=== PATIENT | male | born 1975 | race Caucasian/White ===

== ENCOUNTER 2020-08-09 00:02 | Inpatient (IN) | payer MEDICAID, SELFPAY ==
[2020-08-09] VITALS (14 sets, daily range): BP systolic 130–183; BP diastolic 72–97; PULSE 65–90; RESP 16–20; TEMP 36.3–37.3; O2SAT 94–100; BMI 29.0
--- NOTE | 2020-08-09 | MR_ITS ---
EXAMINATION: MR CHOLANGIOPANCREATOGRAPHY CLINICAL INFORMATION: Reason for Exam acute pancreatitis ? retained stone COMPARISON: None. TECHNIQUE: Multiple routine MRI sequences through the abdomen were obtained. Heavily T2-weighted images were performed utilizing a dedicated MRCP technique. Contrast was not utilized for the study. FINDINGS: Biliary system: The common bile duct is normal in course measuring up to 0.4 cm with no evidence for intra-or extrahepatic biliary ductal dilatation. No intraluminal filling defects are appreciated. There is a focal tapered narrowing of the common bile duct in the region of the pancreatic head/neck possibly reflecting sequela of underlying pancreatitis in this region Gallbladder: Surgically absent. Liver parenchyma is homogeneous in signal with no focal hepatic lesion appreciated. Pancreas: There is loss of normal pancreatic T1 bright signal within the pancreatic head and mid body more likely reflecting sequela of pancreatitis. There is peripancreatic fluid and edema again more so in the region of the pancreatic head. The peripancreatic fluid tracks along the anterior pararenal space on the right. I do not appreciate any obstructive changes to the normal caliber pancreatic duct. No visualized abnormalities are seen in the kidneys, adrenals, or spleen. MR/MR MRCP IMPRESSION: Loss of normal pancreatic signal in the pancreatic head with surrounding peripancreatic inflammatory changes and fluid suggesting sequela of pancreatitis. There is tapered narrowing of the common bile duct in the region the pancreatic head/neck also likely reflecting underlying pancreatitis. I do not appreciate any intraluminal filling defects within the common bile duct itself to suggest retained stone.
--- NOTE | 2020-08-09 00:35 | XR_ITS ---
EXAMINATION: XR CHEST CLINICAL INFORMATION: Cough and fever. Right upper quadrant pain. COMPARISON: 09/12/2015 TECHNIQUE: Frontal view of the chest was obtained. FINDINGS: Cardiac leads overlie the chest. The lungs are well expanded. There is no focal consolidation, edema, or effusion. No pneumothorax. The cardiomediastinal silhouette is within normal limits. No acute osseous abnormality. XR/XR chest 1V IMPRESSION: Clear lungs.
--- NOTE | 2020-08-09 00:35 | CT_ITS ---
EXAMINATION: CT ABDOMEN AND PELVIS WITH CONTRAST CLINICAL INFORMATION: Right upper quadrant/right flank pain. COMPARISON: 03/07/2014 TECHNIQUE: Multidetector volumetric images were obtained from the superior aspect of the liver through the pubic symphysis following administration 85 mL of Omnipaque 350 intravenous contrast. Sagittal and coronal reformatted images were obtained on the technologist's workstation. Oral contrast: No This CT examination was performed using dose optimization techniques as appropriate, variously including the following: *Automated exposure control *Adjustment of mA and/or kV according to patient size (this includes techniques or standardized protocols for targeted exams where dose is matched to indication/reason for exam; i.e. extremities or head) *Use of iterative reconstruction technique DLP: 491 mGy-cm FINDINGS: LUNG BASES: The visualized lung bases are unremarkable. LIVER, GALLBLADDER, AND BILIARY TREE: The liver is normal in size, shape, and attenuation. No focal hepatic lesion or biliary ductal dilatation is present. Cholecystectomy. PANCREAS: The pancreatic parenchyma is homogenous. There is inflammatory stranding in the fat surrounding the pancreatic head. No fluid collection. No pancreatic ductal dilatation. SPLEEN: Unremarkable. ADRENAL GLANDS: Unremarkable. KIDNEYS AND URETERS: The kidneys are normal in size, shape, and attenuation. No hydronephrosis, hydroureter, or calculi seen. No perinephric stranding. BLADDER: Unremarkable. GASTROINTESTINAL TRACT: The stomach is unremarkable. Normal caliber small bowel. There is no obstruction. Normal appendix. No colonic wall thickening or acute inflammatory change. No free air. No free fluid. Minimal colonic diverticulosis at the sigmoid colon noted. ABDOMINAL WALL: No significant hernia is appreciated. LYMPH NODES: Normal. VASCULAR: Unremarkable. PELVIC VISCERA: The prostate and seminal vesicles are unremarkable. OSSEOUS STRUCTURES: No acute or suspicious osseous abnormality. Mild degenerative changes noted in the spine. CT/CT abdomen pelvis w con IMPRESSION: Inflammatory changes are seen in the fat surrounding the pancreatic head. Correlate for acute pancreatitis. No fluid collection.
--- NOTE | 2020-08-09 00:36 | ECG_ITS ---
Test Reason : ABD PAINN Blood Pressure : / mmHG Vent. Rate : 064 BPM Atrial Rate : 064 BPM P-R Int : 154 ms QRS Dur : 094 ms QT Int : 422 ms P-R-T Axes : 068 -05 023 degrees QTc Int : 435 ms Normal sinus rhythm Normal ECG When compared with ECG of 01-OCT-2015 23:31, T wave inversion now evident in Inferior leads Referred By: Jozef Ybarra Electronically Signed By:TIMOTEO JOHN MD
--- NOTE | 2020-08-09 00:38 | ED.GENADULT ---
HPI - General Adult General Chief complaint: General Medical Stated complaint: Cough Time Seen by Provider: 08/09/20 00:17 Source: patient Mode of arrival: ambulatory Limitations: language barrier (relationship executive used to obtain information) History of Present Illness HPI narrative: 45-year-old male who presents the emergency department for evaluation of abdominal pain, back pain, chills, cough. Patient states that this morning at 10:00 a.m. he developed right upper quadrant pain he states that the pain is a constant, stabbing pain which is 10/10. The pain does radiate to his right flank. He states the had chills and subjective fever associated with his pain. The patient had a cholecystectomy 7 months prior done at [facility] and he states the pain feels similar to his gallbladder pain. The patient states that he has had a decreased appetite but has been able to drink fluids and eat soup throughout the day. Patient had nausea but this is now resolved. He denied vomiting. He denied diarrhea. He states he has had a cough since this morning which is nonproductive. He denied shortness of breath or dyspnea on exertion. He denied frequency, urgency or dysuria. The patient was tested for COVID-19 1 week prior and was negative. He states that he had a history of drinking alcohol but stopped after his cholecystectomy. He states that he was told that alcohol was affecting his liver and his pancreas. Related Data Allergies Allergy/AdvReac Type Severity Reaction Status Date / Time No Known Allergies Allergy Unverified 04/15/20 17:38 Review of Systems Review of Systems: Yes all other systems are reviewed and are negative Neurologic: Reports Abnormal speech present [facility] Past Medical History [facility] Narrative: The patient has a history of diabetes mellitus, hypertension, pancreatitis, cholecystectomy. He is . He is a former drinker but states he has not had any alcohol to drink in 7 months. He denies tobacco and drug use. Medical History (Updated 08/09/20 @ 05:17 by Jozef Ybarra MD) Diabetes HTN (hypertension) Social History Social History Smoking Status: Current every day smoker Advance Directives: No Physical Exam Vital Signs: Vital Signs: Last Vital Signs Temp 99.1 F 08/09/20 00:17 Pulse 65 08/09/20 02:00 Resp 18 08/09/20 03:34 BP 160/96 H 08/09/20 02:00 Pulse Ox 100 08/09/20 02:00 Body Mass Index 29.0 Const: General: cooperative and healthy appearing Orientation/consciousness: oriented to person and oriented to place Limitations: no limitations HENMT: Head: Yes normal to inspection, Yes normocephalic and Yes atraumatic Ears: external ears normal General nose exam: Normal external nose present Face and sinus: Yes normal facial exam Mouth: Normal oral and palatal mucosa present Throat: Yes posterior oropharynx normal Eyes: Periorbital: periorbital findings normal Eyelids: Yes eyelids normal Conjunctivae: conjunctivae normal Sclerae: sclerae normal Corneas: corneas normal Pupils: Equal, round and reactive pupils present Direct Ophthalmoscopy: normal light reflex Neck: Neck: Yes full ROM, Yes no lymphadenopathy, Yes no meningeal signs, Yes trachea midline and Yes supple Chest: Chest palpation & inspection: normal inspection of the chest and normal palpation of entire chest wall Resp: Effort & Inspection: normal respiratory effort and able to speak in complete sentences Auscultation: clear to auscultation bilaterally Cardio: Rate: regular rate Rhythm: regular rhythm Heart sounds: S1 normal heart sound present, S2 normal heart sound present and no murmurs GI: Inspection: Yes normal to inspection Palpation (GI): Soft to palpation, Tenderness to palpation present (GI) (Moderate) in the RUQ, no guarding, not rigid and No hepatosplenomegaly present : General: Yes CVA tenderness on the right (Moderate) Back/Spine/Pelvis: Cervical Spine: normal cervical lordosis Thoracic/Lumbar Spine: thoracic and lumbar spine normal to inspection Skin: Lesions: no lesions Rashes: no rashes Wounds: no wounds Neuro: General: oriented to person, oriented to place and no meningeal signs Cranial nerves: Yes Equal, round and reactive pupils present Cognition (Neuro): normal cognition Speech: Abnormal speech present Motor exam (neuro): 5/5 motor strength present throughout Extrem: General: Yes normal to inspection and Yes full ROM Psych: Appearance: well kempt Mental Status: mental status grossly normal Speech and movement: Normal speech and movement present Affect: normal affect Attitude: cooperative Thought process: Normal thought process present Thought content: Normal thought content present Course Course Course Narrative: 45-year-old male who presents emergency department for evaluation right upper quadrant abdominal pain, fever, chills and cough. Physical examination did reveal right upper quadrant tenderness as well as right flank tenderness. I did order an abdominal workup to include CT of the abdomen pelvis with IV contrast, chest x-ray, EKG, and laboratory evaluation. The patient was treated with Toradol 30 mg IV, Zofran 4 mg IV and normal saline x1 L. 0510: Patient's laboratory evaluation revealed an elevated glucose of 300, elevated AST of 65, elevated alk-phos of 152, elevated bilirubin of 1.2. Lipase was elevated as well at 106. CT scan did reveal inflammation around the patient's pancreas suggested as acute appendicitis as the causes pain. The patient got no relief of his pain with Toradol or morphine IV. He was ordered to get Dilaudid 1 mg IV. I will discuss the patient's presentation with the covering hospitalist the patient will need to be admitted for IV fluid and pain management. 0515: I did discuss the patient's presentation with the covering hospitalist, and the patient will be admitted for further treatment. Medical Decision Making Lab Data Result diagrams: 08/09/20 00:52 08/09/20 00:52 Labs: Lab Results 08/09/20 08/09/20 08/09/20 Range/Units 00:48 00:52 00:52 WBC 10.9 H (4.8-10.8) X10*3/uL RBC 4.58 L (4.60-5.80) X10*6/uL Hgb 14.2 (14.0-18.0) g/dl Hct 40.4 L (42-52) % MCV 88.2 (80-98) fL MCH 31.0 (27.0-33.0) pg MCHC 35.1 (31.0-36.0) g/dl RDW 12.3 (11.0-16.0) % Plt Count 230 (160-400) X10*3/uL MPV 10.5 (9.4-12.4) fL Immature Gran % (Auto) 0.3 (0.0-0.4) % Neut % (Auto) 75.5 H (45-73) % Lymph % (Auto) 17.0 L (20-40) % Finney % (Auto) 6.7 (2-11) % Eos % (Auto) 0.2 (0-4) % Baso % (Auto) 0.3 (0-2) % Lymph # (Auto) 1.8 (1.2-4.9) X10*3/uL Finney # (Auto) 0.7 (0.1-1.2) X10*3/uL Eos # (Auto) 0.0 (0.0-0.4) X10*3/uL Baso # (Auto) 0.0 (0.0-0.2) X10*3/uL Abs Immat Gran (auto) 0.03 (0.00-0.03) X10*3/uL Absolute Neuts (auto) 8.2 (2.0-8.3) X10*3/uL Absolute Nucleated RBC 0.000 (0.0-0.012) X10*3/uL Nucleated RBC % (auto) 0.0 (0.0-0.2) /100WBC PT 11.1 (10.8-13.0) SEC INR 0.9 (0.9-1.1) APTT 31.3 (24.1-38.0) SEC Sodium (135-145) mmol/L Potassium (3.3-5.1) mmol/l Chloride (96-108) mmol/L Carbon Dioxide (22-29) mmol/L Anion Gap (12-20) BUN (9-16) mg/dL Creatinine (0.5-1.4) mg/dL Estim Creat Clear Calc Estimated GFR Random Glucose (60-115) mg/dL Calcium (8.4-10.2) mg/dL Total Bilirubin (0.0-1.0) mg/dL AST (5-37) U/L ALT (0-40) U/L Alkaline Phosphatase (39-117) U/L Total Protein (6.5-8.0) g/dL Albumin (3.5-5.0) g/dL Lipase (8-78) U/L Coronavirus (PCR) NEGATIVE (Negative) Influenza Type A (PCR) NEGATIVE (Negative) Influenza Type B (PCR) NEGATIVE (Negative) RSV RNA Qual (PCR) NEGATIVE (Negative) 08/09/20 Range/Units 00:52 WBC (4.8-10.8) X10*3/uL RBC (4.60-5.80) X10*6/uL Hgb (14.0-18.0) g/dl Hct (42-52) % MCV (80-98) fL MCH (27.0-33.0) pg MCHC (31.0-36.0) g/dl RDW (11.0-16.0) % Plt Count (160-400) X10*3/uL MPV (9.4-12.4) fL Immature Gran % (Auto) (0.0-0.4) % Neut % (Auto) (45-73) % Lymph % (Auto) (20-40) % Finney % (Auto) (2-11) % Eos % (Auto) (0-4) % Baso % (Auto) (0-2) % Lymph # (Auto) (1.2-4.9) X10*3/uL Finney # (Auto) (0.1-1.2) X10*3/uL Eos # (Auto) (0.0-0.4) X10*3/uL Baso # (Auto) (0.0-0.2) X10*3/uL Abs Immat Gran (auto) (0.00-0.03) X10*3/uL Absolute Neuts (auto) (2.0-8.3) X10*3/uL Absolute Nucleated RBC (0.0-0.012) X10*3/uL Nucleated RBC % (auto) (0.0-0.2) /100WBC PT (10.8-13.0) SEC INR (0.9-1.1) APTT (24.1-38.0) SEC Sodium 134 L (135-145) mmol/L Potassium 4.0 (3.3-5.1) mmol/l Chloride 98 (96-108) mmol/L Carbon Dioxide 24 (22-29) mmol/L Anion Gap 16 (12-20) BUN 21 H (9-16) mg/dL Creatinine 0.87 (0.5-1.4) mg/dL Estim Creat Clear Calc 107.5 Estimated GFR > 60 Random Glucose 300 H (60-115) mg/dL Calcium 8.9 (8.4-10.2) mg/dL Total Bilirubin 1.2 H (0.0-1.0) mg/dL AST 32 (5-37) U/L ALT 65 H (0-40) U/L Alkaline Phosphatase 154 H (39-117) U/L Total Protein 7.5 (6.5-8.0) g/dL Albumin 4.0 (3.5-5.0) g/dL Lipase 186 H (8-78) U/L Coronavirus (PCR) (Negative) Influenza Type A (PCR) (Negative) Influenza Type B (PCR) (Negative) RSV RNA Qual (PCR) (Negative) Discharge Plan Discharge Clinical Impression: Acute pancreatitis Patient Disposition: Admitted As Inpatient
[2020-08-09] MEDS: Ketorolac Tromethamine 30 MG/ML VIAL IVPUSH (00:54)
[2020-08-09] MEDS: 0.9 % Sodium Chloride 1,000 ML 999 ML IV ×2 (00:55→05:25)
[2020-08-09 00:56] LABS: Basophils Percent Auto 0.3 % (0-2); Eosinophils Percent Auto 0.2 % (0-4); Hematocrit 40.4 % (42-52); Hemoglobin 14.2 g/dl (14.0-18.0); Imm Gran Abs Auto 0.03 X10*3/uL (0.00-0.03); Imm Gran Pct Auto 0.3 % (0.0-0.4); Lymphocytes Absolute Auto 1.8 X10*3/uL (1.2-4.9); MANUAL DIFF FLAG NO; Mean Corpuscular HGB Conc 35.1 g/dl (31.0-36.0); Mean Corpuscular Volume 88.2 fL (80-98); Mean Platelet Volume 10.5 fL (9.4-12.4); Monocytes Absolute Auto 0.7 X10*3/uL (0.1-1.2); Monocytes Percent Auto 6.7 % (2-11); Neutrophils Absolute Auto 8.2 X10*3/uL (2.0-8.3); Neutrophils Percent Auto 75.5 % (45-73); Platelet Count 230 X10*3/uL (160-400); Red Blood Count 4.58 X10*6/uL (4.60-5.80); Red Cell Distribution Width 12.3 % (11.0-16.0); White Blood Count 10.9 X10*3/uL (4.8-10.8)
[2020-08-09 01:02] LABS: INTERNATIONAL NORM RATIO 0.9 (0.9-1.1); Prothrombin Time 11.1 SEC (10.8-13.0)
[2020-08-09 01:04] LABS: Partial Thromboplastin Time 31.3 SEC (24.1-38.0)
[2020-08-09 01:29] LABS: Alanine Aminotransferase 65 U/L (0-40); Alkaline Phosphatase 154 U/L (39-117); Anion Gap 16 (12-20); Aspartate Amino Transferase 32 U/L (5-37); Bilirubin Total 1.2 mg/dL (0.0-1.0); Blood Urea Nitrogen 21 mg/dL (9-16); Calcium 8.9 mg/dL (8.4-10.2); Carbon Dioxide 24 mmol/L (22-29); Chloride 98 mmol/L (96-108); Creatinine Clr Calc Pharmacy 107.5; Estimated Glomerular Filt Rate > 60; Glucose Random 300 mg/dL (60-115); Sodium 134 mmol/L (135-145); Total Protein 7.5 g/dL (6.5-8.0)
[2020-08-09 01:42] LABS: Influenza A PCR NEGATIVE (Negative); Influenza B PCR NEGATIVE (Negative); Resp Syncy Virus RNA Qual PCR NEGATIVE (Negative); SARS COV2 PCR INHOUSE NEGATIVE (Negative)
[2020-08-09 01:42] LABS: Lipase 186 U/L (8-78)
[2020-08-09] MEDS: iohexoL 350 MG/ML 100 ML INFUS..BTL 85 ML IV (02:57)
[2020-08-09] MEDS: Morphine Sulfate 4 MG/ML CARTRIDGE IVPUSH ×3 (03:05→15:18)
[2020-08-09] MEDS: HYDROmorphone HCl 1 MG/ML SYRINGE IVPUSH (05:24)
--- NOTE | 2020-08-09 06:06 | PM.IMHP ---
History of Present Illness Date of Service: 08/09/20 Chief Complaint: abdominal pain This is a 45-year-old male with past medical history of pancreatitis 7 months ago, status post cholecystectomy who presents to the hospital with right upper quadrant pain radiating to the back, the pain started yesterday morning, 10, sharp stabbing, associated with nausea and no vomiting, no worsening or alleviating factors. He denies drinking alcohol for the past 7 months and reports had a cholecystectomy about 7 months ago after developing acute pancreatitis at [facility]. He denies any headache, change in vision, no chest pain, no cough, no shortness of breath, no urinary symptoms and no lower extremity edema. On arrival to the ED hemodynamically stable with no significant abnormal vitals, Labs are significant for WBC count of 10.9, hemoglobin of 14.2, hematocrit 40.4, sodium of 134, potassium 4.0, BUN of 21, creatinine of 0.87, total bili of 1.2, ALT of 65, AST of 32, alk-phos of 154, lipase of 186. Abdomen CT shows inflammatory changes are seen in the fat surrounding the pancreatic head correlate for acute pancreatitis. Past medical history: Diabetes, hypertension, pancreatitis Surgical history: Status post cholecystectomy Family history: Diabetes hypertension Social history: Comes from home, denies any tobacco alcohol or illicit drugs at this time. Last alcoholic drink was 7 months ago. Review of Systems Review of Systems: Yes all other systems are reviewed and are negative Neurologic: Reports Abnormal speech present [facility] Medical History Diabetes HTN (hypertension) Social History Smoking Status: Current every day smoker Advance Directives: No Meds Allergies Allergy/AdvReac Type Severity Reaction Status Date / Time No Known Allergies Allergy Unverified 04/15/20 17:38 Physical Exam Vital Signs and Narrative: Vital Signs: Last Vital Signs Temp 99.1 F 08/09/20 00:17 Pulse 68 08/09/20 05:26 Resp 18 08/09/20 05:26 BP 156/80 H 08/09/20 05:26 Pulse Ox 100 08/09/20 02:00 Body Mass Index 29.0 Const: General: cooperative and no acute distress Orientation/consciousness: patient oriented x3 Eyes: General: appearance normal, both eyes and all related structures Resp: Effort & Inspection: normal respiratory effort and able to speak in complete sentences Cardio: Rate: regular rate Rhythm: regular rhythm GI: Other: Abdominal tenderness, epigastric, right upper quadrant tenderness, no rebound, no guarding Palpation (GI): Soft to palpation Auscultation: normal bowel sounds Skin: General skin exam: no rashes or lesions noted Neuro: General: patient oriented x3 Cognition (Neuro): normal cognition Speech: Abnormal speech present Extrem: General: Yes normal to inspection and Yes no pedal edema Results Labs CBC and Chem 7: 08/09/20 00:52 08/09/20 00:52 Labs: Laboratory Results - last 24 hr 08/09/20 08/09/20 08/09/20 00:48 00:52 00:52 MCV 88.2 MCH 31.0 MCHC 35.1 RDW 12.3 Plt Count 230 MPV 10.5 Immature Gran % (Auto) 0.3 Neut % (Auto) 75.5 H Lymph % (Auto) 17.0 L Ector % (Auto) 6.7 Eos % (Auto) 0.2 Baso % (Auto) 0.3 Lymph # (Auto) 1.8 Ector # (Auto) 0.7 Eos # (Auto) 0.0 Baso # (Auto) 0.0 Abs Immat Gran (auto) 0.03 Absolute Neuts (auto) 8.2 Absolute Nucleated RBC 0.000 Nucleated RBC % (auto) 0.0 PT 11.1 INR 0.9 APTT 31.3 Anion Gap Estim Creat Clear Calc Estimated GFR Random Glucose Calcium Total Bilirubin AST ALT Alkaline Phosphatase Total Protein Albumin Lipase Coronavirus (PCR) NEGATIVE Influenza Type A (PCR) NEGATIVE Influenza Type B (PCR) NEGATIVE RSV RNA Qual (PCR) NEGATIVE 08/09/20 00:52 MCV MCH MCHC RDW Plt Count MPV Immature Gran % (Auto) Neut % (Auto) Lymph % (Auto) Ector % (Auto) Eos % (Auto) Baso % (Auto) Lymph # (Auto) Ector # (Auto) Eos # (Auto) Baso # (Auto) Abs Immat Gran (auto) Absolute Neuts (auto) Absolute Nucleated RBC Nucleated RBC % (auto) PT INR APTT Anion Gap 16 Estim Creat Clear Calc 107.5 Estimated GFR > 60 Random Glucose 300 H Calcium 8.9 Total Bilirubin 1.2 H AST 32 ALT 65 H Alkaline Phosphatase 154 H Total Protein 7.5 Albumin 4.0 Lipase 186 H Coronavirus (PCR) Influenza Type A (PCR) Influenza Type B (PCR) RSV RNA Qual (PCR) Imaging Radiologist's Impressions: Impressions Abdomen/Pelvis CT 08/09/20 00:35 IMPRESSION: Inflammatory changes are seen in the fat surrounding the pancreatic head. Correlate for acute pancreatitis. No fluid collection. Chest X-Ray 08/09/20 00:35 IMPRESSION: Clear lungs. Assessment and Plan (1) Acute pancreatitis: Qualifiers: Pancreatitis type: idiopathic Acute pancreatitis complication: no infection or necrosis Qualified Code(s): K85.00 - Idiopathic acute pancreatitis without necrosis or infection Status: Acute 45-year-old male with past medical history of pancreatitis, diabetes and hypertension who presents to the hospital with abdominal pain found to have pancreatitis # acute pancreatitis - had history of cholecystitis with status post cholecystectomy 7 months ago - denies alcohol use, - has elevated lipase, CT abdomen suggestive of acute pancreatitis and typical abdominal pain Plan: - will obtain triglyceride levels - IV fluids - NPO - pain management # diabetes - MED review pending - will start on low-dose sliding scale insulin - diabetic diet # hypertension - stable DVT prophylaxis: Lovenox
[2020-08-09 06:44] LABS: Glucose Urine UA 500 MG/DL (NEG); Leukocyte Esterase Urine NEG (NEG); Nitrite Urine NEG (NEG); Urine Blood NEG (NEG); Urine Ketones NEG (NEG); Urine Protein NEG (NEG-TRACE)
[2020-08-09 06:59] LABS: Appearance Urine CLEAR; Color Urine YELLOW
[2020-08-09 07:04] LABS: Triglycerides 354 mg/dL
[2020-08-09] MEDS: Enoxaparin Sodium 40 MG/0.4 ML SYRINGE SUBCUT (09:52)
[2020-08-09] MEDS: 0.9 % Sodium Chloride 1,000 ML 200 ML IVCONT ×2 (09:56→15:13)
[2020-08-09] MEDS: 0.9 % Sodium Chloride Flush 3 ML SYRINGE IVFLUSH ×2 (09:56→17:33)
--- NOTE | 2020-08-09 11:01 | P.CNGI_ITS ---
History of Present Illness Data of Consult Service Date: 08/09/20 Requesting physician: Hitesh Lozoya Primary Care Provider: DO DAMIAN Atwood Reason for consult: acute pancreatitis 45 YM with hypertension, diabetes presented to [facility] [place] [place] ED last night with abdominal pain: 45-year-old male who presents the emergency department for evaluation of abdominal pain, back pain, chills, cough. Patient states that this morning at 10:00 a.m. he developed right upper quadrant pain he states that the pain is a constant, stabbing pain which is 10/10. The pain does radiate to his right flank. He states the had chills and subjective fever associated with his pain. The patient had a cholecystectomy 7 months prior done at [facility] and he states the pain feels similar to his gallbladder pain. The patient states that he has had a decreased appetite but has been able to drink fluids and eat soup throughout the day. Patient had nausea but this is now resolved. He denied vomiting. He denied diarrhea. He states he has had a cough since this morning which is nonproductive. He denied shortness of breath or dyspnea on exertion. He denied frequency, urgency or dysuria. The patient was tested for COVID-19 1 week prior and was negative. He states that he had a history of drinking alcohol but stopped after his cholecystectomy. He states that he was told that alcohol was affecting his liver and his pancreas . Labs showed leukocytosis with left shift, lipase of 186 with elevated LFTs. Pt was admitted for further management. Pt gives hx of sudden onset of epigastric/RUQ pain 2-3 hrs after eating pork with rice and beans yesterday morning. Pain was stabbing and 10/10 in intensity. Pain was accompanied by nausea and chills, patient denies vomiting, heartburn, dysphagia, fever, change in bowel movement, hematochezia or melena. Patient admits to unintentional weight loss of 7 lb over the past 2-3 months. Abdominal pain has improved to 8/10 today. Of note patient had a lap radha 7 months ago at [facility] for gallstones. Abdominal pain is similar to pain he experienced prior to having the lap radha. Patient admits to heavy alcohol abuse in the past and quitted drinking 3 months ago. Patient denies known family history of pancreatic disease, colon polyps, colon cancer or GI malignancy. Family history is positive for diabetes in his mom, sister and brother. ABD CT scan showed: LIVER, GALLBLADDER, AND BILIARY TREE: The liver is normal in size, shape, and attenuation. No focal hepatic lesion or biliary ductal dilatation is present. Cholecystectomy. PANCREAS: The pancreatic parenchyma is homogenous. There is inflammatory stranding in the fat surrounding the pancreatic head. No fluid collection. No pancreatic ductal dilatation. Review of Systems Constitutional: Constitutional: Reports chills, Denies fever(s), Denies headache(s) and Reports weight loss Eyes: Eyes: Denies eye discharge and Denies irritation ENT: Reports Normal hearing present, Denies dysphagia, Denies dizziness and Denies headache(s) Cardiovascular: Cardiovascular: Denies chest pain, Denies leg edema and Denies dyspnea on exertion Respiratory: Respiratory: Denies cough and Denies dyspnea on exertion Gastrointestinal: Gastrointestinal: Reports abdominal pain, Denies change in bowel habits, Denies dysphagia, Denies heartburn and Reports nausea Genitourinary: Genitourinary: Denies dysuria Musculoskeletal: Musculoskeletal: Denies back pain and Denies arthralgias Integumentary/Breasts: Skin/Breast: Denies pruritus, Denies rash and Denies jaundice Neurologic: Reports Normal hearing present, Reports Abnormal speech present, Denies dizziness and Denies headache(s) Psychiatric: Psychiatric: Denies anxiety, Denies depression and Denies panic attacks Endocrine: Endocrine: Denies cold intolerance, Denies flushing and Denies heat intolerance PMFSH Past Medical History Medical History (Updated 09/30/20 @ 07:56 by Lulu Amos MD) Diabetes HTN (hypertension) Surgical History Surgical History (Updated 08/09/20 @ 18:05 by Lulu Amos MD) History of laparoscopic cholecystectomy Social History Social History (Updated 09/30/20 @ 07:50 by Kristin Corral CMA) Household Members: None Housing: Apartment Alcohol intake: never Smoking Status: Former smoker service: No Current occupational status: previously employed 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 [employer] Allergies Allergy/AdvReac Type Severity Reaction Status Date / Time No Known Allergies Allergy Verified 09/30/20 07:47 Home Medications Medication Instructions Recorded Confirmed Type Lantus U-100 Insulin 14 unit SUBCUT QAM 08/09/20 09/30/20 History aspirin [Ecotrin Low Strength] 81 mg PO DAILY 08/09/20 09/30/20 History cholecalciferol (vitamin D3) 50 mcg PO DAILY 08/09/20 09/30/20 History [Vitamin D3] guaifenesin 200 mg PO Q4H PRN 08/09/20 09/30/20 History insulin lispro [Humalog U-100 1 sliding scale dose SUBCUT 08/09/20 09/30/20 History Insulin] USEASDIRECTD lisinopril 5 mg PO DAILY 08/09/20 09/30/20 History multivitamin 1 tab PO DAILY 08/09/20 09/30/20 History Physical Exam Vital Signs: Vital Signs: Last Vital Signs Temp 99.1 F 08/09/20 00:17 Pulse 83 08/09/20 07:28 Resp 17 08/09/20 07:28 BP 130/81 08/09/20 07:28 Pulse Ox 95 08/09/20 07:28 Body Mass Index 29.0 Const: General: healthy appearing and no acute distress Nutritional Appearance: average body habitus Orientation/consciousness: patient oriented x3 Limitations: no limitations HENMT: Head: Yes normal to inspection Ears: hearing grossly normal bilat erally Mouth: Normal oral and palatal mucosa present Eyes: Sclerae: sclerae normal Pupils: Equal, round and reactive pupils present Neck: Neck: Yes normal visual inspection Chest: Chest palpation & inspection: normal inspection of the chest Resp: Effort & Inspection: normal respiratory effort Auscultation: clear to auscultation bilaterally Cardio: Palpation: normal PMI Rate: regular rate Rhythm: regular rhythm Heart sounds: S1 normal heart sound present, S2 normal heart sound present and no murmurs GI: Palpation (GI): Soft to palpation, Tenderness to palpation present (GI) in the epigastrum and in the RUQ and No hepatosplenomegaly present Auscultation: normal bowel sounds Rectal Exam - Male: Yes deferred Skin: General skin exam: no rashes or lesions noted Neuro: General: patient oriented x3, gait normal and moves all extremities Cranial nerves: Yes Equal, round and reactive pupils present and Yes Normal hearing present Speech: Abnormal speech present Psych: Appearance: grossly normal Mental Status: mental status grossly normal Results Labs CBC & Chem 7: 08/11/20 05:53 08/11/20 05:53 Labs: Short CBC 08/09/20 Range/Units 00:52 WBC 10.9 H (4.8-10.8) X10*3/uL Hgb 14.2 (14.0-18.0) g/dl Hct 40.4 L (42-52) % Plt Count 230 (160-400) X10*3/uL BMP 08/09/20 00:52 Sodium 134 L Potassium 4.0 Chloride 98 Carbon Dioxide 24 BUN 21 H Creatinine 0.87 Calcium 8.9 Liver Function 08/09/20 Range/Units 00:52 Total Bilirubin 1.2 H (0.0-1.0) mg/dL AST 32 (5-37) U/L ALT 65 H (0-40) U/L Alkaline Phosphatase 154 H (39-117) U/L Albumin 4.0 (3.5-5.0) g/dL Urine 08/09/20 Range/Units 06:29 Urine Color YELLOW Urine Appearance CLEAR Urine pH 7.0 (5.0-8.0) Ur Specific [place] 1.010 (1.005-1.025) Urine Protein NEG (NEG-TRACE) MG/DL Urine Glucose (UA) 500 H (NEG) MG/DL Assessment and Plan (1) Acute pancreatitis: Qualifiers: Acute pancreatitis complication: no infection or necrosis Pancreatitis type: idiopathic Qualified Code(s): K85.00 - Idiopathic acute pancreatitis without necrosis or infection Status: Resolved (2) Elevated LFTs: Status: Acute (3) Diabetes: Status: Acute 45 YM with DM x 14 yrs, admitted with abdominal pain and elevated LFTs and lipase. Normal triglycerides. CT scan showed inflammatory stranding in the fat surrounding the pancreatic head. Pt is status post Lap Radha 7 months ago for gallstones. Acute pancreatitis is likely due to a retained gallstones or sludge in the CBD. RECOMMENDATIONS: 1. He can be started on a clear liquid diet in the am and diet advanced as tolerated. 2. Schedule for MRCP in the am. IF MRCP shows biliary obstruction, I will schedule him for an ERCP with Dr Morales
[2020-08-09 12:57] LABS: Glucose, Whole Blood 244 mg/dL (60-115)
[2020-08-09 13:39] LABS: Glucose, Whole Blood 221 mg/dL (60-115)
[2020-08-09 15:16] LABS: Glucose, Whole Blood 225 mg/dL (60-115)
[2020-08-09 16:45] LABS: Glucose, Whole Blood 209 mg/dL (60-115)
[2020-08-09] MEDS: Insulin Lispro 100 UNIT/ML 3 ML VIAL SUBCUT ×2 (17:32→20:49)
[2020-08-09] MEDS: amLODIPine Besylate 5 MG TABLET PO (19:17)
[2020-08-09 20:59] LABS: Glucose, Whole Blood 154 mg/dL (60-115)
[2020-08-09] MEDS: 0.9 % Sodium Chloride 1,000 ML 150 ML IVCONT (21:32)
[2020-08-10 03:29] VITALS: BP 150/80; PULSE 96; RESP 19; TEMP 36.8; O2SAT 96
[2020-08-10] MEDS: 0.9 % Sodium Chloride 1,000 ML 150 ML IVCONT ×3 (03:36→16:39)
[2020-08-10 06:38] LABS: MANUAL DIFF FLAG NO
[2020-08-10 06:46] LABS: Basophils Percent Auto 0.2 % (0-2); Eosinophils Percent Auto 0.2 % (0-4); Hematocrit 37.4 % (42-52); Hemoglobin 13.1 g/dl (14.0-18.0); Imm Gran Abs Auto 0.06 X10*3/uL (0.00-0.03); Imm Gran Pct Auto 0.5 % (0.0-0.4); Lymphocytes Absolute Auto 1.4 X10*3/uL (1.2-4.9); Mean Corpuscular Volume 88.4 fL (80-98); Monocytes Absolute Auto 0.7 X10*3/uL (0.1-1.2); Neutrophils Absolute Auto 10.1 X10*3/uL (2.0-8.3); Neutrophils Percent Auto 82.1 % (45-73); Platelet Count 216 X10*3/uL (160-400); Red Blood Count 4.23 X10*6/uL (4.60-5.80); Red Cell Distribution Width 12.1 % (11.0-16.0); White Blood Count 12.3 X10*3/uL (4.8-10.8)
[2020-08-10 07:21] LABS: Anion Gap 15 (12-20); Blood Urea Nitrogen 6 mg/dL (9-16); Calcium 8.2 mg/dL (8.4-10.2); Carbon Dioxide 24 mmol/L (22-29); Chloride 99 mmol/L (96-108); Creatinine Clr Calc Pharmacy 148.5; Estimated Glomerular Filt Rate > 60; Glucose Random 144 mg/dL (60-115); Lipase 51 U/L (8-78); Potassium 3.5 mmol/l (3.3-5.1); Sodium 134 mmol/L (135-145)
[2020-08-10 07:29] LABS: Alanine Aminotransferase 125 U/L (0-40); Albumin Level 3.4 g/dL (3.5-5.0); Alkaline Phosphatase 192 U/L (39-117); Anion Gap 16 (12-20); Aspartate Amino Transferase 76 U/L (5-37); Bilirubin Direct 0.5 mg/dL (0.0-0.5); Bilirubin Total 1.2 mg/dL (0.0-1.0); Blood Urea Nitrogen 5 mg/dL (9-16); Calcium 8.1 mg/dL (8.4-10.2); Carbon Dioxide 24 mmol/L (22-29); Chloride 100 mmol/L (96-108); Creatinine Clr Calc Pharmacy 143.9; Estimated Glomerular Filt Rate > 60; Glucose Random 145 mg/dL (60-115); Potassium 3.5 mmol/l (3.3-5.1); Sodium 136 mmol/L (135-145); Total Protein 6.4 g/dL (6.5-8.0)
[2020-08-10 08:04] LABS: Glucose, Whole Blood 169 mg/dL (60-115)
[2020-08-10] MEDS: Insulin Lispro 100 UNIT/ML 3 ML VIAL SUBCUT ×3 (08:13→20:54)
[2020-08-10] MEDS: Enoxaparin Sodium 40 MG/0.4 ML SYRINGE SUBCUT (08:14)
[2020-08-10] MEDS: amLODIPine Besylate 5 MG TABLET PO (08:14)
--- NOTE | 2020-08-10 10:44 | MHC.CM.PN ---
CM MET WITH PATIENT WITH CAN CUTTER, PT PLAN TO DISCHARGE HOME SELF-CARE, FAMILY/FRIEND TO TRANSPORT. PT REPORTS HE IS INDEPENDENT WITH ALL CARE PRIOR TO HOSPITAL STAY, PT DENIES USE OF DME AT HOME, PT DOES RECEIVE INSULIN SUPPLIES FROM [facility], PT DENIES HOME SERVICES, PT DOES REPORT HE HAS BEEN SOBER FOR 7MOS WHEN HE HAD HIS GALLBLADDER REMOVED, PT DENIES PARTICIPATING IN AA OR ANY OTHER SUBSTANCE ABUSE DETOX/TREATMENT, PT REPORTS SOBRIETY IS GOING WELL AND DECLINE CARE TEAM AT THIS TIME. PT HAS NO HEALTH CARE PROXY AND WHEN OFFERED ASSISTANCE BY CM PT DECLINED. PT TO HAVE MRCP AND DEPENDING ON RESULTS MAY NEED ERCP.
[2020-08-10 11:46] VITALS: BP 137/77; PULSE 92; RESP 18; TEMP 36.9; O2SAT 98
[2020-08-10 12:08] LABS: Glucose, Whole Blood 126 mg/dL (60-115)
[2020-08-10 15:02] VITALS: BP 138/79; PULSE 91; RESP 16; TEMP 36.9; O2SAT 97
--- NOTE | 2020-08-10 15:43 | HO.PM.IMPN ---
Subjective Subjective Date of Service: 08/10/20 Interval History: Patient admitted for pancreatitis feeling better this a.m. asking to eat and MRI of CP of abdomen showed narrowing of common bile duct, no stones noted LFTs mildly elevated, no nausea vomiting, no other acute issues overnight. Review of Systems General no headache, no dizziness, no fever chills. CVS no chest pain, no palpitation. Respiratory no cough, no sputum production no respiratory distress. Gastrointestinal no nausea, no vomiting, no abdominal pain Physical Exam Vital Signs: Vital Signs: Last Vital Signs Temp 98.4 F 08/10/20 15:02 Pulse 91 08/10/20 15:02 Resp 16 08/10/20 15:02 BP 138/79 08/10/20 15:02 Pulse Ox 97 08/10/20 15:02 Body Mass Index 29.0 General patient resting comfortably in no acute distress. Neck is supple no JVD. CVS regular rate rhythm, Respiratory lungs clear to auscultation, no respiratory distress, no wheeze, no rhonchi. Gastrointestinal abdomen soft, nontender, bowel sounds audible, no guarding , no rigidity. Extremities no clubbing cyanosis or edema. Neuro nonfocal Skin no rash Objective Data Current Medications Generic Name Dose Route Start Last Admin Trade Name Freq PRN Reason Stop Dose Admin Acetaminophen 650 mg 08/09/20 09:27 Acetaminophen 325 Mg Tablet PO Q6H PRN Pain, Mild (Pain Scale 1-3) Amlodipine Besylate 5 mg 08/09/20 17:20 08/10/20 08:14 Amlodipine Besylate 5 Mg Tablet PO 5 mg DAILY LUIS Administration Protocol Docusate Sodium 100 mg 08/09/20 09:27 Docusate Sodium 100 Mg Capsule PO DAILY PRN Constipation Enoxaparin Sodium 40 mg 08/09/20 09:27 08/10/20 08:14 Enoxaparin Sodium 40 Mg/0.4 Ml Syringe SUBCUT 40 mg Q24H LUIS Administration Sodium Chloride 1,000 mls @ 100 mls/hr 08/09/20 09:27 08/10/20 10:05 Ns IVCONT 150 mls/hr .Q10H LUIS Administration Insulin Human Lispro 0 unit 08/09/20 07:30 08/10/20 12:56 Insulin Lispro 100 Unit/Ml 3 Ml Vial SUBCUT Not Given QIDACHS LUIS Protocol Morphine Sulfate 4 mg 08/09/20 09:27 08/09/20 15:18 Morphine Sulfate 4 Mg/Ml Cartridge IVPUSH 4 mg Q4H PRN Administration Pain, Severe (Pain Scale 7-10) Ondansetron HCl 4 mg 08/09/20 09:27 Ondansetron Hcl 4 Mg/2 Ml Vial IVPUSH Q8H PRN Nausea and Vomiting Pharmacy Consult 1 each 08/09/20 06:15 Consult Rx Perform Med Rec MISCELLANE ONCE PRN Consult order Sodium Chloride 3 ml 08/09/20 09:27 08/10/20 14:42 0.9 % Sodium Chloride Flush 3 Ml Syringe IVFLUSH Not Given QSHIFT LUIS Labs CBC & Chem 7: 08/10/20 05:55 08/10/20 05:55 Assessment and Plan (1) Acute pancreatitis: Status: Acute (2) Diabetes: Status: Acute (3) HTN (hypertension): Status: Acute (4) Elevated LFTs: Status: Acute Assessment and Plan: 45-year-old male with past medical history of pancreatitis, diabetes and hypertension who presents to the hospital with abdominal pain found to have pancreatitis # acute pancreatitis history of cholelithiasis status post cholecystectomy 7 months ago, no alcohol use, triglyceride less than 400 CT abdomen suggestive of acute pancreatitis , MRCP showed narrowing of distal common bile duct in the region of pancreatic head, with no stone or obstruction lipase normalized, LFTs slightly worse than admission case discussed with Dr. Amos she recommend to start diet since patient abdominal pain has resolved will follow LFTs at a.m. if they continue to trend up then patient will undergo ERCP Will place patient on regular low-fat diet, wean IV fluids follow LFTs at a.m. # diabetes Blood sugar 126 this morning since patient npo, just place patient on diet, will place on low-dose Lantus and continue insulin sliding scale # hypertension - BP stable today is on lisinopril at home will resume medication if BP trends up DVT prophylaxis: Lovenox
[2020-08-10 16:25] LABS: Glucose, Whole Blood 326 mg/dL (60-115)
[2020-08-10 19:00] VITALS: BP 120/77; PULSE 83; RESP 17; TEMP 36.2; O2SAT 97
[2020-08-10 20:44] LABS: Glucose, Whole Blood 223 mg/dL (60-115)
[2020-08-10] MEDS: Insulin Glargine,Hum.rec.anlog 100 UNIT/ML 10 ML VIAL 6 UNIT SUBCUT (20:54)
[2020-08-10] MEDS: 0.9 % Sodium Chloride 1,000 ML 100 ML IVCONT (22:41)
[2020-08-10 23:57] VITALS: BP 132/79; PULSE 75; RESP 18; TEMP 36.8; O2SAT 97
[2020-08-11 03:42] VITALS: BP 123/70; PULSE 73; RESP 18; TEMP 36.7; O2SAT 97
[2020-08-11 06:23] LABS: MANUAL DIFF FLAG NO
[2020-08-11 06:37] LABS: Basophils Percent Auto 0.3 % (0-2); Eosinophils Absolute Auto 0.1 X10*3/uL (0.0-0.4); Eosinophils Percent Auto 1.1 % (0-4); Hemoglobin 12.3 g/dl (14.0-18.0); Imm Gran Abs Auto 0.02 X10*3/uL (0.00-0.03); Imm Gran Pct Auto 0.3 % (0.0-0.4); Lymphocytes Absolute Auto 1.7 X10*3/uL (1.2-4.9); Lymphocytes Percent Auto 25.3 % (20-40); Mean Corpuscular HGB Conc 35.1 g/dl (31.0-36.0); Mean Corpuscular Hemoglobin 31.1 pg (27.0-33.0); Mean Corpuscular Volume 88.4 fL (80-98); Mean Platelet Volume 11.1 fL (9.4-12.4); Monocytes Absolute Auto 0.7 X10*3/uL (0.1-1.2); Monocytes Percent Auto 10.1 % (2-11); Neutrophils Absolute Auto 4.1 X10*3/uL (2.0-8.3); Neutrophils Percent Auto 62.9 % (45-73); Platelet Count 220 X10*3/uL (160-400); Red Blood Count 3.96 X10*6/uL (4.60-5.80); Red Cell Distribution Width 12.2 % (11.0-16.0); White Blood Count 6.6 X10*3/uL (4.8-10.8)
[2020-08-11 07:07] VITALS: BP 141/75; PULSE 78; RESP 18; TEMP 36.8; O2SAT 97
[2020-08-11 07:14] LABS: Glucose, Whole Blood 169 mg/dL (60-115)
[2020-08-11 07:19] LABS: Alanine Aminotransferase 99 U/L (0-40); Albumin Level 3.3 g/dL (3.5-5.0); Alkaline Phosphatase 179 U/L (39-117); Anion Gap 13 (12-20); Aspartate Amino Transferase 38 U/L (5-37); Bilirubin Direct 0.3 mg/dL (0.0-0.5); Bilirubin Total 0.7 mg/dL (0.0-1.0); Blood Urea Nitrogen 8 mg/dL (9-16); Calcium 8.1 mg/dL (8.4-10.2); Carbon Dioxide 24 mmol/L (22-29); Chloride 105 mmol/L (96-108); Creatinine Clr Calc Pharmacy 137.6; Estimated Glomerular Filt Rate > 60; Glucose Random 170 mg/dL (60-115); Potassium 3.4 mmol/l (3.3-5.1); Sodium 139 mmol/L (135-145); Total Protein 6.3 g/dL (6.5-8.0)
[2020-08-11] MEDS: Insulin Lispro 100 UNIT/ML 3 ML VIAL SUBCUT (07:46)
[2020-08-11] MEDS: amLODIPine Besylate 5 MG TABLET PO (07:48)
[2020-08-11] MEDS: Enoxaparin Sodium 40 MG/0.4 ML SYRINGE SUBCUT (07:49)
--- NOTE | 2020-08-11 10:46 | MHC.CM.PN ---
Pt discharging home self-care, family to transport.
--- NOTE | 2020-08-11 10:47 | P.DS_ITS ---
DS: Providers Provider Date of Service: 08/11/20 Date of admission: 08/09/20 05:54 Primary care physician: Kristin León DO Consults: 08/09/20 09:15 Consult to Gastroenterology Routine Consulting Provider: Lulu Amos Reason for consultation: recurrent pancreatitis Has provider been notified: No DS: Diagnosis Discharge Diagnosis (1) Acute pancreatitis: Status: Acute (2) Diabetes: Status: Acute (3) HTN (hypertension): Status: Acute (4) Elevated LFTs: Status: Acute DS: Medications Discharge Medications Home Medications: Home Medications Medication Instructions Recorded Confirmed Lantus U-100 Insulin 14 unit SUBCUT QAM 08/09/20 08/09/20 aspirin [Ecotrin Low Strength] 81 mg PO DAILY 08/09/20 08/09/20 cholecalciferol (vitamin D3) 50 mcg PO DAILY 08/09/20 08/09/20 [Vitamin D3] guaifenesin 200 mg PO Q4H PRN 08/09/20 08/09/20 insulin lispro [Humalog U-100 1 sliding scale dose SUBCUT 08/09/20 08/09/20 Insulin] USEASDIRECTD lisinopril 5 mg PO DAILY 08/09/20 08/09/20 multivitamin 1 tab PO DAILY 08/09/20 08/09/20 DS: Summary Hospital Course Hospital Course: History of presenting illness 45-year-old male with past medical history of pancreatitis 7 months ago, status post cholecystectomy who presents to the hospital with right upper quadrant pain radiating to the back, the pain started yesterday morning, 10/10, sharp stabbing, associated with nausea and no vomiting, no worsening or alleviating factors. He denies drinking alcohol for the past 7 months and reports had a cholecystectomy about 7 months ago after developing acute pancreatitis at [facility]. He denies any headache, change in vision, no chest pain, no cough, no shortness of breath, no urinary symptoms and no lower extremity edema. On arrival to the ED hemodynamically stable with no significant abnormal vitals, Labs are significant for WBC count of 10.9, hemoglobin of 14.2, hematocrit 40.4, sodium of 134, potassium 4.0, BUN of 21, creatinine of 0.87, total bili of 1.2, ALT of 65, AST of 32, alk-phos of 154, lipase of 186. Abdomen CT shows inflammatory changes are seen in the fat surrounding the pancreatic head correlate for acute pancreatitis. Past medical history: Diabetes, hypertension, pancreatitis Surgical history: Status post cholecystectomy Family history: Diabetes hypertension Social history: Comes from home, denies any tobacco alcohol or illicit drugs at this time. Last alcoholic drink was 7 months ago. Hospital course 45-year-old male with past medical history of pancreatitis, diabetes and hypertension who presents to the hospital with abdominal pain found to have pancreatitis # Acute pancreatitis history of cholelithiasis status post cholecystectomy 7 months ago, no alcohol use, triglyceride less than 400 CT abdomen suggestive of acute pancreatitis , MRCP showed narrowing of distal common bile duct in the region of pancreatic head, with no stone or obstruction, likely patient passed a stone Since LFTs trending down, lipase normalized, abdominal pain resolved, patient tolerating low-fat diet abdominal pain resolved, case discussed with Dr. Amos she recommend to discharge patient home and to have outpatient follow-up with Gastroenterology if patient has recurrent symptoms will need ERCP that will be arranged by Gastroenterology. # diabetes Blood sugar trending up since patient started on diet therefore recommended to resume home medication. # hypertension - BP stable continue lisinopril Time Spent with Patient Time attestation: Total time spent providing and/or coordinating discharge services: Discharge coordination time: Greater than 30 minutes Physical Exam Vital Signs: Vital Signs: Last Vital Signs Temp 98.3 F 08/11/20 07:07 Pulse 78 08/11/20 07:07 Resp 18 08/11/20 07:07 BP 141/75 H 08/11/20 07:07 Pulse Ox 97 08/11/20 07:07 Body Mass Index 29.0 General patient resting comfortably in no acute distress. Neck is supple no JVD. CVS regular rate rhythm, Respiratory lungs clear to auscultation, no respiratory distress, no wheeze, no rhonchi. Gastrointestinal abdomen soft, nontender, bowel sounds audible, no guarding , no rigidity. Extremities no clubbing cyanosis or edema. Neuro nonfocal Skin no rash DS: Data Data Completed and Pending Labs on day of discharge: Laboratory Tests 08/09/20 08/09/20 08/09/20 00:48 00:52 00:52 WBC 10.9 H RBC 4.58 L Hgb 14.2 Hct 40.4 L MCV 88.2 MCH 31.0 MCHC 35.1 RDW 12.3 Plt Count 230 MPV 10.5 Immature Gran % (Auto) 0.3 Neut % (Auto) 75.5 H Lymph % (Auto) 17.0 L [place] % (Auto) 6.7 Eos % (Auto) 0.2 Baso % (Auto) 0.3 Lymph # (Auto) 1.8 [place] # (Auto) 0.7 Eos # (Auto) 0.0 Baso # (Auto) 0.0 Abs Immat Gran (auto) 0.03 Absolute Neuts (auto) 8.2 Absolute Nucleated RBC 0.000 Nucleated RBC % (auto) 0.0 PT 11.1 INR 0.9 APTT 31.3 Sodium Potassium Chloride Carbon Dioxide Anion Gap BUN Creatinine Estim Creat Clear Calc Estimated GFR POC Glucose Random Glucose Calcium Total Bilirubin Direct Bilirubin AST ALT Alkaline Phosphatase Total Protein Albumin Triglycerides Lipase Urine Color Urine Appearance Urine pH Ur Specific [place] Urine Protein Urine Glucose (UA) Urine Ketones Urine Blood Urine Nitrite Ur Leukocyte Esterase Coronavirus (PCR) NEGATIVE Influenza Type A (PCR) NEGATIVE Influenza Type B (PCR) NEGATIVE RSV RNA Qual (PCR) NEGATIVE 08/09/20 08/09/20 08/09/20 00:52 06:29 06:29 WBC RBC Hgb Hct MCV MCH MCHC RDW Plt Count MPV Immature Gran % (Auto) Neut % (Auto) Lymph % (Auto) [place] % (Auto) Eos % (Auto) Baso % (Auto) Lymph # (Auto) [place] # (Auto) Eos # (Auto) Baso # (Auto) Abs Immat Gran (auto) Absolute Neuts (auto) Absolute Nucleated RBC Nucleated RBC % (auto) PT INR APTT Sodium 134 L Potassium 4.0 Chloride 98 Carbon Dioxide 24 Anion Gap 16 BUN 21 H Creatinine 0.87 Estim Creat Clear Calc 107.5 Estimated GFR > 60 POC Glucose Random Glucose 300 H Calcium 8.9 Total Bilirubin 1.2 H Direct Bilirubin AST 32 ALT 65 H Alkaline Phosphatase 154 H Total Protein 7.5 Albumin 4.0 Triglycerides 354 Lipase 186 H Urine Color YELLOW Urine Appearance CLEAR Urine pH 7.0 Ur Specific [place] 1.010 Urine Protein NEG Urine Glucose (UA) 500 H Urine Ketones NEG Urine Blood NEG Urine Nitrite NEG Ur Leukocyte Esterase NEG Coronavirus (PCR) Influenza Type A (PCR) Influenza Type B (PCR) RSV RNA Qual (PCR) 08/09/20 08/09/20 08/09/20 09:05 13:26 13:55 WBC RBC Hgb Hct MCV MCH MCHC RDW Plt Count MPV Immature Gran % (Auto) Neut % (Auto) Lymph % (Auto) [place] % (Auto) Eos % (Auto) Baso % (Auto) Lymph # (Auto) [place] # (Auto) Eos # (Auto) Baso # (Auto) Abs Immat Gran (auto) Absolute Neuts (auto) Absolute Nucleated RBC Nucleated RBC % (auto) PT INR APTT Sodium Potassium Chloride Carbon Dioxide Anion Gap BUN Creatinine Estim Creat Clear Calc Estimated GFR POC Glucose 244 H 221 H 225 H Random Glucose Calcium Total Bilirubin Direct Bilirubin AST ALT Alkaline Phosphatase Total Protein Albumin Triglycerides Lipase Urine Color Urine Appearance Urine pH Ur Specific [place] Urine Protein Urine Glucose (UA) Urine Ketones Urine Blood Urine Nitrite Ur Leukocyte Esterase Coronavirus (PCR) Influenza Type A (PCR) Influenza Type B (PCR) RSV RNA Qual (PCR) 08/09/20 08/09/20 08/10/20 16:41 20:33 05:55 WBC 12.3 H RBC 4.23 L Hgb 13.1 L Hct 37.4 L MCV 88.4 MCH 31.0 MCHC 35.0 RDW 12.1 Plt Count 216 MPV 11.0 Immature Gran % (Auto) 0.5 H Neut % (Auto) 82.1 H Lymph % (Auto) 11.0 L [place] % (Auto) 6.0 Eos % (Auto) 0.2 Baso % (Auto) 0.2 Lymph # (Auto) 1.4 [place] # (Auto) 0.7 Eos # (Auto) 0.0 Baso # (Auto) 0.0 Abs Immat Gran (auto) 0.06 H Absolute Neuts (auto) 10.1 H Absolute Nucleated RBC 0.000 Nucleated RBC % (auto) 0.0 PT INR APTT Sodium Potassium Chloride Carbon Dioxide Anion Gap BUN Creatinine Estim Creat Clear Calc Estimated GFR POC Glucose 209 H 154 H Random Glucose Calcium Total Bilirubin Direct Bilirubin AST ALT Alkaline Phosphatase Total Protein Albumin Triglycerides Lipase Urine Color Urine Appearance Urine pH Ur Specific [place] Urine Protein Urine Glucose (UA) Urine Ketones Urine Blood Urine Nitrite Ur Leukocyte Esterase Coronavirus (PCR) Influenza Type A (PCR) Influenza Type B (PCR) RSV RNA Qual (PCR) 08/10/20 08/10/20 08/10/20 05:55 05:55 06:47 WBC RBC Hgb Hct MCV MCH MCHC RDW Plt Count MPV Immature Gran % (Auto) Neut % (Auto) Lymph % (Auto) [place] % (Auto) Eos % (Auto) Baso % (Auto) Lymph # (Auto) [place] # (Auto) Eos # (Auto) Baso # (Auto) Abs Immat Gran (auto) Absolute Neuts (auto) Absolute Nucleated RBC Nucleated RBC % (auto) PT INR APTT Sodium 136 134 L Potassium 3.5 3.5 Chloride 100 99 Carbon Dioxide 24 24 Anion Gap 16 15 BUN 5 L D 6 L Creatinine 0.65 0.63 Estim Creat Clear Calc 143.9 148.5 Estimated GFR > 60 > 60 POC Glucose 169 H Random Glucose 145 H D 144 H Calcium 8.1 L D 8.2 L Total Bilirubin 1.2 H Direct Bilirubin 0.5 AST 76 H ALT 125 H Alkaline Phosphatase 192 H D Total Protein 6.4 L Albumin 3.4 L Triglycerides Lipase 51 Urine Color Urine Appearance Urine pH Ur Specific [place] Urine Protein Urine Glucose (UA) Urine Ketones Urine Blood Urine Nitrite Ur Leukocyte Esterase Coronavirus (PCR) Influenza Type A (PCR) Influenza Type B (PCR) RSV RNA Qual (PCR) 08/10/20 08/10/20 08/10/20 11:51 16:00 20:21 WBC RBC Hgb Hct MCV MCH MCHC RDW Plt Count MPV Immature Gran % (Auto) Neut % (Auto) Lymph % (Auto) [place] % (Auto) Eos % (Auto) Baso % (Auto) Lymph # (Auto) [place] # (Auto) Eos # (Auto) Baso # (Auto) Abs Immat Gran (auto) Absolute Neuts (auto) Absolute Nucleated RBC Nucleated RBC % (auto) PT INR APTT Sodium Potassium Chloride Carbon Dioxide Anion Gap BUN Creatinine Estim Creat Clear Calc Estimated GFR POC Glucose 126 H 326 H 223 H Random Glucose Calcium Total Bilirubin Direct Bilirubin AST ALT Alkaline Phosphatase Total Protein Albumin Triglycerides Lipase Urine Color Urine Appearance Urine pH Ur Specific [place] Urine Protein Urine Glucose (UA) Urine Ketones Urine Blood Urine Nitrite Ur Leukocyte Esterase Coronavirus (PCR) Influenza Type A (PCR) Influenza Type B (PCR) RSV RNA Qual (PCR) 08/11/20 08/11/20 08/11/20 05:53 05:53 07:11 WBC 6.6 RBC 3.96 L Hgb 12.3 L Hct 35.0 L MCV 88.4 MCH 31.1 MCHC 35.1 RDW 12.2 Plt Count 220 MPV 11.1 Immature Gran % (Auto) 0.3 Neut % (Auto) 62.9 Lymph % (Auto) 25.3 [place] % (Auto) 10.1 Eos % (Auto) 1.1 Baso % (Auto) 0.3 Lymph # (Auto) 1.7 [place] # (Auto) 0.7 Eos # (Auto) 0.1 Baso # (Auto) 0.0 Abs Immat Gran (auto) 0.02 Absolute Neuts (auto) 4.1 Absolute Nucleated RBC 0.000 Nucleated RBC % (auto) 0.0 PT INR APTT Sodium 139 Potassium 3.4 Chloride 105 Carbon Dioxide 24 Anion Gap 13 BUN 8 L Creatinine 0.68 Estim Creat Clear Calc 137.6 Estimated GFR > 60 POC Glucose 169 H Random Glucose 170 H Calcium 8.1 L Total Bilirubin 0.7 Direct Bilirubin 0.3 AST 38 H D ALT 99 H Alkaline Phosphatase 179 H Total Protein 6.3 L Albumin 3.3 L Triglycerides Lipase Urine Color Urine Appearance Urine pH Ur Specific [place] Urine Protein Urine Glucose (UA) Urine Ketones Urine Blood Urine Nitrite Ur Leukocyte Esterase Coronavirus (PCR) Influenza Type A (PCR) Influenza Type B (PCR) RSV RNA Qual (PCR) Discharge Plan Discharge Patient Disposition: Home, Self-Care Referrals: Kristin León DO [Primary Care Provider] - Discharge Medications: Continued guaifenesin 100 mg/5 mL Liquid 200 mg PO Q4H PRN (Reason: Cough) RF: 0 multivitamin Tablet 1 tab PO DAILY RF: 0 Lantus U-100 Insulin 100 unit/mL Solution 14 unit SUBCUT QAM RF: 0 lisinopril 5 mg Tablet 5 mg PO DAILY RF: 0 insulin lispro [Humalog U-100 Insulin] 100 unit/mL Solution 1 sliding scale dose SUBCUT USEASDIRECTD RF: 0 cholecalciferol (vitamin D3) [Vitamin D3] 50 mcg (2,000 unit) Capsule 50 mcg PO DAILY RF: 0 aspirin [Ecotrin Low Strength] 81 mg Tablet,Delayed Release (Dr/Ec) 81 mg PO DAILY RF: 0 Discharge Orders: Discharge Order (Routine); Ordered 08/11/20 Ordered By: Hitesh Lozoya Diet: diabetic diet and low fat, low cholesterol Activity on Discharge: As tolerated Visit Report Forms: Patient Portal Discharge page Care Plan Goals: Outpatient follow-up with Dr. Janes Amos/Dr Morales from Gastroenterology Health Concerns: Return to check with any worsening abdominal pain, nausea and vomiting Plan of Treatment: Outpatient follow-up with primary care physician and Gastroenterology
== END 2020-08-11 12:06 | disposition home or self-care (01) | DRG 282 ==
LOC: HO.ED 05:17 → HO.S3 10:31
PROVIDERS: Admitting Provider Internal Medicine; Emergency Provider Emergency Medicine Emergency Medical Services; PCP Family Medicine; Visit Provider Hospitalist
DX: K85.00 Idiopathic acute pancreatitis without necrosis or infection (principal); E11.9 Type 2 diabetes mellitus without complications; I10 Essential (primary) hypertension; Z20.828 Contact with and (suspected) exposure to other viral communicable diseases; Z79.4 Long term (current) use of insulin; Z79.82 Long term (current) use of aspirin; Z87.891 Personal history of nicotine dependence; Z79.899 Other long term (current) drug therapy
CPT/HCPCS: 0241U; 36415; 71045; 74177; 74181; 80048; 80053; 80076; 81003; 82947; 83690; 84478; 85025; 85610; 85730; 93005; 96361; 96374; 96375; 99285; J1170; J1650; J1885; J2270; Q9967

== ENCOUNTER → 2020-09-30 07:47 | Outpatient (BNVA) | payer MEDICAID, SELFPAY | PROVIDERS: PCP Family Medicine; Visit Provider Internal Medicine Gastroenterology ==

== ENCOUNTER 2020-10-27 19:27 | Inpatient (IN) | payer MEDICAID, SELFPAY ==
--- NOTE | ~2020-10-27 | CT_ITS ---
EXAMINATION: CT ABDOMEN AND PELVIS WITHOUT CONTRAST CLINICAL INFORMATION: Diffuse abdominal pain. COMPARISON: None TECHNIQUE: Multidetector volumetric imaging was performed from the superior aspect of the liver through the pubic symphysis. Sagittal and coronal reformatted images were obtained on the technologist's workstation. This CT examination was performed using dose optimization techniques as appropriate, variously including the following: *Automated exposure control *Adjustment of mA and/or kV according to patient size (this includes techniques or standardized protocols for targeted exams where dose is matched to indication/reason for exam; i.e. extremities or head) *Use of iterative reconstruction technique DLP: 422 mGy-cm FINDINGS: LUNG BASES: The visualized lung bases are unremarkable. LIVER, GALLBLADDER, AND BILIARY TREE: The liver is normal in size, shape, and attenuation. No focal hepatic lesion or biliary ductal dilatation is present. The gallbladder has been surgically removed.. PANCREAS: Mild haziness surrounding the pancreas especially the tail with peripancreatic fat stranding suggestive of acute pancreatitis. SPLEEN: Unremarkable. ADRENAL GLANDS: Unremarkable. KIDNEYS AND URETERS: The kidneys are normal in size, shape, and attenuation. No hydronephrosis, hydroureter, or calculi seen. No perinephric stranding. BLADDER: Unremarkable. GASTROINTESTINAL TRACT: The small and large bowel are unremarkable. The appendix is unremarkable. ABDOMINAL WALL: No significant hernia is appreciated. LYMPH NODES: Normal. VASCULAR: Unremarkable. PELVIC VISCERA: Unremarkable. OSSEOUS STRUCTURES: Unremarkable. CT/CT abdomen pelvis wo con IMPRESSION: Mild peripancreatic haziness especially along the tail of pancreas suspicious for acute pancreatitis. Correlate with serum amylase and lipase levels.
--- NOTE | ~2020-10-27 | MR_ITS ---
EXAMINATION: MR ABDOMEN WITHOUT CONTRAST CLINICAL INFORMATION: Pancreatitis COMPARISON: Previous CT of the abdomen and pelvis most recent 10/27/2020 and MRCP July 2020 and ultrasound January 2020 TECHNIQUE: MR abdomen is performed without gadolinium contrast. MRCP sequences were also performed. FINDINGS: LUNG BASES: The visualized lung bases are unremarkable. LIVER, GALLBLADDER, AND BILIARY TREE: The liver is normal in size, smooth in contour, and normal in signal. No focal hepatic lesion or biliary ductal dilatation is present. The common bile duct measures 4 mm. No common bile duct stone is seen. The gallbladder has been removed. PANCREAS: There is enlargement of the body and tail of the pancreas. This is slightly low signal on T1-weighted sequence cyst and high signal on T2-weighted sequences. There is similar abnormal signal, slightly low signal on T1 and high signal on T2-weighted sequences, in the adjacent fat. Findings are suggestive of mild pancreatitis. The main pancreatic duct is normal. SPLEEN: Unremarkable. ADRENAL GLANDS: Unremarkable. KIDNEYS AND URETERS: The kidneys are normal in size and shape. No hydronephrosis. No perinephric stranding. GASTROINTESTINAL TRACT: No bowel obstruction. No ascites or fluid collection. ABDOMINAL WALL: No significant hernia is appreciated. LYMPH NODES: No lymphadenopathy. VASCULAR: Unremarkable. OSSEOUS STRUCTURES: Marrow signal normal. MR/MR abdomen wo con IMPRESSION: Mild pancreatitis of the body and tail of the pancreas. Normal caliber intrahepatic and extrahepatic bile ducts. No common bile duct stone seen.
--- NOTE | ~2020-10-27 | XR_ITS ---
EXAMINATION: CHEST 1 VIEW CLINICAL INFORMATION: Pain. COMPARISON: None. TECHNIQUE: An AP view of the chest is provided. FINDINGS: The cardiac silhouette is not enlarged. The mediastinal and hilar contours are unremarkable. There are neither pleural effusions nor pneumothoraces. There are no consolidations. The osseous structures are unremarkable. XR/XR chest 1V IMPRESSION: No evidence for acute disease.
[2020-10-27 20:11] VITALS: BP 173/93; PULSE 98; RESP 18; TEMP 37.1; O2SAT 98; BMI 24.4
[2020-10-27 21:49] LABS: MANUAL DIFF FLAG NO
[2020-10-27 21:50] LABS: Basophils Percent Auto 0.2 % (0-2); Eosinophils Percent Auto 0.1 % (0-4); Hematocrit 45.3 % (42-52); Hemoglobin 15.7 g/dl (14.0-18.0); Imm Gran Abs Auto 0.07 X10*3/uL (0.00-0.03); Imm Gran Pct Auto 0.4 % (0.0-0.4); Lymphocytes Absolute Auto 1.5 X10*3/uL (1.2-4.9); Lymphocytes Percent Auto 8.5 % (20-40); Mean Corpuscular HGB Conc 34.7 g/dl (31.0-36.0); Mean Corpuscular Volume 89.3 fL (80-98); Mean Platelet Volume 10.3 fL (9.4-12.4); Monocytes Absolute Auto 0.7 X10*3/uL (0.1-1.2); Monocytes Percent Auto 4.2 % (2-11); Neutrophils Absolute Auto 15.4 X10*3/uL (2.0-8.3); Neutrophils Percent Auto 86.6 % (45-73); Platelet Count 274 X10*3/uL (160-400); Red Blood Count 5.07 X10*6/uL (4.60-5.80); Red Cell Distribution Width 12.6 % (11.0-16.0); White Blood Count 17.7 X10*3/uL (4.8-10.8)
--- NOTE | 2020-10-27 22:09 | ED_ITS ---
HPI - Abdominal Pain General Chief Complaint: Abdominal Pain Stated Complaint: NAUSEA Source: patient Mode of arrival: ambulatory Limitations: language barrier History of Present Illness HPI narrative: 45-year-old male with past medical history of insulin-dependent diabetes, hypertension, hyperlipidemia, alcoholism, history of recurrent pancreatitis presents with intermittent fevers, chills, and diffuse abdominal pain. He does report drinking excessively over the past week for approximately 5 days in a row. He does state to be depressed, but does not report suicidal ideation, homicidal ideation, does not report any alcohol withdrawal symptoms at this time. He denies chest pain and pressure, palpitations, shortness of breath, dysuria, hematuria, diarrhea, constipation, melena, hematochezia, and edema. Related Data Home Medications Medication Instructions Recorded Confirmed Lantus U-100 Insulin 14 unit SUBCUT QAM 08/09/20 09/30/20 aspirin [Ecotrin Low Strength] 81 mg PO DAILY 08/09/20 09/30/20 cholecalciferol (vitamin D3) 50 mcg PO DAILY 08/09/20 09/30/20 [Vitamin D3] guaifenesin 200 mg PO Q4H PRN 08/09/20 09/30/20 insulin lispro [Humalog U-100 1 sliding scale dose SUBCUT 08/09/20 09/30/20 Insulin] USEASDIRECTD lisinopril 5 mg PO DAILY 08/09/20 09/30/20 multivitamin 1 tab PO DAILY 08/09/20 09/30/20 Allergies Allergy/AdvReac Type Severity Reaction Status Date / Time No Known Allergies Allergy Verified 10/27/20 20:11 Review of Systems Review of Systems Constitutional: Positive subjective fevers and chills, No Weight loss, No Night Sweats, No Fatigue, No Malaise ENT/Mouth: No Hearing loss, No Ear Pain, No Nasal Congestion, No Sinus Pain, No Hoarseness, No sore throat, No Rhinorrhea, No Swallowing Difficulty Eyes: No Eye Pain, No Swelling, No Redness, No Foreign Body, No Discharge, No Vision Changes Cardiovascular: No Chest Pain, No SOB, No Dyspnea on Exertion, No Orthopnea, No Edema, No Palpitations Respiratory: No Cough, No Sputum, No Wheezing, No Smoke Exposure, No Dyspnea Gastrointestinal: Positive Nausea, no Vomiting, no Diarrhea, positive abdominal Pain, No Hematochezia, No Melena Genitourinary: no irregular bleeding, No Dysuria, No Urinary Frequency, No Hematuria, No Urinary Incontinence, No Urgency, No Flank Pain, No Urinary Flow Changes, No Hesitancy Musculoskeletal: No joint pain, No Myalgias, No Joint Swelling Skin: No Skin Lesions, No rash Neuro: No Weakness, No Numbness, No Paresthesias, No Loss of Consciousness, No Dizziness, No Headache Psych: Positive binge drinking, No Anxiety/Panic, No Depression, No SI/HI/AH/VH, No Social Issues Heme/Lymph: No Bruising, No Bleeding,No Lymphadenopathy Endocrine: No Polyuria, No Polydipsia, No Temperature Intolerance Yes all other systems are reviewed and are negative Physical Exam Vital Signs: Vital Signs: Last Vital Signs Temp 98.7 F 10/27/20 23:00 Pulse 69 10/27/20 23:00 Resp 18 10/27/20 23:00 BP 167/89 H 10/27/20 23:00 Pulse Ox 97 10/27/20 23:00 Body Mass Index 24.4 Appearance: Alert. Oriented X3. Moderate distress. Head: Normal external exam. Normocephalic. Atraumatic. No Camara signs noted. No raccoon eyes noted Eyes: PERRLA. EOMI. Conjunctiva and sclera nonicteric. ENT: TM's Normal. Pharynx normal. Uvula midline. Moist mucous membranes. No trismus noted. No drooling noted. Neck: Normal inspection. Neck supple. No adenopathy. No meningeal signs. CVS: Normal heart rate and rhythm. Heart sound normal. No murmurs noted. Pulses equal to all extremities. Respiratory: No respiratory distress. Painless inspiration. Lung sounds clear to auscultation all lobes. Chest nontender. No accessory muscle usage noted or decreased air movement noted. Abdomen: Soft and diffusely tender greater in the right upper epigastric and left upper quadrants. Bowel sounds normal in all 4 quadrants. No distention noted. No organomegaly noted. No visible injury noted. Back: No CVA tenderness. Full range of motion noted. Skin: Skin warm and dry. Normal skin color. Normal skin turgor. No rashes/lesions/lacerations noted. Extremities: No lower extremity edema. Extremities exhibit normal range of motion. Extremities nontender. Neuro: cranial nerves 2-12 intact, no focal neural deficits, strength 5/5 to all extremities, No motor deficit. No sensory deficit. Reflexes normal. Course Course Course Narrative: 45-year-old male with past medical history of insulin- dependent diabetes, hypertension, hyperlipidemia, alcoholism, history of recurrent pancreatitis presents with intermittent fevers, chills, and diffuse abdominal pain. Based on his prior history of recurrent pancreatitis, and his recent binge drinking will order CT scan of the abdomen to rule out pancreatitis. Lipase 1197, significantly higher than his last admission values in July of 2020. 11:00 p.m. COVID test is negative, CT scan shows pancreatitis, will start to resuscitate with fluid and give more morphine. 11:45 p.m. discussion with hospitalist regarding plan to admit for acute pancreatitis. Will order chest x-ray and ethanol level. MDM - Abdominal Pain Differential Diagnosis Differential diagnosis: Likely abdominal pain, acute appendicitis, bowel perforation, calculus of kidney, diverticulitis, pancreatitis and peptic ulcer disease Medical Records Attestation: I reviewed the patient's medical records. Lab Data Attestation: I reviewed the patient's lab results. Result diagrams: 10/27/20 21:23 10/27/20 21:23 Labs: Lab Results 10/27/20 10/27/20 10/27/20 Range/Units 21:23 21:23 22:20 WBC 17.7 H (4.8-10.8) X10*3/uL RBC 5.07 D (4.60-5.80) X10*6/uL Hgb 15.7 D (14.0-18.0) g/dl Hct 45.3 D (42-52) % MCV 89.3 (80-98) fL MCH 31.0 (27.0-33.0) pg MCHC 34.7 (31.0-36.0) g/dl RDW 12.6 (11.0-16.0) % Plt Count 274 (160-400) X10*3/uL MPV 10.3 (9.4-12.4) fL Immature Gran % (Auto) 0.4 (0.0-0.4) % Neut % (Auto) 86.6 H (45-73) % Lymph % (Auto) 8.5 L (20-40) % [place] % (Auto) 4.2 (2-11) % Eos % (Auto) 0.1 (0-4) % Baso % (Auto) 0.2 (0-2) % Lymph # (Auto) 1.5 (1.2-4.9) X10*3/uL [place] # (Auto) 0.7 (0.1-1.2) X10*3/uL Eos # (Auto) 0.0 (0.0-0.4) X10*3/uL Baso # (Auto) 0.0 (0.0-0.2) X10*3/uL Abs Immat Gran (auto) 0.07 H (0.00-0.03) X10*3/uL Absolute Neuts (auto) 15.4 H (2.0-8.3) X10*3/uL Absolute Nucleated RBC 0.000 (0.0-0.012) X10*3/uL Nucleated RBC % (auto) 0.0 (0.0-0.2) /100WBC Sodium 134 L (135-145) mmol/L Potassium 3.9 (3.3-5.1) mmol/L Chloride 99 (96-108) mmol/L Carbon Dioxide 22 (22-29) mmol/L Anion Gap 17 (12-20) BUN 25 H D (9-16) mg/dL Creatinine 0.90 (0.5-1.4) mg/dL Estim Creat Clear Calc 90.1 Estimated GFR > 60 Random Glucose 239 H D (60-115) mg/dL Calcium 9.1 D (8.4-10.2) mg/dL Total Bilirubin 1.1 H (0.0-1.0) mg/dL Direct Bilirubin 0.4 (0.0-0.5) mg/dL AST 30 (5-37) U/L ALT 69 H (0-40) U/L Alkaline Phosphatase 155 H (39-117) U/L Total Protein 7.9 D (6.5-8.0) g/dL Albumin 4.2 D (3.5-5.0) g/dL Lipase 1197 H (8-78) U/L COVID-19 (BRAYAN) Negative (Negative) COVID-19 Clin Com See Note Imaging Data CT scan - abdomen: Attestation: I personally reviewed and interpreted this imaging study as follows: Radiologist's impression: EXAMINATION: CT ABDOMEN AND PELVIS WITHOUT CONTRAST CLINICAL INFORMATION: Diffuse abdominal pain. COMPARISON: None TECHNIQUE: Multidetector volumetric imaging was performed from the superior aspect of the liver through the pubic symphysis. Sagittal and coronal reformatted images were obtained on the technologist's workstation. This CT examination was performed using dose optimization techniques as appropriate, variously including the following: *Automated exposure control *Adjustment of mA and/or kV according to patient size (this includes techniques or standardized protocols for targeted exams where dose is matched to indication/reason for exam; i.e. extremities or head) *Use of iterative reconstruction technique DLP: 422 mGy-cm FINDINGS: LUNG BASES: The visualized lung bases are unremarkable. LIVER, GALLBLADDER, AND BILIARY TREE: The liver is normal in size, shape, and attenuation. No focal hepatic lesion or biliary ductal dilatation is present. The gallbladder has been surgically removed.. PANCREAS: Mild haziness surrounding the pancreas especially the tail with peripancreatic fat stranding suggestive of acute pancreatitis. SPLEEN: Unremarkable. ADRENAL GLANDS: Unremarkable. KIDNEYS AND URETERS: The kidneys are normal in size, shape, and attenuation. No hydronephrosis, hydroureter, or calculi seen. No perinephric stranding. BLADDER: Unremarkable. GASTROINTESTINAL TRACT: The small and large bowel are unremarkable. The appendix is unremarkable. ABDOMINAL WALL: No significant hernia is appreciated. LYMPH NODES: Normal. VASCULAR: Unremarkable. PELVIC VISCERA: Unremarkable. OSSEOUS STRUCTURES: Unremarkable. CT/CT abdomen pelvis wo con IMPRESSION: Mild peripancreatic haziness especially along the tail of pancreas suspicious for acute pancreatitis. Correlate with serum amylase and lipase levels. Critical Care Time Critical Care Time Critical Care Time: Yes Total Critical Care Time: 45 Attestation: I have personally provided critical care time exclusive of time spent on separately billable procedures. Time includes review of laboratory data, radiology results, discussion with consultants, and monitoring for potential decompensation. Interventions were performed as documented. Discharge Plan Discharge Clinical Impression: Acute pancreatitis Qualifiers: Pancreatitis type: alcohol induced Acute pancreatitis complication: unspecified Qualified Code(s): K85.20 - Alcohol induced acute pancreatitis without necrosis or infection Patient Disposition: Admitted As Inpatient [facility] Past Medical History Attestation statement: The following information was validated with the patient. 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
--- NOTE | 2020-10-27 22:10 | PC.NURSE ---
PT C/O ABD PAIN, PA AWARE AND PT MEDICATED PER EMAR FOR PAIN. PT RESTING IN STRETCHER AT THIS TIME. WILL CONTINUE TO MONITOR PT.
[2020-10-27 22:14] LABS: Alanine Aminotransferase 69 U/L (0-40); Albumin Level 4.2 g/dL (3.5-5.0); Alkaline Phosphatase 155 U/L (39-117); Anion Gap 17 (12-20); Aspartate Amino Transferase 30 U/L (5-37); Bilirubin Direct 0.4 mg/dL (0.0-0.5); Bilirubin Total 1.1 mg/dL (0.0-1.0); Blood Urea Nitrogen 25 mg/dL (9-16); Calcium 9.1 mg/dL (8.4-10.2); Carbon Dioxide 22 mmol/L (22-29); Chloride 99 mmol/L (96-108); Creatinine Clr Calc Pharmacy 90.1; Estimated Glomerular Filt Rate > 60; Glucose Random 239 mg/dL (60-115); Potassium 3.9 mmol/L (3.3-5.1); Sodium 134 mmol/L (135-145); Total Protein 7.9 g/dL (6.5-8.0)
[2020-10-27] MEDS: ondansetron HCL 4 MG/2 ML VIAL IVPUSH (22:17)
[2020-10-27] MEDS: Morphine Sulfate 4 MG/ML CARTRIDGE IVPUSH ×2 (22:18→23:52)
[2020-10-27 22:33] LABS: Lipase 1197 U/L (8-78)
[2020-10-27 22:40] LABS: COVID-19 Test Negative (Negative)
[2020-10-27 23:00] VITALS: BP 167/89; PULSE 69; RESP 18; TEMP 37.1; O2SAT 97
--- NOTE | 2020-10-27 23:39 | PC.NURSE ---
PA IN ROOM FOR RE-EVAL ALONG WITH DIRECTOR HEALTH. PT C/O ABD PAIN RATING HYACINTH 03/08. PA AWARE. .
[2020-10-27 23:48] VITALS: BP 154/84; PULSE 81; RESP 16; O2SAT 97
--- NOTE | 2020-10-27 23:52 | P.HPHOSP_ITS ---
History of Present Illness Date of Service: 10/27/20 Chief Complaint: Abdominal pain 45-year-old male with a past medical history of hypertension, insulin-dependent diabetes, alcohol abuse, history of pancreatitis presented to the hospital with a chief complaint of abdominal pain for the past 1 have day. Patient mentioned that he has been drinking alcohol will past few days. Abdominal pain is diffuse in nature no associated nausea vomiting or diarrhea. Patient has decreased oral intake. Denies any fever chills cough. Denies any recent travel or sick contact. Denies any urinary symptoms. Review of all other systems is negative except mentioned above ER course: Per ER team patient noted to have diffuse abdominal tenderness, voluntary guarding, no rigidity. CT abdomen showed acute pancreatitis. Lipase was elevated. Also noted leukocytosis but no active signs of infection. COVID-19 negative. Given gentle IV fluids. Pain control. Admitted to the hospital for further management. 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 [employer]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 [employer] Allergies Allergy/AdvReac Type Severity Reaction Status Date / Time No Known Allergies Allergy Verified 10/27/20 20:11 Active Medications: Current Medications Generic Name Dose Route Start Last Admin Trade Name Freq PRN Reason Stop Dose Admin Famotidine 20 mg 10/28/20 09:00 Famotidine/Pf 20 Mg/2 Ml Vial IVPUSH BID LUIS Folic Acid 1 mg 10/28/20 09:00 Folic Acid 1 Mg Tablet PO 10/31/20 08:59 DAILY LUIS Sodium Chloride 1,000 mls @ 999 mls/hr 10/27/20 23:30 Ns IVCONT 10/28/20 00:30 .Q1H1M LUIS Dextrose/Sodium Chloride 1,000 mls @ 100 mls/hr 10/27/20 23:45 D51/2ns IVCONT .Q10H [facility] Insulin Human Lispro 0 unit 10/28/20 07:30 Insulin Lispro 100 Unit/Ml 3 Ml Vial SUBCUT QIDACHS [facility] Protocol Lorazepam 1 mg 10/27/20 23:47 Lorazepam 1 Mg Tablet PO 10/31/20 23:46 Q4H PRN Breakthrough alcohol withdrawa Morphine Sulfate 1 mg 10/27/20 23:47 Morphine Sulfate 4 Mg/Ml Cartridge IVPUSH Q4H PRN Pain, Severe (Pain Scale 7-10) Multivitamins 1 tab 10/28/20 09:00 B-Complex With Vitamin C Tablet PO DAILY [facility] Sodium Chloride 3 ml 10/28/20 00:00 0.9 % Sodium Chloride Flush 3 Ml Syringe IVFLUSH QSHIFT [facility] Thiamine HCl 100 mg 10/28/20 09:00 Thiamine Hcl 100 Mg Tablet PO 10/31/20 08:59 DAILY [facility] Home Medications Medication Instructions Recorded Confirmed Last Taken Type Lantus U-100 Insulin 14 unit SUBCUT QAM 08/09/20 10/28/20 Unknown History aspirin [Ecotrin Low Strength] 81 mg PO DAILY 08/09/20 10/28/20 Unknown History cholecalciferol (vitamin D3) 50 mcg PO DAILY 08/09/20 10/28/20 Unknown History [Vitamin D3] guaifenesin 200 mg PO Q4H PRN 08/09/20 10/28/20 Unknown History insulin lispro [Humalog U-100 1 sliding scale dose SUBCUT 08/09/20 10/28/20 Unknown History Insulin] USEASDIRECTD lisinopril 5 mg PO DAILY 08/09/20 10/28/20 Unknown History multivitamin 1 tab PO DAILY 08/09/20 10/28/20 Unknown History Physical Exam Vital Signs and Narrative: Vital Signs: Last Vital Signs Temp 98.7 F 10/27/20 23:00 Pulse 69 10/27/20 23:00 Resp 18 10/27/20 23:00 BP 167/89 H 10/27/20 23:00 Pulse Ox 97 10/27/20 23:00 Body Mass Index 24.4 Gen: Appears be in no acute distress HEENT: NCAT, Moist mucosa. Pulmonary: Vesicular breath sounds, fair air entry CVS: Normal S1-S2 Abdomen: BS+, Soft, diffusely tender; no guarding or no rigidity Extremities: Warm well perfused Neuro: Alert and awake. Results Labs CBC and Chem 7: 10/31/20 06:17 10/31/20 06:17 Labs: Laboratory Results - last 24 hr 10/27/20 10/27/20 10/27/20 21:23 21:23 22:20 MCV 89.3 MCH 31.0 MCHC 34.7 RDW 12.6 Plt Count 274 MPV 10.3 Immature Gran % (Auto) 0.4 Neut % (Auto) 86.6 H Lymph % (Auto) 8.5 L Blount % (Auto) 4.2 Eos % (Auto) 0.1 Baso % (Auto) 0.2 Lymph # (Auto) 1.5 Blount # (Auto) 0.7 Eos # (Auto) 0.0 Baso # (Auto) 0.0 Abs Immat Gran (auto) 0.07 H Absolute Neuts (auto) 15.4 H Absolute Nucleated RBC 0.000 Nucleated RBC % (auto) 0.0 Anion Gap 17 Estim Creat Clear Calc 90.1 Estimated GFR > 60 Random Glucose 239 H D Calcium 9.1 D Total Bilirubin 1.1 H Direct Bilirubin 0.4 AST 30 ALT 69 H Alkaline Phosphatase 155 H Total Protein 7.9 D Albumin 4.2 D Lipase 1197 H COVID-19 ([facility]RAYAN) Negative COVID-19 Clin Com See Note Imaging Radiologist's Impressions: Impressions Abdomen/Pelvis CT 10/27/20 22:09 IMPRESSION: Mild peripancreatic haziness especially along the tail of pancreas suspicious for acute pancreatitis. Correlate with serum amylase and lipase levels. Assessment and Plan (1) Acute pancreatitis: Status: Acute 45-year-old male with a past medical history of hypertension, diabetes, alcohol abuse, history of pancreatitis presented to the hospital with a chief complaint of abdominal pain. Noted to have acute pancreatitis. Admitted for further management. Acute pancreatitis: Patient had similar presentation in July of 2020. Supportive care. GI consult. Patient had MRCP in prior admission. Pain control. NPO. IV fluids. Transaminitis: Patient has known transaminitis from last admission. Will continue to monitor liver enzymes. Hypertension: Continue home lisinopril. Patient blood pressure likely elevated also contributed by pain. Diabetes: Hold home insulins. Insulin sliding scale. Alcohol abuse: Will monitor with CIWA protocol. Ativan p.r.n.. Thiamine, folate, multivitamins. DVT prophylaxis: SCD boots Code status: Full code GI prophylaxis: Pepcid
[2020-10-27] MEDS: 0.9 % Sodium Chloride 1,000 ML 999 ML IVCONT (23:53)
[2020-10-28] VITALS (9 sets, daily range): BP systolic 144–153; BP diastolic 78–94; PULSE 79–105; RESP 16–20; TEMP 36.2–37.4; O2SAT 97–98
--- NOTE | 2020-10-28 00:17 | PC.NURSE ---
med rec done
[2020-10-28] MEDS: LORazepam 1 MG TABLET PO (01:23)
[2020-10-28] MEDS: Morphine Sulfate 2 MG/ML CARTRIDGE 1 MG IVPUSH ×2 (01:23→14:48)
[2020-10-28] MEDS: Dextrose 5 % and 0.45 % NaCl 1,000 ML 100 ML IVCONT ×4 (01:24→23:40)
--- NOTE | 2020-10-28 01:30 | PC.NURSE ---
PT C/O ABD PAIN AND ANXIETY. PT MEDICATED PER EMAR FOR PAIN AND ANXIETY PT AWAITING ROOM ASSIGNMENT. D5 1/2NS UP AND RUNNING AT 100ML/HR. PER EMAR. WILL CONTINUE TO MONITOR PT.
[2020-10-28] MEDS: 0.9 % Sodium Chloride Flush 3 ML SYRINGE IVFLUSH ×2 (03:31→09:05)
--- NOTE | 2020-10-28 04:25 | PC.NURSE ---
PT UP TO RESTROOM WITH STEADY EVEN GAIT. D5 1/2 NS UP AND RUNNING ON PUMP PER EMAR. PT STATES MY PAIN IN STARTING TO RETURN. PT AWAITING FOR ROOM ASSIGNMENT. PT RATING MID ABD PAIN 01/06. PT REMAINS ALERT, RESPIRATIONS EASY, N/L. SKIN W/D. WILL CONTINUE TO MONITOR PT.
[2020-10-28 06:55] LABS: MANUAL DIFF FLAG NO
[2020-10-28 07:10] LABS: Basophils Percent Auto 0.2 % (0-2); Eosinophils Percent Auto 0.1 % (0-4); Hematocrit 40.8 % (42-52); Imm Gran Abs Auto 0.09 X10*3/uL (0.00-0.03); Imm Gran Pct Auto 0.6 % (0.0-0.4); Lymphocytes Absolute Auto 1.5 X10*3/uL (1.2-4.9); Lymphocytes Percent Auto 9.6 % (20-40); Mean Corpuscular HGB Conc 34.3 g/dl (31.0-36.0); Mean Corpuscular Volume 90.3 fL (80-98); Mean Platelet Volume 10.9 fL (9.4-12.4); Monocytes Absolute Auto 0.6 X10*3/uL (0.1-1.2); Monocytes Percent Auto 3.8 % (2-11); Neutrophils Absolute Auto 13.2 X10*3/uL (2.0-8.3); Neutrophils Percent Auto 85.7 % (45-73); Platelet Count 230 X10*3/uL (160-400); Red Blood Count 4.52 X10*6/uL (4.60-5.80); Red Cell Distribution Width 12.4 % (11.0-16.0); White Blood Count 15.4 X10*3/uL (4.8-10.8)
[2020-10-28 07:19] LABS: Glucose, Whole Blood 230 mg/dL (60-115)
[2020-10-28 07:22] LABS: Ethanol < 10 mg/dL
[2020-10-28 07:33] LABS: Anion Gap 12 (12-20); Blood Urea Nitrogen 16 mg/dL (9-16); Calcium 8.2 mg/dL (8.4-10.2); Carbon Dioxide 24 mmol/L (22-29); Chloride 103 mmol/L (96-108); Creatinine Clr Calc Pharmacy 112.7; Estimated Glomerular Filt Rate > 60; Glucose Random 228 mg/dL (60-115); Potassium 3.7 mmol/L (3.3-5.1); Sodium 135 mmol/L (135-145)
--- NOTE | 2020-10-28 07:49 | P.CNGI_ITS ---
History of Present Illness Data of Consult Service Date: 10/28/20 Requesting physician: Hitesh Lozoya Primary Care Provider: DO DAMIAN Atwood Reason for consult: Acute pancreatitis 45 YM with hypertension, diabetes presented to [facility] last night with abdominal pain: 45-year-old male with past medical history of insulin-dependent diabetes, hypertension, hyperlipidemia, alcoholism, history of recurrent pancreatitis presents with intermittent fevers, chills, and diffuse abdominal pain. He does report drinking excessively over the past week for approximately 5 days in a row. He does state to be depressed, but does not report suicidal ideation, homicidal ideation, does not report any alcohol withdrawal symptoms at this time. He denies chest pain and pressure, palpitations, shortness of breath, dysuria, hematuria, diarrhea, constipation, melena, hematochezia, and edema . The patient was tested for COVID-19 1 week prior and was negative. He states that he had a history of drinking alcohol but stopped after his cholecystectomy. He states that he was told that alcohol was affecting his liver and his pancreas . Labs showed leukocytosis with a left shift, lipase of 1197 with elevated LFTs. Pt was admitted for further management. Pt returned from [place] on 10/23/20. He has been drinking heavily (mostly beer) for the past 5 days. Pt gives hx of sudden onset of upper abdominal pain last night. Pain was stabbing and 10/10 in intensity. Pain was accompanied by nausea, vomiting and chills. Patient denies heartburn, dysphagia, fever, change in bowel movement, hematoch ezia or melena. Patient admits to unintentional weight loss of 7 lb over the past 2-3 months. Abdominal pain has improved to 5/10 today. Of note patient had a lap radha 10 months ago at [facility] for gallstones. Abdominal pain is similar to pain he experienced prior to having the lap radha. Patient admits to heavy alcohol abuse in the past, and continues with binge drinking. Patient denies known family history of pancreatic disease, colon polyps, colon cancer or GI malignancy. Family history is positive for diabetes in his mom, sister and brother. ABD CT scan showed: LIVER, GALLBLADDER, AND BILIARY TREE: The liver is normal in size, shape, and attenuation. No focal hepatic lesion or biliary ductal dilatation is present. The gallbladder has been surgically removed.. PANCREAS: Mild haziness surrounding the pancreas especially the tail with peripancreatic fat stranding suggestive of acute pancreatitis. Review of Systems Constitutional: Constitutional: Reports difficulty sleeping, Denies fever(s), Reports headache(s) and Denies weight loss Eyes: Eyes: Denies eye discharge, Reports dry eyes and Denies irritation ENT: Reports Normal hearing present, Denies dysphagia, Denies dizziness, Reports dry mouth and Reports headache(s) Cardiovascular: Cardiovascular: Reports chest pain, Denies leg edema, Reports dyspnea ( at rest), Reports dyspnea on exertion and Reports other ( palpitations) Respiratory: Respiratory: Denies cough, Reports dyspnea ( at rest) and Reports dyspnea on exertion Gastrointestinal: Gastrointestinal: Reports abdominal pain, Denies change in b owel habits, Denies dysphagia, Denies heartburn, Reports nausea and Reports vomiting Genitourinary: Genitourinary: Denies dysuria Musculoskeletal: Musculoskeletal: Denies back pain and Reports arthralgias ( arthritis) Integumentary/Breasts: Skin/Breast: Denies pruritus, Reports rash, Denies jaundice and Reports other (Alopecia, photosensitivity) Neurologic: Reports Normal hearing present, Denies Abnormal speech present, Denies dizziness, Reports headache(s) and Denies seizure-like activity Psychiatric: Psychiatric: Reports anxiety, Reports depression and Denies panic attacks Endocrine: Endocrine: Denies cold intolerance, Denies flushing and Denies heat intolerance PMFSH Past Medical History Medical History Alcohol abuse Diabetes HTN (hypertension) Surgical History Surgical History History of laparoscopic cholecystectomy Social History Social History Household Members: Spouse Household Members Other:: one child Housing: Apartment Alcohol intake: current Alcohol intake frequency: 3 or more drinks per day Al cohol type: beer, wine and hard liquor Smoking Status: Never smoker Advance Directives: No Advance Directives Information Provided: No service: No Current occupational status: previously employed 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 [employer] Allergies Allergy/AdvReac Type Severity Reaction Status Date / Time No Known Allergies Allergy Verified 10/27/20 20:11 Active Medications: Current Medications Generic Name Dose Route Start Last Admin Trade Name Jean-Paulq PRN Reason Stop Dose Admin Famotidine 20 mg 10/28/20 09:00 Famotidine/Pf 20 Mg/2 Ml Vial IVPUSH BID [facility] Folic Acid 1 mg 10/28/20 09:00 Folic Acid 1 Mg Tablet PO 10/31/20 08:59 DAILY [facility] Dextrose/Sodium Chloride 1,000 mls @ 100 mls/hr 10/27/20 23:45 10/28/20 01:24 D51/2ns IVCONT 100 mls/hr .Q10H [facility]IS Administration Insulin Human Lispro 0 unit 10/28/20 07:30 Insulin Lispro 100 Unit/Ml 3 Ml Vial SUBCUT QIDACHS [facility] Protocol Lorazepam 1 mg 10/27/20 23:47 10/28/20 01:23 Lorazepam 1 Mg Tablet PO 10/31/20 23:46 1 mg Q4H PRN Administration Breakthrough alcohol withdrawa Morphine Sulfate 1 mg 10/27/20 23:47 10/28/20 01:23 Morphine Sulfate 2 Mg/Ml Cartridge IVPUSH 1 mg Q4H PRN Administration Pain, Severe (Pain Scale 7-10) Multivitamins 1 tab 10/28/20 09:00 B-Complex With Vitamin C Tablet PO DAILY [facility] Sodium Chloride 3 ml 10/28/20 00:00 10/28/20 03:31 0.9 % Sodium Chloride Flush 3 Ml Syringe IVFLUSH 3 ml QSHIFT [facility] Administration Thiamine HCl 100 mg 10/28/20 09:00 Thiamine Hcl 100 Mg Tablet PO 10/31/20 08:59 DAILY [facility] Home Medications Medication Instructions Recorded Confirmed Last Taken Type Lantus U-100 Insulin 14 unit SUBCUT QAM 08/09/20 10/28/20 Unknown History aspirin [Ecotrin Low Strength] 81 mg PO DAILY 08/09/20 10/28/20 Unknown History cholecalciferol (vitamin D3) 50 mcg PO DAILY 08/09/20 10/28/20 Unknown History [Vitamin D3] guaifenesin 200 mg PO Q4H PRN 08/09/20 10/28/20 Unknown History insulin lispro [Humalog U-100 1 sliding scale dose SUBCUT 08/09/20 10/28/20 Unknown History Insulin] USEASDIRECTD lisinopril 5 mg PO DAILY 08/09/20 10/28/20 Unknown History multivitamin 1 tab PO DAILY 08/09/20 10/28/20 Unknown History Physical Exam Vital Signs: Vital Signs: Last Vital Signs Temp 98.3 F 10/28/20 07:06 Pulse 82 10/28/20 07:06 Resp 18 10/28/20 07:06 BP 144/81 H 10/28/20 07:06 Pulse Ox 97 10/28/20 07:06 Body Mass Index 24.4 Const: General: no acute distress and ill appearing Nutritional Appearance: average body habitus Orientation/consciousness: patient oriented x3 Limitations: no limitations HENMT: Head: Yes normal to inspection Ears: hearing grossly normal bilaterally Mouth: Normal oral and palatal mucosa present Eyes: Sclerae: sclerae normal Pupils: Equal, round and reactive pupils p resent Neck: Neck: Yes normal visual inspection Chest: Chest palpation & inspection: normal inspection of the chest Resp: Effort & Inspection: normal respiratory effort Auscultation: clear to auscultation bilaterally Cardio: Palpation: normal PMI Rate: regular rate Rhythm: regular rhythm Heart sounds: S1 normal heart sound present, S2 normal heart sound present and no murmurs GI: Palpation (GI): Soft to palpation, Tenderness to palpation present (GI) (Mild to moderate upper abdominal tenderness) and No hepatosplenomegaly present Auscultation: normal bowel sounds Rectal Exam - Male: Yes deferred Skin: General skin exam: no rashes or lesions noted Neuro: General: patient oriented x3, gait normal and moves all extremities Cranial nerves: Yes Equal, round and reactive pupils present and Yes Normal hearing present Speech: No Abnormal speech present Psych: Appearance: grossly normal Mental Status: mental status grossly normal Results Labs CBC & Chem 7: 10/31/20 06:17 10/31/20 06:17 Labs: Short CBC 10/27/20 10/28/20 Range/Units 21:23 06:37 WBC 17.7 H 15.4 H (4.8-10.8) X10*3/uL Hgb 15.7 D 14.0 (14.0-18.0) g/dl Hct 45.3 D 40.8 L (42-52) % Plt Count 274 230 (160-400) X10*3/uL BMP 10/27/20 10/28/20 21:23 06:37 Sodium 134 L 135 Potassium 3.9 3.7 Chloride 99 103 Carbon Dioxide 22 24 BUN 25 H D 16 Creatinine 0.90 0.72 Calcium 9.1 D 8.2 L D Liver Function 10/27/20 Range/Units 21:23 Total Bilirubin 1.1 H (0.0-1.0) mg/dL Direct Bilirubin 0.4 (0.0-0.5) mg/dL AST 30 (5-37) U/L ALT 69 H (0-40) U/L Alkaline Phosphatase 155 H (39-117) U/L Albumin 4.2 D (3.5-5.0) g/dL Assessment and Plan (1) Elevated LFTs: Status: Acute (2) Acute pancreatitis: Qualifiers: Acute pancreatitis complication: unspecified Pancreatitis type: alcohol induced Qualified Code(s): K85.20 - Alcohol induced acute pancreatitis without necrosis or infection Status: Acute (3) Diabetes: 45 YM with DM x 14 yrs, admitted to [facility] in Jul, 2020 with acute pancreatitis. Normal triglycerides. CT scan showed inflammatory stranding in the fat surrounding the pancreatic head. Pt is status post Lap Radha 9 months ago for gallstones. 07/2020 MRCP showed tapered narrowing of the common bile duct in the region the pancreatic head/neck also likely reflecting underlying pancreatitis. No intraluminal filling defects within the common bile duct itself to suggest retained stone. Pt admitted last night with recurrent abdominal pain and elevated lipase and LFTs after binge drinking for 5 days. Pancreatitis is likely related to ETOH abuse RECOMMENDATIONS: 1. Continue bowel rest, IV fluids and IV pain medications. 2. Start on a clear liquid diet once lipase is near normal. 3. Additional labs for evaluation of abnormal LFTS Vitamin B12 and Folate Ferritin, IRON PROFILE Hepatitis B Surface Antibody Hepatitis B Core Antibody Hepatitis B Surface Antigen Hepatitis C Antibody
[2020-10-28] MEDS: Thiamine HCL 100 MG TABLET PO (09:04)
[2020-10-28] MEDS: Folic Acid 1 MG TABLET PO (09:04)
[2020-10-28] MEDS: Famotidine/PF 20 MG/2 ML VIAL IVPUSH ×2 (09:05→20:59)
[2020-10-28 12:01] LABS: Glucose, Whole Blood 234 mg/dL (60-115)
--- NOTE | 2020-10-28 16:20 | P.PNIM_ITS ---
Subjective Subjective Date of Service: 10/28/20 Interval History: Patient admits that abdominal pain is better denies nausea vomiting no fever chills as per patient was drinking heavily in last 3 days no history of alcohol withdrawal in the past, patient denies any tremors, no shakiness. ROS General no headache, no dizziness, no fever chills. CVS no chest pain, no palpitation. Respiratory no cough, no sob Gastrointestinal no nausea ,no vomiting, mid abdominal pain Physical Exam Vital Signs: Vital Signs: Last Vital Signs Temp 97.6 F 10/28/20 15:32 Pulse 79 10/28/20 15:32 Resp 16 10/28/20 15:32 BP 152/87 H 10/28/20 15:32 Pulse Ox 97 10/28/20 15:32 Body Mass Index 24.4 General resting comfortably in no acute distress. Neck is supple no JVD. CVS regular rate rhythm Respiratory lungs clear to auscultation, no respiratory distress, no wheeze, no rhonchi. Gastrointestinal abdomen soft, nontender, bowel sounds audible, no guarding , no rigidity. Extremities no clubbing cyanosis or edema. Neuro nonfocal ,no tremors Objective Data Current Medications Generic Name Dose Route Start Last Admin Trade Name Freq PRN Reason Stop Dose Admin Famotidine 20 mg 10/28/20 09:00 10/28/20 09:05 Famotidine/Pf 20 Mg/2 Ml Vial IVPUSH 20 mg BID LUIS Administration Folic Acid 1 mg 10/28/20 09:00 10/28/20 09:04 Folic Acid 1 Mg Tablet PO 10/31/20 08:59 1 mg DAILY LUIS Administration Dextrose/Sodium Chloride 1,000 mls @ 100 mls/hr 10/27/20 23:45 10/28/20 14:46 D51/2ns IVCONT 100 mls/hr .Q10H LUIS Administration Insulin Human Lispro 0 unit 10/28/20 07:30 10/28/20 14:52 Insulin Lispro 100 Unit/Ml 3 Ml Vial SUBCUT Not Given QIDACHS [facility] Protocol Lorazepam 1 mg 10/27/20 23:47 10/28/20 01:23 Lorazepam 1 Mg Tablet PO 10/31/20 23:46 1 mg Q4H PRN Administration Breakthrough alcohol withdrawa Morphine Sulfate 1 mg 10/27/20 23:47 10/28/20 14:48 Morphine Sulfate 2 Mg/Ml Cartridge IVPUSH 1 mg Q4H PRN Administration Pain, Severe (Pain Scale 7-10) Multivitamins 1 tab 10/28/20 09:00 10/28/20 09:04 B-Complex With Vitamin C Tablet PO 1 tab DAILY LUIS Administration Sodium Chloride 3 ml 10/28/20 00:00 10/28/20 15:08 0.9 % Sodium Chloride Flush 3 Ml Syringe IVFLUSH Not Given QSHIFT LUIS Thiamine HCl 100 mg 10/28/20 09:00 10/28/20 09:04 Thiamine Hcl 100 Mg Tablet PO 10/31/20 08:59 100 mg DAILY LUIS Administration Labs CBC & Chem 7: 10/28/20 06:37 10/28/20 06:37 Assessment and Plan (1) Acute pancreatitis: Status: Acute (2) Elevated LFTs: Status: Acute (3) HTN (hypertension): Status: Acute (4) Diabetes: Status: Acute Assessment and Plan: 45-year-old male with a past medical history of hypertension, diabetes, alcohol abuse, history of pancreatitis presented to the hospital with a chief complaint of abdominal pain. Noted to have acute pancreatitis. Admitted for further management. Acute recurrent pancreatitis: Due to alcohol use, abdominal pain has improved, will place patient on clear liquid, continue IV fluid, continue pain medication, follow BMP, calcium ,bicarb Continue IV fluid Patient had similar presentation in July of 2020. Continue Supportive care. Follow GI consult. Transaminitis: LFTs are trending down likely due to alcohol use Hypertension: Elevated blood pressure likely due to pain will resume lisinopril 5mg daily. Diabetes: Hold home insulins. Insulin sliding scale. Patient take Lantus at home. Alcohol abuse: no withdrawal sxs, continue as needed Ativan, CIWA protocol. Continue Thiamine, folate, multivitamins. DVT prophylaxis: SCD boots Code status: Full code
[2020-10-28 16:25] LABS: Glucose, Whole Blood 204 mg/dL (60-115)
[2020-10-28] MEDS: lisinopriL 5 MG TABLET PO (17:12)
[2020-10-28] MEDS: Insulin Lispro 100 UNIT/ML 3 ML VIAL SUBCUT ×2 (17:12→20:59)
[2020-10-28 20:19] LABS: Glucose, Whole Blood 199 mg/dL (60-115)
[2020-10-28] MEDS: Morphine Sulfate 2 MG/ML CARTRIDGE 3 MG IVPUSH (21:00)
[2020-10-29 03:22] VITALS: BP 142/71; PULSE 93; RESP 16; TEMP 36.8; O2SAT 96
[2020-10-29] MEDS: Morphine Sulfate 2 MG/ML CARTRIDGE 3 MG IVPUSH ×3 (06:49→19:03)
[2020-10-29 07:20] LABS: Anion Gap 13 (12-20); Blood Urea Nitrogen 6 mg/dL (9-16); Calcium 8.5 mg/dL (8.4-10.2); Carbon Dioxide 27 mmol/L (22-29); Chloride 94 mmol/L (96-108); Creatinine Clr Calc Pharmacy 115.9; Estimated Glomerular Filt Rate > 60; Glucose Random 210 mg/dL (60-115); Potassium 3.3 mmol/L (3.3-5.1); Sodium 131 mmol/L (135-145)
[2020-10-29 07:41] VITALS: BP 132/76; PULSE 94; RESP 16; TEMP 36.2; O2SAT 96
[2020-10-29 07:46] LABS: Glucose, Whole Blood 245 mg/dL (60-115)
[2020-10-29 08:00] LABS: Alanine Aminotransferase 229 U/L (0-40); Albumin Level 3.7 g/dL (3.5-5.0); Alkaline Phosphatase 273 U/L (39-117); Aspartate Amino Transferase 218 U/L (5-37); Bilirubin Total 1.9 mg/dL (0.0-1.0); Lipase 170 U/L (8-78); Total Protein 6.8 g/dL (6.5-8.0)
[2020-10-29 08:15] LABS: HBS Num1 1.21 mIU/mL (0-7.99); HBc Num1 0.19 S/CO (0.00-0.79); Hepatitis B Core Antibody Nonreactive (Nonreactive); ~HepC Num1 0.23 S/CO (0.00-0.79); ~Hepatitis B Surface Antibody NONREACTIVE (Nonreactive); ~Hepatitis C Antibody Nonreactive (Nonreactive)
[2020-10-29 08:18] LABS: HBsAGNum1 0.18 S/CO (0.00-0.99); Hepatitis B Surface Antigen Negative (Negative)
[2020-10-29] MEDS: Famotidine/PF 20 MG/2 ML VIAL IVPUSH ×2 (08:22→21:41)
[2020-10-29] MEDS: Dextrose 5 % and 0.9 % NaCl 1,000 ML 125 ML IVCONT ×2 (08:23→21:43)
[2020-10-29] MEDS: Insulin Lispro 100 UNIT/ML 3 ML VIAL SUBCUT ×4 (08:23→21:42)
[2020-10-29] MEDS: Folic Acid 1 MG TABLET PO (08:23)
[2020-10-29] MEDS: lisinopriL 5 MG TABLET PO (08:23)
[2020-10-29] MEDS: Thiamine HCL 100 MG TABLET PO (08:23)
--- NOTE | 2020-10-29 09:05 | MHC.CM.PN ---
EMR REVIEWED, PT ADMITTED W/ACUTE PANCREATITIS AND ETOH WITHDRAWAL, PT CURRENTLY ON ATIVAN CIWA, PT IS INDEPENDENT W/ALL CARE, USES DIABETIC SUPPLIES, PT REPORTS HE CHECKS HIS BS 3 TIMES DAILY AND GIVES HIMSELF INSULIN, PT DENIES ANY OTHER DME AND HAS NO HOME SERVICES, CM DISCUSSED SA TX W/PT AND PT REPORTS HE IS MOTIVATED TO STOP DRINKING AND REPORTS HE HAS THERAPY AND IS RECEIVING TX AT [facility], PT CURRENTLY DECLINES DETOX OR TO SPEAK WITH CARE TEAM OR RECOVERY NURSE, PT REPORTS THE HELP HE IS GETTING FROM [facility] IS SUFFICIENT AT THIS TIME. PCP: IRAIDA WINTERS HCP: ALECIA NGUYEN () [phone]
[2020-10-29 11:28] VITALS: BP 132/83; PULSE 109; RESP 18; TEMP 36.5; O2SAT 97
--- NOTE | 2020-10-29 11:36 | MHC.RECOVRN ---
Consult was placed to CARE Team, however, pt declines to speak with CARE Team or Recovery Support. If patient changes his mind, CARE Team/Recovery Support would be glad to speak with him and offer any support.
[2020-10-29 11:56] LABS: Glucose, Whole Blood 265 mg/dL (60-115)
--- NOTE | 2020-10-29 12:54 | HO.PM.IMPN ---
Subjective Subjective Date of Service: 10/30/20 Interval History: Patient complaining of abdominal pain, get worse with sips of liquid, no nausea, no vomiting, no diarrhea, no fevers, no chills, patient denies withdrawal symptoms, no tremors, no other acute issues overnight. ROS General no headache, no dizziness, no fever chills. CVS no chest pain, no palpitation. Respiratory no cough, no sob Gastrointestinal no nausea ,no vomiting, persistent abdominal pain in epigastric area Physical Exam Vital Signs: Vital Signs: Last Vital Signs Temp 97.7 F 10/29/20 11:28 Pulse 109 H 10/29/20 11:28 Resp 18 10/29/20 11:28 BP 132/83 10/29/20 11:28 Pulse Ox 97 10/29/20 11:28 Body Mass Index 24.4 General resting comfortably in no acute distress. Neck is supple no JVD. CVS regular rate rhythm Respiratory lungs clear to auscultation, no respiratory distress, no wheeze, no rhonchi. Gastrointestinal abdomen soft, epigastric tenderness with palpation, bowel sounds audible, no guarding , no rigidity. Extremities no clubbing cyanosis or edema. Neuro nonfocal ,no tremors Objective Data Current Medications Generic Name Dose Route Start Last Admin Trade Name Freq PRN Reason Stop Dose Admin Famotidine 20 mg 10/28/20 09:00 10/29/20 08:22 Famotidine/Pf 20 Mg/2 Ml Vial IVPUSH 20 mg BID LUIS Administration Folic Acid 1 mg 10/28/20 09:00 10/29/20 08:23 Folic Acid 1 Mg Tablet PO 10/31/20 08:59 1 mg DAILY LUIS Administration Dextrose/Sodium Chloride 1,000 mls @ 125 mls/hr 10/29/20 07:30 10/29/20 08:23 D5ns IVCONT 125 mls/hr .Q8H LUIS Administration Insulin Human Lispro 0 unit 10/28/20 07:30 10/29/20 12:38 Insulin Lispro 100 Unit/Ml 3 Ml Vial SUBCUT 4 unit QIDACHS LUIS Administration Protocol Lisinopril 5 mg 10/28/20 17:00 10/29/20 08:23 Lisinopril 5 Mg Tablet PO 5 mg DAILY LUIS Administration Protocol Lorazepam 1 mg 10/27/20 23:47 10/28/20 01:23 Lorazepam 1 Mg Tablet PO 10/31/20 23:46 1 mg Q4H PRN Administration Breakthrough alcohol withdrawa Morphine Sulfate 3 mg 10/28/20 16:37 10/29/20 12:42 Morphine Sulfate 2 Mg/Ml Cartridge IVPUSH 3 mg Q4H PRN Administration Pain, Severe (Pain Scale 7-10) Multivitamins 1 tab 10/28/20 09:00 10/29/20 08:23 B-Complex With Vitamin C Tablet PO 1 tab DAILY LUIS Administration Sodium Chloride 3 ml 10/28/20 00:00 10/29/20 08:24 0.9 % Sodium Chloride Flush 3 Ml Syringe IVFLUSH Not Given QSHIFT LUIS Thiamine HCl 100 mg 10/28/20 09:00 10/29/20 08:23 Thiamine Hcl 100 Mg Tablet PO 10/31/20 08:59 100 mg DAILY LUIS Administration Labs CBC & Chem 7: 10/30/20 06:52 10/30/20 06:52 Assessment and Plan (1) Acute pancreatitis: Status: Acute (2) Elevated LFTs: Status: Acute (3) HTN (hypertension): Status: Acute (4) Diabetes: Status: Acute (5) Alcohol use disorder: Status: Acute Assessment and Plan: 45-year-old male with a past medical history of hypertension, diabetes, alcohol abuse, history of pancreatitis presented to the hospital with a chief complaint of abdominal pain. Noted to have acute pancreatitis. Admitted for further management. Acute recurrent pancreatitis: Due to alcohol use, persistent abdominal pain , on clear liquid, continue IV fluid changed to D5 normal saline, continue pain medication, WBC trending down hematocrit stable, low sodium and chloride therefore change fluids to normal saline stable renal function, lipase improved to 170, mild hypokalemia will replace and follow. follow BMP, calcium ,bicarb and CBCs Continue IV fluid, Patient had similar presentation in July of 2020. Continue Supportive care, case discussed with GI will repeat abdominal MRI to rule out common bile duct stone. Transaminitis: LFTs trending up, CT abdomen and pelvis showed mild peripancreatic haziness liver is normal in size no focal hepatic lesions or biliary ductal dilatation noted patient is status post cholecystectomy, question related to alcohol use, MRCP in July showed narrowing of the common bile duct in the region of the pancreatic head likely related to underlying pancreatitis, Case discussed with GI they recommend to obtain MRCP since elevated LFTs less likely related to alcohol hepatitis B and C serology negative follow liver enzymes and clinical course. Hypertension: BP Stable this a.m. continue lisinopril 5mg daily, mild tachycardia likely related to alcohol withdrawal. Diabetes: Hold home insulins. Insulin sliding scale. Patient take Lantus at home. Alcohol abuse: Mild tachycardia and hypertension, no tremors, no shakes, continue as needed Ativan, CIWA protocol. Continue Thiamine, folate, multivitamins. DVT prophylaxis: SCD boots Code status: Full code
[2020-10-29 15:38] VITALS: BP 148/76; PULSE 94; RESP 15; TEMP 36.9; O2SAT 97
[2020-10-29 16:33] LABS: Glucose, Whole Blood 202 mg/dL (60-115)
[2020-10-29] MEDS: Potassium Chloride/H20 10 MEQ/100 ML PIGGYBACK 100 MEQ IV ×2 (16:52→17:47)
[2020-10-29 18:50] VITALS: BP 128/67; PULSE 94; RESP 14; TEMP 36.6; O2SAT 96
[2020-10-29 20:48] LABS: Glucose, Whole Blood 194 mg/dL (60-115)
[2020-10-30] VITALS (7 sets, daily range): BP systolic 130–143; BP diastolic 76–93; PULSE 84–99; RESP 16–20; TEMP 36.3–37.2; O2SAT 97–99
[2020-10-30] MEDS: Morphine Sulfate 2 MG/ML CARTRIDGE 3 MG IVPUSH (06:21)
[2020-10-30 07:05] LABS: MANUAL DIFF FLAG NO
[2020-10-30 07:22] LABS: Basophils Percent Auto 0.2 % (0-2); Eosinophils Absolute Auto 0.1 X10*3/uL (0.0-0.4); Eosinophils Percent Auto 0.4 % (0-4); Hemoglobin 12.6 g/dl (14.0-18.0); Imm Gran Abs Auto 0.15 X10*3/uL (0.00-0.03); Imm Gran Pct Auto 0.9 % (0.0-0.4); Lymphocytes Absolute Auto 1.1 X10*3/uL (1.2-4.9); Lymphocytes Percent Auto 6.4 % (20-40); Mean Corpuscular Volume 88.7 fL (80-98); Monocytes Absolute Auto 1.1 X10*3/uL (0.1-1.2); Monocytes Percent Auto 6.7 % (2-11); Neutrophils Absolute Auto 14.1 X10*3/uL (2.0-8.3); Neutrophils Percent Auto 85.4 % (45-73); Platelet Count 181 X10*3/uL (160-400); Red Blood Count 4.06 X10*6/uL (4.60-5.80); Red Cell Distribution Width 12.2 % (11.0-16.0); White Blood Count 16.5 X10*3/uL (4.8-10.8)
[2020-10-30 07:59] LABS: Alanine Aminotransferase 181 U/L (0-40); Albumin Level 3.2 g/dL (3.5-5.0); Alkaline Phosphatase 252 U/L (39-117); Anion Gap 8 (12-20); Aspartate Amino Transferase 79 U/L (5-37); Bilirubin Direct 0.9 mg/dL (0.0-0.5); Bilirubin Total 1.8 mg/dL (0.0-1.0); Blood Urea Nitrogen 6 mg/dL (9-16); Calcium 7.9 mg/dL (8.4-10.2); Carbon Dioxide 27 mmol/L (22-29); Chloride 100 mmol/L (96-108); Creatinine Clr Calc Pharmacy 119.3; Estimated Glomerular Filt Rate > 60; Glucose Random 251 mg/dL (60-115); Potassium 3.3 mmol/L (3.3-5.1); Sodium 132 mmol/L (135-145); Total Protein 6.1 g/dL (6.5-8.0); Triglycerides 127 mg/dL
[2020-10-30 08:18] LABS: Glucose, Whole Blood 166 mg/dL (60-115)
[2020-10-30] MEDS: Insulin Lispro 100 UNIT/ML 3 ML VIAL SUBCUT ×4 (08:44→21:03)
[2020-10-30] MEDS: Famotidine/PF 20 MG/2 ML VIAL IVPUSH ×2 (08:46→21:03)
[2020-10-30] MEDS: Thiamine HCL 100 MG TABLET PO (08:46)
[2020-10-30] MEDS: Folic Acid 1 MG TABLET PO (08:46)
[2020-10-30] MEDS: lisinopriL 5 MG TABLET PO (08:46)
--- NOTE | 2020-10-30 10:18 | HO.PM.IMPN ---
Subjective Subjective Date of Service: 10/30/20 Interval History: Patient feeling better this morning denies abdominal pain, no nausea, no vomiting, no headache, no other acute issues overnight. ROS General no headache, no dizziness, no fever chills. CVS no chest pain, no palpitation. Respiratory no cough, no sob Gastrointestinal no nausea ,no vomiting, no abdominal pain Physical Exam Vital Signs: Vital Signs: Last Vital Signs Temp 97.3 F 10/30/20 07:44 Pulse 99 10/30/20 07:44 Resp 18 10/30/20 07:44 BP 133/76 10/30/20 07:44 Pulse Ox 97 10/30/20 07:44 Body Mass Index 24.4 General resting comfortably in no acute distress. Neck is supple no JVD. CVS regular rate rhythm Respiratory lungs clear to auscultation, no respiratory distress, no wheeze, no rhonchi. Gastrointestinal abdomen soft, nontender, bowel sounds audible, no guarding , no rigidity. Extremities no clubbing cyanosis or edema. Neuro nonfocal ,no tremors Objective Data Current Medications Generic Name Dose Route Start Last Admin Trade Name Freq PRN Reason Stop Dose Admin Famotidine 20 mg 10/28/20 09:00 10/30/20 08:46 Famotidine/Pf 20 Mg/2 Ml Vial IVPUSH 20 mg BID LUIS Administration Folic Acid 1 mg 10/28/20 09:00 10/30/20 08:46 Folic Acid 1 Mg Tablet PO 10/31/20 08:59 1 mg DAILY LUIS Administration Dextrose/Sodium Chloride 1,000 mls @ 125 mls/hr 10/29/20 07:30 10/30/20 08:45 D5ns IVCONT Not Given .Q8H [facility] Insulin Human Lispro 0 unit 10/28/20 07:30 10/30/20 08:44 Insulin Lispro 100 Unit/Ml 3 Ml Vial SUBCUT 2 unit QIDACHS [facility] Administration Protocol Lisinopril 5 mg 10/28/20 17:00 10/30/20 08:46 Lisinopril 5 Mg Tablet PO 5 mg DAILY [facility] Administration Protocol Lorazepam 1 mg 10/27/20 23:47 10/28/20 01:23 Lorazepam 1 Mg Tablet PO 10/31/20 23:46 1 mg Q4H PRN Administration Breakthrough alcohol withdrawa Morphine Sulfate 3 mg 10/28/20 16:37 10/30/20 06:21 Morphine Sulfate 2 Mg/Ml Cartridge IVPUSH 3 mg Q4H PRN Administration Pain, Severe (Pain Scale 7-10) Multivitamins 1 tab 10/28/20 09:00 10/30/20 08:46 B-Complex With Vitamin C Tablet PO 1 tab DAILY LUIS Administration Sodium Chloride 3 ml 10/28/20 00:00 10/30/20 08:46 0.9 % Sodium Chloride Flush 3 Ml Syringe IVFLUSH Not Given QSHIFT LUIS Thiamine HCl 100 mg 10/28/20 09:00 10/30/20 08:46 Thiamine Hcl 100 Mg Tablet PO 10/31/20 08:59 100 mg DAILY LUIS Administration Labs CBC & Chem 7: 10/30/20 06:52 10/30/20 06:52 Assessment and Plan (1) Acute pancreatitis: Status: Acute (2) Elevated LFTs: Status: Acute (3) Alcohol use disorder: Status: Acute (4) HTN (hypertension): Status: Acute (5) Diabetes: Status: Acute (6) Leukocytosis: Status: Acute Assessment and Plan: 45-year-old male with a past medical history of hypertension, diabetes, alcohol abuse, history of pancreatitis presented to the hospital with a chief complaint of abdominal pain. Noted to have acute pancreatitis. Admitted for further management. Acute recurrent pancreatitis: ? Due to alcohol use, abdominal pain resolved, no fever chills will start patient on low-fat diet and add protein shakes due to low alb , noted to have elevated white cell count question reactive, no evidence of infection,no phlegmon ,no necrosis of pancreas since MRCP showed mild pancreatitis of the body and tail of the pancreas otherwise no other abnormality, stable renal function, lipase improved to 170, low normal potassium, otherwise stable labs Continue IV fluid, Supportive care strongly advised to abstain from alcohol Transaminitis: LFTs trending down, CT abdomen and pelvis showed mild peripancreatic haziness liver is normal in size no focal hepatic lesions or biliary ductal dilatation noted patient is status post cholecystectomy, question related to alcohol use, MRCP showed normal caliber intrahepatic and extrahepatic bile ducts no common bile ducts stone ,hepatitis B and C serology negative follow liver enzymes and clinical course. Hypertension: BP Stable continue lisinopril 5mg daily Diabetes: Hold home insulins. Insulin sliding scale. Patient take Lantus at home will resume once by mouth intake is stable. Alcohol abuse: no tremors, no shakes, continue as needed Ativan, CIWA protocol. Continue Thiamine, folate, multivitamins,care team eval. DVT prophylaxis: SCD boots Code status: Full code
[2020-10-30 12:03] LABS: Glucose, Whole Blood 287 mg/dL (60-115)
[2020-10-30 16:51] LABS: Glucose, Whole Blood 284 mg/dL (60-115)
[2020-10-30 20:45] LABS: Glucose, Whole Blood 235 mg/dL (60-115)
[2020-10-31] MEDS: Morphine Sulfate 2 MG/ML CARTRIDGE 3 MG IVPUSH (00:06)
[2020-10-31 03:24] VITALS: BP 132/76; PULSE 74; RESP 16; TEMP 36.4; O2SAT 98
[2020-10-31 06:24] LABS: MANUAL DIFF FLAG NO
[2020-10-31 06:47] LABS: Basophils Percent Auto 0.4 % (0-2); Eosinophils Absolute Auto 0.1 X10*3/uL (0.0-0.4); Hematocrit 35.8 % (42-52); Hemoglobin 12.6 g/dl (14.0-18.0); Imm Gran Abs Auto 0.05 X10*3/uL (0.00-0.03); Imm Gran Pct Auto 0.5 % (0.0-0.4); Lymphocytes Absolute Auto 1.7 X10*3/uL (1.2-4.9); Lymphocytes Percent Auto 15.9 % (20-40); Mean Corpuscular HGB Conc 35.2 g/dl (31.0-36.0); Mean Corpuscular Hemoglobin 31.4 pg (27.0-33.0); Mean Corpuscular Volume 89.3 fL (80-98); Mean Platelet Volume 11.1 fL (9.4-12.4); Monocytes Absolute Auto 1.1 X10*3/uL (0.1-1.2); Monocytes Percent Auto 10.3 % (2-11); Neutrophils Absolute Auto 7.6 X10*3/uL (2.0-8.3); Neutrophils Percent Auto 71.9 % (45-73); Platelet Count 210 X10*3/uL (160-400); Red Blood Count 4.01 X10*6/uL (4.60-5.80); Red Cell Distribution Width 12.2 % (11.0-16.0); White Blood Count 10.6 X10*3/uL (4.8-10.8)
[2020-10-31 07:20] LABS: Alanine Aminotransferase 144 U/L (0-40); Albumin Level 3.3 g/dL (3.5-5.0); Alkaline Phosphatase 278 U/L (39-117); Anion Gap 12 (12-20); Aspartate Amino Transferase 36 U/L (5-37); Bilirubin Direct 0.4 mg/dL (0.0-0.5); Bilirubin Total 0.8 mg/dL (0.0-1.0); Blood Urea Nitrogen 11 mg/dL (9-16); Calcium 8.3 mg/dL (8.4-10.2); Carbon Dioxide 26 mmol/L (22-29); Chloride 102 mmol/L (96-108); Creatinine Clr Calc Pharmacy 114.2; Estimated Glomerular Filt Rate > 60; Glucose Random 211 mg/dL (60-115); Potassium 3.9 mmol/L (3.3-5.1); Sodium 136 mmol/L (135-145); Total Protein 6.3 g/dL (6.5-8.0)
[2020-10-31 07:42] VITALS: BP 133/73; PULSE 77; RESP 18; TEMP 36.9; O2SAT 97
[2020-10-31 07:47] LABS: Glucose, Whole Blood 201 mg/dL (60-115)
[2020-10-31 08:06] VITALS: BP 133/73; PULSE 77
[2020-10-31] MEDS: Insulin Lispro 100 UNIT/ML 3 ML VIAL SUBCUT (08:06)
[2020-10-31] MEDS: lisinopriL 5 MG TABLET PO (08:06)
[2020-10-31] MEDS: Famotidine/PF 20 MG/2 ML VIAL IVPUSH (08:06)
[2020-10-31] MEDS: 0.9 % Sodium Chloride Flush 3 ML SYRINGE IVFLUSH (08:06)
--- NOTE | 2020-10-31 10:07 | MHC.CM.PN ---
PATIENT IS DISCHARGED HOME WITH NO SERVICES. RN AWARE OF PLAN
[2020-10-31 11:22] VITALS: BP 126/77; PULSE 88; RESP 18; TEMP 36.3; O2SAT 97
--- NOTE | 2020-10-31 11:52 | PM.DS ---
DS: Providers Provider Date of Service: 10/31/20 Date of admission: 10/27/20 23:48 Primary care physician: Kristin León DO Consults: 10/27/20 23:47 Consult to Gastroenterology Routine Consulting Provider: Lulu Amos Reason for consultation: Pancreatitis 10/28/20 16:37 Consult to Care Team Routine Comment: Reason for consultation: alcohol DS: Diagnosis Discharge Diagnosis (1) Acute pancreatitis: Status: Acute (2) Elevated LFTs: Status: Acute (3) Alcohol use disorder: Status: Acute (4) HTN (hypertension): Status: Acute (5) Diabetes: Status: Acute (6) Leukocytosis: Status: Acute DS: Medications Discharge Medications Home Medications: Home Medications Medication Instructions Recorded Confirmed Lantus U-100 Insulin 14 unit SUBCUT QAM 08/09/20 10/28/20 aspirin [Ecotrin Low Strength] 81 mg PO DAILY 08/09/20 10/28/20 cholecalciferol (vitamin D3) 50 mcg PO DAILY 08/09/20 10/28/20 [Vitamin D3] guaifenesin 200 mg PO Q4H PRN 08/09/20 10/28/20 insulin lispro [Humalog U-100 1 sliding scale dose SUBCUT 08/09/20 10/28/20 Insulin] USEASDIRECTD lisinopril 5 mg PO DAILY 08/09/20 10/28/20 multivitamin 1 tab PO DAILY 08/09/20 10/28/20 DS: Summary Hospital Course Hospital Course: Chief Complaint: Abdominal pain 45-year-old male with a past medical history of hypertension, insulin-dependent diabetes, alcohol abuse, history of pancreatitis presented to the hospital with a chief complaint of abdominal pain for the past 1 have day. Patient mentioned that he has been drinking alcohol will past few days. Abdominal pain is diffuse in nature no associated nausea vomiting or diarrhea. Patient has decreased oral intake. Denies any fever chills cough. Denies any recent travel or sick contact. Denies any urinary symptoms. Review of all other systems is negative except mentioned above ER course: Per ER team patient noted to have diffuse abdominal tenderness, voluntary guarding, no rigidity. CT abdomen showed acute pancreatitis. Lipase was elevated. Also noted leukocytosis but no active signs of infection. COVID-19 negative. Given gentle IV fluids. Pain control. Admitted to the hospital for further management. Hospital course 45-year-old male with a past medical history of hypertension, diabetes, alcohol abuse, history of pancreatitis presented to the hospital with a chief complaint of abdominal pain. Noted to have acute pancreatitis. Admitted for further management. Acute recurrent pancreatitis likely due to alcohol use, abdominal pain resolved, no fever chills LFTs trending down, WBC normalized, lipase improved to 170, patient is tolerating low-fat diet, ct abd showed no evidence of infection,no phlegmon ,no necrosis of pancreas, MRCP showed mild pancreatitis of the body and tail of the pancreas otherwise no other abnormality, patient is being discharged home with strong recommendation to abstain from alcohol. Transaminitis: LFTs trending down, CT abdomen and pelvis showed mild peripancreatic haziness liver is normal in size no focal hepatic lesions or biliary ductal dilatation noted patient is status post cholecystectomy, MRCP showed normal caliber intrahepatic and extrahepatic bile ducts, no common bile ducts stone ,hepatitis B and C serology negative since patient has no abdominal pain and LFTs have improved patient is being discharged home and recommended to abstain from alcohol Hypertension: BP Stable continue lisinopril 5mg daily Diabetes: Recommended diabetic diet and insulin Alcohol abuse: Patient had no withdrawal symptoms he refuse care team consult Time Spent with Patient Time attestation: Total time spent providing and/or coordinating discharge services: Discharge coordination time: Greater than 30 minutes Physical Exam Vital Signs: Vital Signs: Last Vital Signs Temp 97.4 F 10/31/20 11:22 Pulse 88 10/31/20 11:22 Resp 18 10/31/20 11:22 BP 126/77 10/31/20 11:22 Pulse Ox 97 10/31/20 11:22 Body Mass Index 24.4 General resting comfortably in no acute distress. Neck is supple no JVD. CVS regular rate rhythm Respiratory lungs clear to auscultation, no respiratory distress, no wheeze, no rhonchi. Gastrointestinal abdomen soft, nontender, bowel sounds audible, no guarding , no rigidity. Extremities no clubbing cyanosis or edema. Neuro nonfocal ,no tremors DS: Data Data Completed and Pending Labs on day of discharge: Laboratory Results - last 24 hr 10/30/20 10/30/20 10/30/20 11:53 16:46 20:38 WBC RBC Hgb Hct MCV MCH MCHC RDW Plt Count MPV Immature Gran % (Auto) Neut % (Auto) Lymph % (Auto) [place] % (Auto) Eos % (Auto) Baso % (Auto) Lymph # (Auto) [place] # (Auto) Eos # (Auto) Baso # (Auto) Abs Immat Gran (auto) Absolute Neuts (auto) Absolute Nucleated RBC Nucleated RBC % (auto) Sodium Potassium Chloride Carbon Dioxide Anion Gap BUN Creatinine Estim Creat Clear Calc Estimated GFR POC Glucose 287 H 284 H 235 H Random Glucose Calcium Total Bilirubin Direct Bilirubin AST ALT Alkaline Phosphatase Total Protein Albumin 10/31/20 10/31/20 10/31/20 06:17 06:17 07:41 WBC 10.6 RBC 4.01 L Hgb 12.6 L Hct 35.8 L MCV 89.3 MCH 31.4 MCHC 35.2 RDW 12.2 Plt Count 210 MPV 11.1 Immature Gran % (Auto) 0.5 H Neut % (Auto) 71.9 Lymph % (Auto) 15.9 L [place] % (Auto) 10.3 Eos % (Auto) 1.0 Baso % (Auto) 0.4 Lymph # (Auto) 1.7 [place] # (Auto) 1.1 Eos # (Auto) 0.1 Baso # (Auto) 0.0 Abs Immat Gran (auto) 0.05 H Absolute Neuts (auto) 7.6 Absolute Nucleated RBC 0.000 Nucleated RBC % (auto) 0.0 Sodium 136 Potassium 3.9 Chloride 102 Carbon Dioxide 26 Anion Gap 12 BUN 11 D Creatinine 0.71 Estim Creat Clear Calc 114.2 Estimated GFR > 60 POC Glucose 201 H Random Glucose 211 H Calcium 8.3 L Total Bilirubin 0.8 Direct Bilirubin 0.4 AST 36 D ALT 144 H Alkaline Phosphatase 278 H Total Protein 6.3 L Albumin 3.3 L Discharge Plan Discharge Patient Disposition: Home, Self-Care Referrals: Kristin León DO [Primary Care Provider] - Discharge Medications: Continued guaifenesin 100 mg/5 mL Liquid 200 mg PO Q4H PRN (Reason: Cough) RF: 0 multivitamin Tablet 1 tab PO DAILY RF: 0 Lantus U-100 Insulin 100 unit/mL Solution 14 unit SUBCUT QAM RF: 0 lisinopril 5 mg Tablet 5 mg PO DAILY RF: 0 insulin lispro [Humalog U-100 Insulin] 100 unit/mL Solution 1 sliding scale dose SUBCUT USEASDIRECTD RF: 0 cholecalciferol (vitamin D3) [Vitamin D3] 50 mcg (2,000 unit) Capsule 50 mcg PO DAILY RF: 0 aspirin [Ecotrin Low Strength] 81 mg Tablet,Delayed Release (Dr/Ec) 81 mg PO DAILY RF: 0 Discharge Orders: Discharge Order (Routine); Ordered 10/31/20 Ordered By: Hitesh Lozoya Diet: diabetic diet and low fat, low cholesterol Activity on Discharge: As tolerated Stand Alone Forms: Patient Portal Discharge page Care Plan Goals: As above Health Concerns: Acute pancreatitis/elevated LFTs alcohol use disorder strongly recommend to abstain from alcohol and outpatient follow-up with Gastroenterology, take low-fat diet Plan of Treatment: Follow-up with primary care physician, and Gastroenterology. Discharge Date/Time: 10/31/20 12:00
== END 2020-10-31 12:00 | disposition home or self-care (01) | DRG 282 ==
LOC: HO.ED 10-28 00:05 → HO.EDOVER 10-28 00:22 → HO.S3 10-28 12:02
PROVIDERS: Nurse Practitioner Family; Admitting Provider Hospitalist; Emergency Provider Emergency Medicine Emergency Medical Services; PCP Family Medicine; Visit Provider Hospitalist
DX: K85.20 Alcohol induced acute pancreatitis without necrosis or infection (principal); D72.829 Elevated white blood cell count, unspecified; E11.9 Type 2 diabetes mellitus without complications; I10 Essential (primary) hypertension; F10.10 Alcohol abuse, uncomplicated; R74.01 Elevation of levels of liver transaminase levels; Z20.822 Contact with and (suspected) exposure to COVID-19; Z87.891 Personal history of nicotine dependence; Z79.4 Long term (current) use of insulin; Z79.82 Long term (current) use of aspirin; Z79.899 Other long term (current) drug therapy
CPT/HCPCS: 36415; 71045; 74176; 74181; 80048; 80076; 80320; 82947; 83690; 84478; 85025; 86704; 86706; 86803; 87340; 87635; 96374; 96375; 99285; 99291; J2270; J2405

== ENCOUNTER 2020-11-08 10:19 | Emergency (ER) | payer MEDICAID, SELFPAY ==
--- NOTE | ~2020-11-08 | XR_ITS ---
EXAMINATION: LEFT FOOT AND LEFT ANKLE CLINICAL INFORMATION: Injury COMPARISON: None TECHNIQUE: Three-view left foot and two-view left ankle FINDINGS: There is no evidence of acute fracture or dislocation of the left ankle. Left ankle mortise appears unremarkable. No widening of the medial joint space. There is soft tissue swelling seen overlying the lateral malleolus. Views of the left foot demonstrate an avulsion injury about the dorsum of the distal talus which may be acute or chronic in nature. There is soft tissue swelling seen in this location. No intra-articular fracture is identified. XR/XR ankle LT min 3V IMPRESSION: Soft tissue swelling overlying the lateral malleolus without left ankle fracture appreciated. Avulsion fracture which may be acute or chronic about the dorsum of the distal talus but which is in region of soft tissue swelling.
--- NOTE | ~2020-11-08 | XR_ITS ---
EXAMINATION: LEFT FOOT AND LEFT ANKLE CLINICAL INFORMATION: Injury COMPARISON: None TECHNIQUE: Three-view left foot and two-view left ankle FINDINGS: There is no evidence of acute fracture or dislocation of the left ankle. Left ankle mortise appears unremarkable. No widening of the medial joint space. There is soft tissue swelling seen overlying the lateral malleolus. Views of the left foot demonstrate an avulsion injury about the dorsum of the distal talus which may be acute or chronic in nature. There is soft tissue swelling seen in this location. No intra-articular fracture is identified. XR/XR foot LT min 3V IMPRESSION: Soft tissue swelling overlying the lateral malleolus without left ankle fracture appreciated. Avulsion fracture which may be acute or chronic about the dorsum of the distal talus but which is in region of soft tissue swelling.
[2020-11-08 10:36] VITALS: BP 123/69; PULSE 80; RESP 18; TEMP 36.5; O2SAT 97; BMI 23.3
--- NOTE | 2020-11-08 11:55 | ED_ITS ---
HPI - Extremity Injury (Lower) General Chief Complaint: Extremity Injury, Lower Stated Complaint: foot injury Time Seen by Provider: 11/08/20 10:46 History of Present Illness HPI Narrative: Patient twisted left ankle yesterday and complains of left ankle and left foot pain Related Data Home Medications Medication Instructions Recorded Confirmed Lantus U-100 Insulin 14 unit SUBCUT QAM 08/09/20 10/28/20 aspirin [Ecotrin Low Strength] 81 mg PO DAILY 08/09/20 10/28/20 cholecalciferol (vitamin D3) 50 mcg PO DAILY 08/09/20 10/28/20 [Vitamin D3] guaifenesin 200 mg PO Q4H PRN 08/09/20 10/28/20 insulin lispro [Humalog U-100 1 sliding scale dose SUBCUT 08/09/20 10/28/20 Insulin] USEASDIRECTD lisinopril 5 mg PO DAILY 08/09/20 10/28/20 multivitamin 1 tab PO DAILY 08/09/20 10/28/20 Allergies Allergy/AdvReac Type Severity Reaction Status Date / Time No Known Allergies Allergy Verified 10/27/20 20:11 Review of Systems Review of Systems: Positive for left ankle pain and swelling Negatives are no dizziness no weakness no headache no neck or back pain no numbness weakness or tingling PMFSH Past Medical History Source: nursing notes reviewed Medical History Alcohol abuse Diabetes HTN (hypertension) Surgical History History of laparoscopic cholecystectomy Social History Social History Household Members: Spouse Housing: Apartment Alcohol intake: current Alcohol intake frequency: 3 or more drinks per day Alcohol type: beer, wine and hard liquor Smoking Status: Never smoker Advance Directives: No Advance Directives Information Provided: No service: No Current occupational status: previously employed 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 [employer] [facility] [place] Physical Exam Vital Signs: Vital Signs: Last Vital Signs Temp 97.7 F 11/08/20 10:36 Pulse 80 11/08/20 10:36 Resp 18 11/08/20 10:36 BP 123/69 11/08/20 10:36 Pulse Ox 97 11/08/20 10:36 Body Mass Index 23.3 General appearance no acute distress, common cooperative The head is normocephalic atraumatic Neck is supple and nontender Respiratory no distress Back full range of motion Extremities the left ankle had tenderness and swelling around lateral malleolus as well as some swelling over the lateral aspect of the foot, otherwise neurovascular intact and skin is normal Course Course Course Narrative: X-ray was negative and patient is treated for left ankle sprain and given and referral to Orthopedics as needed Discharge Plan Discharge Clinical Impression: Left ankle sprain Patient Disposition: Home, Self-Care Additional Instructions: Follow with orthopedist if needed for physical therapy and further evaluation Return any time any worse condition or concerns Prescriptions: No Action guaifenesin 100 mg/5 mL Liquid 200 mg PO Q4H PRN (Reason: Cough) RF: 0 multivitamin Tablet 1 tab PO DAILY RF: 0 Lantus U-100 Insulin 100 unit/mL Solution 14 unit SUBCUT QAM RF: 0 lisinopril 5 mg Tablet 5 mg PO DAILY RF: 0 insulin lispro [Humalog U-100 Insulin] 100 unit/mL Solution 1 sliding scale dose SUBCUT USEASDIRECTD RF: 0 cholecalciferol (vitamin D3) [Vitamin D3] 50 mcg (2,000 unit) Capsule 50 mcg PO DAILY RF: 0 aspirin [Ecotrin Low Strength] 81 mg Tablet,Delayed Release (Dr/Ec) 81 mg PO DAILY RF: 0 Referrals: Lilia Murphy MD [Physician] - 2 days (Left ankle sprain with bone chip) Stand Alone Forms: Work/School Release Interventions: ED Discharge Assessment Last Done: 11/08/20 12:14 Discharge Date/Time: 11/08/20 12:14
== END 2020-11-08 12:14 | disposition home or self-care (01) ==
PROVIDERS: Emergency Provider Emergency Medicine; PCP Family Medicine
DX: S93.402A Sprain of unspecified ligament of left ankle, initial encounter (principal); W10.8XXA Fall (on) (from) other stairs and steps, initial encounter; Y93.89 Activity, other specified; Y92.019 Unspecified place in single-family (private) house as the place of occurrence of the external cause; Y99.9 Unspecified external cause status
CPT/HCPCS: 73610; 73630; 99283

== ENCOUNTER 2021-10-10 11:34 | Emergency (ER) | payer MEDICAID, SELFPAY ==
[2021-10-10 12:33] VITALS: BP 131/84; PULSE 68; RESP 17; TEMP 37; O2SAT 98; BMI 23.7
[2021-10-10 13:57] LABS: Appearance Urine CLEAR; Color Urine YELLOW; Glucose Urine UA >=1000 MG/DL (NEG); Leukocyte Esterase Urine NEG (NEG); Nitrite Urine NEG (NEG); Specific Gravity - Urine 1.025 (1.005-1.025); Urine Blood NEG (NEG); Urine Ketones NEG (NEG); Urine Protein NEG (NEG-TRACE)
[2021-10-10 14:07] LABS: Mucus Urine 3+ /LPF; RBC Urine 0 /HPF (0); Squamous Epithelial Cell Urine TRACE /LPF; WBC Urine 0 /HPF (0-4)
--- NOTE | 2021-10-10 17:24 | ED.ABDPAIN ---
HPI - Abdominal Pain General Chief Complaint: Abdominal Pain Stated Complaint: burning sensation abd Time Seen by Provider: 10/10/21 17:09 Source: patient Mode of arrival: ambulatory Limitations: language barrier History of Present Illness HPI narrative: Girlfriend was translating. Starting 4 days ago he had burning in his abdomen. Epigastric, no nausea or vomiting. No diarrhea. Patient has had a problem with his liver and his pancrease. Patient has inflammation due to his alcohol use. Patient has been drinking recently. Last year he had an attack that he needed to be admitted. MD elicited complaint: abdominal pain Pertinent past history: gastritis and other (hepatitis and pancreatitis) Onset (ago): day(s) Pain Consistency: constant Location: epigastric Severity: moderate Quality: burning Associated symptoms: denies other symptoms Related Data Home Medications Medication Instructions Recorded Confirmed aspirin 81 mg tablet,delayed 81 mg PO DAILY 08/09/20 10/28/20 release (Ecotrin Low Strength) cholecalciferol (vitamin D3) 50 50 mcg PO DAILY 08/09/20 10/28/20 mcg (2,000 unit) capsule (Vitamin D3) guaifenesin 100 mg/5 mL oral liquid 200 mg PO Q4H PRN 08/09/20 10/28/20 insulin glargine 100 unit/mL 14 unit SUBCUT QAM 08/09/20 10/28/20 subcutaneous solution (Lantus U-100 Insulin) insulin lispro 100 unit/mL 1 sliding scale dose SUBCUT 08/09/20 10/28/20 subcutaneous solution (Humalog USEASDIRECTD U-100 Insulin) lisinopril 5 mg tablet 5 mg PO DAILY 08/09/20 10/28/20 multivitamin 1 tab PO DAILY 08/09/20 10/28/20 Previous Rx's Medication Instructions Recorded pantoprazole 40 mg tablet,delayed 40 mg PO DAILY #20 tab 10/10/21 release (Protonix) Allergies Allergy/AdvReac Type Severity Reaction Status Date / Time No Known Allergies Allergy Verified 10/27/20 20:11 Review of Systems Constitutional: Reports no additional constitutional complaints Eyes: Reports no additional eye complaints Denies dizziness Cardiovascular: Reports no additional cardiovascular complaints Respiratory: Reports as per HPI Gastrointestinal: Reports no additional gastrointestinal complaints Musculoskeletal: Reports no additional musculoskeletal complaints Skin/Breast: Denies rash Reports system reviewed and no additional complaints, except as documented, Denies dizziness and Denies Sensory deficit (Neuro) Psychiatric: Denies anxiety [facility] Past Medical History Medical History Alcohol abuse Diabetes HTN (hypertension) Surgical History History of laparoscopic cholecystectomy Social History Social History Household Members: Spouse Household Members Other:: one child Housing: Apartment Do you presently have visiting nurse or other home services: No Alcohol intake: current Alcohol intake frequency: 3 or more drinks per day Alcohol type: beer, wine and hard liquor Advance Directives: No Advance Directives Information Provided: No service: No Current occupational status: previously employed 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 [employer] in [facility] [employer] in [place] Physical Exam ED Vital Signs: Vital Signs - 24 hr 10/10/21 12:33 10/10/21 17:34 Temperature 98.6 F 98.1 F Pulse Rate 68 66 Respiratory Rate 17 16 Blood Pressure 131/84 132/85 Pulse Oximetry 98 98 BMI result Body Mass Index 23.7 Const General: healthy appearing Nutritional Appearance: average body habitus Orientation/consciousness: oriented to person and patient oriented x3 Limitations: no limitations HENMT Head: Yes normal to inspection Ears: external ears normal General nose exam: Normal external nose present Mouth: Normal oral and palatal mucosa present and oropharynx normal Throat: Yes posterior oropharynx normal Eyes General: appearance normal, both eyes and all related structures Neck Neck: Yes normal visual inspection Chest Chest palpation & inspection: normal inspection of the chest Resp Auscultation: clear to auscultation bilaterally Cardio Jugular venous distension: no JVD Rate: regular rate Rhythm: regular rhythm Heart sounds: S1 normal heart sound present and S2 normal heart sound present GI Other: right upper quadrant tenderness with mild guarding Inspection: Yes normal to inspection Auscultation: normal bowel sounds General: Yes no CVA tenderness Back/Spine/Pelvis Back: no CVA tenderness Skin General skin exam: no rashes or lesions noted Neuro General: oriented to person and patient oriented x3 Cranial nerves: Yes CN's II-XII intact bilaterally Motor exam (neuro): 5/5 motor strength present throughout Sensory Exam: No Sensory deficit (Neuro) Extrem General: Yes normal to inspection Psych Appearance: grossly normal Course Reevaluation(s) Reevaluation #1: Patient with continued elevation of his LFTs, his pancrease enzymes are normal. Patient with hepatitis secondary to alcohol. will continue his protonix, He does not want detox at this time. Time: 18:36 MDM - Abdominal Pain Lab Data Result diagrams: 10/10/21 17:49 10/10/21 17:49 Labs: Lab Results 10/10/21 10/10/21 10/10/21 Range/Units 13:37 17:49 17:49 WBC 6.4 (4.8-10.8) X10*3/uL RBC 4.38 L (4.60-5.80) X10*6/uL Hgb 13.6 L (14.0-18.0) g/dl Hct 40.3 L (42.0-52.0) % MCV 92.0 (80.0-98.0) fL MCH 31.1 (27.0-33.0) pg MCHC 33.7 (31.0-36.0) g/dl RDW 13.3 (11.0-16.0) % Plt Count 259 (160-400) X10*3/uL MPV 10.3 (9.4-12.4) fL Immature Gran % (Auto) 0.3 (0.0-0.4) % Neut % (Auto) 56.6 (45-73) % Lymph % (Auto) 28.6 (20-40) % [place] % (Auto) 13.1 H (2-11) % Eos % (Auto) 0.9 (0-4) % Baso % (Auto) 0.5 (0-2) % Lymph # (Auto) 1.8 (1.2-4.9) X10*3/uL [place] # (Auto) 0.8 (0.1-1.2) X10*3/uL Eos # (Auto) 0.1 (0.0-0.4) X10*3/uL Baso # (Auto) 0.0 (0.0-0.2) X10*3/uL Abs Immat Gran (auto) 0.02 (0.00-0.03) X10*3/uL Absolute Neuts (auto) 3.6 (2.0-8.3) x10*3/uL Absolute Nucleated RBC 0.000 (0.0-0.012) X10*3/uL Nucleated RBC % (auto) 0.0 (0.0-0.2) /100WBC Sodium 137 (135-145) mmol/L Potassium 3.7 (3.3-5.1) mmol/L Chloride 102 (96-108) mmol/L Carbon Dioxide 28 (22-29) mmol/L Anion Gap 11 L (12-20) BUN 13 (9-16) mg/dL Creatinine 0.80 (0.5-1.4) mg/dL Estim Creat Clear Calc 104.1 Estimated GFR > 60 Random Glucose 249 H (60-115) mg/dL Calcium 9.2 D (8.4-10.2) mg/dL Total Bilirubin 0.6 (0.0-1.0) mg/dL Direct Bilirubin 0.3 (0.0-0.5) mg/dL AST 71 H (5-37) U/L ALT 145 H (0-40) U/L Alkaline Phosphatase 129 H D (39-117) U/L Total Protein 7.4 (6.5-8.0) g/dL Albumin 3.9 (3.5-5.0) g/dL Lipase 42 (8-78) U/L Urine Color YELLOW Urine Appearance CLEAR Urine pH 6.0 (5.0-8.0) Ur Specific [place] 1.025 (1.005-1.025) Urine Protein NEG (NEG-TRACE) MG/DL Urine Glucose (UA) >=1000 H (NEG) MG/DL Urine Ketones NEG (NEG) MG/DL Urine Blood NEG (NEG) Urine Nitrite NEG (NEG) Ur Leukocyte Esterase NEG (NEG) Urine RBC 0 (0) /HPF Urine WBC 0 (0-4) /HPF Ur Squamous Epith Cells TRACE /LPF Urine Bacteria NONE /LPF Urine Mucus 3+ /LPF Discharge Plan Discharge Clinical Impression: Alcohol use disorder, Alcoholic hepatitis Patient Disposition: Home, Self-Care Instructions: Alcoholic Hepatitis (ED) Prescriptions: New pantoprazole [Protonix] 40 mg tablet,delayed release (DR/EC) 40 mg PO DAILY Qty: 20 0RF No Action guaifenesin 100 mg/5 mL Liquid 200 mg PO Q4H PRN (Reason: Cough) 0RF multivitamin Tablet 1 tab PO DAILY 0RF Lantus U-100 Insulin 100 unit/mL Solution 14 unit SUBCUT QAM 0RF lisinopril 5 mg Tablet 5 mg PO DAILY 0RF insulin lispro [Humalog U-100 Insulin] 100 unit/mL Solution 1 sliding scale dose SUBCUT USEASDIRECTD 0RF Rx Instructions: CORRECTION SCALE cholecalciferol (vitamin D3) [Vitamin D3] 50 mcg (2,000 unit) Capsule 50 mcg PO DAILY 0RF aspirin [Ecotrin Low Strength] 81 mg Tablet,Delayed Release (Dr/Ec) 81 mg PO DAILY 0RF Referrals: Kristin León DO [Primary Care Provider] - 1 week
[2021-10-10 17:34] VITALS: BP 132/85; PULSE 66; RESP 16; TEMP 36.7; O2SAT 98
[2021-10-10] MEDS: Pantoprazole Sodium 40 MG/10 ML VIAL IVPUSH (17:48)
[2021-10-10] MEDS: 0.9 % Sodium Chloride 1,000 ML 125 ML IVCONT (17:48)
[2021-10-10 17:54] LABS: MANUAL DIFF FLAG NO
[2021-10-10 17:56] LABS: Basophils Percent Auto 0.5 % (0-2); Eosinophils Absolute Auto 0.1 X10*3/uL (0.0-0.4); Eosinophils Percent Auto 0.9 % (0-4); Hematocrit 40.3 % (42.0-52.0); Hemoglobin 13.6 g/dl (14.0-18.0); Imm Gran Abs Auto 0.02 X10*3/uL (0.00-0.03); Imm Gran Pct Auto 0.3 % (0.0-0.4); Lymphocytes Absolute Auto 1.8 X10*3/uL (1.2-4.9); Lymphocytes Percent Auto 28.6 % (20-40); Mean Corpuscular HGB Conc 33.7 g/dl (31.0-36.0); Mean Corpuscular Hemoglobin 31.1 pg (27.0-33.0); Mean Platelet Volume 10.3 fL (9.4-12.4); Monocytes Absolute Auto 0.8 X10*3/uL (0.1-1.2); Monocytes Percent Auto 13.1 % (2-11); Neutrophils Absolute Auto 3.6 x10*3/uL (2.0-8.3); Neutrophils Percent Auto 56.6 % (45-73); Platelet Count 259 X10*3/uL (160-400); Red Blood Count 4.38 X10*6/uL (4.60-5.80); Red Cell Distribution Width 13.3 % (11.0-16.0); White Blood Count 6.4 X10*3/uL (4.8-10.8)
[2021-10-10 18:19] LABS: Alanine Aminotransferase 145 U/L (0-40); Albumin Level 3.9 g/dL (3.5-5.0); Alkaline Phosphatase 129 U/L (39-117); Anion Gap 11 (12-20); Aspartate Amino Transferase 71 U/L (5-37); Bilirubin Direct 0.3 mg/dL (0.0-0.5); Bilirubin Total 0.6 mg/dL (0.0-1.0); Blood Urea Nitrogen 13 mg/dL (9-16); Calcium 9.2 mg/dL (8.4-10.2); Carbon Dioxide 28 mmol/L (22-29); Chloride 102 mmol/L (96-108); Creatinine Clr Calc Pharmacy 104.1; Estimated Glomerular Filt Rate > 60; Glucose Random 249 mg/dL (60-115); Lipase 42 U/L (8-78); Potassium 3.7 mmol/L (3.3-5.1); Sodium 137 mmol/L (135-145); Total Protein 7.4 g/dL (6.5-8.0)
[2021-10-10 18:36] VITALS: BP 110/62; PULSE 66; RESP 16; TEMP 36.7; O2SAT 99
== END 2021-10-10 19:03 | disposition home or self-care (01) ==
PROVIDERS: Emergency Provider Emergency Medicine; PCP Family Medicine
DX: K70.10 Alcoholic hepatitis without ascites (principal); F10.10 Alcohol abuse, uncomplicated; E11.9 Type 2 diabetes mellitus without complications; I10 Essential (primary) hypertension; Z79.4 Long term (current) use of insulin; Z79.82 Long term (current) use of aspirin; Y90.9 Presence of alcohol in blood, level not specified
CPT/HCPCS: 36415; 80048; 80076; 81001; 83690; 85025; 96361; 96374; 99284

== ENCOUNTER 2021-12-27 11:35 | Inpatient (IN) | payer MEDICAID, SELFPAY ==
--- NOTE | ~2021-12-27 | US_ITS ---
EXAMINATION: US RETROPERITONEAL LIMITED (RENAL ONLY) CLINICAL INFORMATION: Question renal artifact right or infract. COMPARISON: CT abdomen and pelvis 12/27/2021. MR abdomen without contrast 10/29/2020. Ultrasound abdomen complete 02/04/2020. TECHNIQUE: Real-time imaging of the kidneys is performed using grayscale imaging along with color Doppler. FINDINGS: RIGHT KIDNEY: 12.1 x 4.6 x 5.3 cm (SAG x AP x TRV). The kidney is normal in size, contour, and echogenicity. Renal cortical thickness is normal. No calculi or focal parenchymal lesions. No hydronephrosis. There is no parenchymal thinning or cortical infarct. There is normal color flow pattern. There is no ultrasound correlate for artifact noted on recent CT. LEFT KIDNEY: 12.0 x 4.9 x 4.7 cm (SAG x AP x TRV). The kidney is normal in size, contour, and echogenicity. Renal cortical thickness is normal. No calculi or focal parenchymal lesions. No hydronephrosis. US/US renal BI IMPRESSION: -Normal study. -No hydronephrosis or renal parenchymal lesion.
--- NOTE | ~2021-12-27 | CT_ITS ---
EXAMINATION: CT ABDOMEN AND PELVIS WITHOUT CONTRAST CLINICAL INFORMATION: Abdominal pain. History pancreatitis. COMPARISON: MR abdomen noncontrast 10/29/2020, CT abdomen and pelvis noncontrast 10/27/2020. TECHNIQUE: Multidetector volumetric imaging was performed from the superior aspect of the liver through the pubic symphysis. No oral or intravenous contrast. Sagittal and coronal reformatted images were obtained on the technologist's workstation. This CT examination was performed using dose optimization techniques as appropriate, variously including the following: *Automated exposure control *Adjustment of mA and/or kV according to patient size (this includes techniques or standardized protocols for targeted exams where dose is matched to indication/reason for exam; i.e. extremities or head) *Use of iterative reconstruction technique DLP: 582 mGy-cm FINDINGS: LUNG BASES: Lung bases are unremarkable. There is small fat-containing Bochdalek hernia left posterior base similar to prior exams. LIVER, GALLBLADDER, AND BILIARY TREE: Prior cholecystectomy. No intrahepatic or extrahepatic biliary ductal dilatation. No ductal calculus. Liver normal in size and smooth in contour and uniform in parenchymal attenuation. No focal hepatic parenchymal lesion. PANCREAS: There are inflammatory changes in the retroperitoneum around the pancreas in the anterior pararenal space. The pancreas is normal in size and uniform in attenuation. There is no pancreatic ductal distention or pseudocyst or retroperitoneal fluid collection. Again, there is a splenule between the pancreatic tail and spleen approximately 0.9 cm. SPLEEN: Normal in size and homogeneous. Splenule anterior to the spleen left upper quadrant, stable, approximately 1.0 cm. ADRENAL GLANDS: Unremarkable. KIDNEYS AND URETERS: The kidneys are normal in size and show no hydronephrosis, hydroureter, or perinephric stranding. No visible calculi. There is some nonspecific linear increased attenuation medial aspect right kidney upper pole, possibly artifact. There is some motion artifact just below this level. Focal parenchymal hemorrhage may have similar appearance, although there is no stranding in the perinephric space. BLADDER: Unremarkable. GASTROINTESTINAL TRACT: No bowel obstruction or focal inflammatory changes. There is some mild distention descending duodenum just proximal to the area of pancreatitis. The appendix is normal. There is no ascites or fluid collection. No pneumatosis or free air. ABDOMINAL WALL: Small fat-containing umbilical hernia, stable LYMPH NODES: There are some small peripancreatic nodes between the pancreatic head and vena cava no retroperitoneal or pelvic adenopathy. VASCULAR: Unremarkable on noncontrast exam. PELVIC VISCERA: Unremarkable. OSSEOUS STRUCTURES: Unremarkable. CT/CT abdomen pelvis wo con IMPRESSION: -Peripancreatic inflammatory changes suggesting pancreatitis. -Pancreas normal in size and uniform in attenuation. No ductal distention. -No retroperitoneal fluid collection or pseudocyst. -Prior cholecystectomy. No biliary ductal dilatation. -Nonspecific focal horizontal linear high attenuation medial upper pole right kidney, possibly artifact, parenchymal hemorrhage less likely. Otherwise unremarkable. No persistent nephric stranding.
--- NOTE | ~2021-12-27 | XR_ITS ---
EXAMINATION: XR CHEST CLINICAL INFORMATION: Chest pain COMPARISON: Chest radiographs 10/28/2020, 08/09/2020, CT abdomen 12/27/2021. TECHNIQUE: Portable upright AP view of the chest was obtained. FINDINGS: The lungs are clear. There is no pneumothorax, pleural reaction, infiltrate, or effusion. The costophrenic sulci are clear. There is a mild smooth convexity along the left diaphragmatic border similar to prior studies consistent with a small fat-containing Bochdalek hernia on CT. The heart is normal in size. The hilar and mediastinal contours are normal. No acute bony abnormality. XR/XR chest 1V IMPRESSION: No acute intrathoracic disease. Lungs clear.
--- NOTE | 2021-12-27 11:53 | ECG_ITS ---
Test Reason : cp Blood Pressure : / mmHG Vent. Rate : 070 BPM Atrial Rate : 070 BPM P-R Int : 162 ms QRS Dur : 100 ms QT Int : 400 ms P-R-T Axes : 067 005 049 degrees QTc Int : 432 ms Sinus rhythm with Premature atrial complexes Otherwise normal ECG When compared to the previous EKG of Premature atrial complexes are now Present Referred By: Generic ED Physician Electronically Signed By:TIMOTEO JOHN MD
[2021-12-27 12:05] VITALS: BP 185/95; PULSE 78; RESP 18; TEMP 36.9; O2SAT 98; BMI 23.3
--- NOTE | 2021-12-27 14:12 | ED_ITS ---
HPI - General Adult General Chief complaint: General Medical Stated complaint: abd pain, chest and kidney pain Time Seen by Provider: 12/27/21 14:10 Source: patient and family (Spouse) Mode of arrival: ambulatory Limitations: no limitations History of Present Illness HPI narrative: 46 years old male with past medical history of hypertension, insulin-dependent diabetes, alcohol abuse, history of recurrent alcoholic pancreatitis that required hospitalization in the past. Patient admitted to drinking alcohol for the last few days, last drink was 2 days ago and now is complaining of upper abdominal pain that is radiating to the mid chest, with nausea and vomiting, patient stated it is similar to his pancreatitis boats. Patient otherwise declined fever, no chills. Related Data Home Medications Medication Instructions Recorded Confirmed cholecalciferol (vitamin D3) 50 50 mcg PO DAILY 08/09/20 12/27/21 mcg (2,000 unit) capsule (Vitamin D3) insulin glargine 100 unit/mL 18 unit SUBCUT DAILY 08/09/20 12/27/21 subcutaneous solution (Lantus U-100 Insulin) lisinopril 5 mg tablet 5 mg PO DAILY 08/09/20 12/27/21 multivitamin 1 tab PO DAILY 08/09/20 12/27/21 acetaminophen 500 mg tablet 2 tab PO Q8H PRN 12/27/21 12/27/21 aripiprazole 5 mg tablet 1 tab PO DAILY 12/27/21 12/27/21 empagliflozin 10 mg tablet 1 tab PO DAILY 12/27/21 12/27/21 (Jardiance) folic acid 1 mg tablet 1 tab PO DAILY 12/27/21 12/27/21 loratadine 10 mg tablet 1 tab PO DAILY PRN 12/27/21 12/27/21 metformin 500 mg tablet,extended 500 mg PO BID 12/27/21 12/27/21 release 24 hr rosuvastatin 40 mg tablet 1 tab PO BEDTIME 12/27/21 12/27/21 thiamine HCl (vitamin B1) 100 mg 1 tab PO DAILY 12/27/21 12/27/21 tablet Allergies Allergy/AdvReac Type Severity Reaction Status Date / Time No Known Allergies Allergy Verified 12/27/21 12:05 Review of Systems Review of Systems: All other systems are reviewed and are negative Constitutional: Reports as per HPI and Reports no additional constitutional complaints Eyes: Reports as per HPI and Reports no additional eye complaints Reports system reviewed and no additional complaints, except as documented Cardiovascular: Reports as per HPI and Reports no additional cardiovascular complaints Respiratory: Reports as per HPI and Reports no additional respiratory complaints Gastrointestinal: Reports as per HPI and Reports no additional gastrointestinal complaints Genitourinary: Reports no additional female genitourinary complaints Musculoskeletal: Reports no additional musculoskeletal complaints Skin/Breast: Reports system reviewed and no additional complaints, except as docu Psychiatric: Reports no additional psychiatric complaints Endocrine: Reports no additional endocrine complaints Hematologic/Lymphatic: Reports no additional hematologic/lymphatic complaints Allergic/Immunologic: Reports no additional allergic/immunologic complaints Reports system reviewed and no additional complaints, except as documented and Reports Abnormal speech present [facility] Past Medical History Medical History Alcohol abuse Diabetes HTN (hypertension) Surgical History History of laparoscopic cholecystectomy Social History Social History Household Members: Spouse Household Members Other:: one child Housing: Apartment Do you presently have visiting nurse or other home services: No Alcohol intake: current Alcohol intake frequency: 3 or more drinks per day Alcohol type: beer, wine and hard liquor Advance Directives: Yes Advance Directives on File: Yes Advance Directives Date on File: 11/01/20 service: No Current occupational status: previously employed 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 [employer] [facility] [place] Physical Exam ED Vital Signs: Vital Signs - 24 hr 12/27/21 12:05 12/27/21 14:56 Temperature 98.4 F Pulse Rate 78 77 Respiratory Rate 18 18 Blood Pressure 185/95 H 164/94 H Pulse Oximetry 98 99 BMI result Body Mass Index 23.3 Vital signs have been reviewed as appeared to be correct. Blood pressure normal. Heart rate normal. Respiration rate normal. Temperature normal. Oxygen saturation normal. Appearance: Alert. Oriented X3. No acute distress. Head: Normal external exam. Normocephalic. Atraumatic. No [place] signs noted. No raccoon eyes noted Eyes: PERRLA. EOMI. Conjunctiva and sclera normal. Eyelids normal. ENT: TM's Normal. Pharynx normal. Uvula midline. Moist mucous membranes. No trismus noted. No drooling noted. No muffled voice noted. Neck: Normal inspection. Neck supple. FROM. No adenopathy. Thyroid Normal. No meningeal signs. No neck mass noted. CVS: Normal heart rate and rhythm. Heart sound normal. No murmurs noted. Pulses normal throughout. Respiratory: No respiratory distress. Painless inspiration. Breath sounds normal. No wheezes/rales/rhonchi noted. Chest nontender. No accessory muscle usage noted or decreased air movement noted. Abdomen: Soft and nontender. Bowel sounds normal in all 4 quadrants. No distention noted. No organomegaly noted. No visible injury noted. Back: No CVA tenderness. Full range of motion noted. Skin: Skin warm and dry. Normal skin color. Normal skin turgor. No rashes/lesions/lacerations noted. Extremities: No lower extremity edema. Extremities exhibit normal range of motion. Extremities nontender. Neuro: Oriented X 3. Cranial nerve exam: II-XII are grossly intact No motor deficit. No sensory deficit. Reflexes normal. Course Course Course Narrative: Assessment and plan. 46-year-old male history of alcohol abuse and alcoholic pancreatitis, patient had a previous hospitalization for similar presentation, today confirmed noncomplicated pancreatitis on CT and a serum lipase level, will admit for IV hydration and analgesia. Medical Decision Making Lab Data Lab results reviewed: Yes I reviewed the patient's lab results. Result diagrams: 12/27/21 14:46 12/27/21 14:46 Labs: Lab Results 12/27/21 12/27/21 12/27/21 Range/Units 14:46 14:46 14:46 WBC 15.0 H (4.8-10.8) X10*3/uL RBC 4.67 (4.60-5.80) X10*6/uL Hgb 14.5 (14.0-18.0) g/dl Hct 41.5 L (42.0-52.0) % MCV 88.9 (80.0-98.0) fL MCH 31.0 (27.0-33.0) pg MCHC 34.9 (31.0-36.0) g/dl RDW 12.2 (11.0-16.0) % Plt Count 234 (160-400) X10*3/uL MPV 10.5 (9.4-12.4) fL Immature Gran % (Auto) 0.6 H (0.0-0.4) % Neut % (Auto) 92.7 H (45-73) % Lymph % (Auto) 4.1 L (20-40) % [place] % (Auto) 2.5 (2-11) % Eos % (Auto) 0.0 (0-4) % Baso % (Auto) 0.1 (0-2) % Lymph # (Auto) 0.6 L (1.2-4.9) X10*3/uL [place] # (Auto) 0.4 (0.1-1.2) X10*3/uL Eos # (Auto) 0.0 (0.0-0.4) X10*3/uL Baso # (Auto) 0.0 (0.0-0.2) X10*3/uL Abs Immat Gran (auto) 0.09 H (0.00-0.03) X10*3/uL Absolute Neuts (auto) 13.9 H (2.0-8.3) x10*3/uL Absolute Nucleated RBC 0.000 (0.0-0.012) X10*3/uL Nucleated RBC % (auto) 0.0 (0.0-0.2) /100WBC Smear Tech's Comments VERIFIED Sodium 130 L (135-145) mmol/L Potassium 3.7 (3.3-5.1) mmol/L Chloride 94 L (96-108) mmol/L Carbon Dioxide 21 L (22-29) mmol/L Anion Gap 19 (12-20) BUN 17 H (9-16) mg/dL Creatinine 0.84 (0.5-1.4) mg/dL Estim Creat Clear Calc 95.5 Estimated GFR > 60 Random Glucose 291 H (60-115) mg/dL Lactic Acid (0.5-2.0) mmol/L Calcium 9.1 (8.4-10.2) mg/dL Total Bilirubin 1.7 H (0.0-1.0) mg/dL Direct Bilirubin 0.6 H (0.0-0.5) mg/dL AST 72 H (5-37) U/L ALT 148 H (0-40) U/L Alkaline Phosphatase 282 H D (39-117) U/L Troponin I High Sens < 3.5 (<3.5-35.0) ng/L B-Natriuretic Peptide (<100) pg/mL Total Protein 7.8 (6.5-8.0) g/dL Albumin 4.0 (3.5-5.0) g/dL Lipase 515 H (8-78) U/L Urine Color Urine Appearance Urine pH (5.0-8.0) Ur Specific [place] (1.005-1.025) Urine Protein (NEG-TRACE) MG/DL Urine Glucose (UA) (NEG) MG/DL Urine Ketones (NEG) MG/DL Urine Blood (NEG) Urine Nitrite (NEG) Ur Leukocyte Esterase (NEG) Urine RBC (0) /HPF Urine WBC (0-4) /HPF Ur Squamous Epith Cells /LPF Urine Bacteria /LPF Ethyl Alcohol mg/dL 12/27/21 12/27/21 12/27/21 Range/Units 14:46 14:46 14:46 WBC (4.8-10.8) X10*3/uL RBC (4.60-5.80) X10*6/uL Hgb (14.0-18.0) g/dl Hct (42.0-52.0) % MCV (80.0-98.0) fL MCH (27.0-33.0) pg MCHC (31.0-36.0) g/dl RDW (11.0-16.0) % Plt Count (160-400) X10*3/uL MPV (9.4-12.4) fL Immature Gran % (Auto) (0.0-0.4) % Neut % (Auto) (45-73) % Lymph % (Auto) (20-40) % [place] % (Auto) (2-11) % Eos % (Auto) (0-4) % Baso % (Auto) (0-2) % Lymph # (Auto) (1.2-4.9) X10*3/uL [place] # (Auto) (0.1-1.2) X10*3/uL Eos # (Auto) (0.0-0.4) X10*3/uL Baso # (Auto) (0.0-0.2) X10*3/uL Abs Immat Gran (auto) (0.00-0.03) X10*3/uL Absolute Neuts (auto) (2.0-8.3) x10*3/uL Absolute Nucleated RBC (0.0-0.012) X10*3/uL Nucleated RBC % (auto) (0.0-0.2) /100WBC Smear Tech's Comments Sodium (135-145) mmol/L Potassium (3.3-5.1) mmol/L Chloride (96-108) mmol/L Carbon Dioxide (22-29) mmol/L Anion Gap (12-20) BUN (9-16) mg/dL Creatinine (0.5-1.4) mg/dL Estim Creat Clear Calc Estimated GFR Random Glucose (60-115) mg/dL Lactic Acid 1.3 (0.5-2.0) mmol/L Calcium (8.4-10.2) mg/dL Total Bilirubin (0.0-1.0) mg/dL Direct Bilirubin (0.0-0.5) mg/dL AST (5-37) U/L ALT (0-40) U/L Alkaline Phosphatase (39-117) U/L Troponin I High Sens (<3.5-35.0) ng/L B-Natriuretic Peptide 75 (<100) pg/mL Total Protein (6.5-8.0) g/dL Albumin (3.5-5.0) g/dL Lipase (8-78) U/L Urine Color Urine Appearance Urine pH (5.0-8.0) Ur Specific [place] (1.005-1.025) Urine Protein (NEG-TRACE) MG/DL Urine Glucose (UA) (NEG) MG/DL Urine Ketones (NEG) MG/DL Urine Blood (NEG) Urine Nitrite (NEG) Ur Leukocyte Esterase (NEG) Urine RBC (0) /HPF Urine WBC (0-4) /HPF Ur Squamous Epith Cells /LPF Urine Bacteria /LPF Ethyl Alcohol < 10 mg/dL 12/27/21 Range/Units 14:46 WBC (4.8-10.8) X10*3/uL RBC (4.60-5.80) X10*6/uL Hgb (14.0-18.0) g/dl Hct (42.0-52.0) % MCV (80.0-98.0) fL MCH (27.0-33.0) pg MCHC (31.0-36.0) g/dl RDW (11.0-16.0) % Plt Count (160-400) X10*3/uL MPV (9.4-12.4) fL Immature Gran % (Auto) (0.0-0.4) % Neut % (Auto) (45-73) % Lymph % (Auto) (20-40) % [place] % (Auto) (2-11) % Eos % (Auto) (0-4) % Baso % (Auto) (0-2) % Lymph # (Auto) (1.2-4.9) X10*3/uL [place] # (Auto) (0.1-1.2) X10*3/uL Eos # (Auto) (0.0-0.4) X10*3/uL Baso # (Auto) (0.0-0.2) X10*3/uL Abs Immat Gran (auto) (0.00-0.03) X10*3/uL Absolute Neuts (auto) (2.0-8.3) x10*3/uL Absolute Nucleated RBC (0.0-0.012) X10*3/uL Nucleated RBC % (auto) (0.0-0.2) /100WBC Smear Tech's Comments Sodium (135-145) mmol/L Potassium (3.3-5.1) mmol/L Chloride (96-108) mmol/L Carbon Dioxide (22-29) mmol/L Anion Gap (12-20) BUN (9-16) mg/dL Creatinine (0.5-1.4) mg/dL Estim Creat Clear Calc Estimated GFR Random Glucose (60-115) mg/dL Lactic Acid (0.5-2.0) mmol/L Calcium (8.4-10.2) mg/dL Total Bilirubin (0.0-1.0) mg/dL Direct Bilirubin (0.0-0.5) mg/dL AST (5-37) U/L ALT (0-40) U/L Alkaline Phosphatase (39-117) U/L Troponin I High Sens (<3.5-35.0) ng/L B-Natriuretic Peptide (<100) pg/mL Total Protein (6.5-8.0) g/dL Albumin (3.5-5.0) g/dL Lipase (8-78) U/L Urine Color YELLOW Urine Appearance HAZY Urine pH 6.0 (5.0-8.0) Ur Specific [place] 1.025 (1.005-1.025) Urine Protein 1+ H (NEG-TRACE) MG/DL Urine Glucose (UA) 500 H (NEG) MG/DL Urine Ketones >=80 (NEG) MG/DL Urine Blood TRACE (NEG) Urine Nitrite NEG (NEG) Ur Leukocyte Esterase NEG (NEG) Urine RBC 1-4 (0) /HPF Urine WBC 0-2 (0-4) /HPF Ur Squamous Epith Cells TRACE /LPF Urine Bacteria NONE /LPF Ethyl Alcohol mg/dL Imaging Data Chest x-ray: Attestation: I personally reviewed and interpreted this imaging study as follows: Radiologist's impression: No acute intrathoracic disease. Lung is clear. CT abdomen pelvis: Attestation: I personally reviewed and interpreted this imaging study as follows: Radiologist's impression: Noncomplicated pancreatitis. Discharge Plan Discharge Clinical Impression: Acute pancreatitis, Alcohol use disorder Patient Disposition: Admitted As Inpatient Prescriptions: No Action multivitamin Tablet 1 tab PO DAILY 0RF Lantus U-100 Insulin 100 unit/mL Solution 18 unit SUBCUT DAILY 0RF lisinopril 5 mg Tablet 5 mg PO DAILY 0RF cholecalciferol (vitamin D3) [Vitamin D3] 50 mcg (2,000 unit) Capsule 50 mcg PO DAILY 0RF thiamine HCl (vitamin B1) 100 mg tablet 1 tab PO DAILY 0RF acetaminophen 500 mg tablet 2 tab PO Q8H PRN (Reason: Pain) 0RF folic acid 1 mg tablet 1 tab PO DAILY 0RF metformin 500 mg tablet extended release 24 hr 500 mg PO BID 0RF loratadine 10 mg tablet 1 tab PO DAILY PRN (Reason: allergies) 0RF aripiprazole 5 mg tablet 1 tab PO DAILY 0RF rosuvastatin 40 mg tablet 1 tab PO BEDTIME 0RF Jardiance 10 mg tablet 1 tab PO DAILY 0RF
[2021-12-27] MEDS: 0.9 % Sodium Chloride 1,000 ML 999 ML IV (14:53)
[2021-12-27 14:56] VITALS: BP 164/94; PULSE 77; RESP 18; O2SAT 99
[2021-12-27 14:56] LABS: Appearance Urine HAZY; Color Urine YELLOW; Glucose Urine UA 500 MG/DL (NEG); Leukocyte Esterase Urine NEG (NEG); Nitrite Urine NEG (NEG); Specific Gravity - Urine 1.025 (1.005-1.025); UACC Culture Trigger NO; Urine Blood TRACE (NEG); Urine Ketones >=80 MG/DL (NEG); Urine Protein 1+ MG/DL (NEG-TRACE)
[2021-12-27 15:02] LABS: Basophils Percent Auto 0.1 % (0-2); Hematocrit 41.5 % (42.0-52.0); Hemoglobin 14.5 g/dl (14.0-18.0); Imm Gran Abs Auto 0.09 X10*3/uL (0.00-0.03); Imm Gran Pct Auto 0.6 % (0.0-0.4); Lymphocytes Absolute Auto 0.6 X10*3/uL (1.2-4.9); Lymphocytes Percent Auto 4.1 % (20-40); MANUAL DIFF FLAG SCAN; Mean Corpuscular HGB Conc 34.9 g/dl (31.0-36.0); Mean Corpuscular Volume 88.9 fL (80.0-98.0); Mean Platelet Volume 10.5 fL (9.4-12.4); Monocytes Absolute Auto 0.4 X10*3/uL (0.1-1.2); Monocytes Percent Auto 2.5 % (2-11); Neutrophils Absolute Auto 13.9 x10*3/uL (2.0-8.3); Neutrophils Percent Auto 92.7 % (45-73); Platelet Count 234 X10*3/uL (160-400); Red Blood Count 4.67 X10*6/uL (4.60-5.80); Red Cell Distribution Width 12.2 % (11.0-16.0); SCAN SMEAR FLAG 1
[2021-12-27 15:11] LABS: Lactic Acid 1.3 mmol/L (0.5-2.0)
[2021-12-27 15:12] LABS: Squamous Epithelial Cell Urine TRACE /LPF; WBC Urine 0-2 /HPF (0-4)
[2021-12-27 15:13] LABS: Ethanol < 10 mg/dL
[2021-12-27] MEDS: HYDROmorphone HCl 1 MG/ML SYRINGE IVPUSH (15:14)
[2021-12-27] MEDS: LORazepam 2 MG/ML VIAL 1 MG IVPUSH (15:15)
--- NOTE | 2021-12-27 15:16 | PHA.MEDREC ---
Pharmacy Consult ? Medication Reconciliation Pharmacy has completed the medication reconciliation. Pt no longer takes humalog, aspirin
[2021-12-27 15:17] LABS: Alanine Aminotransferase 148 U/L (0-40); Alkaline Phosphatase 282 U/L (39-117); Anion Gap 19 (12-20); Aspartate Amino Transferase 72 U/L (5-37); Bilirubin Direct 0.6 mg/dL (0.0-0.5); Bilirubin Total 1.7 mg/dL (0.0-1.0); Blood Urea Nitrogen 17 mg/dL (9-16); Calcium 9.1 mg/dL (8.4-10.2); Carbon Dioxide 21 mmol/L (22-29); Chloride 94 mmol/L (96-108); Creatinine Clr Calc Pharmacy 95.5; Estimated Glomerular Filt Rate > 60; Glucose Random 291 mg/dL (60-115); Lipase 515 U/L (8-78); Potassium 3.7 mmol/L (3.3-5.1); Sodium 130 mmol/L (135-145); Total Protein 7.8 g/dL (6.5-8.0)
[2021-12-27 15:23] LABS: B Type Natriuretic Peptide 75 pg/mL (<100); Troponin-I High Sensitivity < 3.5 ng/L (<3.5-35.0)
[2021-12-27 15:35] LABS: SLIDE REVIEW VERIFIED
[2021-12-27 15:35] LABS: Influenza A PCR NEGATIVE (Negative); Influenza B PCR NEGATIVE (Negative); Resp Syncy Virus RNA Qual PCR NEGATIVE (Negative); SARS COV2 PCR INHOUSE NEGATIVE (Negative)
--- NOTE | 2021-12-27 16:24 | P.HPHOSP_ITS ---
History of Present Illness Date of Service: 12/27/21 Attending physician on admission: Jose M Martinez Chief Complaint: alcohol withdrawal, acute pancreatitis 46-year-old male with a past medical history of hypertension, insulin-dependent diabetes, alcohol abuse, history of pancreatitis presented to the hospital with a chief complaint of abdominal pain for the past 2-3 days.? Patient mentioned that he has been drinking alcohol will past few days.? Abdominal pain is epigastric in nature no associated nausea vomiting or diarrhea.? Patient has decreased oral intake.? Denies any fever chills cough.? Denies any recent travel or sick contact.? Denies any urinary symptoms. Denies any weakness or numbness or cough or phlegm social history: Lives with his , drink 12 pack beer a day, denies any recreation drug use or smoking. Review of Systems Review of Systems: as above. Yes all other systems are reviewed and are negative [facility] Medical History Alcohol abuse Diabetes HTN (hypertension) Pertinent family history: mother and sister both as diabetes Surgical History History of laparoscopic cholecystectomy Social History Household Members: Spouse Household Members Other:: one child Housing: Apartment Do you presently have visiting nurse or other home services: No Alcohol intake: current Alcohol intake frequency: 3 or more drinks per day Alcohol type: beer, wine and hard liquor Advance Directives: Yes Advance Directives on File: Yes Advance Directives Date on File: 11/01/20 service: No Current occupational status: previously employed 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 Folic Acid (Folic Acid 1 Mg Tablet) 1 mg PO DAILY [facility] Glucose (Glucose Gel 15 Gm Gel..Gram.) 15 gm PO Q15M PRN; Protocol PRN Reason: per Hypoglycemia Standing Ord. Insulin Glargine (Insulin Glargine,Hum.Rec.Anlog 100 Unit/Ml 10 Ml Vial) 18 unit SUBCUT DAILY [facility] Insulin Human Lispro (Insulin Lispro 100 Unit/Ml 3 Ml Vial) 0 unit SUBCUT QIDACHS [facility]; Protocol Lisinopril (Lisinopril 5 Mg Tablet) 5 mg PO DAILY [facility]; Protocol Loratadine (Loratadine 10 Mg Tablet) 10 mg PO DAILY PRN PRN Reason: allergies Morphine Sulfate (Morphine Sulfate 2 Mg/Ml Cartridge) 2 mg IVPUSH Q4H PRN; Protocol PRN Reason: Pain, Mild (Pain Scale 1-3) Multivitamins/Vitamin C (Multivitamin Tablet) 1 tab PO DAILY [facility] Non-Formulary Medication (Acetaminophen) 2 tab PO Q8H PRN PRN Reason: Pain Ondansetron HCl (Ondansetron Hcl 4 Mg/2 Ml Vial) 4 mg IVPUSH Q4H [facility] Pantoprazole Sodium (Pantoprazole Sodium 40 Mg/10 Ml Vial) 40 mg IVPUSH BID [facility] Pharmacy Consult (Consult Rx Perform Med Rec) 1 each MISCELLANE ONCE PRN PRN Reason: Consult order Sodium Chloride (0.9 % Sodium Chloride Flush 3 Ml Syringe) 3 ml IVFLUSH QSHIFT [facility] Thiamine HCl (Thiamine Hcl 100 Mg Tablet) 100 mg PO DAILY [facility] Vitamin D (Cholecalciferol (Vitamin D3) 25 Mcg Tablet) 50 mcg PO DAILY [facility] Home Medications Medication Instructions Recorded Confirmed Last Taken Type cholecalciferol (vitamin D3) 50 50 mcg PO DAILY 08/09/20 12/27/21 12/20/21 History mcg (2,000 unit) capsule (Vitamin D3) insulin glargine 100 unit/mL 18 unit SUBCUT DAILY 08/09/20 12/27/21 12/20/21 History subcutaneous solution (Lantus U-100 Insulin) lisinopril 5 mg tablet 5 mg PO DAILY 08/09/20 12/27/21 12/20/21 History multivitamin 1 tab PO DAILY 08/09/20 12/27/21 12/20/21 History acetaminophen 500 mg tablet 2 tab PO Q8H PRN 12/27/21 12/27/21 12/26/21 History aripiprazole 5 mg tablet 1 tab PO DAILY 12/27/21 12/27/2112/20/22 History empagliflozin 10 mg tablet 1 tab PO DAILY 12/27/21 12/27/21 12/20/21 History (Jardiance) folic acid 1 mg tablet 1 tab PO DAILY 12/27/21 12/27/21 12/20/21 History loratadine 10 mg tablet 1 tab PO DAILY PRN 12/27/21 12/27/21 12/20/21 History metformin 500 mg tablet,extended 500 mg PO BID 12/27/21 12/27/21 Unknown History release 24 hr rosuvastatin 40 mg tablet 1 tab PO BEDTIME 12/27/21 12/27/21 12/20/21 History thiamine HCl (vitamin B1) 100 mg 1 tab PO DAILY 12/27/21 12/27/21 12/20/21 History tablet Physical Exam Vital Signs and Narrative: Vital Signs: Last Vital Signs Temp 98.4 F 12/27/21 12:05 Pulse 77 12/27/21 14:56 Resp 18 12/27/21 14:56 BP 164/94 H 12/27/21 14:56 Pulse Ox 99 12/27/21 14:56 BMI result Body Mass Index 23.3 Appearance: Alert.? Oriented X3.? Eyes: Pupils equal, round and reactive to light.? Sclera nonicteric.? ENT: Pharynx normal.? Moist mucous membranes. cvs: rrr, [id number] . res: clear to auscultation ,no rhonchii or wheezing abd: no rebound or guarding ,nt, bs present. ext pulses present , no cyanosis , mild tremers. neuro: axo3 , nonfocal. Results Labs CBC and Chem 7: 12/27/21 14:46 12/27/21 14:46 Labs: Laboratory Results - last 24 hr 12/27/21 12/27/21 12/27/21 14:46 14:46 14:46 MCV 88.9 MCH 31.0 MCHC 34.9 RDW 12.2 Plt Count 234 MPV 10.5 Immature Gran % (Auto) 0.6 H Neut % (Auto) 92.7 H Lymph % (Auto) 4.1 L [place] % (Auto) 2.5 Eos % (Auto) 0.0 Baso % (Auto) 0.1 Lymph # (Auto) 0.6 L [place] # (Auto) 0.4 Eos # (Auto) 0.0 Baso # (Auto) 0.0 Abs Immat Gran (auto) 0.09 H Absolute Neuts (auto) 13.9 H Absolute Nucleated RBC 0.000 Nucleated RBC % (auto) 0.0 Smear Tech's Comments VERIFIED Anion Gap 19 Estim Creat Clear Calc 95.5 Estimated GFR > 60 Random Glucose 291 H Lactic Acid Calcium 9.1 Total Bilirubin 1.7 H Direct Bilirubin 0.6 H AST 72 H ALT 148 H Alkaline Phosphatase 282 H D Troponin I High Sens < 3.5 B-Natriuretic Peptide Total Protein 7.8 Albumin 4.0 Lipase 515 H Urine Color Urine Appearance Urine pH Ur Specific [place] Urine Protein Urine Glucose (UA) Urine Ketones Urine Blood Urine Nitrite Ur Leukocyte Esterase Urine RBC Urine WBC Ur Squamous Epith Cells Urine Bacteria Ethyl Alcohol Influenza Type A (PCR) Influenza Type B (PCR) RSV RNA Qual (PCR) SARS-CoV-2 RNA (RT-PCR) 12/27/21 12/27/21 12/27/21 14:46 14:46 14:46 MCV MCH MCHC RDW Plt Count MPV Immature Gran % (Auto) Neut % (Auto) Lymph % (Auto) [place] % (Auto) Eos % (Auto) Baso % (Auto) Lymph # (Auto) [place] # (Auto) Eos # (Auto) Baso # (Auto) Abs Immat Gran (auto) Absolute Neuts (auto) Absolute Nucleated RBC Nucleated RBC % (auto) Smear Tech's Comments Anion Gap Estim Creat Clear Calc Estimated GFR Random Glucose Lactic Acid 1.3 Calcium Total Bilirubin Direct Bilirubin AST ALT Alkaline Phosphatase Troponin I High Sens B-Natriuretic Peptide 75 Total Protein Albumin Lipase Urine Color Urine Appearance Urine pH Ur Specific [place] Urine Protein Urine Glucose (UA) Urine Ketones Urine Blood Urine Nitrite Ur Leukocyte Esterase Urine RBC Urine WBC Ur Squamous Epith Cells Urine Bacteria Ethyl Alcohol < 10 Influenza Type A (PCR) Influenza Type B (PCR) RSV RNA Qual (PCR) SARS-CoV-2 RNA (RT-PCR) 12/27/21 12/27/21 14:46 14:48 MCV MCH MCHC RDW Plt Count MPV Immature Gran % (Auto) Neut % (Auto) Lymph % (Auto) [place] % (Auto) Eos % (Auto) Baso % (Auto) Lymph # (Auto) [place] # (Auto) Eos # (Auto) Baso # (Auto) Abs Immat Gran (auto) Absolute Neuts (auto) Absolute Nucleated RBC Nucleated RBC % (auto) Smear Tech's Comments Anion Gap Estim Creat Clear Calc Estimated GFR Random Glucose Lactic Acid Calcium Total Bilirubin Direct Bilirubin AST ALT Alkaline Phosphatase Troponin I High Sens B-Natriuretic Peptide Total Protein Albumin Lipase Urine Color YELLOW Urine Appearance HAZY Urine pH 6.0 Ur Specific [place] 1.025 Urine Protein 1+ H Urine Glucose (UA) 500 H Urine Ketones >=80 Urine Blood TRACE Urine Nitrite NEG Ur Leukocyte Esterase NEG Urine RBC 1-4 Urine WBC 0-2 Ur Squamous Epith Cells TRACE Urine Bacteria NONE Ethyl Alcohol Influenza Type A (PCR) NEGATIVE Influenza Type B (PCR) NEGATIVE RSV RNA Qual (PCR) NEGATIVE SARS-CoV-2 RNA (RT-PCR) NEGATIVE Imaging Radiologist's Impressions: Impressions Chest X-Ray 12/27/21 14:36 IMPRESSION: No acute intrathoracic disease. Lungs clear. Abdomen/Pelvis CT 12/27/21 14:39 IMPRESSION: -Peripancreatic inflammatory changes suggesting pancreatitis. -Pancreas normal in size and uniform in attenuation. No ductal distention. -No retroperitoneal fluid collection or pseudocyst. -Prior cholecystectomy. No biliary ductal dilatation. -Nonspecific focal horizontal linear high attenuation medial upper pole right kidney, possibly artifact, parenchymal hemorrhage less likely. Otherwise unremarkable. No persistent nephric stranding. Assessment and Plan (1) Alcohol use disorder: Status: Acute (2) Elevated LFTs: Status: Acute (3) Acute pancreatitis: Status: Acute Plan 45-year-old male with a past medical history of hypertension, diabetes, alcohol abuse, history of pancreatitis presented to the hospital with a chief complaint of abdominal pain.? Noted to have acute pancreatitis.? Admitted for further management. Acute recurrent pancreatitis:? Due to alcohol use, persistent abdominal pain , leukocytosis secondary to pancreatitis hematocrit stable Continue IV fluid, on clear liquid, pain medication, Transaminitis:? LFTs similar to before , trend if still elevated may need Gi eval. Hypertension:? BP Stable this a.m. continue lisinopril 5mg daily, mild tachycardia likely related to alcohol withdrawal. Diabetes:? Hold home insulins.? Insulin sliding scale, avoid coverage below 200 mg/dL..? Alcohol abuse:? continue as needed Ativan, CIWA protocol.? Continue Thiamine, folate, multivitamins. DVT prophylaxis:? s/clovenox Code status:? Full code Quality Stroke Does the patient have a stroke diagnosis?: No VTE Prior VTE?: No VTE Risk Level:: Medical - moderate - high VTE Device Contraindication: N/A - Device Ordered VTE Drug Contraindication: N/A - Med Ordered
[2021-12-27 17:54] VITALS: BP 161/96; PULSE 70; RESP 16; O2SAT 98
[2021-12-27] MEDS: Insulin Lispro 100 UNIT/ML 3 ML VIAL SUBCUT (18:03)
[2021-12-27 18:14] LABS: Glucose, Whole Blood 247 mg/dL (60-115)
[2021-12-27 19:26] VITALS: BP 155/85; PULSE 70; RESP 20; TEMP 36.9; O2SAT 98
[2021-12-27] MEDS: Lactated Ringers 1,000 ML 125 ML IVCONT (19:47)
[2021-12-27 20:37] VITALS: RESP 18
[2021-12-27] MEDS: ondansetron HCL 4 MG/2 ML VIAL IVPUSH (20:37)
[2021-12-27] MEDS: Morphine Sulfate 2 MG/ML CARTRIDGE IVPUSH (20:37)
[2021-12-27] MEDS: Pantoprazole Sodium 40 MG/10 ML VIAL IVPUSH (20:37)
[2021-12-27 20:39] VITALS: PULSE 66; RESP 19; O2SAT 97
[2021-12-27 20:58] LABS: Glucose, Whole Blood 199 mg/dL (60-115)
--- NOTE | 2021-12-27 22:41 | MHC.CM.PN ---
CM met with admitted patient with bed assignment pending. HCP on file. HCP/friend Ana Carnes ([phone]). Vax/boosted [employer]. 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 Lives with Ana. No service. DM testing supplies. D/C plan is home without services. Will arrange transportation. CM to follow for d/c needs.
--- NOTE | 2021-12-27 23:10 | PC.NURSE ---
pt ambulated to BR with steady gait to void. in no distress
[2021-12-28] MEDS: 0.9 % Sodium Chloride Flush 3 ML SYRINGE IVFLUSH (00:26)
[2021-12-28] MEDS: ondansetron HCL 4 MG/2 ML VIAL IVPUSH ×3 (00:26→11:02)
[2021-12-28 02:41] VITALS: BP 142/78; PULSE 63; RESP 18; TEMP 5443.8; TEMP 9831; O2SAT 97
[2021-12-28] MEDS: Lactated Ringers 1,000 ML 125 ML IVCONT ×2 (03:50→10:51)
[2021-12-28 04:58] VITALS: BP 141/77; PULSE 69; RESP 19; TEMP 36.6; O2SAT 95
[2021-12-28 04:58] LABS: Hematocrit 36.6 % (42.0-52.0); Mean Corpuscular HGB Conc 35.5 g/dl (31.0-36.0); Mean Corpuscular Hemoglobin 30.8 pg (27.0-33.0); Mean Corpuscular Volume 86.7 fL (80.0-98.0); Mean Platelet Volume 10.2 fL (9.4-12.4); Platelet Count 198 X10*3/uL (160-400); Red Blood Count 4.22 X10*6/uL (4.60-5.80); White Blood Count 13.6 X10*3/uL (4.8-10.8)
[2021-12-28 05:24] LABS: Alanine Aminotransferase 95 U/L (0-40); Albumin Level 3.3 g/dL (3.5-5.0); Alkaline Phosphatase 206 U/L (39-117); Anion Gap 13 (12-20); Aspartate Amino Transferase 35 U/L (5-37); Bilirubin Direct 0.4 mg/dL (0.0-0.5); Bilirubin Total 0.9 mg/dL (0.0-1.0); Blood Urea Nitrogen 12 mg/dL (9-16); Calcium 8.4 mg/dL (8.4-10.2); Carbon Dioxide 25 mmol/L (22-29); Chloride 95 mmol/L (96-108); Creatinine Clr Calc Pharmacy 125.4; Estimated Glomerular Filt Rate > 60; Glucose Random 191 mg/dL (60-115); Potassium 3.1 mmol/L (3.3-5.1); Sodium 130 mmol/L (135-145); Total Protein 6.4 g/dL (6.5-8.0)
[2021-12-28 07:09] LABS: Glucose, Whole Blood 154 mg/dL (60-115)
[2021-12-28 08:47] VITALS: BP 138/83; PULSE 74; RESP 20; TEMP 36.9; O2SAT 96
--- NOTE | 2021-12-28 08:55 | P.PNIM_ITS ---
Subjective Subjective Date of Service: 12/28/21 Interval History: alcohol withdrawal, acute pancreatitis Physical Exam Vital Signs: Vital Signs: Last Vital Signs Temp 98.5 F 12/28/21 08:47 Pulse 74 12/28/21 08:47 Resp 20 12/28/21 08:47 BP 138/83 12/28/21 08:47 Pulse Ox 96 12/28/21 08:47 BMI result Body Mass Index 23.3 Appearance: Alert.? Oriented X3.? Eyes: Pupils equal, round and reactive to light.? Sclera nonicteric.? ENT: Pharynx normal.? Moist mucous membranes. cvs: [id number], [id number] . res: clear to auscultation ,no rhonchii or wheezing abd: no rebound or guarding ,nt, bs present. ext pulses present , no cyanosis ,? mild tremers. neuro: axo3 , nonfocal. Objective Data Active Medications Acetaminophen (Acetaminophen Supp 325 Mg Supp.Rect) 975 mg IA Q8H PRN PRN Reason: Pain, Severe (Pain Scale 7-10) Aripiprazole (Aripiprazole 5 Mg Tablet) 5 mg PO DAILY [facility] Dextrose (Dextrose 50 % 25 Gm/50 Ml Syringe) 25 gm IVPUSH Q15M PRN; Protocol PRN Reason: per Hypoglycemia Standing Ord. Folic Acid (Folic Acid 1 Mg Tablet) 1 mg PO DAILY [facility] Glucose (Glucose Gel 15 Gm Gel..Gram.) 15 gm PO Q15M PRN; Protocol PRN Reason: per Hypoglycemia Standing Ord. Lactated Ringer's (Lr) 1,000 mls @ 125 mls/hr IVCONT .Q8H [facility] Last Admin: 12/28/21 03:50 Dose: 125 mls/hr Documented by: JERI Insulin Glargine (Insulin Glargine,Hum.Rec.Anlog 100 Unit/Ml 10 Ml Vial) 18 unit SUBCUT DAILY [facility] Insulin Human Lispro (Insulin Lispro 100 Unit/Ml 3 Ml Vial) 0 unit SUBCUT QIDACHS [facility]; Protocol Last Admin: 12/28/21 08:01 Dose: Not Given Documented by: ENEDINA Non-Admin Reason: No Insulin Coverage Lisinopril (Lisinopril 5 Mg Tablet) 5 mg PO DAILY [facility]; Protocol Loratadine (Loratadine 10 Mg Tablet) 10 mg PO DAILY PRN PRN Reason: allergies Lorazepam (Lorazepam 1 Mg Tablet) 1 mg PO Q4H PRN PRN Reason: ANX Morphine Sulfate (Morphine Sulfate 2 Mg/Ml Cartridge) 2 mg IVPUSH Q4H PRN; Protocol PRN Reason: Pain, Mild (Pain Scale 1-3) Last Admin: 12/27/21 20:37 Dose: 2 mg Documented by: JERI Multivitamins/Vitamin C (Multivitamin Tablet) 1 tab PO DAILY [facility] Ondansetron HCl (Ondansetron Hcl 4 Mg/2 Ml Vial) 4 mg IVPUSH Q4H [facility] Last Admin: 12/28/21 04:48 Dose: 4 mg Documented by: JERI Pantoprazole Sodium (Pantoprazole Sodium 40 Mg/10 Ml Vial) 40 mg IVPUSH BID [facility] Last Admin: 12/27/21 20:37 Dose: 40 mg Documented by: JERI Pharmacy Consult (Consult Rx Perform Med Rec) 1 each MISCELLANE ONCE PRN PRN Reason: Consult order Sodium Chloride (0.9 % Sodium Chloride Flush 3 Ml Syringe) 3 ml IVFLUSH QSHIFT [facility] Last Admin: 12/28/21 08:02 Dose: Not Given Documented by: ENEDINA Non-Admin Reason: IV Running Thiamine HCl (Thiamine Hcl 100 Mg Tablet) 100 mg PO DAILY [facility] Vitamin D (Cholecalciferol (Vitamin D3) 25 Mcg Tablet) 50 mcg PO DAILY [facility] Labs CBC & Chem 7: 12/28/21 04:38 12/28/21 04:38 Labs: Laboratory Results - last 24 hr 12/27/21 12/27/21 12/27/21 14:46 14:46 14:46 MCV 88.9 MCH 31.0 MCHC 34.9 RDW 12.2 Plt Count 234 MPV 10.5 Immature Gran % (Auto) 0.6 H Neut % (Auto) 92.7 H Lymph % (Auto) 4.1 L [place] % (Auto) 2.5 Eos % (Auto) 0.0 Baso % (Auto) 0.1 Lymph # (Auto) 0.6 L [place] # (Auto) 0.4 Eos # (Auto) 0.0 Baso # (Auto) 0.0 Abs Immat Gran (auto) 0.09 H Absolute Neuts (auto) 13.9 H Absolute Nucleated RBC 0.000 Nucleated RBC % (auto) 0.0 Smear Tech's Comments VERIFIED Potassium 3.7 Anion Gap 19 Estim Creat Clear Calc 95.5 Estimated GFR > 60 POC Glucose Random Glucose 291 H Lactic Acid Calcium 9.1 Total Bilirubin 1.7 H Direct Bilirubin 0.6 H AST 72 H ALT 148 H Alkaline Phosphatase 282 H D Troponin I High Sens < 3.5 B-Natriuretic Peptide Total Protein 7.8 Albumin 4.0 Lipase 515 H Urine Color Urine Appearance Urine pH Ur Specific [place] Urine Protein Urine Glucose (UA) Urine Ketones Urine Blood Urine Nitrite Ur Leukocyte Esterase Urine RBC Urine WBC Ur Squamous Epith Cells Urine Bacteria Ethyl Alcohol Influenza Type A (PCR) Influenza Type B (PCR) RSV RNA Qual (PCR) SARS-CoV-2 RNA (RT-PCR) 12/27/21 12/27/21 12/27/21 14:46 14:46 14:46 MCV MCH MCHC RDW Plt Count MPV Immature Gran % (Auto) Neut % (Auto) Lymph % (Auto) [place] % (Auto) Eos % (Auto) Baso % (Auto) Lymph # (Auto) [place] # (Auto) Eos # (Auto) Baso # (Auto) Abs Immat Gran (auto) Absolute Neuts (auto) Absolute Nucleated RBC Nucleated RBC % (auto) Smear Tech's Comments Potassium Anion Gap Estim Creat Clear Calc Estimated GFR POC Glucose Random Glucose Lactic Acid 1.3 Calcium Total Bilirubin Direct Bilirubin AST ALT Alkaline Phosphatase Troponin I High Sens B-Natriuretic Peptide 75 Total Protein Albumin Lipase Urine Color Urine Appearance Urine pH Ur Specific [place] Urine Protein Urine Glucose (UA) Urine Ketones Urine Blood Urine Nitrite Ur Leukocyte Esterase Urine RBC Urine WBC Ur Squamous Epith Cells Urine Bacteria Ethyl Alcohol < 10 Influenza Type A (PCR) Influenza Type B (PCR) RSV RNA Qual (PCR) SARS-CoV-2 RNA (RT-PCR) 12/27/21 12/27/21 12/27/21 14:46 14:48 17:59 MCV MCH MCHC RDW Plt Count MPV Immature Gran % (Auto) Neut % (Auto) Lymph % (Auto) [place] % (Auto) Eos % (Auto) Baso % (Auto) Lymph # (Auto) [place] # (Auto) Eos # (Auto) Baso # (Auto) Abs Immat Gran (auto) Absolute Neuts (auto) Absolute Nucleated RBC Nucleated RBC % (auto) Smear Tech's Comments Potassium Anion Gap Estim Creat Clear Calc Estimated GFR POC Glucose 247 H Random Glucose Lactic Acid Calcium Total Bilirubin Direct Bilirubin AST ALT Alkaline Phosphatase Troponin I High Sens B-Natriuretic Peptide Total Protein Albumin Lipase Urine Color YELLOW Urine Appearance HAZY Urine pH 6.0 Ur Specific [place] 1.025 Urine Protein 1+ H Urine Glucose (UA) 500 H Urine Ketones >=80 Urine Blood TRACE Urine Nitrite NEG Ur Leukocyte Esterase NEG Urine RBC 1-4 Urine WBC 0-2 Ur Squamous Epith Cells TRACE Urine Bacteria NONE Ethyl Alcohol Influenza Type A (PCR) NEGATIVE Influenza Type B (PCR) NEGATIVE RSV RNA Qual (PCR) NEGATIVE SARS-CoV-2 RNA (RT-PCR) NEGATIVE 12/27/21 12/28/21 12/28/21 20:47 04:38 04:38 MCV 86.7 MCH 30.8 MCHC 35.5 RDW 12.0 Plt Count 198 MPV 10.2 Immature Gran % (Auto) Neut % (Auto) Lymph % (Auto) [place] % (Auto) Eos % (Auto) Baso % (Auto) Lymph # (Auto) [place] # (Auto) Eos # (Auto) Baso # (Auto) Abs Immat Gran (auto) Absolute Neuts (auto) Absolute Nucleated RBC 0.000 Nucleated RBC % (auto) 0.0 Smear Tech's Comments Potassium 3.1 L Anion Gap 13 Estim Creat Clear Calc 125.4 Estimated GFR > 60 POC Glucose 199 H Random Glucose 191 H Lactic Acid Calcium 8.4 D Total Bilirubin 0.9 Direct Bilirubin 0.4 AST 35 D ALT 95 H Alkaline Phosphatase 206 H D Troponin I High Sens B-Natriuretic Peptide Total Protein 6.4 L Albumin 3.3 L Lipase Urine Color Urine Appearance Urine pH Ur Specific [place] Urine Protein Urine Glucose (UA) Urine Ketones Urine Blood Urine Nitrite Ur Leukocyte Esterase Urine RBC Urine WBC Ur Squamous Epith Cells Urine Bacteria Ethyl Alcohol Influenza Type A (PCR) Influenza Type B (PCR) RSV RNA Qual (PCR) SARS-CoV-2 RNA (RT-PCR) 12/28/21 06:52 MCV MCH MCHC RDW Plt Count MPV Immature Gran % (Auto) Neut % (Auto) Lymph % (Auto) [place] % (Auto) Eos % (Auto) Baso % (Auto) Lymph # (Auto) [place] # (Auto) Eos # (Auto) Baso # (Auto) Abs Immat Gran (auto) Absolute Neuts (auto) Absolute Nucleated RBC Nucleated RBC % (auto) Smear Tech's Comments Potassium Anion Gap Estim Creat Clear Calc Estimated GFR POC Glucose 154 H Random Glucose Lactic Acid Calcium Total Bilirubin Direct Bilirubin AST ALT Alkaline Phosphatase Troponin I High Sens B-Natriuretic Peptide Total Protein Albumin Lipase Urine Color Urine Appearance Urine pH Ur Specific [place] Urine Protein Urine Glucose (UA) Urine Ketones Urine Blood Urine Nitrite Ur Leukocyte Esterase Urine RBC Urine WBC Ur Squamous Epith Cells Urine Bacteria Ethyl Alcohol Influenza Type A (PCR) Influenza Type B (PCR) RSV RNA Qual (PCR) SARS-CoV-2 RNA (RT-PCR) Assessment and Plan Plan 45-year-old male with a past medical history of hypertension, diabetes, alcohol abuse, history of pancreatitis presented to the hospital with a chief complaint of abdominal pain.? Noted to have acute pancreatitis.? Admitted for further management. Acute recurrent pancreatitis:? Due to alcohol use, persistent abdominal pain , ?leukocytosis? secondary to pancreatitis ?hematocrit stable Continue IV fluid, on clear liquid,? pain medication, Transaminitis:? LFTs similar to before , trend if still elevated may need Gi eval. Hypertension:? BP Stable this a.m. continue lisinopril 5mg daily, mild tachycardia likely related to alcohol withdrawal. Diabetes:? Hold home insulins.? Insulin sliding scale, avoid coverage below 200 mg/dL..? Alcohol abuse:?? continue as needed Ativan, CIWA protocol.? Continue Thiamine, folate, multivitamins. DVT prophylaxis:? s/clovenox Code status:? Full code Quality Stroke Does the patient have a stroke diagnosis?: No VTE Prior VTE?: No VTE Risk Level:: Medical - moderate - high VTE Device Contraindication: N/A - Device Ordered VTE Drug Contraindication: N/A - Med Ordered
[2021-12-28 09:30] LABS: Magnesium 1.8 mg/dL (1.6-2.6)
[2021-12-28] MEDS: Insulin Glargine,Hum.rec.anlog 100 UNIT/ML 10 ML VIAL 18 UNIT SUBCUT (11:01)
[2021-12-28] MEDS: Pantoprazole Sodium 40 MG/10 ML VIAL IVPUSH (11:02)
[2021-12-28] MEDS: Thiamine HCL 100 MG TABLET PO (11:02)
[2021-12-28] MEDS: Cholecalciferol (Vitamin D3) 25 MCG TABLET 50 MCG PO (11:02)
[2021-12-28] MEDS: Potassium Chloride Packet 20 MEQ PACKET 40 MEQ PO (11:02)
[2021-12-28] MEDS: Multivitamin TABLET 1 TAB PO (11:02)
[2021-12-28] MEDS: lisinopriL 5 MG TABLET PO (11:03)
[2021-12-28] MEDS: Folic Acid 1 MG TABLET PO (11:03)
--- NOTE | 2021-12-28 11:42 | P.CDIC_ITS ---
CDI Concurrent Query Documentation Clarification: PHYSICIAN'S DOCUMENTATION REQUEST Date of Query: 12/28/21 1142 Patient Name: Juwan Cooper Admit Date: 12/27/21 Dear Doctor, A review of the medical record indicates additional documentation may be needed. Please review below and update the documentation accordingly. Clinical Indicators: The following diagnoses or signs and symptoms were noted in the patient record: Risk Factors/Clinical Indicators/Treatments LABS: 12/27 - sodium 130 L IV fluids Based on the above, could you clarify in the Progress Notes the appropriate diagnosis, if significant, that supports the above abnormalities and additional evaluation, monitoring, and/or treatment rendered: * Hyponatremia or other etiology * Labs indicate a diagnosis of (please specify) * Other (please specify) * Unable to determine Use of terms such as suspected, likely, concern for, or probable (associated with a specific diagnosis that is being evaluated, monitored, or treated as if it exists) are acceptable and can be coded in the inpatient setting, when documented at the time of discharge. Thank you, Imelda Bridges [facility], CDIS Extension: [phone] Please use your independent medical judgment in providing your response. THIS QUERY IS PART OF THE PERMANENT MEDICAL RECORD Provider Response: Other Other Diagnosis: mild hyponatremia dilutional.
[2021-12-28] MEDS: ARIPiprazole 5 MG TABLET PO (12:02)
[2021-12-28 12:36] VITALS: BP 154/83; PULSE 68; RESP 12; O2SAT 97
--- NOTE | 2021-12-28 12:45 | P.DS_ITS ---
DS: Providers Provider Date of Service: 12/28/21 Date of admission: 12/27/21 16:19 Primary care physician: Kristin León, DS: Diagnosis Discharge Diagnosis (1) Alcohol use disorder: Status: Acute (2) Elevated LFTs: Status: Acute (3) Acute pancreatitis: Status: Acute DS: Summary Hospital Course Hospital Course: 46-year-old male with a past medical history of hypertension, insulin-dependent diabetes, alcohol abuse, history of pancreatitis presented to the hospital with a chief complaint of abdominal pain for the past 2-3? days.? Patient mentioned that he has been drinking alcohol will past few days.? Abdominal pain is epigastric in nature no associated nausea vomiting or diarrhea.? Patient has decreased oral intake.? Denies any fever chills cough.? Denies any recent travel or sick contact.? Denies any urinary symptoms. ? Denies any weakness or numbness or cough or phlegm ?social history: Lives with his ,? drink 12 pack beer a day,? denies any recreation drug use or smoking. hospital course: Patient came to the hospital because of recurrent alcohol-related pancreatitis- started on bowel rest, IV fluid, Zofran, pain medication seems to be improved significantly, tolerating diet. CT scan changes seems similar to before- follow-up PCP with abdominal MRI and consider GI follow-up out patiently . CT finding for right renal area seems artifact since ultrasound is normal and reviewed CT scan with Urology- seems artifact. Patient will be going home with p.o. nausea medication . Above management discussed with the patient in detail length he understand and in agreement with the above plan, time spent 50 minutes and 50% time spent on counseling. Significant findings: As above. Procedures performed: None. Treatment and response: As above. Complications: None. Time Spent with Patient Time attestation: Total time spent providing and/or coordinating discharge services: Discharge coordination time: Greater than 30 minutes Quality: Safe Use of Opioids Does Pt have an Active Cancer Diagnosis on the Problem List?: No Quality: Stroke Does the patient have a stroke diagnosis?: No Physical Exam Vital Signs: Vital Signs: Last Vital Signs Temp 98.5 F 12/28/21 08:47 Pulse 68 12/28/21 12:36 Resp 12 12/28/21 12:36 BP 154/83 H 12/28/21 12:36 Pulse Ox 97 12/28/21 12:36 BMI result Body Mass Index 23.3 Appearance: Alert.? Oriented X3.? Eyes: Pupils equal, round and reactive to light.? Sclera nonicteric.? ENT: Pharynx normal.? Moist mucous membranes. cvs: [id number], [id number] . res: clear to auscultation ,no rhonchii or wheezing abd: no rebound or guarding ,nt, bs present. ext pulses present , no cyanosis ,? mild tremers. neuro: axo3 , nonfocal. DS: Data Data Completed and Pending Labs on day of discharge: Laboratory Results - last 24 hr 12/27/21 12/27/21 12/27/21 14:46 14:46 14:46 WBC 15.0 H RBC 4.67 Hgb 14.5 Hct 41.5 L MCV 88.9 MCH 31.0 MCHC 34.9 RDW 12.2 Plt Count 234 MPV 10.5 Immature Gran % (Auto) 0.6 H Neut % (Auto) 92.7 H Lymph % (Auto) 4.1 L [place] % (Auto) 2.5 Eos % (Auto) 0.0 Baso % (Auto) 0.1 Lymph # (Auto) 0.6 L [place] # (Auto) 0.4 Eos # (Auto) 0.0 Baso # (Auto) 0.0 Abs Immat Gran (auto) 0.09 H Absolute Neuts (auto) 13.9 H Absolute Nucleated RBC 0.000 Nucleated RBC % (auto) 0.0 Smear Tech's Comments VERIFIED Sodium 130 L Potassium 3.7 Chloride 94 L Carbon Dioxide 21 L Anion Gap 19 BUN 17 H Creatinine 0.84 Estim Creat Clear Calc 95.5 Estimated GFR > 60 POC Glucose Random Glucose 291 H Lactic Acid Calcium 9.1 Magnesium Total Bilirubin 1.7 H Direct Bilirubin 0.6 H AST 72 H ALT 148 H Alkaline Phosphatase 282 H D Troponin I High Sens < 3.5 B-Natriuretic Peptide Total Protein 7.8 Albumin 4.0 Lipase 515 H Urine Color Urine Appearance Urine pH Ur Specific [place] Urine Protein Urine Glucose (UA) Urine Ketones Urine Blood Urine Nitrite Ur Leukocyte Esterase Urine RBC Urine WBC Ur Squamous Epith Cells Urine Bacteria Ethyl Alcohol Influenza Type A (PCR) Influenza Type B (PCR) RSV RNA Qual (PCR) SARS-CoV-2 RNA (RT-PCR) 12/27/21 12/27/21 12/27/21 14:46 14:46 14:46 WBC RBC Hgb Hct MCV MCH MCHC RDW Plt Count MPV Immature Gran % (Auto) Neut % (Auto) Lymph % (Auto) [place] % (Auto) Eos % (Auto) Baso % (Auto) Lymph # (Auto) [place] # (Auto) Eos # (Auto) Baso # (Auto) Abs Immat Gran (auto) Absolute Neuts (auto) Absolute Nucleated RBC Nucleated RBC % (auto) Smear Tech's Comments Sodium Potassium Chloride Carbon Dioxide Anion Gap BUN Creatinine Estim Creat Clear Calc Estimated GFR POC Glucose Random Glucose Lactic Acid 1.3 Calcium Magnesium Total Bilirubin Direct Bilirubin AST ALT Alkaline Phosphatase Troponin I High Sens B-Natriuretic Peptide 75 Total Protein Albumin Lipase Urine Color Urine Appearance Urine pH Ur Specific [place] Urine Protein Urine Glucose (UA) Urine Ketones Urine Blood Urine Nitrite Ur Leukocyte Esterase Urine RBC Urine WBC Ur Squamous Epith Cells Urine Bacteria Ethyl Alcohol < 10 Influenza Type A (PCR) Influenza Type B (PCR) RSV RNA Qual (PCR) SARS-CoV-2 RNA (RT-PCR) 12/27/21 12/27/21 12/27/21 14:46 14:48 17:59 WBC RBC Hgb Hct MCV MCH MCHC RDW Plt Count MPV Immature Gran % (Auto) Neut % (Auto) Lymph % (Auto) [place] % (Auto) Eos % (Auto) Baso % (Auto) Lymph # (Auto) [place] # (Auto) Eos # (Auto) Baso # (Auto) Abs Immat Gran (auto) Absolute Neuts (auto) Absolute Nucleated RBC Nucleated RBC % (auto) Smear Tech's Comments Sodium Potassium Chloride Carbon Dioxide Anion Gap BUN Creatinine Estim Creat Clear Calc Estimated GFR POC Glucose 247 H Random Glucose Lactic Acid Calcium Magnesium Total Bilirubin Direct Bilirubin AST ALT Alkaline Phosphatase Troponin I High Sens B-Natriuretic Peptide Total Protein Albumin Lipase Urine Color YELLOW Urine Appearance HAZY Urine pH 6.0 Ur Specific [place] 1.025 Urine Protein 1+ H Urine Glucose (UA) 500 H Urine Ketones >=80 Urine Blood TRACE Urine Nitrite NEG Ur Leukocyte Esterase NEG Urine RBC 1-4 Urine WBC 0-2 Ur Squamous Epith Cells TRACE Urine Bacteria NONE Ethyl Alcohol Influenza Type A (PCR) NEGATIVE Influenza Type B (PCR) NEGATIVE RSV RNA Qual (PCR) NEGATIVE SARS-CoV-2 RNA (RT-PCR) NEGATIVE 12/27/21 12/28/21 12/28/21 20:47 04:38 04:38 WBC 13.6 H RBC 4.22 L Hgb 13.0 L Hct 36.6 L MCV 86.7 MCH 30.8 MCHC 35.5 RDW 12.0 Plt Count 198 MPV 10.2 Immature Gran % (Auto) Neut % (Auto) Lymph % (Auto) [place] % (Auto) Eos % (Auto) Baso % (Auto) Lymph # (Auto) [place] # (Auto) Eos # (Auto) Baso # (Auto) Abs Immat Gran (auto) Absolute Neuts (auto) Absolute Nucleated RBC 0.000 Nucleated RBC % (auto) 0.0 Smear Tech's Comments Sodium 130 L Potassium 3.1 L Chloride 95 L Carbon Dioxide 25 Anion Gap 13 BUN 12 Creatinine 0.64 Estim Creat Clear Calc 125.4 Estimated GFR > 60 POC Glucose 199 H Random Glucose 191 H Lactic Acid Calcium 8.4 D Magnesium 1.8 Total Bilirubin 0.9 Direct Bilirubin 0.4 AST 35 D ALT 95 H Alkaline Phosphatase 206 H D Troponin I High Sens B-Natriuretic Peptide Total Protein 6.4 L Albumin 3.3 L Lipase Urine Color Urine Appearance Urine pH Ur Specific [place] Urine Protein Urine Glucose (UA) Urine Ketones Urine Blood Urine Nitrite Ur Leukocyte Esterase Urine RBC Urine WBC Ur Squamous Epith Cells Urine Bacteria Ethyl Alcohol Influenza Type A (PCR) Influenza Type B (PCR) RSV RNA Qual (PCR) SARS-CoV-2 RNA (RT-PCR) 12/28/21 06:52 WBC RBC Hgb Hct MCV MCH MCHC RDW Plt Count MPV Immature Gran % (Auto) Neut % (Auto) Lymph % (Auto) [place] % (Auto) Eos % (Auto) Baso % (Auto) Lymph # (Auto) [place] # (Auto) Eos # (Auto) Baso # (Auto) Abs Immat Gran (auto) Absolute Neuts (auto) Absolute Nucleated RBC Nucleated RBC % (auto) Smear Tech's Comments Sodium Potassium Chloride Carbon Dioxide Anion Gap BUN Creatinine Estim Creat Clear Calc Estimated GFR POC Glucose 154 H Random Glucose Lactic Acid Calcium Magnesium Total Bilirubin Direct Bilirubin AST ALT Alkaline Phosphatase Troponin I High Sens B-Natriuretic Peptide Total Protein Albumin Lipase Urine Color Urine Appearance Urine pH Ur Specific [place] Urine Protein Urine Glucose (UA) Urine Ketones Urine Blood Urine Nitrite Ur Leukocyte Esterase Urine RBC Urine WBC Ur Squamous Epith Cells Urine Bacteria Ethyl Alcohol Influenza Type A (PCR) Influenza Type B (PCR) RSV RNA Qual (PCR) SARS-CoV-2 RNA (RT-PCR) Additional Comments Additional comments: CT/CT abdomen pelvis wo con IMPRESSION: -Peripancreatic inflammatory changes suggesting pancreatitis. -Pancreas normal in size and uniform in attenuation. No ductal distention. -No retroperitoneal fluid collection or pseudocyst. -Prior cholecystectomy. No biliary ductal dilatation. -Nonspecific focal horizontal linear high attenuation medial upper pole right kidney, possibly artifact, parenchymal hemorrhage less likely. Otherwise unremarkable. No persistent nephric stranding.? US/US renal BI IMPRESSION: -Normal study. -No hydronephrosis or renal parenchymal lesion. Discharge Plan Discharge Patient Disposition: Home, Self-Care Discharge Diagnosis: alcoholic pancreatitis. Referrals: Sally Morales MD [Physician] - 1 Week (follow up outpatiently) Kristin León DO [Primary Care Provider] - 1 Week Discharge Medications: New ondansetron HCl 4 mg tablet 4 mg PO Q12H 1 Days Qty: 4 0RF Continued multivitamin Tablet 1 tab PO DAILY 0RF Lantus U-100 Insulin 100 unit/mL Solution 18 unit SUBCUT DAILY 0RF lisinopril 5 mg Tablet 5 mg PO DAILY 0RF cholecalciferol (vitamin D3) [Vitamin D3] 50 mcg (2,000 unit) Capsule 50 mcg PO DAILY 0RF thiamine HCl (vitamin B1) 100 mg tablet 1 tab PO DAILY 0RF acetaminophen 500 mg tablet 2 tab PO Q8H PRN (Reason: Pain) 0RF folic acid 1 mg tablet 1 tab PO DAILY 0RF metformin 500 mg tablet extended release 24 hr 500 mg PO BID 0RF loratadine 10 mg tablet 1 tab PO DAILY PRN (Reason: allergies) 0RF aripiprazole 5 mg tablet 1 tab PO DAILY 0RF rosuvastatin 40 mg tablet 1 tab PO BEDTIME 0RF Jardiance 10 mg tablet 1 tab PO DAILY 0RF Discharge Orders: Discharge Order (Routine); Ordered 12/28/21 Ordered By: Jose M Martinez Diet: advance to usual diet Activity on Discharge: As tolerated Stand Alone Forms: Patient Portal Discharge page Care Plan Goals: Patient came to the hospital because of recurrent alcohol-related pancreatitis-started on bowel rest, IV fluid, Zofran, pain medication seems to be improved significantly, tolerating diet. CT scan changes seems similar to before- follow-up PCP with abdominal MRI and consider GI follow-up out patiently . Patient will be going home with p.o. nausea medication . Health Concerns: patient was strongly advised to quit alcohol. Plan of Treatment: as above. Assessment: As above.
[2021-12-28 12:51] LABS: Glucose, Whole Blood 201 mg/dL (60-115)
[2021-12-28] MEDS: Insulin Lispro 100 UNIT/ML 3 ML VIAL SUBCUT (13:33)
[2021-12-28] MEDS: Morphine Sulfate 2 MG/ML CARTRIDGE IVPUSH (14:17)
--- NOTE | 2021-12-28 14:48 | MHC.CM.PN ---
Received notification that patient will be discharged. Patient will arrange transport home.
[2021-12-28] MEDS: Acetaminophen 325 MG TABLET 975 MG PO (19:32)
== END 2021-12-28 23:36 | disposition home or self-care (01) | DRG 282 ==
LOC: HO.ED 15:48 → HO.EDOVER 16:43
PROVIDERS: Admitting Provider Internal Medicine; Emergency Provider Emergency Medicine; PCP Family Medicine; Visit Provider Internal Medicine
DX: K85.20 Alcohol induced acute pancreatitis without necrosis or infection (principal); E87.1 Hypo-osmolality and hyponatremia; E11.9 Type 2 diabetes mellitus without complications; F10.10 Alcohol abuse, uncomplicated; I10 Essential (primary) hypertension; Z20.822 Contact with and (suspected) exposure to COVID-19; Z79.4 Long term (current) use of insulin; Z90.49 Acquired absence of other specified parts of digestive tract; Z79.82 Long term (current) use of aspirin; Z79.899 Other long term (current) drug therapy
CPT/HCPCS: 0241U; 36415; 71045; 74176; 76775; 80048; 80076; 81001; 81003; 82077; 82947; 83605; 83690; 83735; 83880; 84484; 85025; 85027; 87040; 93005; 96361; 96374; 96375; 99219; 99285; J1170; J2060; J2270; J2405

== ENCOUNTER 2022-06-30 11:47 | Emergency (ER) | payer MEDICAID, SELFPAY ==
--- NOTE | ~2022-06-30 | CT_ITS ---
EXAMINATION: CT ABDOMEN AND PELVIS WITH CONTRAST CLINICAL INFORMATION: Nausea and vomiting and diarrhea with abdominal pain and fever. COMPARISON: CT scan of the abdomen and pelvis dated 12/27/2021. TECHNIQUE: Multidetector volumetric images were obtained from the superior aspect of the liver through the pubic symphysis following administration 85 mL of Omnipaque 350 intravenous contrast. Sagittal and coronal reformatted images were obtained on the technologist's workstation. Oral contrast: No This CT examination was performed using dose optimization techniques as appropriate, variously including the following: *Automated exposure control *Adjustment of mA and/or kV according to patient size (this includes techniques or standardized protocols for targeted exams where dose is matched to indication/reason for exam; i.e. extremities or head) *Use of iterative reconstruction technique DLP: 384 mGy-cm FINDINGS: LUNG BASES: The visualized lung bases are unremarkable. LIVER, GALLBLADDER, AND BILIARY TREE: Hepatic abnormality. Status post cholecystectomy. PANCREAS: Unremarkable. SPLEEN: Unremarkable. ADRENAL GLANDS: Unremarkable. KIDNEYS AND URETERS: The kidneys are normal in size, shape, and attenuation. No hydronephrosis, hydroureter, or calculi seen. No perinephric stranding. BLADDER: Unremarkable. GASTROINTESTINAL TRACT: The stomach and small bowel and appendix are unremarkable. The colon and rectum are unremarkable. ABDOMINAL WALL: Very small fat-containing umbilical hernia. LYMPH NODES: Normal. VASCULAR: Unremarkable. PELVIC VISCERA: Unremarkable. OSSEOUS STRUCTURES: L4-5 mild degenerative disc disease. No suspicious abnormality. CT/CT abdomen pelvis w IV con IMPRESSION: 1. No acute intra-abdominal/pelvic abnormality to explain the patient's symptoms. 2. Very small fat-containing umbilical hernia without associated abnormality. 3. L4-5 mild degenerative disc disease. Fleischner guidelines were followed.
--- NOTE | ~2022-06-30 | US_ITS ---
EXAMINATION: US ABDOMEN COMPLETE CLINICAL INFORMATION: Nausea and vomiting and diarrhea with upper abdominal pain. COMPARISON: Renal ultrasound and CT scan of the abdomen and pelvis dated 12/27/2021. TECHNIQUE: Real-time imaging of the abdominal viscera. FINDINGS: PANCREAS: Suboptimally visualized secondary to bowel gas shadowing. ABDOMINAL AORTA: Visualized portions unremarkable. INFERIOR VENA CAVA: Visualized portions unremarkable. LIVER: Unremarkable. Status post cholecystectomy. COMMON BILE DUCT: Normal in caliber measuring 0.4 cm in diameter. RIGHT KIDNEY: 11.2 cm. Unremarkable. LEFT KIDNEY: 11.5 cm. Unremarkable. SPLEEN: 9.2 cm. A small hypoechoic focus measures 1.2 x 1.1 x 1.1 cm. Color Doppler showed no abnormal vascular flow. FREE FLUID: None. US/US abdomen complete IMPRESSION: Small hypoechoic focus in the spleen demonstrates benign features possibly representing a cyst. No other significant abnormality.
[2022-06-30 12:03] VITALS: BP 138/85; PULSE 90; RESP 18; TEMP 36.7; O2SAT 99; BMI 23.3
--- NOTE | 2022-06-30 12:04 | ED.GENADULT ---
HPI - General Adult General Chief complaint: General Medical <OLGA Bravo - Last Filed: 06/30/22 12:06> Stated complaint: Vomiting Diarrhea <OLGA Bravo - Last Filed: 06/30/22 12:06> Time Seen by Provider: 06/30/22 14:26 <OLGA Bravo - Last Filed: 06/30/22 12:06> Source: patient <OLGA Bravo Last Filed: 06/30/22 12:06> patient <OLGA Stout Last Filed: 06/30/22 17:30> Mode of arrival: ambulatory <OLGA Bravo Last Filed: 06/30/22 12:06> ambulatory <OLGA Stout Last Filed: 06/30/22 17:30> Limitations: no limitations <OLGA Bravo - Last Filed: 06/30/22 12:06> language barrier (Macedonian-speaking) <OLGA Stout Last Filed: 06/30/22 17:30> History of Present Illness HPI narrative: 47yoM c PMHx of HTN, DM, hx of pancreatitis and alcohol use disorder along with elevated LFTs who is Macedonian-speaking presenting to the ER c c/o sudden onset of nausea/vomiting/diarrhea with upper abdominal pain since 20:00 last night since he was at work. 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 Reports he has been unable to keep anything down including water. Reports that he has had a fever of 100.0 orally along with body aches and chills with generalized fatigue and malaise. He denies any recent alcohol drinking. He denies any dizziness, headaches, neck pain/stiffness, nasal congestion/rhinorrhea, sore throat, cough, chest pain or shortness of breath, black or bloody emesis, flank pain, back pain, dysuria, hematuria, abnormal penile discharge, lower extremity edema or calf tenderness, rashes, possible bad food exposure or any other symptoms complaints or concerns at this time. <OLGA Stout Last Filed: 06/30/22 17:30> MD complaint: N/V/D and abd pain <OLGA Stout Last Filed: 06/30/22 17:30> Onset (ago): day(s) (Since last night) <OLGA Stout - Last Filed: 06/30/22 17:30> Location: abdomen <OLGA Stout - Last Filed: 06/30/22 17:30> Radiation: non-radiation <OLGA Stout - Last Filed: 06/30/22 17:30> Severity: moderate <OLGA Stout - Last Filed: 06/30/22 17:30> Quality: aching <OLGA Stout - Last Filed: 06/30/22 17:30> Pain Consistency: constant <OLGA Stout - Last Filed: 06/30/22 17:30> Relieving factors: none <OLGA Stout - Last Filed: 06/30/22 17:30> Exacerbating factors: none <OLGA Stout - Last Filed: 06/30/22 17:30> Associated symptoms: fever/chills, loss of appetite, nausea/vomiting and other (Diarrhea) <OLGA Stout - Last Filed: 06/30/22 17:30> Treatments prior to arrival: none <OLGA Stout - Last Filed: 06/30/22 17:30> Related Data Home medications: Home Medications Medication Instructions Recorded Confirmed cholecalciferol (vitamin D3) 50 50 mcg PO DAILY 08/09/20 12/27/21 mcg (2,000 unit) capsule (Vitamin D3) insulin glargine 100 unit/mL 18 unit subcut DAILY 08/09/20 12/27/21 subcutaneous solution (Lantus U-100 Insulin) lisinopril 5 mg tablet 5 mg PO DAILY 08/09/20 12/27/21 multivitamin 1 tab PO DAILY 08/09/20 12/27/21 acetaminophen 500 mg tablet 2 tab PO Q8H PRN Pain 12/27/21 12/27/21 aripiprazole 5 mg tablet 1 tab PO DAILY 12/27/21 12/27/21 empagliflozin 10 mg tablet 1 tab PO DAILY 12/27/21 12/27/21 (Jardiance) folic acid 1 mg tablet 1 tab PO DAILY 12/27/21 12/27/21 loratadine 10 mg tablet 1 tab PO DAILY PRN allergies 12/27/21 12/27/21 metformin 500 mg tablet,extended 500 mg PO BID 12/27/21 12/27/21 release 24 hr rosuvastatin 40 mg tablet 1 tab PO BEDTIME 12/27/21 12/27/21 thiamine HCl (vitamin B1) 100 mg 1 tab PO DAILY 12/27/21 12/27/21 tablet Previous Rx's Medication Instructions Recorded ondansetron HCl 4 mg tablet 4 mg PO Q12H 24 hours #4 tabs 12/28/21 oxycodone 5 mg tablet 5 mg PO BID PRN pain #6 tabs 12/28/21 ketorolac 10 mg tablet 10 mg PO Q8H #14 tabs 06/30/22 ondansetron HCl 4 mg tablet 4 mg PO Q8H #14 tabs 06/30/22 <OLGA Bravo - Last Filed: 06/30/22 12:06> Allergies/adverse reactions: Allergies Allergy/AdvReac Type Severity Reaction Status Date / Time No Known Allergies Allergy Verified 12/27/21 12:05 <OLGA Bravo - Last Filed: 06/30/22 12:06> Review of Systems Review of Systems: Constitutional : + Fever, + Chills, No Night Sweats, + Fatigue, + Malaise Cardiovascular : No Chest Pain, No SOB Respiratory : No Cough, No Sputum, No Wheezing, No Dyspnea Gastrointestinal : + Nausea, + Vomiting, + Diarrhea, + abdominal Pain, No Hematochezia, No Melena Genitourinary : No irregular bleeding, No Dysuria, No Urinary Frequency, No Hematuria,No Urinary Incontinence, No Urgency, No Flank Pain Musculoskeletal : No joint pain, + Myalgias, No Joint Swelling Skin : No Skin Lesions, No rash Neuro : No Weakness, No Numbness, No Paresthesias, No Loss of Consciousness, No Dizziness, No Headache Heme/Lymph: No Lymphadenopathy Endocrine : No Temperature Intolerance <OLGA Stout Last Filed: 06/30/22 17:30> Yes all other systems are reviewed and are negative <OLGA Stout Last Filed: 06/30/22 17:30> [facility] Past Medical History Attestation statement: The following information was validated with the patient. <OLGA Stout Last Filed: 06/30/22 17:30> Source: old records reviewed and nursing notes reviewed <OLGA Stout - Last Filed: 06/30/22 17:30> Medical History: Medical History Alcohol abuse Diabetes HTN (hypertension) <OLGA Bravo - Last Filed: 06/30/22 12:06> Surgical History: Surgical History History of laparoscopic cholecystectomy <OLGA Bravo - Last Filed: 06/30/22 12:06> Social History Social History: Social History Household Members: Spouse Household Members Other:: one child Housing: Apartment Do you presently have visiting nurse or other home services: No Alcohol intake: current Alcohol intake frequency: 3 or more drinks per day Alcohol type: beer, wine and hard liquor Patient Tobacco Use Status: Tobacco use Unknown Advance Directives: Yes Advance Directives on File: Yes Advance Directives Date on File: 11/01/20 service: No Current occupational status: employed 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 [employer] in [facility] in [place] <OLGA Bravo - Last Filed: 06/30/22 12:06> Physical Exam ED Vital Signs: Vital Signs - 24 hr 06/30/22 12:03 06/30/22 15:16 Temperature 98.0 F 100.3 F Pulse Rate 90 Respiratory Rate 18 Blood Pressure 138/85 120/79 Pulse Oximetry 99 Oxygen Delivery Method Room Air BMI result Body Mass Index 23.3 <OLGA Bravo - Last Filed: 06/30/22 12:06> Vital Signs - 24 hr 06/30/22 12:03 06/30/22 15:16 Temperature 98.0 F 100.3 F Pulse Rate 90 Respiratory Rate 18 Blood Pressure 138/85 120/79 Pulse Oximetry 99 Oxygen Delivery Method Room Air BMI result Body Mass Index 23.3 vital signs have been reviewed as normal and appeared to be correct. Blood pressure normal. Heart rate normal. Respiration rate normal. Temperature normal. Oxygen saturation normal. <OLGA Stout - Last Filed: 06/30/22 17:30> Appearance: Alert. Oriented X3. No acute distress. Head: Normal external exam. Normocephalic. Atraumatic. Eyes: PERRLA. EOMI. Conjunctiva and sclera normal. Eyelids normal. ENT: Pharynx normal. Uvula midline. Moist mucous membranes. No lesions/ulcerations or masses noted on the tongue. Normal voice. No trismus noted. No drooling noted. No muffled voice noted. Neck: Normal inspection. Neck supple. FROM. No adenopathy. Thyroid Normal. No meningeal signs. CVS: Normal heart rate and rhythm. Heart sound normal. Pulses normal throughout. No murmurs/rales/gallops. Respiratory: No respiratory distress. Painless inspiration. Breath sounds normal. No wheezes/rales/rhonchi noted. Chest nontender. No accessory muscle usage noted or decreased air movement noted. No signs of trauma. Abdomen: Soft and moderate tenderness palpation to upper quadrant with guarding. Bowel sounds normal in all 4 quadrants. No distention noted. No organomegaly noted. No visible injury noted. Negative Adam sign. Negative obturator sign. Negative psoas sign. Negative McBurney sign. Back: No CVA tenderness. Full range of motion noted. Nontender. No signs of trauma. Patient neuro intact bilaterally and distally on all 4 extremities. Patient's reflexes intact bilaterally and distally on all 4 extremities. No rashes/lesion/induration/fluctuance or signs of infection noted. Skin: Skin warm and dry. Normal skin color. Normal skin turgor. No rashes/lesions/lacerations noted. Extremities: No lower extremity edema. No calf tenderness is noted. Extremities exhibit normal range of motion and nontender. Neuro: Oriented X 3. No motor deficit. No sensory deficit. Reflexes normal. Normal steady gait. No focal neuro deficits noted. CN's II-XII intact bilaterally? Vascular: + radial pulses/+ 2 distal pedal pulses/+2 dorsalis pedis b/l. Normal cap refill. No cyanosis noted to upper extremity nails and lower extremity toes nails. <OLGA Stout - Last Filed: 06/30/22 17:30> Course Course Course Narrative: RME performed by Edith Paredes PA-C. Patient is a 47 year old male presenting to the emergency department with nausea, vomiting, and body aches. CBC, CMP, Mag, COVID/RSV/Influenza swab ordered. Patient placed back in waiting room pending results and bed availability. <OLGA Bravo - Last Filed: 06/30/22 12:06> Reevaluation(s) Reevaluation #1: 14:30pm - 47yoM c PMHx of HTN, DM, hx of pancreatitis and alcohol use disorder along with elevated LFTs who is Macedonian-speaking presenting to the ER c c/o sudden onset of nausea/vomiting/diarrhea with upper abdominal pain since 20:00 last night since he was at work. 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 Reports he has been unable to keep anything down including water. Reports that he has had a fever of 100.0 orally along with body aches and chills with generalized fatigue and malaise. He denies any recent alcohol drinking. Labs obtained reviewed while patient was in the waiting room and revealed - leukocytosis of 12,000. - carbon dioxide 21. - BUN 25. - random glucose 213. - total bilirubin 1.8. - alkaline phosphate 127. - total protein 8.1. Otherwise all other labs are within normal limits. - patient negative for COVID/RSV/flu. Plan: Will provide a L of IV fluids, IV Toradol, IV Zofran, 975 mg of p.o. Tylenol for the patient's fever and a CT scan of abdomen pelvis IV contrast along with abdominal ultrasound re-evaluate. <OLGA Stout - Last Filed: 06/30/22 17:30> Reevaluation #2: - CT scan abdomen pelvis with IV contrast revealed umbilical hernia and degenerative changes of lumbar spine otherwise no other acute processes and abdominal ultrasound within normal limits as well. Therefore at this time patient is tolerating p.o. will DC home with symptomatic treatment instructions return if any new or worsening symptoms to follow up with primary care provider. Patient understands agrees with this plan. <OLGA Stout - Last Filed: 06/30/22 17:30> Time: 17:21 <OLGA Stout - Last Filed: 06/30/22 17:30> Medications Administered Discontinued Medications Generic Name Dose Route Start Last Admin Trade Name Freq PRN Reason Stop Dose Admin Acetaminophen 975 mg 06/30/22 15:57 06/30/22 16:02 Acetaminophen 325 Mg Tablet PO 06/30/22 15:58 975 mg ONCE ONE Administration Sodium Chloride 1,000 mls @ 999 mls/hr 06/30/22 15:00 06/30/22 16:17 Ns IVCONT 06/30/22 16:00 Infused .Q1H1M LUIS Infusion Iohexol 100 ml 06/30/22 16:36 06/30/22 16:38 Iohexol 350 Mg/Ml 100 Ml Infus..Btl IV 06/30/22 16:37 85 ml ONCE ONE Administration Ketorolac Tromethamine 30 mg 06/30/22 14:52 06/30/22 15:18 Ketorolac Tromethamine 30 Mg/Ml Vial IVPUSH 06/30/22 14:53 30 mg ONCE ONE Administration Ondansetron HCl 4 mg 06/30/22 14:52 06/30/22 15:23 Ondansetron Hcl 4 Mg/2 Ml Vial IVPUSH 06/30/22 14:53 4 mg ONCE ONE Administration <OLGA Bravo - Last Filed: 06/30/22 12:06> Medications Administered Discontinued Medications Generic Name Dose Route Start Last Admin Trade Name Freq PRN Reason Stop Dose Admin Acetaminophen 975 mg 06/30/22 15:57 06/30/22 16:02 Acetaminophen 325 Mg Tablet PO 06/30/22 15:58 975 mg ONCE ONE Administration Sodium Chloride 1,000 mls @ 999 mls/hr 06/30/22 15:00 06/30/22 16:17 Ns IVCONT 06/30/22 16:00 Infused .Q1H1M LUIS Infusion Iohexol 100 ml 06/30/22 16:36 06/30/22 16:38 Iohexol 350 Mg/Ml 100 Ml Infus..Btl IV 06/30/22 16:37 85 ml ONCE ONE Administration Ketorolac Tromethamine 30 mg 06/30/22 14:52 06/30/22 15:18 Ketorolac Tromethamine 30 Mg/Ml Vial IVPUSH 06/30/22 14:53 30 mg ONCE ONE Administration Ondansetron HCl 4 mg 06/30/22 14:52 06/30/22 15:23 Ondansetron Hcl 4 Mg/2 Ml Vial IVPUSH 06/30/22 14:53 4 mg ONCE ONE Administration <OLGA Stout - Last Filed: 06/30/22 17:30> Medical Decision Making Medical Records Medical records reviewed: Yes I reviewed the patient's medical records. <OLGA Stout - Last Filed: 06/30/22 17:30> Lab Data Lab results reviewed: Yes I reviewed the patient's lab results. <OLGA Stout - Last Filed: 06/30/22 17:30> Result diagrams: : 06/30/22 12:11 06/30/22 12:11 <OLGA Bravo - Last Filed: 06/30/22 12:06> Labs: Lab Results 06/30/22 06/30/22 06/30/22 Range/Units 12:11 12:11 12:11 WBC 12.9 H (4.8-10.8) X10*3/uL RBC 5.14 D (4.60-5.80) X10*6/uL Hgb 16.4 D (14.0-18.0) g/dl Hct 47.0 D (42.0-52.0) % MCV 91.4 (80.0-98.0) fL MCH 31.9 (27.0-33.0) pg MCHC 34.9 (31.0-36.0) g/dl RDW 12.6 (11.0-16.0) % Plt Count 239 (160-400) X10*3/uL MPV 11.0 (9.4-12.4) fL Immature Gran % (Auto) 0.5 H (0.0-0.4) % Neut % (Auto) 91.1 H (45-73) % Lymph % (Auto) 4.1 L (20-40) % [place] % (Auto) 3.9 (2-11) % Eos % (Auto) 0.1 (0-4) % Baso % (Auto) 0.3 (0-2) % Lymph # (Auto) 0.5 L (1.2-4.9) X10*3/uL [place] # (Auto) 0.5 (0.1-1.2) X10*3/uL Eos # (Auto) 0.0 (0.0-0.4) X10*3/uL Baso # (Auto) 0.0 (0.0-0.2) X10*3/uL Abs Immat Gran (auto) 0.06 H (0.00-0.03) X10*3/uL Absolute Neuts (auto) 11.8 H (2.0-8.3) x10*3/uL Absolute Nucleated RBC 0.000 (0.0-0.012) X10*3/uL Nucleated RBC % (auto) 0.0 (0.0-0.2) /100WBC Smear Tech's Comments VERIFIED Sodium 135 (135-145) mmol/L Potassium 4.0 D (3.3-5.1) mmol/L Chloride 99 (96-108) mmol/L Carbon Dioxide 21 L (22-29) mmol/L Anion Gap 19 (12-20) BUN 25 H D (9-16) mg/dL Creatinine 0.82 (0.5-1.4) mg/dL Estim Creat Clear Calc 96.8 Estimated GFR > 60 Random Glucose 213 H (60-115) mg/dL Calcium 9.5 D (8.4-10.2) mg/dL Magnesium 2.1 (1.6-2.6) mg/dL Total Bilirubin 1.8 H (0.0-1.0) mg/dL AST 20 D (5-37) U/L ALT 33 (0-40) U/L Alkaline Phosphatase 127 H D (39-117) U/L Total Protein 8.1 H D (6.5-8.0) g/dL Albumin 4.6 D (3.5-5.0) g/dL Lipase 12 (8-78) U/L Influenza Type A (PCR) NEGATIVE (Negative) Influenza Type B (PCR) NEGATIVE (Negative) RSV RNA Qual (PCR) NEGATIVE (Negative) SARS-CoV-2 RNA (RT-PCR) NEGATIVE (Negative) <OLGA Bravo - Last Filed: 06/30/22 12:06> Lab Results 06/30/22 06/30/22 06/30/22 Range/Units 12:11 12:11 12:11 WBC 12.9 H (4.8-10.8) X10*3/uL RBC 5.14 D (4.60-5.80) X10*6/uL Hgb 16.4 D (14.0-18.0) g/dl Hct 47.0 D (42.0-52.0) % MCV 91.4 (80.0-98.0) fL MCH 31.9 (27.0-33.0) pg MCHC 34.9 (31.0-36.0) g/dl RDW 12.6 (11.0-16.0) % Plt Count 239 (160-400) X10*3/uL MPV 11.0 (9.4-12.4) fL Immature Gran % (Auto) 0.5 H (0.0-0.4) % Neut % (Auto) 91.1 H (45-73) % Lymph % (Auto) 4.1 L (20-40) % [place] % (Auto) 3.9 (2-11) % Eos % (Auto) 0.1 (0-4) % Baso % (Auto) 0.3 (0-2) % Lymph # (Auto) 0.5 L (1.2-4.9) X10*3/uL [place] # (Auto) 0.5 (0.1-1.2) X10*3/uL Eos # (Auto) 0.0 (0.0-0.4) X10*3/uL Baso # (Auto) 0.0 (0.0-0.2) X10*3/uL Abs Immat Gran (auto) 0.06 H (0.00-0.03) X10*3/uL Absolute Neuts (auto) 11.8 H (2.0-8.3) x10*3/uL Absolute Nucleated RBC 0.000 (0.0-0.012) X10*3/uL Nucleated RBC % (auto) 0.0 (0.0-0.2) /100WBC Smear Tech's Comments VERIFIED Sodium 135 (135-145) mmol/L Potassium 4.0 D (3.3-5.1) mmol/L Chloride 99 (96-108) mmol/L Carbon Dioxide 21 L (22-29) mmol/L Anion Gap 19 (12-20) BUN 25 H D (9-16) mg/dL Creatinine 0.82 (0.5-1.4) mg/dL Estim Creat Clear Calc 96.8 Estimated GFR > 60 Random Glucose 213 H (60-115) mg/dL Calcium 9.5 D (8.4-10.2) mg/dL Magnesium 2.1 (1.6-2.6) mg/dL Total Bilirubin 1.8 H (0.0-1.0) mg/dL AST 20 D (5-37) U/L ALT 33 (0-40) U/L Alkaline Phosphatase 127 H D (39-117) U/L Total Protein 8.1 H D (6.5-8.0) g/dL Albumin 4.6 D (3.5-5.0) g/dL Lipase 12 (8-78) U/L Influenza Type A (PCR) NEGATIVE (Negative) Influenza Type B (PCR) NEGATIVE (Negative) RSV RNA Qual (PCR) NEGATIVE (Negative) SARS-CoV-2 RNA (RT-PCR) NEGATIVE (Negative) <OLGA Stout - Last Filed: 06/30/22 17:30> Imaging Data Abdominal ultrasound: Attestation: I personally reviewed and interpreted this imaging study as follows: <OLGA Stout - Last Filed: 06/30/22 17:30> Radiologist's impression: FINDINGS: PANCREAS: Suboptimally visualized secondary to bowel gas shadowing. ABDOMINAL AORTA: Visualized portions unremarkable. INFERIOR VENA CAVA: Visualized portions unremarkable. LIVER: Unremarkable. Status post cholecystectomy. COMMON BILE DUCT: Normal in caliber measuring 0.4 cm in diameter. RIGHT KIDNEY: 11.2 cm. Unremarkable. LEFT KIDNEY: 11.5 cm. Unremarkable. SPLEEN: 9.2 cm. A small hypoechoic focus measures 1.2 x 1.1 x 1.1 cm. Color Doppler showed no abnormal vascular flow. FREE FLUID: None. US/US abdomen complete IMPRESSION: Small hypoechoic focus in the spleen demonstrates benign features possibly representing a cyst. No other significant abnormality. ? <OLGA Stout Last Filed: 06/30/22 17:30> CT scan abdomen pelvis with IV contrast: Attestation: I personally reviewed and interpreted this imaging study as follows: <OLGA Stout Last Filed: 06/30/22 17:30> Radiologist's impression: FINDINGS: LUNG BASES: The visualized lung bases are unremarkable.? LIVER, GALLBLADDER, AND BILIARY TREE: Hepatic abnormality. Status post cholecystectomy. PANCREAS: Unremarkable.? SPLEEN: Unremarkable.? ADRENAL GLANDS: Unremarkable.? KIDNEYS AND URETERS: The kidneys are normal in size, shape, and attenuation. No hydronephrosis, hydroureter, or calculi seen. No perinephric stranding. ? BLADDER: Unremarkable.? GASTROINTESTINAL TRACT: The stomach and small bowel and appendix are unremarkable. The colon and rectum are unremarkable.? ABDOMINAL WALL: Very small fat-containing umbilical hernia.? LYMPH NODES: Normal. VASCULAR: Unremarkable. PELVIC VISCERA: Unremarkable.? OSSEOUS STRUCTURES: L4-5 mild degenerative disc disease. No suspicious abnormality.? CT/CT abdomen pelvis w IV con IMPRESSION: 1.? No acute intra-abdominal/pelvic abnormality to explain the patient's symptoms. 2.? Very small fat-containing umbilical hernia without associated abnormality. 3.? L4-5 mild degenerative disc disease. ? Fleischner guidelines were followed. <OLGA Stout - Last Filed: 06/30/22 17:30> Critical Care Time Critical Care Time Critical Care Time: Yes <OLGA Stout - Last Filed: 06/30/22 17:30> Total Critical Care Time: 60 <OLGA Stout - Last Filed: 06/30/22 17:30> Attestation: I personally attest to this time spent taking care of the patient <OLGA Stout - Last Filed: 06/30/22 17:30> Discharge Plan Discharge Clinical Impression: Gastroenteritis, Hernia, umbilical <OLGA Bravo - Last Filed: 06/30/22 12:06> Patient Disposition: Home, Self-Care <OLGA Bravo - Last Filed: 06/30/22 12:06> Instructions: Gastroenteritis (ED), Umbilical Hernia (ED) <OLGA Bravo - Last Filed: 06/30/22 12:06> Prescriptions: New ondansetron HCl 4 mg tablet 4 mg PO Q8H Qty: 14 0RF ketorolac 10 mg tablet 10 mg PO Q8H Qty: 14 0RF Rx Instructions: first dose given in ED by IV patient tolerated well No Action multivitamin Tablet 1 tab PO DAILY Lantus U-100 Insulin 100 unit/mL Solution 18 unit SUBCUT DAILY lisinopril 5 mg Tablet 5 mg PO DAILY cholecalciferol (vitamin D3) [Vitamin D3] 50 mcg (2,000 unit) Capsule 50 mcg PO DAILY thiamine HCl (vitamin B1) 100 mg tablet 1 tab PO DAILY acetaminophen 500 mg tablet 2 tab PO Q8H PRN (Reason: Pain) folic acid 1 mg tablet 1 tab PO DAILY metformin 500 mg tablet extended release 24 hr 500 mg PO BID loratadine 10 mg tablet 1 tab PO DAILY PRN (Reason: allergies) aripiprazole 5 mg tablet 1 tab PO DAILY rosuvastatin 40 mg tablet 1 tab PO BEDTIME Jardiance 10 mg tablet 1 tab PO DAILY ondansetron HCl 4 mg tablet 4 mg PO Q12H 1 Days Qty: 4 0RF oxycodone 5 mg tablet 5 mg PO BID PRN (Reason: pain) Qty: 6 0RF <OLGA Bravo - Last Filed: 06/30/22 12:06> Referrals: Kristin León DO [Primary Care Provider] - 2 days <OLGA Bravo - Last Filed: 06/30/22 12:06> Stand Alone Forms: Work/School Release <OLGA Bravo - Last Filed: 06/30/22 12:06> Print Language: Macedonian <OLGA Bravo - Last Filed: 06/30/22 12:06>
[2022-06-30 12:42] LABS: Basophils Percent Auto 0.3 % (0-2); Eosinophils Percent Auto 0.1 % (0-4); Hemoglobin 16.4 g/dl (14.0-18.0); Imm Gran Abs Auto 0.06 X10*3/uL (0.00-0.03); Imm Gran Pct Auto 0.5 % (0.0-0.4); Lymphocytes Absolute Auto 0.5 X10*3/uL (1.2-4.9); Lymphocytes Percent Auto 4.1 % (20-40); MANUAL DIFF FLAG SCAN; Mean Corpuscular HGB Conc 34.9 g/dl (31.0-36.0); Mean Corpuscular Hemoglobin 31.9 pg (27.0-33.0); Mean Corpuscular Volume 91.4 fL (80.0-98.0); Monocytes Absolute Auto 0.5 X10*3/uL (0.1-1.2); Monocytes Percent Auto 3.9 % (2-11); Neutrophils Absolute Auto 11.8 x10*3/uL (2.0-8.3); Neutrophils Percent Auto 91.1 % (45-73); Platelet Count 239 X10*3/uL (160-400); Red Blood Count 5.14 X10*6/uL (4.60-5.80); Red Cell Distribution Width 12.6 % (11.0-16.0); SCAN SMEAR FLAG 1; White Blood Count 12.9 X10*3/uL (4.8-10.8)
[2022-06-30 13:10] LABS: SLIDE REVIEW VERIFIED
[2022-06-30 13:26] LABS: Influenza A PCR NEGATIVE (Negative); Influenza B PCR NEGATIVE (Negative); Resp Syncy Virus RNA Qual PCR NEGATIVE (Negative); SARS COV2 PCR INHOUSE NEGATIVE (Negative)
[2022-06-30 13:37] LABS: Alanine Aminotransferase 33 U/L (0-40); Albumin Level 4.6 g/dL (3.5-5.0); Alkaline Phosphatase 127 U/L (39-117); Anion Gap 19 (12-20); Aspartate Amino Transferase 20 U/L (5-37); Blood Urea Nitrogen 25 mg/dL (9-16); Calcium 9.5 mg/dL (8.4-10.2); Carbon Dioxide 21 mmol/L (22-29); Chloride 99 mmol/L (96-108); Creatinine Clr Calc Pharmacy 96.8; Estimated Glomerular Filt Rate > 60; Glucose Random 213 mg/dL (60-115); Magnesium 2.1 mg/dL (1.6-2.6); Sodium 135 mmol/L (135-145); Total Protein 8.1 g/dL (6.5-8.0)
[2022-06-30 14:23] LABS: Bilirubin Total 1.8 mg/dL (0.0-1.0)
[2022-06-30 15:16] VITALS: BP 120/79; TEMP 37.9
[2022-06-30] MEDS: 0.9 % Sodium Chloride 1,000 ML 999 ML IVCONT (15:18)
[2022-06-30] MEDS: Ketorolac Tromethamine 30 MG/ML VIAL IVPUSH (15:18)
[2022-06-30] MEDS: ondansetron HCL 4 MG/2 ML VIAL IVPUSH (15:23)
[2022-06-30 15:45] LABS: Lipase 12 U/L (8-78)
[2022-06-30] MEDS: Acetaminophen 325 MG TABLET 975 MG PO (16:02)
[2022-06-30] MEDS: iohexoL 350 MG/ML 100 ML INFUS..BTL IV (16:38)
== END 2022-06-30 17:49 | disposition home or self-care (01) ==
PROVIDERS: Physician Assistant Medical; Emergency Provider Student in an Organized Health Care Education/Training Program; PCP Family Medicine
DX: K52.9 Noninfective gastroenteritis and colitis, unspecified (principal); K42.9 Umbilical hernia without obstruction or gangrene; R11.2 Nausea with vomiting, unspecified; I10 Essential (primary) hypertension; E11.9 Type 2 diabetes mellitus without complications; Z20.822 Contact with and (suspected) exposure to COVID-19; Z79.01 Long term (current) use of anticoagulants; Z79.899 Other long term (current) drug therapy
CPT/HCPCS: 0241U; 36415; 74177; 76700; 80053; 83690; 83735; 85025; 96361; 96374; 96375; 99284; J1885; J2405; Q9967

== ENCOUNTER 2022-08-04 01:56 | Inpatient (IN) | payer MEDICAID, SELFPAY ==
[2022-08-04] VITALS (7 sets, daily range): BP systolic 141–170; BP diastolic 78–92; PULSE 62–88; RESP 16–20; TEMP 36.1–36.9; O2SAT 96–98; BMI 23.3
--- NOTE | ~2022-08-04 | CT_ITS ---
EXAMINATION: CT ABDOMEN AND PELVIS WITH CONTRAST CLINICAL INFORMATION: Acute pancreatitis COMPARISON: 06/30/2022 TECHNIQUE: Multidetector volumetric images were obtained from the superior aspect of the liver through the pubic symphysis following administration 85 mL of Omnipaque 350 intravenous contrast. Sagittal and coronal reformatted images were obtained on the technologist's workstation. Oral contrast: No This CT examination was performed using dose optimization techniques as appropriate, variously including the following: *Automated exposure control *Adjustment of mA and/or kV according to patient size (this includes techniques or standardized protocols for targeted exams where dose is matched to indication/reason for exam; i.e. extremities or head) *Use of iterative reconstruction technique DLP: 370 mGy-cm FINDINGS: LUNG BASES: The visualized lung bases are unremarkable. LIVER, GALLBLADDER, AND BILIARY TREE: The liver is normal in size, shape, and attenuation. No focal hepatic lesion or biliary ductal dilatation is present. Cholecystectomy. PANCREAS: Peripancreatic fat stranding present. Pancreatic parenchyma is homogeneous. No pancreatic mass. SPLEEN: Unremarkable. ADRENAL GLANDS: Unremarkable. KIDNEYS AND URETERS: The kidneys are normal in size, shape, and attenuation. No hydronephrosis, hydroureter, or calculi seen. No perinephric stranding. BLADDER: Unremarkable. GASTROINTESTINAL TRACT: The small and large bowel are unremarkable. The appendix is unremarkable. ABDOMINAL WALL: Small fat-containing umbilical hernia without inflammation. LYMPH NODES: Normal. VASCULAR: Unremarkable. PELVIC VISCERA: Prostate is enlarged 5.4 cm transversely. OSSEOUS STRUCTURES: No acute or suspicious osseous abnormalities. CT/CT abdomen pelvis w IV con IMPRESSION: * Acute interstitial pancreatitis. * No acute necrotic or peripancreatic fluid collections. * Cholecystectomy.
--- NOTE | ~2022-08-04 | XR_ITS ---
EXAMINATION: XR CHEST CLINICAL INFORMATION: Chest pain COMPARISON: 12/27/2021 TECHNIQUE: Frontal view of the chest was obtained. FINDINGS: Normal symmetric lung volumes. No parenchymal consolidation. No pleural effusion. No pneumothorax. Cardiomediastinal silhouette and pulmonary vascularity are within normal limits. No acute osseous abnormalities. XR/XR chest 1V IMPRESSION: Unremarkable examination.
--- NOTE | 2022-08-04 02:11 | ECG_ITS ---
Test Reason : nd Blood Pressure : / mmHG Vent. Rate : 071 BPM Atrial Rate : 071 BPM P-R Int : 154 ms QRS Dur : 098 ms QT Int : 414 ms P-R-T Axes : 072 024 060 degrees QTc Int : 449 ms Normal sinus rhythm Normal ECG When compared with ECG of 27-DEC-2021 11:50, Premature atrial complexes are no longer Present Referred By: Generic ED Physician Electronically Signed By:ANNABELLE CLARK
[2022-08-04 02:33] LABS: MANUAL DIFF FLAG NO
[2022-08-04 02:36] LABS: Basophils Percent Auto 0.3 % (0-2); Eosinophils Percent Auto 0.1 % (0-4); Hematocrit 39.5 % (42.0-52.0); Imm Gran Abs Auto 0.02 X10*3/uL (0.00-0.03); Imm Gran Pct Auto 0.2 % (0.0-0.4); Lymphocytes Absolute Auto 0.9 X10*3/uL (1.2-4.9); Lymphocytes Percent Auto 9.3 % (20-40); Mean Corpuscular HGB Conc 35.4 g/dl (31.0-36.0); Mean Corpuscular Hemoglobin 31.7 pg (27.0-33.0); Mean Corpuscular Volume 89.4 fL (80.0-98.0); Mean Platelet Volume 10.1 fL (9.4-12.4); Monocytes Absolute Auto 0.9 X10*3/uL (0.1-1.2); Monocytes Percent Auto 9.5 % (2-11); Neutrophils Absolute Auto 7.8 x10*3/uL (2.0-8.3); Neutrophils Percent Auto 80.6 % (45-73); Platelet Count 212 X10*3/uL (160-400); Red Blood Count 4.42 X10*6/uL (4.60-5.80); Red Cell Distribution Width 11.9 % (11.0-16.0); White Blood Count 9.7 X10*3/uL (4.8-10.8)
[2022-08-04 02:52] LABS: Anion Gap 21 (12-20); Blood Urea Nitrogen 25 mg/dL (9-16); Carbon Dioxide 20 mmol/L (22-29); Chloride 93 mmol/L (96-108); Creatinine Clr Calc Pharmacy 89.2; Estimated Glomerular Filt Rate > 60; Glucose Random 371 mg/dL (60-115); Sodium 130 mmol/L (135-145)
[2022-08-04 02:54] LABS: Troponin-I High Sensitivity < 3.5 ng/L (<3.5-35.0)
--- NOTE | 2022-08-04 02:58 | ED.NAVMDI ---
HPI - Nausea/Vomiting/Diarrhea General Chief complaint: Nausea/Vomiting/Diarrhea Stated complaint: sick Time Seen by Provider: 08/04/22 02:58 Source: patient Mode of arrival: ambulatory Limitations: no limitations History of Present Illness HPI Narrative: Patient with History of alcohol-induced pancreatitis comes in with epigastric pain with nausea, vomiting diarrhea for last 2 days pain is localized in his upper abdomen unable to eat or drink much because of the pain and nausea vomiting. No fever no chills patient denies any alcohol use last episode of pancreatitis was last year patient feels bloated Related Data Home Medications Medication Instructions Recorded Confirmed cholecalciferol (vitamin D3) 50 50 mcg PO DAILY 08/09/20 12/27/21 mcg (2,000 unit) capsule (Vitamin D3) insulin glargine 100 unit/mL 18 unit subcut DAILY 08/09/20 12/27/21 subcutaneous solution (Lantus U-100 Insulin) lisinopril 5 mg tablet 5 mg PO DAILY 08/09/20 12/27/21 multivitamin 1 tab PO DAILY 08/09/20 12/27/21 acetaminophen 500 mg tablet 2 tab PO Q8H PRN Pain 12/27/21 12/27/21 aripiprazole 5 mg tablet 1 tab PO DAILY 12/27/21 12/27/21 empagliflozin 10 mg tablet 1 tab PO DAILY 12/27/21 12/27/21 (Jardiance) folic acid 1 mg tablet 1 tab PO DAILY 12/27/21 12/27/21 loratadine 10 mg tablet 1 tab PO DAILY PRN allergies 12/27/21 12/27/21 metformin 500 mg tablet,extended 500 mg PO BID 12/27/21 12/27/21 release 24 hr rosuvastatin 40 mg tablet 1 tab PO BEDTIME 12/27/21 12/27/21 thiamine HCl (vitamin B1) 100 mg 1 tab PO DAILY 12/27/21 12/27/21 tablet Previous Rx's Medication Instructions Recorded ondansetron HCl 4 mg tablet 4 mg PO Q12H 24 hours #4 tabs 12/28/21 oxycodone 5 mg tablet 5 mg PO BID PRN pain #6 tabs 12/28/21 ketorolac 10 mg tablet 10 mg PO Q8H #14 tabs 06/30/22 ondansetron HCl 4 mg tablet 4 mg PO Q8H #14 tabs 06/30/22 Allergies Allergy/AdvReac Type Severity Reaction Status Date / Time No Known Allergies Allergy Verified 12/27/21 12:05 Review of Systems Review of Systems: Yes all other systems are reviewed and are negative [facility] Past Medical History Medical History Alcohol abuse Diabetes HTN (hypertension) Surgical History History of laparoscopic cholecystectomy Social History Social History Household Members: Spouse Household Members Other:: one child Housing: Apartment Do you presently have visiting nurse or other home services: No Alcohol intake: former Patient Tobacco Use Status: Tobacco use Unknown Smoked in Last 30 Days: No Advance Directives: Yes Advance Directives on File: Yes Advance Directives Date on File: 11/01/20 service: No Current occupational status: employed 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 [employer] in [employer] in [place] Physical Exam Vital Signs: Vital Signs: Last Vital Signs Temp 98.4 F 08/04/22 06:28 Pulse 79 08/04/22 06:28 Resp 20 08/04/22 06:28 BP 170/90 H 08/04/22 06:28 Pulse Ox 98 08/04/22 06:28 O2 Del Method 08/04/22 06:28 BMI result Body Mass Index 23.3 Appearance: Alert. Oriented X3. No acute distress. Eyes: PERRLA, No Nystagmus ENT: Pharynx normal. Oral Mucosa moist Neck: Normal inspection. Neck supple. CVS: Normal heart rate and rhythm. Pulses normal. Respiratory: No respiratory distress. Equal air entry bilateral, no wheezing/rales/rhonchi Abdomen: Soft and tenderness in epigastric area with guarding Bowel sounds are present, no mass palpable, no CVA tenderness Skin: Skin warm and dry. Normal skin color. Normal skin turgor. Extremities: No lower extremity edema. No calf tenderness Neuro: Oriented X 3. No motor deficit. No sensory deficit.No cerebellar signs , cranial nerves II-XII intact Medications Administered Generic Name Dose Route Start Last Admin Trade Name Freq PRN Reason Stop Dose Admin Enoxaparin Sodium 40 mg 08/04/22 05:30 08/04/22 05:54 Enoxaparin Sodium 40 Mg/0.4 Ml Syringe SUBCUT 40 mg Q24H LUIS Administration Sodium Chloride 1,000 mls @ 100 mls/hr 08/04/22 05:45 08/04/22 06:28 Ns IVCONT 100 mls/hr .Q10H LUIS Administration Insulin Human Lispro 0.1 - 10 unit 08/04/22 05:45 08/04/22 05:59 Insulin Lispro 100 Unit/Ml 3 Ml Vial SUBCUT 4 unit Q6H LUIS Administration Protocol Discontinued Medications Generic Name Dose Route Start Last Admin Trade Name Freq PRN Reason Stop Dose Admin Al Hydroxide/Mg Hydroxide 30 ml 08/04/22 03:09 08/04/22 03:16 Magnesium Hydrox/Alum Hydrox 30 Ml Oral.Susp PO 08/04/22 03:10 30 ml ONCE ONE Administration Famotidine 20 mg 08/04/22 03:09 08/04/22 03:16 Famotidine/Pf 20 Mg/2 Ml Vial IVPUSH 08/04/22 03:10 20 mg ONCE ONE Administration Sodium Chloride 1,000 mls @ 999 mls/hr 08/04/22 03:09 08/04/22 04:25 Ns IV 08/04/22 04:09 Infused .Q1H1M ONE Infusion Sodium Chloride 1,000 mls @ 999 mls/hr 08/04/22 03:53 08/04/22 05:24 Ns IV 08/04/22 04:53 Infused .Q1H1M ONE Infusion Sodium Chloride 1,000 mls @ 999 mls/hr 08/04/22 03:54 08/04/22 05:24 Ns IV 08/04/22 04:54 999 mls/hr .Q1H1M ONE Administration Iohexol 85 ml 08/04/22 04:14 08/04/22 04:15 Iohexol 350 Mg/Ml 100 Ml Infus..Btl IV 08/04/22 04:15 85 ml ONCE ONE Administration Morphine Sulfate 4 mg 08/04/22 03:53 08/04/22 04:23 Morphine Sulfate 4 Mg/Ml Cartridge IVPUSH 08/04/22 03:54 4 mg ONCE ONE Administration Protocol Ondansetron HCl 4 mg 08/04/22 05:30 08/04/22 05:54 Ondansetron Hcl 4 Mg/2 Ml Vial IVPUSH 08/04/22 05:31 4 mg ONCE ONE Administration Medical Decision Making Medical Decision Making [facility] Narrative: Patient with acute pancreatitis with elevated LFTs and lipase CT scan showed peripancreatic inflammation no stone seen. Will admit patient for IV hydration and pain management Consult Healthcare Provider Management of the patient was discussed with: Hospitalist Lab Data [facility] Lab Attestation statement: I reviewed the patient's lab results. 08/04/22 02:27 08/04/22 02:27 Labs: Lab Results 08/04/22 08/04/22 08/04/22 Range/Units 02:21 02:27 02:27 WBC 9.7 (4.8-10.8) X10*3/uL RBC 4.42 L (4.60-5.80) X10*6/uL Hgb 14.0 (14.0-18.0) g/dl Hct 39.5 L (42.0-52.0) % MCV 89.4 (80.0-98.0) fL MCH 31.7 (27.0-33.0) pg MCHC 35.4 (31.0-36.0) g/dl RDW 11.9 (11.0-16.0) % Plt Count 212 (160-400) X10*3/uL MPV 10.1 (9.4-12.4) fL Immature Gran % (Auto) 0.2 (0.0-0.4) % Neut % (Auto) 80.6 H (45-73) % Lymph % (Auto) 9.3 L (20-40) % [place] % (Auto) 9.5 (2-11) % Eos % (Auto) 0.1 (0-4) % Baso % (Auto) 0.3 (0-2) % Lymph # (Auto) 0.9 L (1.2-4.9) X10*3/uL [place] # (Auto) 0.9 (0.1-1.2) X10*3/uL Eos # (Auto) 0.0 (0.0-0.4) X10*3/uL Baso # (Auto) 0.0 (0.0-0.2) X10*3/uL Abs Immat Gran (auto) 0.02 (0.00-0.03) X10*3/uL Absolute Neuts (auto) 7.8 (2.0-8.3) x10*3/uL Absolute Nucleated RBC 0.000 (0.0-0.012) X10*3/uL Nucleated RBC % (auto) 0.0 (0.0-0.2) /100WBC Sodium 130 L (135-145) mmol/L Potassium 4.0 (3.3-5.1) mmol/L Chloride 93 L (96-108) mmol/L Carbon Dioxide 20 L (22-29) mmol/L Anion Gap 21 H (12-20) BUN 25 H (9-16) mg/dL Creatinine 0.89 (0.5-1.4) mg/dL Estim Creat Clear Calc 89.2 Estimated GFR > 60 Random Glucose 371 H* (60-115) mg/dL Calcium 10.0 (8.4-10.2) mg/dL Total Bilirubin 1.5 H (0.0-1.0) mg/dL Direct Bilirubin 0.5 (0.0-0.5) mg/dL AST 89 H (5-37) U/L ALT 197 H (0-40) U/L Alkaline Phosphatase 205 H (39-117) U/L Troponin I High Sens (<3.5-35.0) ng/L Total Protein 7.7 (6.5-8.0) g/dL Albumin 4.3 (3.5-5.0) g/dL Lipase 326 H (8-78) U/L Influenza Type A (PCR) NEGATIVE (Negative) Influenza Type B (PCR) NEGATIVE (Negative) RSV RNA Qual (PCR) NEGATIVE (Negative) SARS-CoV-2 RNA (RT-PCR) NEGATIVE (Negative) 08/04/22 Range/Units 02:27 WBC (4.8-10.8) X10*3/uL RBC (4.60-5.80) X10*6/uL Hgb (14.0-18.0) g/dl Hct (42.0-52.0) % MCV (80.0-98.0) fL MCH (27.0-33.0) pg MCHC (31.0-36.0) g/dl RDW (11.0-16.0) % Plt Count (160-400) X10*3/uL MPV (9.4-12.4) fL Immature Gran % (Auto) (0.0-0.4) % Neut % (Auto) (45-73) % Lymph % (Auto) (20-40) % [place] % (Auto) (2-11) % Eos % (Auto) (0-4) % Baso % (Auto) (0-2) % Lymph # (Auto) (1.2-4.9) X10*3/uL [place] # (Auto) (0.1-1.2) X10*3/uL Eos # (Auto) (0.0-0.4) X10*3/uL Baso # (Auto) (0.0-0.2) X10*3/uL Abs Immat Gran (auto) (0.00-0.03) X10*3/uL Absolute Neuts (auto) (2.0-8.3) x10*3/uL Absolute Nucleated RBC (0.0-0.012) X10*3/uL Nucleated RBC % (auto) (0.0-0.2) /100WBC Sodium (135-145) mmol/L Potassium (3.3-5.1) mmol/L Chloride (96-108) mmol/L Carbon Dioxide (22-29) mmol/L Anion Gap (12-20) BUN (9-16) mg/dL Creatinine (0.5-1.4) mg/dL Estim Creat Clear Calc Estimated GFR Random Glucose (60-115) mg/dL Calcium (8.4-10.2) mg/dL Total Bilirubin (0.0-1.0) mg/dL Direct Bilirubin (0.0-0.5) mg/dL AST (5-37) U/L ALT (0-40) U/L Alkaline Phosphatase (39-117) U/L Troponin I High Sens < 3.5 (<3.5-35.0) ng/L Total Protein (6.5-8.0) g/dL Albumin (3.5-5.0) g/dL Lipase (8-78) U/L Influenza Type A (PCR) (Negative) Influenza Type B (PCR) (Negative) RSV RNA Qual (PCR) (Negative) SARS-CoV-2 RNA (RT-PCR) (Negative) Discharge Plan Discharge Clinical Impression: Acute pancreatitis Patient Disposition: Admitted As Inpatient
[2022-08-04 03:13] LABS: Influenza A PCR NEGATIVE (Negative); Influenza B PCR NEGATIVE (Negative); Resp Syncy Virus RNA Qual PCR NEGATIVE (Negative); SARS COV2 PCR INHOUSE NEGATIVE (Negative)
[2022-08-04 03:16] LABS: Alanine Aminotransferase 197 U/L (0-40); Albumin Level 4.3 g/dL (3.5-5.0); Alkaline Phosphatase 205 U/L (39-117); Aspartate Amino Transferase 89 U/L (5-37); Bilirubin Direct 0.5 mg/dL (0.0-0.5); Bilirubin Total 1.5 mg/dL (0.0-1.0); Total Protein 7.7 g/dL (6.5-8.0)
[2022-08-04] MEDS: Famotidine/PF 20 MG/2 ML VIAL IVPUSH (03:16)
[2022-08-04] MEDS: 0.9 % Sodium Chloride 1,000 ML 999 ML IV ×3 (03:16→05:24)
[2022-08-04] MEDS: Magnesium Hydrox/Alum Hydrox 30 ML ORAL.SUSP PO (03:16)
[2022-08-04 03:25] LABS: Lipase 326 U/L (8-78)
[2022-08-04] MEDS: iohexoL 350 MG/ML 100 ML INFUS..BTL 85 ML IV (04:15)
[2022-08-04] MEDS: Morphine Sulfate 4 MG/ML CARTRIDGE IVPUSH ×2 (04:23→11:45)
--- NOTE | 2022-08-04 05:40 | P.HPHOSP_ITS ---
History of Present Illness Date of Service: 08/04/22 Chief Complaint: Abdominal Pain This is a 47-year-old male with pertinent history of insulin-dependent diabetes mellitus, essential hypertension, mixed hyperlipidemia, history of alcohol use disorder with alcohol induced pancreatitis who presents to the emergency department with complaints of sudden onset epigastric pain. Patient states it started around evening, constant, radiating to the back and progressive. It was associated with chills. Patient also had nausea and nonbloody emesis. He could not keep anything down. Patient stated that it feels similar to his last episode of pancreatitis although he quit alcohol. States he last consumed alcohol about 3 months ago. Denies chest discomfort, palpitations, shortness of breath, changes in urinary habits. The emergency department, imaging was consistent with acute pancreatitis Review of Systems Constitutional: Constitutional: Reports chills Cardiovascular: Cardiovascular: Reports no additional cardiovascular complaints Respiratory: Respiratory: Reports no additional respiratory complaints Gastrointestinal: Gastrointestinal: Reports abdominal pain and Reports vomiting Genitourinary: Genitourinary: Reports no additional male genitourinary complaints [facility] Medical History Alcohol abuse Diabetes HTN (hypertension) Pertinent family history: Does not know of pertinent family history Surgical History History of laparoscopic cholecystectomy Social History Household Members: Spouse Household Members Other:: one child Housing: Apartment Do you presently have visiting nurse or other home services: No Alcohol intake: current Alcohol intake frequency: 3 or more drinks per day Alcohol type: beer, wine and hard liquor Patient Tobacco Use Status: Tobacco use Unknown Advance Directives: Yes Advance Directives on File: Yes Advance Directives Date on File: 11/01/20 service: No Current occupational status: employed 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 [employer] [facility] [employer] [facility] Allergies Allergy/AdvReac Type Severity Reaction Status Date / Time No Known Allergies Allergy Verified 12/27/21 12:05 Active Medications: Current Medications Acetaminophen (Acetaminophen 325 Mg Tablet) 650 mg PO Q6H PRN PRN Reason: Pain, Mild (Pain Scale 1-3) Dextrose (Dextrose 50 % 25 Gm/50 Ml Syringe) 25 gm IVPUSH Q15M PRN; Protocol PRN Reason: per Hypoglycemia Standing Ord. Enoxaparin Sodium (Enoxaparin Sodium 40 Mg/0.4 Ml Syringe) 40 mg SUBCUT Q24H [facility] Glucose (Glucose Gel 15 Gm Gel..Gram.) 15 gm PO Q15M PRN; Protocol PRN Reason: per Hypoglycemia Standing Ord. Sodium Chloride (Ns) 1,000 mls @ 100 mls/hr IVCONT .Q10H [facility] Insulin Glargine (Insulin Glargine,Hum.Rec.Anlog 100 Unit/Ml 10 Ml Vial) 10 unit SUBCUT DAILY [facility] Insulin Human Lispro (Insulin Lispro 100 Unit/Ml 3 Ml Vial) 0 unit SUBCUT Q6H [facility]; Protocol Insulin Human Regular (Insulin Regular, Human 100 Unit/Ml 3 Ml Vial) 5 unit IVPUSH ONCE ONE Stop: 08/04/22 05:33 Melatonin (Melatonin 3 Mg Tablet) 6 mg PO BEDTIME PRN PRN Reason: Insomnia Morphine Sulfate (Morphine Sulfate 4 Mg/Ml Cartridge) 4 mg IVPUSH Q4H PRN; Protocol PRN Reason: Pain, Severe (Pain Scale 7-10) Ondansetron HCl (Ondansetron Hcl 4 Mg/2 Ml Vial) 4 mg IVPUSH Q8H PRN PRN Reason: Nausea and Vomiting Sodium Chloride (0.9 % Sodium Chloride Flush 3 Ml Syringe) 3 ml IVFLUSH QSHIFT [facility] Home Medications Medication Instructions Recorded Confirmed Last Taken Type cholecalciferol (vitamin D3) 50 50 mcg PO DAILY 08/09/20 12/27/21 12/20/21 History mcg (2,000 unit) capsule (Vitamin D3) insulin glargine 100 unit/mL 18 unit subcut DAILY 08/09/20 12/27/21 12/20/21 History subcutaneous solution (Lantus U-100 Insulin) lisinopril 5 mg tablet 5 mg PO DAILY 08/09/20 12/27/21 12/20/21 History multivitamin 1 tab PO DAILY 08/09/20 12/27/21 12/20/21 History acetaminophen 500 mg tablet 2 tab PO Q8H PRN Pain 12/27/21 12/27/21 12/26/21 History aripiprazole 5 mg tablet 1 tab PO DAILY 12/27/21 12/27/21 12/20/21 History empagliflozin 10 mg tablet 1 tab PO DAILY 12/27/21 12/27/21 12/20/21 History (Jardiance) folic acid 1 mg tablet 1 tab PO DAILY 12/27/21 12/27/21 12/20/21 History loratadine 10 mg tablet 1 tab PO DAILY PRN allergies 12/27/21 12/27/21 12/20/21 History metformin 500 mg tablet,extended 500 mg PO BID 12/27/21 12/27/21 Unknown History release 24 hr rosuvastatin 40 mg tablet 1 tab PO BEDTIME 12/27/21 12/27/21 12/20/21 History thiamine HCl (vitamin B1) 100 mg 1 tab PO DAILY 12/27/21 12/27/21 12/20/21 History tablet Physical Exam Vital Signs and Narrative: Vital Signs: Last Vital Signs Temp 98.1 F 08/04/22 04:58 Pulse 81 08/04/22 04:58 Resp 18 08/04/22 04:58 BP 169/88 H 08/04/22 04:58 Pulse Ox 96 08/04/22 04:58 O2 Del Method 08/04/22 04:58 BMI result Body Mass Index 23.3 Middle-aged male lying in bed in no distress Neck supple, no JVD Regular rate and rhythm, S1-S2 heard Regular breath sounds bilaterally, no wheezing or crackles appreciated Epigastric tenderness with mild palpation, no guarding, no rebound tenderness, no rigidity Patient is awake, alert and oriented to self, place, time and person ; no focal motor deficit Psych: Normal mood No pedal edema Results Labs 08/04/22 02:27 08/04/22 02:27 Labs: Laboratory Results - last 24 hr 08/04/22 08/04/22 08/04/22 02:21 02:27 02:27 MCV 89.4 MCH 31.7 MCHC 35.4 RDW 11.9 Plt Count 212 MPV 10.1 Immature Gran % (Auto) 0.2 Neut % (Auto) 80.6 H Lymph % (Auto) 9.3 L [place] % (Auto) 9.5 Eos % (Auto) 0.1 Baso % (Auto) 0.3 Lymph # (Auto) 0.9 L [place] # (Auto) 0.9 Eos # (Auto) 0.0 Baso # (Auto) 0.0 Abs Immat Gran (auto) 0.02 Absolute Neuts (auto) 7.8 Absolute Nucleated RBC 0.000 Nucleated RBC % (auto) 0.0 Anion Gap 21 H Estim Creat Clear Calc 89.2 Estimated GFR > 60 Random Glucose 371 H* Calcium 10.0 Total Bilirubin 1.5 H Direct Bilirubin 0.5 AST 89 H ALT 197 H Alkaline Phosphatase 205 H Troponin I High Sens Total Protein 7.7 Albumin 4.3 Lipase 326 H Influenza Type A (PCR) NEGATIVE Influenza Type B (PCR) NEGATIVE RSV RNA Qual (PCR) NEGATIVE SARS-CoV-2 RNA (RT-PCR) NEGATIVE 08/04/22 02:27 MCV MCH MCHC RDW Plt Count MPV Immature Gran % (Auto) Neut % (Auto) Lymph % (Auto) [place] % (Auto) Eos % (Auto) Baso % (Auto) Lymph # (Auto) [place] # (Auto) Eos # (Auto) Baso # (Auto) Abs Immat Gran (auto) Absolute Neuts (auto) Absolute Nucleated RBC Nucleated RBC % (auto) Anion Gap Estim Creat Clear Calc Estimated GFR Random Glucose Calcium Total Bilirubin Direct Bilirubin AST ALT Alkaline Phosphatase Troponin I High Sens < 3.5 Total Protein Albumin Lipase Influenza Type A (PCR) Influenza Type B (PCR) RSV RNA Qual (PCR) SARS-CoV-2 RNA (RT-PCR) Imaging Radiologist's Impressions: Impressions Chest X-Ray 08/04/22 02:38 IMPRESSION: Unremarkable examination. Abdomen/Pelvis CT 08/04/22 04:26 IMPRESSION: * Acute interstitial pancreatitis. * No acute necrotic or peripancreatic fluid collections. * Cholecystectomy. Assessment and Plan (1) Acute pancreatitis: Status: Acute (2) Diabetes: Status: Acute (3) HTN (hypertension): Status: Acute Plan This is a 47-year-old male with pertinent history of insulin-dependent diabetes mellitus, essential hypertension, mixed hyperlipidemia, history of alcohol use disorder with alcohol induced pancreatitis who presents to the emergency department with complaints of sudden onset epigastric pain. #. Acute pancreatitis: Unclear etiology. Patient states he last consumed alcohol 3 months ago. Imaging without biliary ductal dilatation and cholecystectomy. Obtaining triglyceride level. Ethanol level and urine drug screen pending. Keep NPO for bowel rest and continue IV fluid resuscitation. Opioid p.r.n. IV for pain control. Advance diet as tolerated #. Insulin-dependent diabetes mellitus with hyperglycemia: Reduce a home basal regimen as patient is NPO. Initiate Accu-Cheks with sliding scale insulin every 6 hours. Hold home metformin #. Essential hypertension: Continue home medications #. Mixed hyperlipidemia: On statin #. Elevated transaminases: Likely alcoholic fatty liver disease Med rec pending DVT prophylaxis: Lovenox 40 mg daily NPO Full code Admit as inpatient and will require two night minimum hospital stay for management of acute pancreatitis. Time Spent With Patient Time: Total time managing care of this patient today ____ minutes. Quality Stroke Does the patient have a stroke diagnosis?: No VTE Prior VTE?: No VTE Risk Level:: Medical - moderate - high VTE Device Contraindication: Treatment Not Indicated VTE Drug Contraindication: N/A - Med Ordered
[2022-08-04 05:51] LABS: Glucose, Whole Blood 228 mg/dL (60-115)
[2022-08-04] MEDS: ondansetron HCL 4 MG/2 ML VIAL IVPUSH (05:54)
[2022-08-04] MEDS: Enoxaparin Sodium 40 MG/0.4 ML SYRINGE SUBCUT (05:54)
[2022-08-04] MEDS: Insulin Lispro 100 UNIT/ML 3 ML VIAL SUBCUT ×2 (05:59→12:53)
[2022-08-04] MEDS: 0.9 % Sodium Chloride 1,000 ML 100 ML IVCONT (06:28)
[2022-08-04 06:29] LABS: MANUAL DIFF FLAG NO
[2022-08-04 06:31] LABS: Basophils Percent Auto 0.5 % (0-2); Eosinophils Percent Auto 0.2 % (0-4); Hematocrit 34.7 % (42.0-52.0); Hemoglobin 12.2 g/dl (14.0-18.0); Imm Gran Abs Auto 0.03 X10*3/uL (0.00-0.03); Imm Gran Pct Auto 0.5 % (0.0-0.4); Lymphocytes Absolute Auto 0.9 X10*3/uL (1.2-4.9); Lymphocytes Percent Auto 13.8 % (20-40); Mean Corpuscular HGB Conc 35.2 g/dl (31.0-36.0); Mean Corpuscular Hemoglobin 32.2 pg (27.0-33.0); Mean Corpuscular Volume 91.6 fL (80.0-98.0); Mean Platelet Volume 10.2 fL (9.4-12.4); Monocytes Absolute Auto 0.7 X10*3/uL (0.1-1.2); Monocytes Percent Auto 10.8 % (2-11); Neutrophils Absolute Auto 4.6 x10*3/uL (2.0-8.3); Neutrophils Percent Auto 74.2 % (45-73); Platelet Count 184 X10*3/uL (160-400); Red Blood Count 3.79 X10*6/uL (4.60-5.80); Red Cell Distribution Width 12.1 % (11.0-16.0); White Blood Count 6.2 X10*3/uL (4.8-10.8)
[2022-08-04 06:44] LABS: Triglycerides 72 mg/dL
[2022-08-04 06:47] LABS: Ethanol < 10 mg/dL
[2022-08-04 06:51] LABS: Anion Gap 14 (12-20); Blood Urea Nitrogen 17 mg/dL (9-16); Carbon Dioxide 24 mmol/L (22-29); Chloride 101 mmol/L (96-108); Creatinine Clr Calc Pharmacy 120.3; Estimated Glomerular Filt Rate > 60; Glucose Random 228 mg/dL (60-115); Potassium 3.8 mmol/L (3.3-5.1); Sodium 135 mmol/L (135-145)
--- NOTE | 2022-08-04 08:15 | PHA.MEDREC ---
Pharmacy Consult ? Medication Reconciliation Pharmacy has completed the medication reconciliation. Utilized cashiers supervisor services.
[2022-08-04 08:35] LABS: Glucose, Whole Blood 152 mg/dL (60-115)
[2022-08-04] MEDS: Insulin Glargine,Hum.rec.anlog 100 UNIT/ML 10 ML VIAL 10 UNIT SUBCUT (09:51)
[2022-08-04] MEDS: 0.9 % Sodium Chloride Flush 3 ML SYRINGE IVFLUSH (09:51)
[2022-08-04 12:45] LABS: Glucose, Whole Blood 186 mg/dL (60-115)
--- NOTE | 2022-08-04 13:59 | MHC.CM.PN ---
pt lives alone has no servceis is independent cm intervention is not mindeicated pt is covid vax and has own ride home
[2022-08-04 14:52] LABS: Glucose, Whole Blood 135 mg/dL (60-115)
--- NOTE | 2022-08-04 15:31 | PM.EVENT ---
Event Note Date of Service: 08/04/22 Event Note: Day Team f/u note S seen and examined still with pain reported last drink months ago to admitting provider however tells me he had a few shots during the holidays; no ne medications O vitals - last documented abd - diffuse mild tenderness without rebound/guarding A/P 47 yo w/ pancreatitis -- initially reported that he had stopped alcohol consumption to the admitting provider, but tells me he did have a small amount of alcohol during the holidays. No new medications recently continue IVF and analgesics remainder per H&P Time Spent With Patient Time: Total time managing care of this patient today ____ minutes.
[2022-08-04] MEDS: Lactated Ringers 1,000 ML 125 ML IVCONT (15:58)
[2022-08-04 16:35] LABS: Amphetamine Screen Urine Not Detected (Not Detect); Barbiturates, Urine Not Detected (Not Detect); Benzodiazepines Screen Urine Not Detected (Not Detect); Cannabinoid Screen Urine Not Detected (Not Detect); Cocaine Screen Urine Not Detected (Not Detect); Fentanyl, urine Not Detected (Not Detect); Opiate Screen Urine POSITIVE (Not Detect); Phencyclidine Screen Urine Not Detected (Not Detect)
[2022-08-04 19:47] LABS: Glucose, Whole Blood 200 mg/dL (60-115)
[2022-08-05] MEDS: Lactated Ringers 1,000 ML 125 ML IVCONT ×2 (00:01→08:03)
[2022-08-05 04:00] VITALS: BP 158/88; PULSE 64; RESP 18; TEMP 36.3; O2SAT 98
[2022-08-05] MEDS: Enoxaparin Sodium 40 MG/0.4 ML SYRINGE SUBCUT (05:46)
[2022-08-05 07:28] LABS: Glucose, Whole Blood 200 mg/dL (60-115)
[2022-08-05 07:49] VITALS: BP 164/86; PULSE 73; RESP 17; TEMP 36.2; O2SAT 98
[2022-08-05] MEDS: 0.9 % Sodium Chloride Flush 3 ML SYRINGE IVFLUSH ×3 (08:03→20:10)
[2022-08-05] MEDS: Insulin Glargine,Hum.rec.anlog 100 UNIT/ML 10 ML VIAL 10 UNIT SUBCUT (08:03)
[2022-08-05] MEDS: Insulin Lispro 100 UNIT/ML 3 ML VIAL SUBCUT ×4 (08:04→20:10)
[2022-08-05 11:52] LABS: Glucose, Whole Blood 239 mg/dL (60-115)
--- NOTE | 2022-08-05 12:18 | HO.PM.IMPN ---
Subjective Subjective Date of Service: 08/05/22 Physical Exam Vital Signs: Vital Signs: Last Vital Signs Temp 97.1 F 08/05/22 07:49 Pulse 73 08/05/22 07:49 Resp 17 08/05/22 07:49 BP 164/86 H 08/05/22 07:49 Pulse Ox 98 08/05/22 07:49 O2 Del Method 08/05/22 07:49 BMI result Body Mass Index 23.3 Objective Data Active Medications Acetaminophen (Acetaminophen 325 Mg Tablet) 650 mg PO Q6H PRN PRN Reason: Pain, Mild (Pain Scale 1-3) Dextrose (Dextrose 50 % 25 Gm/50 Ml Syringe) 25 gm IVPUSH Q15M PRN; Protocol PRN Reason: per Hypoglycemia Standing Ord. Enoxaparin Sodium (Enoxaparin Sodium 40 Mg/0.4 Ml Syringe) 40 mg SUBCUT Q24H [facility] Last Admin: 08/05/22 05:46 Dose: 40 mg Documented By: SHAINA Glucose (Glucose Gel 15 Gm Gel..Gram.) 15 gm PO Q15M PRN; Protocol PRN Reason: per Hypoglycemia Standing Ord. Lactated Ringer's (Lr) 1,000 mls @ 125 mls/hr IVCONT .Q8H [facility] Last Admin: 08/05/22 08:03 Dose: 125 mls/hr Documented By: BLANCHE Insulin Glargine (Insulin Glargine,Hum.Rec.Anlog 100 Unit/Ml 10 Ml Vial) 10 unit SUBCUT DAILY [facility] Last Admin: 08/05/22 08:03 Dose: 1 unit Documented By: BLANCHE Insulin Human Lispro (Insulin Lispro 100 Unit/Ml 3 Ml Vial) 0 unit SUBCUT QIDACHS [facility]; Protocol Last Admin: 08/05/22 08:04 Dose: 2 unit Documented By: BLANCHE Melatonin (Melatonin 3 Mg Tablet) 6 mg PO BEDTIME PRN PRN Reason: Insomnia Morphine Sulfate (Morphine Sulfate 4 Mg/Ml Cartridge) 4 mg IVPUSH Q4H PRN; Protocol PRN Reason: Pain, Severe (Pain Scale 7-10) Last Admin: 08/04/22 11:45 Dose: 4 mg Documented By: MALACHI Ondansetron HCl (Ondansetron Hcl 4 Mg/2 Ml Vial) 4 mg IVPUSH Q8H PRN PRN Reason: Nausea and Vomiting Pharmacy Consult (Consult Rx Perform Med Rec) 1 each MISCELLANE ONCE PRN PRN Reason: Consult order Sodium Chloride (0.9 % Sodium Chloride Flush 3 Ml Syringe) 3 ml IVFLUSH QSHIFT [facility] Last Admin: 08/05/22 08:03 Dose: 3 ml Documented By: BLANCHE Labs 08/04/22 06:03 08/04/22 06:03 Labs: Laboratory Results - last 24 hr 08/04/22 08/04/22 08/04/22 12:41 14:42 16:03 POC Glucose 186 H 135 H Urine Opiates Screen POSITIVE H Urine Fentanyl Screen Not Detected Ur Barbiturates Screen Not Detected Ur Phencyclidine Scrn Not Detected Ur Amphetamines Screen Not Detected U Benzodiazepines Scrn Not Detected Urine Cocaine Screen Not Detected U Marijuana (THC) Screen Not Detected 08/04/22 08/05/22 08/05/22 19:42 07:24 11:49 POC Glucose 200 H 200 H 239 H Urine Opiates Screen Urine Fentanyl Screen Ur Barbiturates Screen Ur Phencyclidine Scrn Ur Amphetamines Screen U Benzodiazepines Scrn Urine Cocaine Screen U Marijuana (THC) Screen Assessment and Plan (1) Acute pancreatitis: Status: Acute Plan This is a 47-year-old male with pertinent history of insulin-dependent diabetes mellitus, essential hypertension, mixed hyperlipidemia, history of alcohol use disorder with alcohol induced pancreatitis who presents to the emergency department with complaints of sudden onset epigastric pain. Acute pancreatitis Unclear etiology.? Patient states he last consumed alcohol 3 months ago.? Imaging without biliary ductal dilatation and cholecystectomy.? triglyceride level 72, negative alcohol level initially NPO, advance to clears Pain control IV pepcid LR Insulin-dependent diabetes mellitus with hyperglycemia ss, clears for now Essential hypertension Continue home medications Mixed hyperlipidemia On statin Elevated transaminases Likely alcoholic fatty liver disease DVT prophylaxis: Lovenox 40 mg daily Full code attending Dr. Lane Admit as inpatient and will require two night minimum hospital stay for management of acute pancreatitis. Time Spent With Patient Time: Total time managing care of this patient today ____ minutes. Quality Stroke Does the patient have a stroke diagnosis?: No VTE Prior VTE?: No VTE Risk Level:: Medical - moderate - high VTE Device Contraindication: Treatment Not Indicated VTE Drug Contraindication: N/A - Med Ordered
[2022-08-05 15:20] VITALS: BP 159/83; PULSE 79; RESP 16; TEMP 36.6; O2SAT 97
[2022-08-05 16:24] LABS: Glucose, Whole Blood 169 mg/dL (60-115)
[2022-08-05 19:27] VITALS: BP 141/86; PULSE 71; RESP 18; TEMP 36.2; O2SAT 97
[2022-08-05 19:52] LABS: Glucose, Whole Blood 175 mg/dL (60-115)
[2022-08-05] MEDS: Atorvastatin Calcium 80 MG TABLET PO (20:10)
[2022-08-05] MEDS: Famotidine/PF 20 MG/2 ML VIAL IVPUSH (20:10)
[2022-08-06 03:56] VITALS: BP 134/78; PULSE 88; RESP 16; TEMP 36.6; O2SAT 98
[2022-08-06] MEDS: Enoxaparin Sodium 40 MG/0.4 ML SYRINGE SUBCUT (05:06)
[2022-08-06 06:09] LABS: Lipase 51 U/L (8-78)
[2022-08-06 06:11] LABS: Anion Gap 14 (12-20); Blood Urea Nitrogen 8 mg/dL (9-16); Calcium 8.7 mg/dL (8.4-10.2); Carbon Dioxide 29 mmol/L (22-29); Chloride 95 mmol/L (96-108); Creatinine Clr Calc Pharmacy 124.1; Estimated Glomerular Filt Rate > 60; Glucose Random 180 mg/dL (60-115); Potassium 2.6 mmol/L (3.3-5.1); Sodium 135 mmol/L (135-145)
[2022-08-06 07:34] LABS: Glucose, Whole Blood 158 mg/dL (60-115)
[2022-08-06] MEDS: Potassium Chloride ER 20 MEQ TAB.ER.PRT 40 MEQ PO ×3 (07:58→23:53)
[2022-08-06 08:00] VITALS: BP 141/89; PULSE 69; RESP 18; TEMP 37.1; O2SAT 97
[2022-08-06] MEDS: Folic Acid 1 MG TABLET PO (08:00)
[2022-08-06] MEDS: lisinopriL 5 MG TABLET PO (08:00)
[2022-08-06] MEDS: Aspirin Enteric Coated 81 MG TABLET.DR PO (08:00)
[2022-08-06 08:23] LABS: Magnesium 1.7 mg/dL (1.6-2.6)
[2022-08-06] MEDS: Famotidine/PF 20 MG/2 ML VIAL IVPUSH ×2 (08:42→20:55)
[2022-08-06] MEDS: Insulin Glargine,Hum.rec.anlog 100 UNIT/ML 10 ML VIAL 10 UNIT SUBCUT (08:43)
[2022-08-06] MEDS: Insulin Lispro 100 UNIT/ML 3 ML VIAL SUBCUT ×3 (08:50→21:00)
[2022-08-06] MEDS: 0.9 % Sodium Chloride Flush 3 ML SYRINGE IVFLUSH ×3 (08:51→20:56)
[2022-08-06 11:56] LABS: Glucose, Whole Blood 315 mg/dL (60-115)
[2022-08-06] MEDS: Morphine Sulfate 4 MG/ML CARTRIDGE IVPUSH ×2 (11:57→17:30)
--- NOTE | 2022-08-06 12:18 | HO.PM.IMPN ---
Subjective Subjective Date of Service: 08/06/22 Review of Systems Follow up pancreatitis still with some mild abd pain on clear liquid diet Physical Exam Vital Signs: Vital Signs: Last Vital Signs Temp 98.7 F 08/06/22 08:00 Pulse 69 08/06/22 08:00 Resp 18 08/06/22 08:00 BP 141/89 H 08/06/22 08:00 Pulse Ox 97 08/06/22 08:00 O2 Del Method 08/06/22 08:00 BMI result Body Mass Index 23.3 Appearing in no acute distress lung sounds are clear to auscultation heart regular rate rhythm, clear S1, S2 positive bowel sounds, abdomen is soft, nontender neuro patient is alert x3, no focal deficits Objective Data Active Medications Acetaminophen (Acetaminophen 325 Mg Tablet) 650 mg PO Q6H PRN PRN Reason: Pain, Mild (Pain Scale 1-3) Aspirin (Aspirin Enteric Coated 81 Mg Tablet.) 81 mg PO DAILY [facility] Last Admin: 08/06/22 08:00 Dose: 81 mg Documented By: BLANCHE Atorvastatin Calcium (Atorvastatin Calcium 80 Mg Tablet) 80 mg PO BEDTIME [facility] Last Admin: 08/05/22 20:10 Dose: 80 mg Documented By: ARON Dextrose (Dextrose 50 % 25 Gm/50 Ml Syringe) 25 gm IVPUSH Q15M PRN; Protocol PRN Reason: per Hypoglycemia Standing Ord. Enoxaparin Sodium (Enoxaparin Sodium 40 Mg/0.4 Ml Syringe) 40 mg SUBCUT Q24H [facility] Last Admin: 08/06/22 05:06 Dose: 40 mg Documented By: ARON Famotidine (Famotidine/Pf 20 Mg/2 Ml Vial) 20 mg IVPUSH BID [facility] Last Admin: 08/06/22 08:42 Dose: 20 mg Documented By: BLANCHE Folic Acid (Folic Acid 1 Mg Tablet) 1 mg PO DAILY [facility] Last Admin: 08/06/22 08:00 Dose: 1 mg Documented By: BLANCHE Glucose (Glucose Gel 15 Gm Gel..Gram.) 15 gm PO Q15M PRN; Protocol PRN Reason: per Hypoglycemia Standing Ord. Insulin Glargine (Insulin Glargine,Hum.Rec.Anlog 100 Unit/Ml 10 Ml Vial) 10 unit SUBCUT DAILY [facility] Last Admin: 08/06/22 08:43 Dose: 10 unit Documented By: BLANCHE Insulin Human Lispro (Insulin Lispro 100 Unit/Ml 3 Ml Vial) 0 unit SUBCUT QIDACHS [facility]; Protocol Last Admin: 08/06/22 08:50 Dose: 2 unit Documented By: BLANCHE Lisinopril (Lisinopril 5 Mg Tablet) 5 mg PO DAILY [facility]; Protocol Last Admin: 08/06/22 08:00 Dose: 5 mg Documented By: BLANCHE Melatonin (Melatonin 3 Mg Tablet) 6 mg PO BEDTIME PRN PRN Reason: Insomnia Morphine Sulfate (Morphine Sulfate 4 Mg/Ml Cartridge) 4 mg IVPUSH Q4H PRN; Protocol PRN Reason: Pain, Severe (Pain Scale 7-10) Last Admin: 08/06/22 11:57 Dose: 4 mg Documented By: BLANCHE Ondansetron HCl (Ondansetron Hcl 4 Mg/2 Ml Vial) 4 mg IVPUSH Q8H PRN PRN Reason: Nausea and Vomiting Pharmacy Consult (Consult Rx Perform Med Rec) 1 each MISCELLANE ONCE PRN PRN Reason: Consult order Potassium Chloride (Potassium Chloride Er 20 Meq Tab.Er.Prt) 40 meq PO Q8H [facility] Stop: 08/07/22 00:01 Last Admin: 08/06/22 07:58 Dose: 40 meq Documented By: BLANCHE Sodium Chloride (0.9 % Sodium Chloride Flush 3 Ml Syringe) 3 ml IVFLUSH QSHIFT [facility] Last Admin: 08/06/22 08:51 Dose: 3 ml Documented By: BLANCHE Labs 08/04/22 06:03 08/06/22 05:46 Labs: Laboratory Results - last 24 hr 08/05/22 08/05/22 08/06/22 16:21 19:48 05:46 Anion Gap 14 Estim Creat Clear Calc 124.1 Estimated GFR > 60 POC Glucose 169 H 175 H Random Glucose 180 H Calcium 8.7 D Magnesium 1.7 Lipase 08/06/22 08/06/22 08/06/22 05:46 07:26 11:51 Anion Gap Estim Creat Clear Calc Estimated GFR POC Glucose 158 H 315 H Random Glucose Calcium Magnesium Lipase 51 Assessment and Plan (1) Acute pancreatitis: Status: Acute Plan This is a 47-year-old male with pertinent history of insulin-dependent diabetes mellitus, essential hypertension, mixed hyperlipidemia, history of alcohol use disorder with alcohol induced pancreatitis who presents to the emergency department with complaints of sudden onset epigastric pain. Acute pancreatitis Unclear etiology.? Patient states he last consumed alcohol 3 months ago.? Imaging without biliary ductal dilatation and cholecystectomy.? triglyceride level 72, negative alcohol level Pain control IV pepcid LR stopped diet advanced to reg hypokalemia repleted Insulin-dependent diabetes mellitus with hyperglycemia ss, clears for now Essential hypertension Continue home medications Mixed hyperlipidemia On statin Elevated transaminases Likely alcoholic fatty liver disease DVT prophylaxis: Lovenox 40 mg daily Full code attending Dr. Lane Admit as inpatient and will require two night minimum hospital stay for management of acute pancreatitis. Time Spent With Patient Time: Total time managing care of this patient today ____ minutes. Quality Stroke Does the patient have a stroke diagnosis?: No VTE Prior VTE?: No VTE Risk Level:: Medical - moderate - high VTE Device Contraindication: Treatment Not Indicated VTE Drug Contraindication: N/A - Med Ordered
[2022-08-06 13:50] LABS: Potassium 2.7 mmol/L (3.3-5.1)
[2022-08-06 16:00] VITALS: BP 147/83; PULSE 76; RESP 16; TEMP 36.3; O2SAT 97
[2022-08-06 16:29] LABS: Glucose, Whole Blood 141 mg/dL (60-115)
[2022-08-06] MEDS: ondansetron HCL 4 MG/2 ML VIAL IVPUSH (17:40)
[2022-08-06 20:00] VITALS: BP 127/77; PULSE 74; RESP 16; TEMP 37.2; O2SAT 98
[2022-08-06] MEDS: Atorvastatin Calcium 80 MG TABLET PO (20:55)
[2022-08-06 21:03] LABS: Glucose, Whole Blood 232 mg/dL (60-115)
[2022-08-07 03:18] VITALS: BP 125/76; PULSE 73; RESP 16; TEMP 37.2; O2SAT 97
[2022-08-07] MEDS: Enoxaparin Sodium 40 MG/0.4 ML SYRINGE SUBCUT (05:25)
[2022-08-07 06:48] LABS: Anion Gap 13 (12-20); Blood Urea Nitrogen 16 mg/dL (9-16); Calcium 9.2 mg/dL (8.4-10.2); Carbon Dioxide 28 mmol/L (22-29); Chloride 100 mmol/L (96-108); Creatinine Clr Calc Pharmacy 110.3; Estimated Glomerular Filt Rate > 60; Glucose Random 190 mg/dL (60-115); Potassium 3.8 mmol/L (3.3-5.1); Sodium 137 mmol/L (135-145)
[2022-08-07 07:25] VITALS: BP 129/77; PULSE 70; RESP 18; TEMP 36.4; O2SAT 98
[2022-08-07 07:39] LABS: Glucose, Whole Blood 211 mg/dL (60-115)
[2022-08-07 08:10] VITALS: RESP 19
[2022-08-07] MEDS: 0.9 % Sodium Chloride Flush 3 ML SYRINGE IVFLUSH ×3 (08:10→19:21)
[2022-08-07] MEDS: Morphine Sulfate 4 MG/ML CARTRIDGE IVPUSH (08:10)
[2022-08-07] MEDS: Insulin Glargine,Hum.rec.anlog 100 UNIT/ML 10 ML VIAL 10 UNIT SUBCUT (08:10)
[2022-08-07] MEDS: Famotidine/PF 20 MG/2 ML VIAL IVPUSH ×2 (08:10→19:21)
[2022-08-07] MEDS: Insulin Lispro 100 UNIT/ML 3 ML VIAL SUBCUT ×4 (08:10→20:52)
[2022-08-07] MEDS: Aspirin Enteric Coated 81 MG TABLET.DR PO (08:11)
[2022-08-07] MEDS: Folic Acid 1 MG TABLET PO (08:11)
[2022-08-07] MEDS: lisinopriL 5 MG TABLET PO (08:11)
--- NOTE | 2022-08-07 09:11 | HO.PM.IMPN ---
Subjective Subjective Date of Service: 08/07/22 Review of Systems Follow up pancreatitis still with some mild abd pain on clear liquid diet Physical Exam Vital Signs: Vital Signs: Last Vital Signs Temp 97.6 F 08/07/22 07:25 Pulse 70 08/07/22 07:25 Resp 19 08/07/22 08:10 BP 129/77 08/07/22 07:25 Pulse Ox 98 08/07/22 07:25 O2 Del Method 08/07/22 07:25 BMI result Body Mass Index 23.3 Appearing in no acute distress lung sounds are clear to auscultation heart regular rate rhythm, clear S1, S2 positive bowel sounds, abdomen is soft, LUQ tenderness neuro patient is alert x3, no focal deficits Objective Data Active Medications Acetaminophen (Acetaminophen 325 Mg Tablet) 650 mg PO Q6H PRN PRN Reason: Pain, Mild (Pain Scale 1-3) Aspirin (Aspirin Enteric Coated 81 Mg Tablet.) 81 mg PO DAILY [facility] Last Admin: 08/07/22 08:11 Dose: 81 mg Documented By: COTEMA Atorvastatin Calcium (Atorvastatin Calcium 80 Mg Tablet) 80 mg PO BEDTIME [facility] Last Admin: 08/06/22 20:55 Dose: 80 mg Documented By: SUMI Dextrose (Dextrose 50 % 25 Gm/50 Ml Syringe) 25 gm IVPUSH Q15M PRN; Protocol PRN Reason: per Hypoglycemia Standing Ord. Enoxaparin Sodium (Enoxaparin Sodium 40 Mg/0.4 Ml Syringe) 40 mg SUBCUT Q24H [facility] Last Admin: 08/07/22 05:25 Dose: 40 mg Documented By: SUMI Famotidine (Famotidine/Pf 20 Mg/2 Ml Vial) 20 mg IVPUSH BID [facility] Last Admin: 08/07/22 08:10 Dose: 20 mg Documented By: COTEMA Folic Acid (Folic Acid 1 Mg Tablet) 1 mg PO DAILY [facility] Last Admin: 08/07/22 08:11 Dose: 1 mg Documented By: RICKYEMA Glucose (Glucose Gel 15 Gm Gel..Gram.) 15 gm PO Q15M PRN; Protocol PRN Reason: per Hypoglycemia Standing Ord. Insulin Glargine (Insulin Glargine,Hum.Rec.Anlog 100 Unit/Ml 10 Ml Vial) 10 unit SUBCUT DAILY [facility] Last Admin: 08/07/22 08:10 Dose: 10 unit Documented By: TIESHA Insulin Human Lispro (Insulin Lispro 100 Unit/Ml 3 Ml Vial) 0 unit SUBCUT QIDACHS [facility]; Protocol Last Admin: 08/07/22 08:10 Dose: 4 unit Documented By: TIESHA Lisinopril (Lisinopril 5 Mg Tablet) 5 mg PO DAILY [facility]; Protocol Last Admin: 08/07/22 08:11 Dose: 5 mg Documented By: TIESHA Melatonin (Melatonin 3 Mg Tablet) 6 mg PO BEDTIME PRN PRN Reason: Insomnia Morphine Sulfate (Morphine Sulfate 4 Mg/Ml Cartridge) 4 mg IVPUSH Q4H PRN; Protocol PRN Reason: Pain, Severe (Pain Scale 7-10) Last Admin: 08/07/22 08:10 Dose: 4 mg Documented By: TIESHA Ondansetron HCl (Ondansetron Hcl 4 Mg/2 Ml Vial) 4 mg IVPUSH Q8H PRN PRN Reason: Nausea and Vomiting Last Admin: 08/06/22 17:40 Dose: 4 mg Documented By: BLANCHE Pharmacy Consult (Consult Rx Perform Med Rec) 1 each MISCELLANE ONCE PRN PRN Reason: Consult order Sodium Chloride (0.9 % Sodium Chloride Flush 3 Ml Syringe) 3 ml IVFLUSH [facility] Last Admin: 08/07/22 08:10 Dose: 3 ml Documented By: TIESHA Labs 08/04/22 06:03 08/07/22 05:38 Labs: Laboratory Results - last 24 hr 08/06/22 08/06/22 08/06/22 11:51 16:16 20:24 Anion Gap Estim Creat Clear Calc Estimated GFR POC Glucose 315 H 141 H 232 H Random Glucose Calcium 08/07/22 08/07/22 05:38 07:29 Anion Gap 13 Estim Creat Clear Calc 110.3 Estimated GFR > 60 POC Glucose 211 H Random Glucose 190 H Calcium 9.2 Assessment and Plan (1) Acute pancreatitis: Status: Acute Plan This is a 47-year-old male with pertinent history of insulin-dependent diabetes mellitus, essential hypertension, mixed hyperlipidemia, history of alcohol use disorder with alcohol induced pancreatitis who presents to the emergency department with complaints of sudden onset epigastric pain. Acute pancreatitis Unclear etiology.? Patient states he last consumed alcohol 3 months ago.? Imaging without biliary ductal dilatation and cholecystectomy.? triglyceride level 72, negative alcohol level Pain control IV pepcid diet advanced to reg but patient with pain and nause overnight, back down to full liquids and will monitor lipase down to 51 hypokalemia. Resolved repleted Insulin-dependent diabetes mellitus with hyperglycemia ss, clears for now Essential hypertension Continue home medications Mixed hyperlipidemia On statin Elevated transaminases Likely alcoholic fatty liver disease DVT prophylaxis: Lovenox 40 mg daily Full code attending Dr. Duran continued hospital stay for management of acute pancreatitis. Time Spent With Patient Time: Total time managing care of this patient today ____ minutes. Quality Stroke Does the patient have a stroke diagnosis?: No VTE Prior VTE?: No VTE Risk Level:: Medical - moderate - high VTE Device Contraindication: Treatment Not Indicated VTE Drug Contraindication: N/A - Med Ordered
[2022-08-07 11:28] LABS: Glucose, Whole Blood 322 mg/dL (60-115)
[2022-08-07 15:01] VITALS: BP 147/85; PULSE 63; RESP 18; TEMP 36.3; O2SAT 98
[2022-08-07 15:49] LABS: Glucose, Whole Blood 195 mg/dL (60-115)
[2022-08-07 18:54] VITALS: BP 123/73; PULSE 71; RESP 18; TEMP 36.6; O2SAT 97
[2022-08-07] MEDS: Atorvastatin Calcium 80 MG TABLET PO (19:21)
[2022-08-07 20:20] LABS: Glucose, Whole Blood 273 mg/dL (60-115)
[2022-08-08 03:28] VITALS: BP 115/63; PULSE 67; RESP 18; TEMP 36.6; O2SAT 97
[2022-08-08] MEDS: Enoxaparin Sodium 40 MG/0.4 ML SYRINGE SUBCUT (05:32)
[2022-08-08 07:18] VITALS: BP 119/69; PULSE 64; RESP 17; TEMP 36.6; O2SAT 97
[2022-08-08 07:26] LABS: Glucose, Whole Blood 207 mg/dL (60-115)
[2022-08-08] MEDS: 0.9 % Sodium Chloride Flush 3 ML SYRINGE IVFLUSH (07:38)
[2022-08-08] MEDS: Insulin Glargine,Hum.rec.anlog 100 UNIT/ML 10 ML VIAL 10 UNIT SUBCUT (07:38)
[2022-08-08] MEDS: Insulin Lispro 100 UNIT/ML 3 ML VIAL SUBCUT (07:38)
[2022-08-08] MEDS: Famotidine/PF 20 MG/2 ML VIAL IVPUSH (07:38)
[2022-08-08] MEDS: Folic Acid 1 MG TABLET PO (07:39)
[2022-08-08] MEDS: Aspirin Enteric Coated 81 MG TABLET.DR PO (07:39)
[2022-08-08] MEDS: lisinopriL 5 MG TABLET PO (07:39)
--- NOTE | 2022-08-08 09:28 | PM.DS ---
DS: Providers Provider Date of Service: 08/08/22 Date of admission: 08/04/22 05:29 Primary care physician: [facility] Attending physician on discharge: Nilton Duran Discharging clinician: Andra Carnes DS: Diagnosis Discharge Diagnosis (1) Acute pancreatitis: Status: Acute DS: Summary Hospital Course Hospital Course: HP as per admitting provider This is a 47-year-old male with pertinent history of insulin-dependent diabetes mellitus, essential hypertension, mixed hyperlipidemia, history of alcohol use disorder with alcohol induced pancreatitis who presents to the emergency department with complaints of sudden onset epigastric pain.? Patient states it started around evening, constant, radiating to the back and progressive.? It was associated with chills.? Patient also had nausea and nonbloody emesis.? He could not keep anything down.? Patient stated that it feels similar to his last episode of pancreatitis although he quit alcohol.? States he last consumed alcohol about 3 months ago.? Denies chest discomfort, palpitations, shortness of breath, changes in urinary habits. The emergency department, imaging was consistent with acute pancreatitis . Acute pancreatitis Unclear etiology.? Patient states he last consumed alcohol 3 months ago.? Imaging without biliary ductal dilatation and cholecystectomy.? triglyceride level 72, negative alcohol level Pain controlled with oxycodone treated with IV pepcid, home with prilosec daily diet advanced to regular lipase trended down hypokalemia. Resolved repleted Insulin-dependent diabetes mellitus with hyperglycemia continue home medications Essential hypertension Continue home medications Mixed hyperlipidemia On statin Elevated transaminases Likely alcoholic fatty liver disease Time Spent with Patient Time attestation: Total time managing care of this patient today ____ minutes. Discharge coordination time: Greater than 30 minutes Quality: Safe Use of Opioids Does Pt have an Active Cancer Diagnosis on the Problem List?: No Quality: Stroke Does the patient have a stroke diagnosis?: No Physical Exam Vital Signs: Vital Signs: Last Vital Signs Temp 98 F 08/08/22 07:18 Pulse 64 08/08/22 07:18 Resp 17 08/08/22 07:18 BP 119/69 08/08/22 07:18 Pulse Ox 97 08/08/22 07:18 O2 Del Method 08/08/22 07:18 BMI result Body Mass Index 23.3 Appearing in no acute distress head is normocephalic atraumatic eyes pupils are PERRLA sclera is anicteric mouth throat mucous membranes are intact and moist neck is supple no lymphadenopathy, no JVD noted lung sounds are clear to auscultation heart regular rate rhythm, clear S1, S2 positive bowel sounds, abdomen is soft, nontender neuro patient is alert x3, no focal deficits DS: Data Data Completed and Pending Labs on day of discharge: Laboratory Results - last 24 hr 08/07/22 08/07/22 08/07/22 11:17 15:45 18:55 POC Glucose 322 H 195 H 273 H 08/08/22 07:22 POC Glucose 207 H Discharge Plan Discharge Anticipated Discharge Date/Time: 08/08/22 09:23 Patient Disposition: Home, Self-Care Discharge Diagnosis: Acute pancreatitis Hypokalemia Referrals: [facility] [place] [Primary Care Provider] - 1 Week Discharge Medications: New omeprazole 20 mg tablet,delayed release (DR/EC) 20 mg PO DAILY Qty: 30 0RF oxycodone 5 mg tablet 5 mg PO Q8H PRN (Reason: pain) Qty: 6 0RF Rx Instructions: Partial Fill upon patient request. Continued insulin glargine [Lantus U-100 Insulin] 100 unit/mL Solution 8 unit SUBCUT DAILY lisinopril 5 mg Tablet 5 mg PO DAILY folic acid 1 mg tablet 1 tab PO DAILY metformin 500 mg tablet extended release 24 hr 500 mg PO BID rosuvastatin 40 mg tablet 1 tab PO BEDTIME aspirin 81 mg tablet,delayed release (DR/EC) 1 tab PO DAILY ergocalciferol (vitamin D2) 1,250 mcg (50,000 unit) capsule 1 cap PO WE@0900 Jardiance 10 mg tablet 1 tab PO DAILY Discharge Orders: Discharge Order (Routine); Ordered 08/08/22 Ordered By: Andra Carnes Diet: Advance to usual diet Activity on Discharge: As tolerated Stand Alone Forms: Patient Portal Discharge page, Work/School Release Care Plan Goals: Complete resolution of symptoms Health Concerns: Acute pancreatitis Hypokalemia Plan of Treatment: Follow-up with primary care provider as needed Take all medications as prescribed Assessment: See discharge summary
--- NOTE | 2022-08-08 11:27 | MHC.CM.PN ---
Discharge today to home selfcare. Patient has arranged for transportation home.
== END 2022-08-08 10:51 | disposition home or self-care (01) | DRG 282 ==
LOC: HO.ED 05:39 → HO.EDOVER 05:47 → HO.S3 14:14
PROVIDERS: Family Medicine; Internal Medicine; Admitting Provider Student in an Organized Health Care Education/Training Program; Emergency Provider Internal Medicine; Visit Provider Nurse Practitioner Acute Care
DX: K85.20 Alcohol induced acute pancreatitis without necrosis or infection (principal); K70.0 Alcoholic fatty liver; E11.65 Type 2 diabetes mellitus with hyperglycemia; E78.2 Mixed hyperlipidemia; E87.6 Hypokalemia; I10 Essential (primary) hypertension; F10.11 Alcohol abuse, in remission; Z20.822 Contact with and (suspected) exposure to COVID-19; Z79.4 Long term (current) use of insulin; Z79.82 Long term (current) use of aspirin; Z79.84 Long term (current) use of oral hypoglycemic drugs; Z79.899 Other long term (current) drug therapy
CPT/HCPCS: 0241U; 36415; 71045; 74177; 80048; 80076; 80307; 82077; 82947; 83690; 83735; 84132; 84478; 84484; 85025; 93005; 99285; J1650; J2270; J2405; Q9967

== ENCOUNTER 2023-03-01 13:11 | Emergency (ER) | payer MEDICAID, SELFPAY ==
[2023-03-01 13:16] VITALS: BP 118/75; PULSE 75; RESP 16; TEMP 36.6; O2SAT 98; BMI 23.3
--- NOTE | 2023-03-01 13:16 | ED.GENADULT ---
HPI - General Adult General Chief complaint: General Medical Stated complaint: Cyst on thigh? Time Seen by Provider: 03/01/23 15:41 Source: patient Limitations: no limitations History of Present Illness HPI narrative: Patient has left inguinal swelling. Symptoms started several weeks ago. He describes symptoms as mild to moderate. There is no clear relieving or exacerbating features. He denies any nausea, vomiting, failure passed flatus or stool. He denies any abdominal distention. The swelling has gotten slightly worse over the last few weeks. Patient does have a history of a gallbladder repair. Related Data Home Medications Medication Instructions Recorded Confirmed insulin glargine 100 unit/mL 8 unit subcut DAILY 08/09/20 08/04/22 subcutaneous solution (Lantus U-100 Insulin) lisinopril 5 mg tablet 5 mg PO DAILY 08/09/20 08/04/22 folic acid 1 mg tablet 1 tab PO DAILY 12/27/21 08/04/22 metformin 500 mg tablet,extended 500 mg PO BID 12/27/21 08/04/22 release 24 hr rosuvastatin 40 mg tablet 1 tab PO BEDTIME 12/27/21 08/04/22 aspirin 81 mg tablet,delayed 1 tab PO DAILY 08/04/22 08/04/22 release empagliflozin 10 mg tablet 1 tab PO DAILY 08/04/22 08/04/22 (Jardiance) ergocalciferol (vitamin D2) 1,250 1 cap PO WE@0900 08/04/22 08/04/22 mcg (50,000 unit) capsule Previous Rx's Medication Instructions Recorded omeprazole 20 mg tablet,delayed 20 mg PO DAILY #30 tabs 08/08/22 release oxycodone 5 mg tablet 5 mg PO Q8H PRN pain #6 tabs 08/08/22 Allergies Allergy/AdvReac Type Severity Reaction Status Date / Time No Known Allergies Allergy Verified 03/01/23 13:16 Review of Systems Review of Systems: CONSTITUTIONAL: Denies weight loss, fever and chills. HEENT: Denies changes in vision and hearing. RESPIRATORY: Denies SOB and cough. CV: Denies palpitations no CP. GI: Denies abdominal pain, nausea, vomiting and diarrhea. : Denies dysuria and urinary frequency. MSK: Denies myalgia and joint pain. SKIN: Denies rash and pruritus. NEUROLOGICAL: Denies headache and syncope. PSYCHIATRIC: Denies recent changes in mood. Denies anxiety and depression. 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[facility] [employer] in [place] Physical Exam ED Vital Signs: Vital Signs - 24 hr 03/01/23 13:16 03/01/23 15:42 Temperature 98 F Pulse Rate 75 68 Respiratory Rate 16 16 Blood Pressure 118/75 123/72 Pulse Oximetry 98 98 Oxygen Delivery Method Room Air BMI result Body Mass Index 23.3 GEN: Well developed, no acute distress, alert, oriented HEENT: Normocephalic, atraumatic, normal external ears, nose appears normal, no oropharyngeal edema or exudates Eyes: Normal to appearance Neck: Supple, no lymphadenopathy Respiratory: Talks in complete sentences, no respiratory distress, clear to auscultation bilaterally Cardiovascular: Regular rate and rhythm, no murmurs rubs or gallops Abdomen: Soft, nontender, nondistended, no guarding, no rebound, small inguinal hernia reducible, nontender Back: No CVA tenderness Extremities: No clubbing cyanosis or edema Neurologic: No focal neurologic deficits, cranial nerves 2-12 intact, strength is 5/5 bilaterally Skin: No rash Course Course Course Narrative: This is a rapid medical exam: Additional HPI, ROS, PE not included below will be deferred to primary provider. Patient is a 47-year-old male presenting to the emergency department with complaint of hernia to left groin. States has been present for 3 months, denies pain but states that the area has recently become bigger. Denies any nausea, vomiting, diarrhea, constipation. Denies any color changes to the area. Medical Decision Making Medical Decision Making [facility] Narrative: Patient presents with a left groin mass that is consistent with an inguinal hernia. The differential diagnosis includes lymphadenopathy, direct inguinal hernia, indirect inguinal hernia. The mass is reducible. There is no evidence of strangulation, incarceration. I discussed warning signs which include pain, failure to pass stool or flatus, abdominal distention or any other concerning symptoms to return for re-evaluation. Otherwise I will refer the patient to General surgery for a elective hernia repair. Differential Diagnosis Differential Diagnoses: The differential diagnosis associated with the presentation includes (See above) Prescription Management I considered prescription management with: Pain Medication Discharge Plan Discharge Clinical Impression: Left inguinal hernia Patient Disposition: Home, Self-Care Instructions: Inguinal Hernia (ED) Prescriptions: No Action insulin glargine [Lantus U-100 Insulin] 100 unit/mL Solution 8 unit SUBCUT DAILY lisinopril 5 mg Tablet 5 mg PO DAILY folic acid 1 mg tablet 1 tab PO DAILY metformin 500 mg tablet extended release 24 hr 500 mg PO BID rosuvastatin 40 mg tablet 1 tab PO BEDTIME aspirin 81 mg tablet,delayed release (DR/EC) 1 tab PO DAILY ergocalciferol (vitamin D2) 1,250 mcg (50,000 unit) capsule 1 cap PO WE@0900 Jardiance 10 mg tablet 1 tab PO DAILY omeprazole 20 mg tablet,delayed release (DR/EC) 20 mg PO DAILY Qty: 30 0RF oxycodone 5 mg tablet 5 mg PO Q8H PRN (Reason: pain) Qty: 6 0RF Rx Instructions: Partial Fill upon patient request. Referrals: Brandon Ring MD [Physician] - 1 week Interventions: ED Discharge Assessment Last Done: 03/01/23 16:04 Discharge Date/Time: 03/01/23 16:04
[2023-03-01 15:42] VITALS: BP 123/72; PULSE 68; RESP 16; O2SAT 98
--- NOTE | 2023-03-01 15:45 | PC.NURSE ---
pt axox4, vss, respirations even and unlabored, skin wpd. pt denies n/v/d/cp/sob/abd. pain. pt states he was told he had an inguinal hernia 3 mo ago; feels as it has grown in size. pt denies pain/difficulty or pain with urination. inguinal hernia noted on L. side; reducable. all needs met at this time; call fisher within reach.
== END 2023-03-01 16:04 | disposition home or self-care (01) ==
LOC: HO.ED 16:03
PROVIDERS: Emergency Provider Emergency Medicine; PCP Family Medicine
DX: K40.90 Unilateral inguinal hernia, without obstruction or gangrene, not specified as recurrent (principal)
CPT/HCPCS: 99282; 99284

== ENCOUNTER 2023-03-16 21:04 | Emergency (ER) | payer MEDICAID, SELFPAY ==
--- NOTE | ~2023-03-16 | XR_ITS ---
EXAMINATION: XR CHEST CLINICAL INFORMATION: Chest pain. COMPARISON: None available. TECHNIQUE: Frontal view of the chest was obtained. FINDINGS: The cardiomediastinal silhouette is normal. There is no focal consolidation or pleural effusion. The bony structures and soft tissues are unremarkable. XR/XR chest 1V IMPRESSION: No active cardiopulmonary disease.
[2023-03-16 21:09] VITALS: BP 150/107; PULSE 86; RESP 16; TEMP 37.1; O2SAT 97; BMI 20.7
--- NOTE | 2023-03-16 21:13 | ECG_ITS ---
Test Reason : CHEST PAIN Blood Pressure : / mmHG Vent. Rate : 074 BPM Atrial Rate : 074 BPM P-R Int : 152 ms QRS Dur : 086 ms QT Int : 396 ms P-R-T Axes : 059 006 055 degrees QTc Int : 439 ms Sinus rhythm with Premature atrial complexes Otherwise normal ECG When compared with ECG of 04-AUG-2022 02:17, Premature atrial complexes are now Present Referred By: Generic ED Physician Electronically Signed By:SADIA ALMONTE
[2023-03-16 21:34] LABS: MANUAL DIFF FLAG NO
[2023-03-16 21:51] LABS: Basophils Percent Auto 0.4 % (0-2); Eosinophils Percent Auto 0.2 % (0-4); Hematocrit 41.4 % (42.0-52.0); Hemoglobin 14.7 g/dl (14.0-18.0); Imm Gran Abs Auto 0.02 X10*3/uL (0.00-0.03); Imm Gran Pct Auto 0.2 % (0.0-0.4); Lymphocytes Percent Auto 11.1 % (20-40); Mean Corpuscular HGB Conc 35.5 g/dl (31.0-36.0); Mean Platelet Volume 10.4 fL (9.4-12.4); Monocytes Absolute Auto 0.4 X10*3/uL (0.1-1.2); Monocytes Percent Auto 4.8 % (2-11); Neutrophils Absolute Auto 7.1 x10*3/uL (2.0-8.3); Neutrophils Percent Auto 83.3 % (45-73); Platelet Count 196 X10*3/uL (160-400); Red Cell Distribution Width 11.9 % (11.0-16.0); White Blood Count 8.5 X10*3/uL (4.8-10.8)
[2023-03-16 21:59] VITALS: BP 144/88; PULSE 77; RESP 17; TEMP 36.8; O2SAT 98
[2023-03-16 22:05] LABS: Troponin-I High Sensitivity < 2.7 ng/L (<3.5-35.0)
[2023-03-16 22:11] LABS: Anion Gap 20 (12-20); Blood Urea Nitrogen 24 mg/dL (9-16); Calcium 9.9 mg/dL (8.4-10.2); Carbon Dioxide 22 mmol/L (22-29); Chloride 95 mmol/L (96-108); Creatinine Clr Calc Pharmacy 75.8; Estimated Glomerular Filt Rate > 60; Glucose Random 407 mg/dL (60-115); Potassium 3.5 mmol/L (3.3-5.1); Sodium 133 mmol/L (135-145)
[2023-03-16 22:31] VITALS: PULSE 80
--- NOTE | 2023-03-16 22:59 | ED_ITS ---
HPI - Chest Pain General Chief Complaint: Chest Pain Stated Complaint: abd pain/n/v/Chest Pain Time Seen by Provider: 03/16/23 22:59 Source: patient, RN notes reviewed, old records reviewed and health sciences manager Mode of arrival: ambulatory Limitations: language barrier History of Present Illness HPI narrative: 47-year-old male with past medical history significant for alcohol abuse, history of pancreatitis presents for evaluation of abdominal pain. Patient reports that he knows he is not supposed to drink alcohol. He states that on Sunday, 2 days ago his family was moving here from [place] He was drinking alcohol in excess He also reports that he was eating spicy foods that he knows he is not supposed to be eating He is complaining of right upper abdominal pain that he rates as 8/10. He has associated nausea and vomiting The patient reports that he is status post cholecystectomy Denies any fevers or chills Related Data Home Medications Medication Instructions Recorded Confirmed insulin glargine 100 unit/mL 8 unit subcut DAILY 08/09/20 08/04/22 subcutaneous solution (Lantus U-100 Insulin) lisinopril 5 mg tablet 5 mg PO DAILY 08/09/20 08/04/22 folic acid 1 mg tablet 1 tab PO DAILY 12/27/21 08/04/22 metformin 500 mg tablet,extended 500 mg PO BID 12/27/21 08/04/22 release 24 hr rosuvastatin 40 mg tablet 1 tab PO BEDTIME 12/27/21 08/04/22 aspirin 81 mg tablet,delayed 1 tab PO DAILY 08/04/22 08/04/22 release empagliflozin 10 mg tablet 1 tab PO DAILY 08/04/22 08/04/22 (Jardiance) ergocalciferol (vitamin D2) 1,250 1 cap PO WE@0900 08/04/22 08/04/22 mcg (50,000 unit) capsule Previous Rx's Medication Instructions Recorded omeprazole 20 mg tablet,delayed 20 mg PO DAILY #30 tabs 08/08/22 release oxycodone 5 mg tablet 5 mg PO Q8H PRN pain #6 tabs 08/08/22 acetaminophen 325 mg tablet 650 mg PO Q6H PRN pain #30 tabs 03/17/23 Allergies Allergy/AdvReac Type Severity Reaction Status Date / Time No Known Allergies Allergy Verified 03/01/23 13:16 Review of Systems Constitutional: Constitutional: Denies chills, Denies fever(s) and Reports malaise Cardiovascular: Cardiovascular: Denies dyspnea Respiratory: Respiratory: Denies cough and Denies dyspnea Gastrointestinal: Gastrointestinal: Reports abdominal pain, Denies hematochezia, Reports diarrhea, Denies loose stools, Reports nausea and Reports vomiting Musculoskeletal: Musculoskeletal: Denies back pain Integumentary/Breasts: Skin/Breast: Denies rash PMFSH Past Medical History Medical History Alcohol abuse Diabetes HTN (hypertension) Surgical History History of laparoscopic cholecystectomy Social History Social History Household Members: None Household Members Other:: one child Housing: Apartment Do you presently have visiting nurse or other home services: No Alcohol intake: current Alcohol intake frequency: 0-2 drinks per day Alcohol type: beer, wine and hard liquor Patient Tobacco Use Status: Never used Tobacco Smoked in Last 30 Days: No Use of substances other than those prescribed or required for medical reasons: No Advance Directives: Yes Advance Directives on File: Yes Advance Directives Date on File: 11/01/20 service: No Current occupational status: employed 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 [employer]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 [place] Physical Exam Vital Signs: Vital Signs: Last Vital Signs Temp 98.2 F 03/16/23 21:59 Pulse 84 03/17/23 00:03 Resp 14 03/17/23 00:03 BP 135/82 03/17/23 00:03 Pulse Ox 98 03/17/23 00:03 O2 Del Method Room Air 03/17/23 00:03 BMI result Body Mass Index 20.7 Const: General: healthy appearing, comfortable, no acute distress, alert and awake Nutritional Appearance: well nourished Orientation/consciousness: patient oriented x3 HEENT: Head: Yes normocephalic and Yes atraumatic Eyes: Eyelids: Yes eyelids normal Conjunctivae: conjunctivae normal Sclerae: sclerae normal Corneas: corneas normal Pupils: Equal, round and reactive pupils present EOM: EOMs intact bilaterally Resp: Effort & Inspection: normal respiratory effort, able to speak in complete sentences and not labored Cardio: Rate: regular rate Rhythm: regular rhythm GI: Inspection: No distended Palpation (GI): Soft to palpation, not firm, Tenderness to palpation present (GI), Guarding due to palpation present (GI) and not rigid Auscultation: normoactive bowel sounds Skin: General skin exam: no rashes or lesions noted and elasticity normal Neuro: General: patient oriented x3 Cranial nerves: Yes Equal, round and reactive pupils present and Yes Bilaterally intact EOM present Cognition (Neuro): normal cognition Course Reevaluation(s) Reevaluation #1: Patient re-evaluated using machine cloth examiner. He reports feeling much better. Will discharge the patient is instructed to consume a clear liquid diet for next 2 days and advance as tolerated. He is instructed to refrain from spicy, greasy foods and abstain from alcohol together. Time: 01:10 Medications Administered Discontinued Medications Generic Name Dose Route Start Last Admin Trade Name Freq PRN Reason Stop Dose Admin Sodium Chloride 1,000 mls @ 999 mls/hr 03/16/23 23:15 03/17/23 00:54 Ns IV 03/17/23 00:15 Infused .Q1H1M LUIS Infusion Insulin Human Regular 10 unit 03/16/23 23:15 03/16/23 23:40 Insulin Regular, Human 100 Unit/Ml 3 Ml Vial IVPUSH 03/16/23 23:16 10 unit ONCE ONE Administration Morphine Sulfate 4 mg 03/16/23 23:14 03/16/23 23:42 Morphine Sulfate 4 Mg/Ml Cartridge IVPUSH 03/16/23 23:15 4 mg ONCE ONE Administration Protocol Ondansetron HCl 4 mg 03/16/23 23:14 03/16/23 23:42 Ondansetron Hcl 4 Mg/2 Ml Vial IVPUSH 03/16/23 23:15 4 mg ONCE ONE Administration Medical Decision Making Medical Decision Making MDM Narrative: 47-year-old male past medical history significant for alcohol use disorder, pancreatitis presents for evaluation of abdominal pain, nausea vomiting after drinking alcohol. He has no leukocytosis but does have a mild left shift. His glucose was noted to be elevated to 407. He has a pseudohyponatremia. Mild transaminitis with a lipase little bit less than double the upper level normal at 148. Will treat the patient's sugar and lipase were IV fluids. The patient will also be given insulin for his elevated glucose. There is no evidence of DKA. We will re-evaluate to see if the patient will be able to be discharged home Differential Diagnosis Differential Diagnoses: The differential diagnosis associated with the presentation includes Alcoholic gastritis Pancreatitis Abdominal pain Gastritis Gastroenteritis Peptic ulcer disease Lab Data MDM Lab Attestation statement: I reviewed the patient's lab results. He has no leukocytosis but does have a mild left shift. His glucose was noted to be elevated to 407. He has a pseudohyponatremia that corrects to within normal limits when adjusted for hyperglycemia. Mild transaminitis with a lipase little bit less than double the upper level normal at 148 03/16/23 21:29 03/16/23 21:29 Labs: Lab Results 03/16/23 03/16/23 03/16/23 Range/Units 21:29 21:29 21:29 WBC 8.5 (4.8-10.8) X10*3/uL RBC 4.60 D (4.60-5.80) X10*6/uL Hgb 14.7 D (14.0-18.0) g/dl Hct 41.4 L (42.0-52.0) % MCV 90.0 (80.0-98.0) fL MCH 32.0 (27.0-33.0) pg MCHC 35.5 (31.0-36.0) g/dl RDW 11.9 (11.0-16.0) % Plt Count 196 (160-400) X10*3/uL MPV 10.4 (9.4-12.4) fL Immature Gran % (Auto) 0.2 (0.0-0.4) % Neut % (Auto) 83.3 H (45-73) % Lymph % (Auto) 11.1 L (20-40) % Jessamine % (Auto) 4.8 (2-11) % Eos % (Auto) 0.2 (0-4) % Baso % (Auto) 0.4 (0-2) % Lymph # (Auto) 1.0 L (1.2-4.9) X10*3/uL Jessamine # (Auto) 0.4 (0.1-1.2) X10*3/uL Eos # (Auto) 0.0 (0.0-0.4) X10*3/uL Baso # (Auto) 0.0 (0.0-0.2) X10*3/uL Abs Immat Gran (auto) 0.02 (0.00-0.03) X10*3/uL Absolute Neuts (auto) 7.1 (2.0-8.3) x10*3/uL Absolute Nucleated RBC 0.000 (0.0-0.012) X10*3/uL Nucleated RBC % (auto) 0.0 (0.0-0.2) /100WBC Sodium 133 L (135-145) mmol/L Potassium 3.5 (3.3-5.1) mmol/L Chloride 95 L (96-108) mmol/L Carbon Dioxide 22 (22-29) mmol/L Anion Gap 20 (12-20) BUN 24 H (9-16) mg/dL Creatinine 0.96 (0.5-1.4) mg/dL Estim Creat Clear Calc 75.8 Estimated GFR > 60 Random Glucose 407 H* (60-115) mg/dL Calcium 9.9 D (8.4-10.2) mg/dL Total Bilirubin 1.1 H (0.0-1.0) mg/dL Direct Bilirubin 0.4 (0.0-0.5) mg/dL AST 57 H (5-37) U/L ALT 112 H (0-40) U/L Alkaline Phosphatase 236 H (39-117) U/L Troponin I High Sens < 2.7 (<3.5-35.0) ng/L Total Protein 7.6 (6.5-8.0) g/dL Albumin 4.0 (3.5-5.0) g/dL Lipase 148 H (8-78) U/L Discharge Plan Discharge Clinical Impression: Pancreatitis Patient Disposition: Home, Self-Care Instructions: Pancreatitis (ED) Additional Instructions: Your symptoms today are likely related to a mild pancreatitis You should consume a liquid diet for the next 2 days Advance as tolerated, avoid spicy, greasy, fatty foods You should not drink any alcohol at all May use Tylenol for pain Follow-up with your primary doctor Prescriptions: New acetaminophen 325 mg tablet 650 mg PO Q6H PRN (Reason: pain) Qty: 30 0RF No Action insulin glargine [Lantus U-100 Insulin] 100 unit/mL Solution 8 unit SUBCUT DAILY lisinopril 5 mg Tablet 5 mg PO DAILY folic acid 1 mg tablet 1 tab PO DAILY metformin 500 mg tablet extended release 24 hr 500 mg PO BID rosuvastatin 40 mg tablet 1 tab PO BEDTIME aspirin 81 mg tablet,delayed release (DR/EC) 1 tab PO DAILY ergocalciferol (vitamin D2) 1,250 mcg (50,000 unit) capsule 1 cap PO WE@0900 Jardiance 10 mg tablet 1 tab PO DAILY omeprazole 20 mg tablet,delayed release (DR/EC) 20 mg PO DAILY Qty: 30 0RF oxycodone 5 mg tablet 5 mg PO Q8H PRN (Reason: pain) Qty: 6 0RF Rx Instructions: Partial Fill upon patient request.
[2023-03-16 23:22] LABS: Alanine Aminotransferase 112 U/L (0-40); Alkaline Phosphatase 236 U/L (39-117); Aspartate Amino Transferase 57 U/L (5-37); Bilirubin Direct 0.4 mg/dL (0.0-0.5); Bilirubin Total 1.1 mg/dL (0.0-1.0); Lipase 148 U/L (8-78); Total Protein 7.6 g/dL (6.5-8.0)
[2023-03-16] MEDS: Insulin Regular, Human 100 UNIT/ML 3 ML VIAL 10 UNIT IVPUSH (23:40)
[2023-03-16] MEDS: 0.9 % Sodium Chloride 1,000 ML 999 ML IV (23:41)
[2023-03-16] MEDS: Morphine Sulfate 4 MG/ML CARTRIDGE IVPUSH (23:42)
[2023-03-16] MEDS: ondansetron HCL 4 MG/2 ML VIAL IVPUSH (23:42)
[2023-03-16 23:44] VITALS: BP 139/88; PULSE 73; RESP 12; O2SAT 98
[2023-03-17 00:03] VITALS: BP 135/82; PULSE 84; RESP 14; O2SAT 98
--- NOTE | 2023-03-17 00:55 | PC.NURSE ---
Pt resting comfortably on stretcher, offers no complaints to this RN at this time, Denies pain reports that the pain medication helped him. Alert and oriented x4, skin pwd, respirations even and unlabored. No apparent distress at this time
[2023-03-17 01:29] VITALS: BP 115/82; PULSE 82; RESP 14; TEMP 36.4; O2SAT 98
== END 2023-03-17 01:30 | disposition home or self-care (01) ==
PROVIDERS: Physician Assistant; Emergency Provider Emergency Medicine; PCP Family Medicine
DX: K85.90 Acute pancreatitis without necrosis or infection, unspecified (principal); R10.11 Right upper quadrant pain; E11.65 Type 2 diabetes mellitus with hyperglycemia; I10 Essential (primary) hypertension; F10.10 Alcohol abuse, uncomplicated; Y90.9 Presence of alcohol in blood, level not specified; Z79.4 Long term (current) use of insulin; Z79.899 Other long term (current) drug therapy; Z79.82 Long term (current) use of aspirin
CPT/HCPCS: 36415; 71045; 80048; 80076; 83690; 84484; 85025; 93005; 96361; 96374; 96375; 99284; 99285; J2270; J2405

== ENCOUNTER 2023-03-23 13:30 | Outpatient (AMB) | payer MEDICAID, SELFPAY ==
--- NOTE | 2023-03-23 13:45 | A.OFFVIS_ITS ---
Intake Vital Signs 03/23/23 13:49 Height 5 ft 5 in Weight 131 lb BMI 21.8 BP 131/69 Blood Pressure Location Rt brachial Position Sitting Pulse 79 Intake Visit Reasons: ER f/u hernia Intake Note: This patient presents for [facility] emergency department follow-up for hernia. Patient c/o; Onset 3 weeks, left groin, denies pain or discomfort, reports bulge. Android Ui Developer Required: Yes Android Ui Developer Language: Scuba Diving Instructor Name: Sohail Information Interpreted: non-clinical & clinical Accompanied by: Self / Same As Patient Allergies No Known Allergies Allergy (Verified 03/23/23 13:49) Medication List - Last Reconciled 03/23/23 by Jorge Diamond MD acetaminophen 650 mg (2 x 325 mg) PO Q6H PRN aspirin 1 tab PO DAILY empagliflozin (Jardiance) 1 tab PO DAILY ergocalciferol (vitamin D2) 1 cap PO WE@0900 folic acid 1 tab PO DAILY insulin glargine (Lantus U-100 Insulin) 8 units subcut DAILY lisinopril 5 mg PO DAILY metformin ER 500 mg PO BID omeprazole 20 mg PO DAILY oxycodone 5 mg PO Q8H PRN rosuvastatin 1 tab PO BEDTIME HPI HPI Comments History of Present Illness Details 47-year-old male patient presenting with complaints of a lump in the left groin. The lump was 1st identified 3 weeks ago while in the shower. He denied any inciting events but feels the lump just appeared. He denies any pain with the lump but does note the lump to increase in size with lifting and straining. The lump will reduce when in bed. He denies any associated symptoms including nausea, vomiting, fever, chills, diarrhea or constipation. He denies a previous history of hernia surgery. 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 [place] Review of Systems Const All systems reviewed & are unremarkable except as noted in HPI and below Denies chills, Denies fever(s), Denies headache(s), Denies poor appetite and Denies weakness ENT Denies headache(s) Card Denies chest pain, Denies irregular heart rhythm, Denies palpitations and Denies dyspnea Resp Denies cough, Denies excessive phlegm production and Denies dyspnea GI Denies abdominal pain, Denies bloating, Denies change in bowel habits, Denies constipation, Denies heartburn, Denies diarrhea, Denies nausea and Denies vomiting Denies difficulty urinating and Denies urinary frequency Musc Denies back pain, Denies muscle weakness and Denies numbness Skin/Breast Denies changing lesions and Denies unusual bruising Neuro Denies headache(s), Denies numbness, Denies paresthesias and Denies weakness Psych Denies anxiety and Denies depression Endo Denies palpitations Rene/Lymph Denies lymphadenopathy Physical Exam Vital Signs: Last Vital Signs Pulse 79 03/23/23 13:49 BP 131/69 03/23/23 13:49 BMI result Body Mass Index 21.8 Const General: cooperative and no acute distress Nutritional Appearance: well nourished Orientation/consciousness: patient oriented x3 Limitations: no limitations HEENT Head: Yes normocephalic and Yes atraumatic Ears: hearing grossly normal bilaterally Resp Effort & Inspection: normal respiratory effort, no audible wheezes, no cough and no respiratory distress Cardio Jugular venous distension: no JVD GI Other: Patient examined in the standing position with Valsalva maneuvers. A left inguinal hernia is identified which increases in size with straining. The hernia is easily reducible with light pressure. A slight weakness is noted in no right side but node aracelis hernia. No umbilical hernias appreciated. Abdomen is otherwise soft, nondistended and nontender. Inspection: Yes normal to inspection Skin Other: Warm, dry, no rash Neuro General: patient oriented x3 Extrem General: Yes no clubbing, cyanosis or edema Assessment & Plan Assessment & Plan (1) Left inguinal hernia: Code(s): K40.90 - Unilateral inguinal hernia, without obstruction or gangrene, not specified as recurrent Plan 47-year-old male patient presenting with a left inguinal hernia noted on examination. The hernia is easily reducible with light pressure. We discussed repair of this left inguinal hernia with mesh on elective basis. After discussion of the procedure, risks, and alternatives, the patient consents to the surgery. He will call when he is ready to schedule the procedure. This will be performed as a short-stay surgery under general anesthesia. Coding Level of Care Code New Pt Level 4 (26446) Diagnoses Left inguinal hernia K40.90
[2023-03-23 13:49] VITALS: BP 131/69; PULSE 79; BMI 21.8
== END 2023-03-23 14:02 | disposition home or self-care (01) ==
PROVIDERS: PCP Family Medicine; Referring Provider Family Medicine; Visit Provider Surgery
DX: K40.90 Unilateral inguinal hernia, without obstruction or gangrene, not specified as recurrent (principal)
CPT/HCPCS: 99204

== ENCOUNTER → 2023-03-23 13:30 | Outpatient (BNVA) | payer MEDICAID, SELFPAY | PROVIDERS: PCP Family Medicine; Referring Provider Family Medicine; Visit Provider Surgery | DX: K40.90 Unilateral inguinal hernia, without obstruction or gangrene, not specified as recurrent (principal) | CPT/HCPCS: 99202 ==

== ENCOUNTER 2023-03-28 18:41 | Emergency (ER) | payer OTHER, MEDICAID, SELFPAY ==
--- NOTE | ~2023-03-28 | XR_ITS ---
EXAMINATION: XR CHEST CLINICAL INFORMATION: Chest pain COMPARISON: Previous chest x-ray most recent 03/16/2023 TECHNIQUE: Frontal view of the chest was obtained. FINDINGS: No significant abnormality is noted involving the heart, lungs, mediastinum, bony thorax or soft tissues. XR/XR chest 1V IMPRESSION: Unremarkable examination.
[2023-03-28 18:43] VITALS: BP 145/84; PULSE 88; RESP 16; TEMP 37.3; O2SAT 93; BMI 25.0
--- NOTE | 2023-03-28 19:09 | ECG_ITS ---
Test Reason : chest pain Blood Pressure : / mmHG Vent. Rate : 087 BPM Atrial Rate : 087 BPM P-R Int : 168 ms QRS Dur : 092 ms QT Int : 370 ms P-R-T Axes : 054 010 056 degrees QTc Int : 445 ms Normal sinus rhythm Normal ECG When compared with ECG of 16-MAR-2023 21:18, Premature atrial complexes are no longer Present Referred By: Trini Peña Electronically Signed By:SADIA ALMONTE
[2023-03-28 19:37] LABS: MANUAL DIFF FLAG NO
[2023-03-28] MEDS: LORazepam 1 MG TABLET PO (19:39)
--- NOTE | 2023-03-28 19:39 | ED_ITS ---
HPI - Alcohol General Chief Complaint: ETOH/Substance Use Stated Complaint: very drunk, pancreases issue Time Seen by Provider: 03/28/23 19:15 History of Present Illness HPI narrative: Patient is a 47-year-old male presents today with having ingested a large amount alcohol was found in a parking lot or of a liquor store. Patient was nauseous vomiting. Family took him to the hospital for further evaluation. Patient complaining of chest pain as well. Mid chest. He is unable to give any more description. Denies any shortness of breath or diaphoresis. Positive suicidal thoughts but no specific plans. Patient is from home. Related Data Home Medications Medication Instructions Recorded Confirmed insulin glargine 100 unit/mL 8 unit subcut DAILY 08/09/20 03/23/23 subcutaneous solution (Lantus U-100 Insulin) lisinopril 5 mg tablet 5 mg PO DAILY 08/09/20 03/23/23 folic acid 1 mg tablet 1 tab PO DAILY 12/27/21 03/23/23 metformin 500 mg tablet,extended 500 mg PO BID 12/27/21 03/23/23 release 24 hr rosuvastatin 40 mg tablet 1 tab PO BEDTIME 12/27/21 03/23/23 aspirin 81 mg tablet,delayed 1 tab PO DAILY 08/04/22 03/23/23 release empagliflozin 10 mg tablet 1 tab PO DAILY 08/04/22 03/23/23 (Jardiance) ergocalciferol (vitamin D2) 1,250 1 cap PO WE@0900 08/04/22 03/23/23 mcg (50,000 unit) capsule Previous Rx's Medication Instructions Recorded omeprazole 20 mg tablet,delayed 20 mg PO DAILY #30 tabs 08/08/22 release oxycodone 5 mg tablet 5 mg PO Q8H PRN pain #6 tabs 08/08/22 acetaminophen 325 mg tablet 650 mg PO Q6H PRN pain #30 tabs 03/17/23 Allergies Allergy/AdvReac Type Severity Reaction Status Date / Time No Known Allergies Allergy Verified 03/28/23 18:43 Review of Systems Review of Systems: Positive chest pain Yes all other systems are reviewed and are negative PMFSH Past Medical History Attestation statement: The following information was validated with the patient. Medical History Alcohol abuse Diabetes HTN (hypertension) Surgical History History of laparoscopic cholecystectomy Social History Social History Household Members: None Household Members Other:: one child Housing: Apartment Do you presently have visiting nurse or other home services: No Alcohol intake: current Alcohol intake frequency: 3 or more drinks per day Alcohol type: beer Patient Tobacco Use Status: Never used Tobacco Smoked in Last 30 Days: No Use of substances other than those prescribed or required for medical reasons: No Advance Directives: Yes Advance Directives on File: Yes Advance Directives Date on File: 11/01/20 service: No Current occupational status: employed 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 the [employer] in [facility] [facility] [employer] [facility] [place] Physical Exam ED Vital Signs: Vital Signs - 24 hr 03/28/23 18:43 Temperature 99.2 F Pulse Rate 88 Respiratory Rate 16 Blood Pressure 145/84 H Pulse Oximetry 93 Oxygen Delivery Method Room Air BMI result Body Mass Index 25.0 Appearance: Alert. Oriented X3. No acute distress. Eyes: Pupils equal, round and reactive to light. ENT: Pharynx normal. Neck: Normal inspection. Neck supple. No lymph nodes noted. No crepitus CVS: Normal heart rate and rhythm. Pulses normal. Normal S1 and S2 Respiratory: No respiratory distress. Breath sounds normal. No Wheezing. No rales Abdomen: Soft and nontender. No rigidity. No distention. good BS x4 Skin: Skin warm and dry. Normal skin color. Normal skin turgor. Extremities: No lower extremity edema. Neurovascular intact to all extremities. No Lacerations. No Rash Neuro: Oriented X 3. No motor deficit. No sensory deficit. Moving all extermities. No slurred speech Medical Decision Making Medical Decision Making MDM Narrative: Patient's chest pain atypical. Positive EtOH positive suicidal ideation. Will get cardiac enzymes and monitor carefully as patient does have cardiac risk factors. Patient's EKG showed a sinus rhythm heart rate is 90 [place] QRS QTC within normal limits is no acute ST segment elevation. Patient's ETOH greater than 300 awaiting tox. Awaiting crisis evaluation for suicidal ideation. Currently awaiting clinical sobriety. In stable condition. Patient's chest pain is atypical. Troponin is negative. Unlikely secondary to ACS. My interpretation of patient's chest x-ray showed no pneumonia no pneumothorax. Differential Diagnosis Differential Diagnoses: The differential diagnosis associated with the presentation includes Alcohol intoxication, pneumonia pneumothorax, ACS, suicidal ideation Consult Healthcare Provider Management of the patient was discussed with: Sprinkler Driver (Care team ) Lab Data MDM Lab Attestation statement: I reviewed the patient's lab results. 03/28/23 19:26 03/28/23 19:26 Labs: Lab Results 03/28/23 03/28/23 03/28/23 Range/Units 19:26 19:26 19:26 WBC 10.1 (4.8-10.8) X10*3/uL RBC 4.79 (4.60-5.80) X10*6/uL Hgb 15.2 (14.0-18.0) g/dl Hct 43.6 (42.0-52.0) % MCV 91.0 (80.0-98.0) fL MCH 31.7 (27.0-33.0) pg MCHC 34.9 (31.0-36.0) g/dl RDW 13.2 (11.0-16.0) % Plt Count 459 H D (160-400) X10*3/uL MPV 9.6 (9.4-12.4) fL Immature Gran % (Auto) 1.3 H (0.0-0.4) % Neut % (Auto) 59.9 (45-73) % Lymph % (Auto) 30.9 (20-40) % [place] % (Auto) 6.0 (2-11) % Eos % (Auto) 0.4 (0-4) % Baso % (Auto) 1.5 (0-2) % Lymph # (Auto) 3.1 (1.2-4.9) X10*3/uL [place] # (Auto) 0.6 (0.1-1.2) X10*3/uL Eos # (Auto) 0.0 (0.0-0.4) X10*3/uL Baso # (Auto) 0.2 (0.0-0.2) X10*3/uL Abs Immat Gran (auto) 0.13 H (0.00-0.03) X10*3/uL Absolute Neuts (auto) 6.0 (2.0-8.3) x10*3/uL Absolute Nucleated RBC 0.000 (0.0-0.012) X10*3/uL Nucleated RBC % (auto) 0.0 (0.0-0.2) /100WBC Sodium 143 (135-145) mmol/L Potassium 4.0 (3.3-5.1) mmol/L Chloride 105 (96-108) mmol/L Carbon Dioxide 19 L (22-29) mmol/L Anion Gap 23 H (12-20) BUN 5 L (9-16) mg/dL Creatinine 0.78 (0.5-1.4) mg/dL Estim Creat Clear Calc 101.8 Estimated GFR > 60 Random Glucose 326 H (60-115) mg/dL Calcium 9.1 D (8.4-10.2) mg/dL Magnesium 2.4 (1.6-2.6) mg/dL Total Bilirubin 0.2 (0.0-1.0) mg/dL Direct Bilirubin < 0.2 (0.0-0.5) mg/dL AST 67 H (5-37) U/L ALT 76 H (0-40) U/L Alkaline Phosphatase 179 H (39-117) U/L Troponin I High Sens < 2.7 (<3.5-35.0) ng/L Total Protein 8.3 H (6.5-8.0) g/dL Albumin 4.5 (3.5-5.0) g/dL Lipase 25 (8-78) U/L Urine Color Urine Appearance Urine pH (5.0-9.0) Ur Specific [place] (1.005-1.025) Urine Protein (Neg-Trace) mg/dL Urine Glucose (UA) (Negative) mg/dL Urine Ketones (Negative) mg/dL Urine Blood (Negative) Urine Nitrite (Negative) Ur Leukocyte Esterase (Negative) Urine RBC (0-2) /HPF Urine WBC (0-5) /HPF Ur Squamous Epith Cells (0-2) /HPF Urine Bacteria (None Seen) Hyaline Casts (0-2) /LPF Ethyl Alcohol 324 H* mg/dL 03/28/23 Range/Units 19:26 WBC (4.8-10.8) X10*3/uL RBC (4.60-5.80) X10*6/uL Hgb (14.0-18.0) g/dl Hct (42.0-52.0) % MCV (80.0-98.0) fL MCH (27.0-33.0) pg MCHC (31.0-36.0) g/dl RDW (11.0-16.0) % Plt Count (160-400) X10*3/uL MPV (9.4-12.4) fL Immature Gran % (Auto) (0.0-0.4) % Neut % (Auto) (45-73) % Lymph % (Auto) (20-40) % [place] % (Auto) (2-11) % Eos % (Auto) (0-4) % Baso % (Auto) (0-2) % Lymph # (Auto) (1.2-4.9) X10*3/uL [place] # (Auto) (0.1-1.2) X10*3/uL Eos # (Auto) (0.0-0.4) X10*3/uL Baso # (Auto) (0.0-0.2) X10*3/uL Abs Immat Gran (auto) (0.00-0.03) X10*3/uL Absolute Neuts (auto) (2.0-8.3) x10*3/uL Absolute Nucleated RBC (0.0-0.012) X10*3/uL Nucleated RBC % (auto) (0.0-0.2) /100WBC Sodium (135-145) mmol/L Potassium (3.3-5.1) mmol/L Chloride (96-108) mmol/L Carbon Dioxide (22-29) mmol/L Anion Gap (12-20) BUN (9-16) mg/dL Creatinine (0.5-1.4) mg/dL Estim Creat Clear Calc Estimated GFR Random Glucose (60-115) mg/dL Calcium (8.4-10.2) mg/dL Magnesium (1.6-2.6) mg/dL Total Bilirubin (0.0-1.0) mg/dL Direct Bilirubin (0.0-0.5) mg/dL AST (5-37) U/L ALT (0-40) U/L Alkaline Phosphatase (39-117) U/L Troponin I High Sens (<3.5-35.0) ng/L Total Protein (6.5-8.0) g/dL Albumin (3.5-5.0) g/dL Lipase (8-78) U/L Urine Color Yellow Urine Appearance Clear Urine pH 5.5 (5.0-9.0) Ur Specific [place] 1.010 (1.005-1.025) Urine Protein Negative (Neg-Trace) mg/dL Urine Glucose (UA) >=1000 H (Negative) mg/dL Urine Ketones Negative (Negative) mg/dL Urine Blood Negative (Negative) Urine Nitrite Negative (Negative) Ur Leukocyte Esterase Negative (Negative) Urine RBC 0-2 (0-2) /HPF Urine WBC 0-5 (0-5) /HPF Ur Squamous Epith Cells 0-2 (0-2) /HPF Urine Bacteria None Seen (None Seen) Hyaline Casts 0-2 (0-2) /LPF Ethyl Alcohol mg/dL Independent Interpretation I performed an independent interpretation of an: EKG (Sinus rhythm heart rate is 90 [place] QRS QTC within normal limits is no acute ST segment elevation noted.) External Record Review External record reviewed: Inpatient record Chronic Conditions Alcohol intoxication Social Determinants Patient?s care significantly limited by Social Determinants of Health including: Alcoholism and drug addiction in family Medications Administered Discontinued Medications Generic Name Dose Route Start Last Admin Trade Name Freq PRN Reason Stop Dose Admin Lorazepam 1 mg 03/28/23 19:34 03/28/23 19:39 Lorazepam 1 Mg Tablet PO 03/28/23 19:35 1 mg ONCE ONE Administration Discharge Plan Discharge Clinical Impression: Suicidal ideation, Alcohol abuse, Chest pain Patient Disposition: Still a Patient Prescriptions: No Action insulin glargine [Lantus U-100 Insulin] 100 unit/mL Solution 8 unit SUBCUT DAILY lisinopril 5 mg Tablet 5 mg PO DAILY folic acid 1 mg tablet 1 tab PO DAILY metformin 500 mg tablet extended release 24 hr 500 mg PO BID rosuvastatin 40 mg tablet 1 tab PO BEDTIME aspirin 81 mg tablet,delayed release (DR/EC) 1 tab PO DAILY ergocalciferol (vitamin D2) 1,250 mcg (50,000 unit) capsule 1 cap PO WE@0900 Jardiance 10 mg tablet 1 tab PO DAILY omeprazole 20 mg tablet,delayed release (DR/EC) 20 mg PO DAILY Qty: 30 0RF oxycodone 5 mg tablet 5 mg PO Q8H PRN (Reason: pain) Qty: 6 0RF Rx Instructions: Partial Fill upon patient request. acetaminophen 325 mg tablet 650 mg PO Q6H PRN (Reason: pain) Qty: 30 0RF
[2023-03-28 19:41] LABS: Appearance Urine Clear; Color Urine Yellow; Glucose Urine UA >=1000 mg/dL (Negative); Leukocyte Esterase Urine Negative (Negative); Nitrite Urine Negative (Negative); PH 5.5 (5.0-9.0); UMIC TRIGGER UACC YES; Urine Blood Negative (Negative); Urine Ketones Negative (Negative); Urine Protein Negative (Neg-Trace)
[2023-03-28 19:45] LABS: Basophils Absolute Auto 0.2 X10*3/uL (0.0-0.2); Basophils Percent Auto 1.5 % (0-2); Eosinophils Percent Auto 0.4 % (0-4); Hematocrit 43.6 % (42.0-52.0); Hemoglobin 15.2 g/dl (14.0-18.0); Imm Gran Abs Auto 0.13 X10*3/uL (0.00-0.03); Imm Gran Pct Auto 1.3 % (0.0-0.4); Lymphocytes Absolute Auto 3.1 X10*3/uL (1.2-4.9); Lymphocytes Percent Auto 30.9 % (20-40); Mean Corpuscular HGB Conc 34.9 g/dl (31.0-36.0); Mean Corpuscular Hemoglobin 31.7 pg (27.0-33.0); Mean Platelet Volume 9.6 fL (9.4-12.4); Monocytes Absolute Auto 0.6 X10*3/uL (0.1-1.2); Neutrophils Percent Auto 59.9 % (45-73); Platelet Count 459 X10*3/uL (160-400); Red Blood Count 4.79 X10*6/uL (4.60-5.80); Red Cell Distribution Width 13.2 % (11.0-16.0); White Blood Count 10.1 X10*3/uL (4.8-10.8)
--- NOTE | 2023-03-28 19:46 | MHC.EDTECH ---
Addendum entered by Giuliana Villela 03/28/23 19:50: 1-1 sitter at bedside for safety. Original Note: Patient came from [facility], patient was changed into crisis attire, patient was placed on the air sampling and monitoring and EKG was obtained, Daughter took cellphone, air pods , watch and jewelry. Clothes are being washed at this time and will be placed in locker # 10 with shoes and belt. !-1
[2023-03-28 19:55] LABS: Bacteria Urine None Seen (None Seen); Hyaline Casts Urine 0-2 /LPF (0-2); RBC Urine 0-2 /HPF (0-2); Squamous Epithelial Cell Urine 0-2 /HPF (0-2); WBC Urine 0-5 /HPF (0-5)
--- NOTE | 2023-03-28 20:03 | PC.NURSE ---
Patient stating that he is fine and that he wants to leave. Patient informed that at this time he is not able to leave given statements that he has made to staff. Patient states that his daughter and niece will bring him home and that he's going to go. Provider made aware and reiterated to patient that at this time he is unable to leave. Family at bedside encouraging patient to stay.
[2023-03-28 20:34] LABS: Alanine Aminotransferase 76 U/L (0-40); Albumin Level 4.5 g/dL (3.5-5.0); Alkaline Phosphatase 179 U/L (39-117); Anion Gap 23 (12-20); Aspartate Amino Transferase 67 U/L (5-37); Bilirubin Direct < 0.2 mg/dL (0.0-0.5); Bilirubin Total 0.2 mg/dL (0.0-1.0); Blood Urea Nitrogen 5 mg/dL (9-16); Calcium 9.1 mg/dL (8.4-10.2); Carbon Dioxide 19 mmol/L (22-29); Chloride 105 mmol/L (96-108); Creatinine Clr Calc Pharmacy 101.8; Estimated Glomerular Filt Rate > 60; Glucose Random 326 mg/dL (60-115); Lipase 25 U/L (8-78); Magnesium 2.4 mg/dL (1.6-2.6); Sodium 143 mmol/L (135-145); Total Protein 8.3 g/dL (6.5-8.0)
[2023-03-28 20:43] LABS: Troponin-I High Sensitivity < 2.7 ng/L (<3.5-35.0)
[2023-03-28 21:33] LABS: Ethanol 324 mg/dL
[2023-03-28] MEDS: Magnesium Hydrox/Alum Hydrox 30 ML ORAL.SUSP PO (21:53)
[2023-03-28 22:00] VITALS: BP 125/69; PULSE 98; RESP 19; TEMP 36.6; O2SAT 93
--- NOTE | 2023-03-28 22:45 | MHC.EDTECH ---
Hourly rounds and vitals completed. Patient urinated 800cc of urine in urinal, Patient is sleeping comfortably at this time and 1-1 sitter at bedside.
--- NOTE | 2023-03-28 22:50 | MHC.EDTECH ---
Patient's Daughter Pippa Number is [phone]. Niece is [employer] [phone]
[2023-03-28 23:07] LABS: Amphetamine Screen Urine Not Detected (Not Detect); Barbiturates, Urine Not Detected (Not Detect); Benzodiazepines Screen Urine Not Detected (Not Detect); Cannabinoid Screen Urine Not Detected (Not Detect); Cocaine Screen Urine Not Detected (Not Detect); Fentanyl, urine Not Detected (Not Detect); Opiate Screen Urine Not Detected (Not Detect); Phencyclidine Screen Urine Not Detected (Not Detect)
--- NOTE | 2023-03-28 23:09 | MHC.CARE ---
Pt will be assessed by the CARE team in the morning due to high BAL and need to reach collaterals.
[2023-03-29 00:12] VITALS: BP 131/76; PULSE 104; RESP 16; TEMP 37.4; O2SAT 97
--- NOTE | 2023-03-29 00:13 | MHC.EDTECH ---
Hourly rounds and vitals completed, patient voided 700cc in urinal. Patient is resting comfortably at this time. 1-1 sitter at bedside for safety
[2023-03-29 02:10] VITALS: BP 152/71; PULSE 98; RESP 18; TEMP 37.2; O2SAT 97
--- NOTE | 2023-03-29 02:12 | MHC.EDTECH ---
Hourly rounds and vitals completed,patient voided 600cc in urinal. Patient was giving a pitcher of ice water per request. 1-1 sitter at bedside for safety
[2023-03-29 04:00] VITALS: BP 126/77; PULSE 78; RESP 16; TEMP 37.1; O2SAT 98
[2023-03-29 06:00] VITALS: BP 126/67; PULSE 83; RESP 18; TEMP 37.1; O2SAT 97
--- NOTE | 2023-03-29 07:16 | PC.NURSE ---
Assumed care of this patient at 0700. Patient resting in bed with 1:1 at bedside. Awaiting care team
[2023-03-29 07:39] VITALS: BP 127/79; PULSE 76; RESP 14; TEMP 37.2; O2SAT 96
--- NOTE | 2023-03-29 08:05 | PC.NURSE ---
care team at bedside.
--- NOTE | 2023-03-29 08:13 | MHC.CARE ---
Patient is seen by CARE team, denies active SI, offered recovery team for consult he declines reporting he needs to leave in order to try to get work, needing to pay rent.
--- NOTE | 2023-03-29 08:51 | PC.NURSE ---
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 Medically cleared for discharge.
== END 2023-03-29 08:52 | disposition home or self-care (01) ==
PROVIDERS: Physician Assistant Medical; Emergency Provider Emergency Medicine Emergency Medical Services; PCP Family Medicine
DX: R45.851 Suicidal ideations (principal); F10.10 Alcohol abuse, uncomplicated; Y90.8 Blood alcohol level of 240 mg/100 ml or more; R07.89 Other chest pain; E11.9 Type 2 diabetes mellitus without complications; I10 Essential (primary) hypertension; Z79.4 Long term (current) use of insulin; Z79.82 Long term (current) use of aspirin; Z79.899 Other long term (current) drug therapy
CPT/HCPCS: 36415; 71045; 80048; 80076; 80307; 81001; 83690; 83735; 84484; 85025; 93005; 99285; S9485

== ENCOUNTER 2023-05-29 02:27 | Inpatient (IN) | payer MEDICAID, SELFPAY ==
[2023-05-29] VITALS (9 sets, daily range): BP systolic 119–158; BP diastolic 65–86; PULSE 79–100; RESP 14–18; TEMP 36.2–37.1; O2SAT 95–98; BMI 20.7; BMI 21.8
--- NOTE | ~2023-05-29 | CT_ITS ---
EXAMINATION: CT ABDOMEN AND PELVIS WITH CONTRAST CLINICAL INFORMATION: Abdominal pain. COMPARISON: None available. TECHNIQUE: Multidetector volumetric images were obtained from the superior aspect of the liver through the pubic symphysis following administration 85 mL of Omnipaque 350 intravenous contrast. Sagittal and coronal reformatted images were obtained on the technologist's workstation. Oral contrast: No This CT examination was performed using dose optimization techniques as appropriate, variously including the following: *Automated exposure control *Adjustment of mA and/or kV according to patient size (this includes techniques or standardized protocols for targeted exams where dose is matched to indication/reason for exam; i.e. extremities or head) *Use of iterative reconstruction technique DLP: 337 mGy-cm FINDINGS: LUNG BASES: The visualized lung bases are unremarkable. LIVER, GALLBLADDER, AND BILIARY TREE: The liver is of diminished attenuation. No focal liver lesions are seen. There is no intrahepatic biliary duct dilatation. There has been a prior cholecystectomy. PANCREAS: Unremarkable. SPLEEN: Unremarkable. ADRENAL GLANDS: Unremarkable. KIDNEYS AND URETERS: The kidneys are normal in size, shape, and attenuation. No hydronephrosis, hydroureter, or calculi seen. No perinephric stranding. BLADDER: Unremarkable. GASTROINTESTINAL TRACT: There is retained stool intermixed with gas throughout the colon with mild distention. The appendix is visualized and is within normal limits. ABDOMINAL WALL: There is a small umbilical hernia containing fat. LYMPH NODES: Normal. VASCULAR: Unremarkable. PELVIC VISCERA: Unremarkable. OSSEOUS STRUCTURES: Unremarkable. CT/CT abdomen pelvis w IV con IMPRESSION: Fatty infiltration of the liver. Retained stool and gas throughout the colon with mild distention. No other significant abnormality seen. Fleischner guidelines were followed. Fleischner guidelines were followed.
--- NOTE | 2023-05-29 02:42 | ECG_ITS ---
Test Reason : ABDOMINAL PAIN Blood Pressure : / mmHG Vent. Rate : 085 BPM Atrial Rate : 086 BPM P-R Int : 156 ms QRS Dur : 088 ms QT Int : 392 ms P-R-T Axes : 067 023 063 degrees QTc Int : 466 ms Normal sinus rhythm with sinus arrhythmia Normal ECG When compared with ECG of 28-MAR-2023 19:21, No significant change was found Referred By: Shelley Tamayo Electronically Signed By:JESUS LOGAN MD
--- NOTE | 2023-05-29 02:49 | ED.ABDPAIN ---
HPI - Abdominal Pain General Chief Complaint: Abdominal Pain Stated Complaint: abd pain Time Seen by Provider: 05/29/23 02:43 Source: patient and old records reviewed Mode of arrival: ambulatory Limitations: no limitations History of Present Illness HPI narrative: 48 yo male with PMH of HTN, DM, alcohol abuse, prior cholecystectomy, HLD, pancreatitis - last admit July 2022 for ETOH pancreatitis here with c/o last drink yesterday after binge drinking all week with 10 to 15 beers a day. He started vomiting and has a sore throat. He has abdominal pain as well and is worried he has pancreatitis. He has no prior hx of seizures. MD elicited complaint: abdominal pain Pertinent past history: other (pancreatitis) Onset (ago): day(s) (1) Pain Consistency: constant Location: epigastric Severity: severe Quality: stabbing Radiation: back Migration to: no migration Exacerbating factors: eating, vomiting and movement Relieving factors: nothing Context: history of similar episodes Associated symptoms: nausea, vomiting and other (sore throat) Related Data Home Medications Medication Instructions Recorded Confirmed insulin glargine 100 unit/mL 8 unit subcut DAILY 08/09/20 03/23/23 subcutaneous solution (Lantus U-100 Insulin) lisinopril 5 mg tablet 5 mg PO DAILY 08/09/20 03/23/23 folic acid 1 mg tablet 1 tab PO DAILY 12/27/21 03/23/23 metformin 500 mg tablet,extended 500 mg PO BID 12/27/21 03/23/23 release 24 hr rosuvastatin 40 mg tablet 1 tab PO BEDTIME 12/27/21 03/23/23 aspirin 81 mg tablet,delayed 1 tab PO DAILY 08/04/22 03/23/23 release empagliflozin 10 mg tablet 1 tab PO DAILY 08/04/22 03/23/23 (Jardiance) ergocalciferol (vitamin D2) 1,250 1 cap PO WE@0900 08/04/22 03/23/23 mcg (50,000 unit) capsule Previous Rx's Medication Instructions Recorded omeprazole 20 mg tablet,delayed 20 mg PO DAILY #30 tabs 08/08/22 release oxycodone 5 mg tablet 5 mg PO Q8H PRN pain #6 tabs 08/08/22 acetaminophen 325 mg tablet 650 mg (2 x 325 mg) PO Q6H PRN 03/17/23 pain #30 tabs Allergies Allergy/AdvReac Type Severity Reaction Status Date / Time No Known Allergies Allergy Verified 03/28/23 18:43 Review of Systems Review of Systems Constitutional : No Weight loss, No Fever, No Chills ENT/Mouth : pos sore throat, No Rhinorrhea Eyes: No Swelling, No Redness Cardiovascular : No Chest Pain, No SOB, NoEdema Respiratory : No Cough, No Sputum, No Wheezing Gastrointestinal : Positive Nausea, Positive Vomiting, no Diarrhea, positive abdominal Pain, No Hematochezia, No Melena Genitourinary : No Dysuria, No Urinary Frequency, No Hematuria, No Urgency Musculoskeletal : No joint pain, No Myalgias, No Joint Swelling Skin : No Skin Lesions, No rash Neuro : No Weakness, No Numbness, No Dizziness, No Headache Psych : No Anxiety/Panic, No Depression Heme/Lymph: No Bruising, No Lymphadenopathy Endocrine : No Polyuria, No Polydipsia All other systems reviewed and are negative. [facility] Past Medical History Attestation statement: The following information was validated with the patient. Source: old records reviewed Medical History Alcohol abuse HTN (hypertension) Diabetes Surgical History History of laparoscopic cholecystectomy Social History Social History Household Members: None Household Members Other:: one child Housing: Apartment Do you presently have visiting nurse or other home services: No Alcohol intake: current Alcohol intake frequency: 3 or more drinks per day Alcohol type: beer Patient Tobacco Use Status: Never used Tobacco Smoked in Last 30 Days: No Use of substances other than those prescribed or required for medical reasons: No Advance Directives: Yes Advance Directives on File: Yes Advance Directives Date on File: 11/01/20 service: No Current occupational status: employed 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 [employer] [facility] [place] Physical Exam ED Vital Signs: Vital Signs - 24 hr 05/29/23 02:36 05/29/23 02:46 05/29/23 05:03 Temperature 98.1 F 98.1 F 98.1 F Pulse Rate 86 86 89 Respiratory Rate 18 16 14 Blood Pressure 147/85 H 147/85 H 127/67 Pulse Oximetry 95 97 97 Oxygen Delivery Method Room Air Room Air Room Air BMI result Body Mass Index 20.7 Appearance: Alert. Oriented X3. No acute distress. Eyes: Pupils equal, round and reactive to light. ENT: Pharynx white patches on lower anterior gingiva, tongue and soft palate consistent with thrush Neck: Normal inspection. Neck supple. CVS: Normal heart rate and rhythm. Pulses normal. Respiratory: No respiratory distress. Breath sounds normal. Abdomen: Soft and ttp in epigastric area no rebound Skin: Skin warm and dry. Normal skin color. Normal skin turgor. Extremities: No lower extremity edema. No calf ttp Neuro: Oriented X 3. No motor deficit. No sensory deficit. Course Course Course Narrative: pain improved with IV morphine Medical Decision Making Medical Decision Making [facility] Narrative: 48 yo male with PMH of HTN, DM, alcohol abuse, prior cholecystectomy, HLD, pancreatitis - last admit July 2022 for ETOH pancreatitis here with c/o n/v abominal pain and signs of thrush - he is worried he has pancreatitis at this time labs, IVF, IV magnesium/thiamine, IV morphine for pain, CT scan for pancreatitis ordered. Phenobarb protocol ordered, nystatin ordered as well. WBC likely due to vomiting and not infection or severe sepsis - hx of same in past. Differential Diagnosis Differential Diagnoses: The differential diagnosis associated with the presentation includes pancreatitis, ETOH gastritis, thrush, alcohol use disorder Admission/Observation Consideration of admission/observation: Escalation of care including admission/observation considered admit for further workup and managements Consult Healthcare Provider Management of the patient was discussed with: Hospitalist (agrees to admit patient) Lab Data [facility] Lab Attestation statement: I reviewed the patient's lab results. 05/29/23 02:54 05/29/23 02:54 Labs: Lab Results 05/29/23 05/29/23 Range/Units 02:54 03:29 WBC 20.6 H (4.8-10.8) X10*3/uL RBC 4.95 (4.60-5.80) X10*6/uL Hgb 16.0 (14.0-18.0) g/dl Hct 44.5 (42.0-52.0) % MCV 89.9 (80.0-98.0) fL MCH 32.3 (27.0-33.0) pg MCHC 36.0 (31.0-36.0) g/dl RDW 11.9 (11.0-16.0) % Plt Count 361 (160-400) X10*3/uL MPV 10.2 (9.4-12.4) fL Immature Gran % (Auto) 0.5 H (0.0-0.4) % Neut % (Auto) 88.9 H (45-73) % Lymph % (Auto) 7.4 L (20-40) % Jack % (Auto) 2.8 (2-11) % Eos % (Auto) 0.0 (0-4) % Baso % (Auto) 0.4 (0-2) % Lymph # (Auto) 1.5 (1.2-4.9) X10*3/uL Jack # (Auto) 0.6 (0.1-1.2) X10*3/uL Eos # (Auto) 0.0 (0.0-0.4) X10*3/uL Baso # (Auto) 0.1 (0.0-0.2) X10*3/uL Abs Immat Gran (auto) 0.10 H (0.00-0.03) X10*3/uL Absolute Neuts (auto) 18.3 H (2.0-8.3) x10*3/uL Absolute Nucleated RBC 0.000 (0.0-0.012) X10*3/uL Nucleated RBC % (auto) 0.0 (0.0-0.2) /100WBC PT 10.4 L (11.1-13.3) SEC INR 0.9 (0.9-1.1) Sodium 134 L (135-145) mmol/L Potassium 4.2 (3.3-5.1) mmol/L Chloride 95 L (96-108) mmol/L Carbon Dioxide 17 L (22-29) mmol/L Anion Gap 26 H (12-20) BUN 14 (9-16) mg/dL Creatinine 0.71 (0.5-1.4) mg/dL Estim Creat Clear Calc 101.6 Estimated GFR > 60 Random Glucose 152 H (60-115) mg/dL Calcium 10.1 D (8.4-10.2) mg/dL Magnesium 2.1 (1.6-2.6) mg/dL Total Bilirubin 0.7 (0.0-1.0) mg/dL Direct Bilirubin 0.2 (0.0-0.5) mg/dL AST 73 H (5-37) U/L ALT 86 H (0-40) U/L Alkaline Phosphatase 236 H (39-117) U/L Lactate Dehydrogenase 217 (118-273) U/L Total Protein 8.0 (6.5-8.0) g/dL Albumin 4.0 (3.5-5.0) g/dL Lipase 13 (8-78) U/L Ethyl Alcohol 99 mg/dL COVID-19 (BRAYAN) Negative (Negative) COVID-19 Clin Com See Note Independent Interpretation I performed an independent interpretation of an: EKG and CT Scan (no signs of pancreatitis) Interpretation: Rate: 85 Rhythm: NSR [place]: normal Normal P waves. Normal DAVID. Normal QRS complex. ST T wave : normal no SHAVON qTC: normal prior studies: no acute ischemia The study has been interpreted contemporaneously by me. . Radiology Impression Discussion of test interpretation with radiology: I have reviewed the radiologist's reading. External Record Review External record reviewed: Inpatient record Medications Administered Generic Name Dose Route Start Last Admin Trade Name Freq PRN Reason Stop Dose Admin Dextrose/Sodium Chloride 1,000 mls @ 125 mls/hr 05/29/23 05:45 05/29/23 06:32 D5ns IVCONT 125 mls/hr .Q8H LUIS Administration Discontinued Medications Generic Name Dose Route Start Last Admin Trade Name Freq PRN Reason Stop Dose Admin Magnesium Sulfate 2 gm in 50 mls @ 25 mls/hr 05/29/23 02:42 05/29/23 03:17 Magnesium Sulfate/H2o IV 05/29/23 04:41 25 mls/hr ONCE ONE Administration Sodium Chloride 1,000 mls @ 999 mls/hr 05/29/23 02:45 05/29/23 03:28 Ns IVCONT 05/29/23 03:45 999 mls/hr .Q1H1M LUIS Administration Thiamine HCl 200 mg/ Sodium 102 mls @ 204 mls/hr 05/29/23 02:42 05/29/23 03:47 Chloride IV 05/29/23 03:11 Infused ONCE ONE Infusion Iohexol 85 ml 05/29/23 03:53 05/29/23 03:53 Iohexol 350 Mg/Ml 100 Ml Infus..Btl IV 05/29/23 03:54 85 ml ONCE ONE Administration Morphine Sulfate 4 mg 05/29/23 02:42 05/29/23 03:27 Morphine Sulfate 4 Mg/Ml Cartridge IVPUSH 05/29/23 02:43 4 mg ONCE ONE Administration Protocol Nystatin 400,000 unit 05/29/23 03:07 05/29/23 04:46 Nystatin Oral Susp 500,000 Unit/5 Ml Oral.Susp PO 05/29/23 03:08 400,000 unit ONCE ONE Administration Protocol Ondansetron HCl 4 mg 05/29/23 02:42 05/29/23 03:17 Ondansetron Hcl 4 Mg/2 Ml Vial IVPUSH 05/29/23 02:43 4 mg ONCE ONE Administration Phenobarbital Sodium 250 mg 05/29/23 03:45 05/29/23 04:47 Phenobarbital Sodium 130 Mg/Ml Im Once IM 05/29/23 03:46 250 mg ONCE ONE Administration Critical Care Time Critical Care Time Critical Care Time: Yes Total Critical Care Time: 35 Attestation: IV magnesium, IV morphine for pain I attest to this time spent taking care of the patient Discharge Plan Discharge Clinical Impression: Elevated LFTs, Alcohol use disorder, Alcoholic ketoacidosis, Oral thrush Abdominal pain Qualifiers: Abdominal location: epigastric Qualified Code(s): R10.13 - Epigastric pain Patient Disposition: Admitted As Inpatient
[2023-05-29 02:58] LABS: MANUAL DIFF FLAG NO
[2023-05-29 02:59] LABS: Basophils Absolute Auto 0.1 X10*3/uL (0.0-0.2); Basophils Percent Auto 0.4 % (0-2); Hematocrit 44.5 % (42.0-52.0); Imm Gran Pct Auto 0.5 % (0.0-0.4); Lymphocytes Absolute Auto 1.5 X10*3/uL (1.2-4.9); Lymphocytes Percent Auto 7.4 % (20-40); Mean Corpuscular Hemoglobin 32.3 pg (27.0-33.0); Mean Corpuscular Volume 89.9 fL (80.0-98.0); Mean Platelet Volume 10.2 fL (9.4-12.4); Monocytes Absolute Auto 0.6 X10*3/uL (0.1-1.2); Monocytes Percent Auto 2.8 % (2-11); Neutrophils Absolute Auto 18.3 x10*3/uL (2.0-8.3); Neutrophils Percent Auto 88.9 % (45-73); Platelet Count 361 X10*3/uL (160-400); Red Blood Count 4.95 X10*6/uL (4.60-5.80); Red Cell Distribution Width 11.9 % (11.0-16.0); White Blood Count 20.6 X10*3/uL (4.8-10.8)
[2023-05-29 03:04] LABS: INTERNATIONAL NORM RATIO 0.9 (0.9-1.1); Prothrombin Time 10.4 SEC (11.1-13.3)
[2023-05-29] MEDS: Magnesium Sulfate/H2O 2 GM/50 ML PIGGYBACK IV (03:17)
[2023-05-29] MEDS: Thiamine HCL 200 MG in 0.9 % Sodium Chloride 100 ML 204 MG IV (03:17)
[2023-05-29] MEDS: ondansetron HCL 4 MG/2 ML VIAL IVPUSH (03:17)
[2023-05-29 03:19] LABS: Alanine Aminotransferase 86 U/L (0-40); Alkaline Phosphatase 236 U/L (39-117); Anion Gap 26 (12-20); Aspartate Amino Transferase 73 U/L (5-37); Bilirubin Direct 0.2 mg/dL (0.0-0.5); Bilirubin Total 0.7 mg/dL (0.0-1.0); Blood Urea Nitrogen 14 mg/dL (9-16); Calcium 10.1 mg/dL (8.4-10.2); Carbon Dioxide 17 mmol/L (22-29); Chloride 95 mmol/L (96-108); Creatinine Clr Calc Pharmacy 101.6; Estimated Glomerular Filt Rate > 60; Ethanol 99 mg/dL; Glucose Random 152 mg/dL (60-115); Lactate Dehydrogenase 217 U/L (118-273); Lipase 13 U/L (8-78); Magnesium 2.1 mg/dL (1.6-2.6); Potassium 4.2 mmol/L (3.3-5.1); Sodium 134 mmol/L (135-145)
[2023-05-29] MEDS: Morphine Sulfate 4 MG/ML CARTRIDGE IVPUSH (03:27)
[2023-05-29] MEDS: 0.9 % Sodium Chloride 1,000 ML 999 ML IVCONT (03:28)
[2023-05-29 03:49] LABS: COVID-19 Test Negative (Negative); IDNOW Serial# 08D9AD1C
[2023-05-29] MEDS: iohexoL 350 MG/ML 100 ML INFUS..BTL 85 ML IV (03:53)
[2023-05-29] MEDS: Nystatin Oral Susp 500,000 UNIT/5 ML ORAL.SUSP 400000 UNIT PO ×5 (04:46→22:32)
[2023-05-29] MEDS: PHENobarbitaL sodium 130 MG/ML IM ONCE 250 MG IM (04:47)
--- NOTE | 2023-05-29 05:43 | PM.IMHP ---
History of Present Illness Date of Service: 05/29/23 Chief Complaint: Vomiting, abd pain A 48 years old male with PMH of alcoholis, pancreatitis, HLD , DMII who presents to the hospital with 1 day of abd pain and vomiting after binge drinking for a week. The patient reports being drinking 10-15 beers a day for the last week until he started having abdominal pain associated with nausea and vomiting. he became worried as he had pancreatitis before. was unable to tolerate diet for the day from vomiting. Last drink last night as alcohol level still positive. No chest pain, palpitations, SOB, diarrhea or urinary symptoms. Found to have elevated WBCs but normal lipase. CT scan negative for pancreatitis. Admitted for further eval and treatment. Review of Systems Review of Systems: No fever, chills or weakness No chest pain, palpitation No shortness of breath or coughing abdominal pain with nausea or vomiting No urinary symptoms No any rash or wounds [facility] Medical History Alcohol abuse HTN (hypertension) Diabetes Surgical History History of laparoscopic cholecystectomy Social History Household Members: Other Household Members Other:: rents a room in a house with roommates Housing: Apartment Do you presently have visiting nurse or other home services: No Alcohol intake: current Alcohol intake frequency: 3 or more drinks per day Alcohol type: beer Patient Tobacco Use Status: Never used Tobacco Advance Directives Date on File: 11/01/20 service: No Current occupational status: employed 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[facility] [employer] [facility] Allergies Allergy/AdvReac Type Severity Reaction Status Date / Time No Known Allergies Allergy Verified 03/28/23 18:43 Active Medications: Current Medications Sodium Chloride (Ns) 1,000 mls @ 100 mls/hr IVCONT .Q10H [facility] Pharmacy Consult (Consult Rx Etoh Phenob Im/Po) 1 each MISCELLANE ONCE PRN; Protocol PRN Reason: Consult order Phenobarbital (Phenobarbital 30 Mg Tablet) 60 mg PO BID [facility]; Protocol Stop: 05/30/23 21:01 Phenobarbital (Phenobarbital 30 Mg Tablet) 30 mg PO BID [facility]; Protocol Stop: 05/30/23 21:01 Phenobarbital (Phenobarbital 15 Mg Tablet) 15 mg PO DAILY [facility] Stop: 05/30/23 09:01 Phenobarbital Sodium (Phenobarbital Sodium 130 Mg/Ml Vial Im Q3hx2) 185 mg IM Q3H [facility] Stop: 05/29/23 10:46 Home Medications Medication Instructions Recorded Confirmed Last Taken Type insulin glargine 100 unit/mL 10 unit subcut BEDTIME 08/09/20 05/29/23 05/26/23 History subcutaneous solution (Lantus U-100 Insulin) lisinopril 5 mg tablet 5 mg PO DAILY 08/09/20 05/29/23 05/26/23 History metformin 500 mg tablet,extended 500 mg PO BID 12/27/21 05/29/23 08/03/22 History release 24 hr aspirin 81 mg tablet,delayed 1 tab PO DAILY 08/04/22 05/29/23 05/26/23 History release Physical Exam Vital Signs and Narrative: Vital Signs: Last Vital Signs Temp 98.1 F 05/29/23 05:03 Pulse 89 05/29/23 05:03 Resp 14 05/29/23 05:03 BP 127/67 05/29/23 05:03 Pulse Ox 97 05/29/23 05:03 O2 Del Method Room Air 05/29/23 05:03 BMI result Body Mass Index 20.7 Const: Other: Constitutional : Awake, interactive, mildly anxious Neck : Normal inspection, Supple Cardiovascular : RRR, no JVP, no lower extremity edema Respiratory : good bilateral air entry, no crackles, wheezes or rhonchi Gastrointestinal: soft, lax, Normal bowel sounds, Non tender Skin : Warm, Dry Neurological : Alert & oriented x3, No focal deficit Results Labs 05/30/23 10:10 05/30/23 10:10 Labs: Laboratory Results - last 24 hr 05/29/23 05/29/23 02:54 03:29 MCV 89.9 MCH 32.3 MCHC 36.0 RDW 11.9 Plt Count 361 MPV 10.2 Immature Gran % (Auto) 0.5 H Neut % (Auto) 88.9 H Lymph % (Auto) 7.4 L [place] % (Auto) 2.8 Eos % (Auto) 0.0 Baso % (Auto) 0.4 Lymph # (Auto) 1.5 [place] # (Auto) 0.6 Eos # (Auto) 0.0 Baso # (Auto) 0.1 Abs Immat Gran (auto) 0.10 H Absolute Neuts (auto) 18.3 H Absolute Nucleated RBC 0.000 Nucleated RBC % (auto) 0.0 PT 10.4 L INR 0.9 Anion Gap 26 H Estim Creat Clear Calc 101.6 Estimated GFR > 60 Random Glucose 152 H Calcium 10.1 D Magnesium 2.1 Total Bilirubin 0.7 Direct Bilirubin 0.2 AST 73 H ALT 86 H Alkaline Phosphatase 236 H Lactate Dehydrogenase 217 Total Protein 8.0 Albumin 4.0 Lipase 13 Ethyl Alcohol 99 COVID-19 ([facility]) Negative COVID-19 Clin Com See Note Imaging Radiologist's Impressions: Impressions Abdomen/Pelvis CT 05/29/23 04:01 IMPRESSION: Fatty infiltration of the liver. Retained stool and gas throughout the colon with mild distention. No other significant abnormality seen. Fleischner guidelines were followed. Fleischner guidelines were followed. Assessment and Plan (1) Alcoholic ketoacidosis: Status: Acute (2) Alcohol use disorder: Status: Acute (3) Oral thrush: Status: Acute (4) Abdominal pain: Qualifiers: Abdominal location: epigastric Qualified Code(s): R10.13 - Epigastric pain Status: Acute Plan A 48 years old male with PMH of alcoholis, pancreatitis, HLD , DMII who presents to the hospital with 1 day of abd pain and vomiting after binge drinking for a week. Abdominal pain, vomiting 2/2 Binge drinking in alcoholic possible alcoholic gastritis give PPI clears IVF Zofran PRN Alcoholic Ketoacidosis wide anion gap of 26 Give IVF follow BMP Alcoholism with risk for withdrawal started on PHenobarbital in ED thiamine, MV Advised complete abstinence DMII Hold lantus abd PO SSI HTN Lisinopril DVT PPx Lovenox Med rec pending The patient will likely need 2 overnight hospital stay for above pending clinical improvement. Time Spent With Patient Time: Total time managing care of this patient today ____ minutes. Quality Stroke Does the patient have a stroke diagnosis?: No VTE Prior VTE?: No VTE Risk Level:: Medical - moderate - high VTE Device Contraindication: Treatment Not Indicated VTE Drug Contraindication: N/A - Med Ordered
[2023-05-29] MEDS: Dextrose 5 % and 0.9 % NaCl 1,000 ML 125 ML IVCONT ×3 (06:32→22:40)
--- NOTE | 2023-05-29 06:43 | PC.NURSE ---
Pt biba from home with reports of RUQ pain, nausea and vomiting blood. Pt reports binge drinking for the past week and has a history of pancreatitis. PT reports current symptoms and pain are similar to the of past episode of pancreatitis. Labs drawn, ekg completed, cardiac monitoring established, urine sample obtained. two iv lines placed- LAC and right forearm. Medications administered as per SEP- This RN verified D5in NS and NS orders as they appeared to be duplicate. MD updated orders. Call fisher within reach. Plan of care ongoing
[2023-05-29 07:00] LABS: Amphetamine Screen Urine Not Detected (Not Detect); Barbiturates, Urine POSITIVE (Not Detect); Benzodiazepines Screen Urine Not Detected (Not Detect); Cannabinoid Screen Urine Not Detected (Not Detect); Cocaine Screen Urine Not Detected (Not Detect); Fentanyl, urine Not Detected (Not Detect); Opiate Screen Urine POSITIVE (Not Detect); Phencyclidine Screen Urine Not Detected (Not Detect)
[2023-05-29 07:31] LABS: Glucose, Whole Blood 167 mg/dL (60-115)
[2023-05-29] MEDS: Enoxaparin Sodium 40 MG/0.4 ML SYRINGE SUBCUT (07:47)
[2023-05-29] MEDS: PHENobarbitaL sodium 130 MG/ML VIAL IM Q3Hx2 185 MG IM ×2 (07:48→11:33)
[2023-05-29] MEDS: Insulin Lispro 100 UNIT/ML 3 ML VIAL SUBCUT ×3 (07:48→17:19)
[2023-05-29] MEDS: 0.9 % Sodium Chloride Flush 3 ML SYRINGE IVFLUSH ×3 (08:07→22:33)
--- NOTE | 2023-05-29 08:50 | PC.NURSE ---
Alert and oriented, medicated per mar. Patient denies headache, nausea or tremors. NSR on monitor.
--- NOTE | 2023-05-29 09:16 | MHC.CM.PN ---
CM spoke with patient via an branch office manager, he lives alone in a rented room, he does not have home health services, he has not used [facility] or [facility] in the past. PCP confirmed: Kristin León at [facility], HCP is on file and confirmed with him, Ana Carnes, he will need a ride home [facility]. Plan is home, self care.
[2023-05-29 11:40] LABS: Anion Gap 17 (12-20); Blood Urea Nitrogen 13 mg/dL (9-16); Calcium 8.5 mg/dL (8.4-10.2); Carbon Dioxide 22 mmol/L (22-29); Chloride 100 mmol/L (96-108); Creatinine Clr Calc Pharmacy 107.7; Estimated Glomerular Filt Rate > 60; Glucose Random 189 mg/dL (60-115); Potassium 4.3 mmol/L (3.3-5.1); Sodium 135 mmol/L (135-145)
[2023-05-29 12:04] LABS: Glucose, Whole Blood 169 mg/dL (60-115)
--- NOTE | 2023-05-29 12:55 | PHA.MEDREC ---
Pharmacy Consult ? Medication Reconciliation Pharmacy has completed the medication reconciliation. Spoke to pt via dye stand loader. He was able to list his medications and confirmed he uses 10 units lantus at bedtime. He has not taken any home meds since the .
[2023-05-29 17:09] LABS: Glucose, Whole Blood 172 mg/dL (60-115)
--- NOTE | 2023-05-29 17:22 | PC.NURSE ---
Alert and oriented, denies pain or discomfort, vss, nsr on monitor, medicated per mar
[2023-05-29 21:27] LABS: Glucose, Whole Blood 110 mg/dL (60-115)
[2023-05-29] MEDS: Acetaminophen 325 MG TABLET 650 MG PO (22:32)
[2023-05-29] MEDS: Morphine Sulfate 4 MG/ML CARTRIDGE 2 MG IVPUSH (22:32)
[2023-05-29] MEDS: PHENobarbitaL 30 MG TABLET 60 MG PO (22:34)
[2023-05-30 03:59] VITALS: BP 127/77; PULSE 67; RESP 16; TEMP 36.2; O2SAT 98
[2023-05-30] MEDS: Dextrose 5 % and 0.9 % NaCl 1,000 ML 125 ML IVCONT ×2 (06:01→13:53)
[2023-05-30 07:29] VITALS: BP 124/73; PULSE 72; RESP 18; TEMP 36.1; O2SAT 98
[2023-05-30 07:50] LABS: Glucose, Whole Blood 149 mg/dL (60-115)
[2023-05-30] MEDS: Enoxaparin Sodium 40 MG/0.4 ML SYRINGE SUBCUT (08:38)
[2023-05-30] MEDS: Aspirin Enteric Coated 81 MG TABLET.DR PO (08:38)
[2023-05-30] MEDS: PHENobarbitaL 30 MG TABLET 60 MG PO (08:38)
[2023-05-30] MEDS: Nystatin Oral Susp 500,000 UNIT/5 ML ORAL.SUSP 400000 UNIT PO ×2 (08:39→11:57)
[2023-05-30] MEDS: ondansetron HCL 4 MG/2 ML VIAL IVPUSH (08:51)
[2023-05-30 10:28] LABS: Hematocrit 40.1 % (42.0-52.0); Hemoglobin 13.9 g/dl (14.0-18.0); Mean Corpuscular HGB Conc 34.7 g/dl (31.0-36.0); Mean Corpuscular Hemoglobin 32.4 pg (27.0-33.0); Mean Corpuscular Volume 93.5 fL (80.0-98.0); Mean Platelet Volume 10.7 fL (9.4-12.4); Platelet Count 259 X10*3/uL (160-400); Red Blood Count 4.29 X10*6/uL (4.60-5.80); Red Cell Distribution Width 11.6 % (11.0-16.0); White Blood Count 13.8 X10*3/uL (4.8-10.8)
[2023-05-30 10:46] LABS: Anion Gap 14 (12-20); Blood Urea Nitrogen 12 mg/dL (9-16); Calcium 8.5 mg/dL (8.4-10.2); Carbon Dioxide 22 mmol/L (22-29); Chloride 100 mmol/L (96-108); Estimated Glomerular Filt Rate > 60; Glucose Random 329 mg/dL (60-115); Lipase 18 U/L (8-78); Potassium 3.8 mmol/L (3.3-5.1); Sodium 132 mmol/L (135-145)
[2023-05-30 11:25] LABS: Glucose, Whole Blood 329 mg/dL (60-115)
[2023-05-30] MEDS: Omeprazole 20 MG CAPSULE.DR PO (11:58)
[2023-05-30] MEDS: Insulin Lispro 100 UNIT/ML 3 ML VIAL SUBCUT (11:58)
[2023-05-30] MEDS: Morphine Sulfate 4 MG/ML CARTRIDGE 2 MG IVPUSH (12:06)
--- NOTE | 2023-05-30 13:29 | PM.DS ---
DS: Providers Provider Date of Service: 05/30/23 Date of admission: 05/29/23 05:37 Date of discharge: 05/30/23 Primary care physician: Kristin León DO Consults: 05/30/23 13:25 Addiction Medicine Routine Consulting Provider: Addiction Covering Reason for consultation: alcohol use Has provider been notified: No Attending physician on discharge: Jose M Martinez Discharging clinician: Jose M Martinez DS: Diagnosis Discharge Diagnosis (1) Alcoholic ketoacidosis: Status: Acute (2) Alcohol use disorder: Status: Acute (3) Oral thrush: Status: Acute (4) Abdominal pain: Status: Acute DS: Summary Hospital Course Hospital Course: 48 years old male with PMH of alcoholis, pancreatitis, HLD , DMII who presents to the hospital with 1 day of abd pain and vomiting after binge drinking for a week. The patient reports being drinking 10-15 beers a day for the last week until he started having abdominal pain associated with nausea and vomiting. he became worried as he had pancreatitis before. was unable to tolerate diet for the day from vomiting. Last drink last night as alcohol level still positive. No chest pain, palpitations, SOB, diarrhea or urinary symptoms. Found to have elevated WBCs but normal lipase. CT scan negative for pancreatitis. Admitted for further eval and treatment. Hospital course: Patient was admitted for abdominal pain and alcohol withdrawal: Started on IV fluids, ppi, bowel rest, phenobarb protocol: So patient seems to be improved significantly. Abdominal pain improved, tolerating diet, going home with PPI. Patient was strongly advised to abstain from alcohol. Alcoholic ketoacidosis: Seems to be improved with hydration. mild elevated lft's -possible related to alcohol use. Oral thrush: Added nystatin. plan: cotninue omeprazole by mouth twice daily complete nystatin for 6 more days Monitor LFTs outpatient Patient was advised to follow up with PCP for further management. Time Attestation Discharge coordination time: Greater than 30 minutes Quality: Safe Use of Opioids Does Pt have an Active Cancer Diagnosis on the Problem List?: No Quality: Stroke Does the patient have a stroke diagnosis?: No Physical Exam Vital Signs: Vital Signs: Last Vital Signs Temp 97.0 F 05/30/23 07:29 Pulse 72 05/30/23 07:29 Resp 18 05/30/23 07:29 BP 124/73 05/30/23 07:29 Pulse Ox 98 05/30/23 07:29 O2 Del Method Room Air 05/30/23 07:29 BMI result Body Mass Index 21.8 Appearance: Alert.? Oriented X3.? Eyes: Pupils equal, round and reactive to light.? Sclera nonicteric.? ENT: Pharynx normal.? Moist mucous membranes. cvs: rrr, [id number] , no murmur res: clear to auscultation ,no rhonchii or wheezing abd: no rebound or guarding ,nt, bs present. ext pulses present , no cyanosis . neuro: axo3 , nonfocal. DS: Data Data Completed and Pending Labs on day of discharge: Laboratory Results - last 24 hr 05/29/23 05/29/23 05/30/23 17:05 21:19 07:18 WBC RBC Hgb Hct MCV MCH MCHC RDW Plt Count MPV Absolute Nucleated RBC Nucleated RBC % (auto) Sodium Potassium Chloride Carbon Dioxide Anion Gap BUN Creatinine Estim Creat Clear Calc Estimated GFR POC Glucose 172 H 110 149 H Random Glucose Calcium Lipase 05/30/23 05/30/23 10:10 11:21 WBC 13.8 H RBC 4.29 L Hgb 13.9 L Hct 40.1 L MCV 93.5 MCH 32.4 MCHC 34.7 RDW 11.6 Plt Count 259 D MPV 10.7 Absolute Nucleated RBC 0.000 Nucleated RBC % (auto) 0.0 Sodium 132 L Potassium 3.8 Chloride 100 Carbon Dioxide 22 Anion Gap 14 BUN 12 Creatinine 0.66 Estim Creat Clear Calc 115.0 Estimated GFR > 60 POC Glucose 329 H Random Glucose 329 H Calcium 8.5 Lipase 18 Discharge Plan Discharge Anticipated Discharge Date/Time: 05/30/23 13:24 Patient Disposition: Home, Self-Care Discharge Diagnosis: abd pain ,alcohol withdrawal Referrals: Kristin León DO [Primary Care Provider] - 1 Week Discharge Medications: New omeprazole 20 mg Capsule,Delayed Release(Dr/Ec) 20 mg PO BID@0630,1630 Qty: 60 0RF nystatin 500,000 unit tablet 500,000 unit PO QID Qty: 24 0RF Continued insulin glargine [Lantus U-100 Insulin] 100 unit/mL Solution 10 unit SUBCUT BEDTIME lisinopril 5 mg Tablet 5 mg PO DAILY metformin 500 mg tablet extended release 24 hr 500 mg PO BID aspirin 81 mg tablet,delayed release (DR/EC) 1 tab PO DAILY Discharge Orders: Discharge Order (Routine); Ordered 05/30/23 Ordered By: Jose M Martinez Diet: Advance to usual diet Activity on Discharge: As tolerated Stand Alone Forms: Patient Portal Discharge page Care Plan Goals: Patient was admitted for abdominal pain and alcohol withdrawal: Started on IV fluids, ppi, bowel rest, phenobarb protocol: So patient seems to be improved significantly. Abdominal pain improved, tolerating diet, going home with PPI. Patient was strongly advised to abstain from alcohol. Alcoholic ketoacidosis: Seems to be improved with hydration. Oral thrush: Added nystatin. Patient was advised to follow up with PCP for further management. Health Concerns: As above. Plan of Treatment: As above. Assessment: As above.
--- NOTE | 2023-05-30 15:00 | MHC.CM.PN ---
Patient is discharged to home self care. He has arranged for his to drive him home.
--- NOTE | 2023-05-30 15:31 | HO.ADDICTCON ---
History of Present Illness Date of Service: 05/30/2023 Chief Complaint: vomiting, alcohol intox, leukocytosis Reason for Consult: AUD Sources of Information: patient interviewed and chart reviewed HPI Narrative: Patient is a 48 year old Cypriot speaking male currently medically admitted with abdominal pain and alcohol withdrawal. He reports drinking at least a 12 pack of beer daily, and states that stress and depression often trigger his desire to drink. He has been medically admitted in the past for pancreatitis and states I have to stop, I can;'t keep drinking . Discussed treatment options, and he indicated that he would like to start Naltrexone as he has previously discussed this with his PCP at [facility]> Denies any other substance use. Denies any history of treatment While he was admitted with concern of alcohol withdrawal, CIWA scores have been 1 or 0 since time of admission. Review of Systems Constitutional: Reports as per HPI and Reports no additional constitutional complaints Diagnostics Vital Signs (24Hr): Vital Signs - 24 hr 05/29/23 15:56 05/29/23 20:49 05/29/23 21:17 Temperature 98.7 F 97.1 F 98.2 F Pulse Rate 89 81 80 Respiratory Rate 14 18 16 Blood Pressure 147/77 H 119/71 130/72 Pulse Oximetry 96 98 97 Oxygen Delivery Method Room Air Room Air Room Air 05/30/23 03:59 05/30/23 07:29 Temperature 97.1 F 97.0 F Pulse Rate 67 72 Respiratory Rate 16 18 Blood Pressure 127/77 124/73 Pulse Oximetry 98 98 Oxygen Delivery Method Room Air Room Air BMI result Body Mass Index 21.8 Labs 05/30/23 10:10 05/30/23 10:10 Labs: Laboratory Results - last 48 hr 05/29/23 05/29/23 05/29/23 02:54 03:29 06:36 WBC 20.6 H RBC 4.95 Hgb 16.0 Hct 44.5 MCV 89.9 MCH 32.3 MCHC 36.0 RDW 11.9 Plt Count 361 MPV 10.2 Immature Gran % (Auto) 0.5 H Neut % (Auto) 88.9 H Lymph % (Auto) 7.4 L Nobles % (Auto) 2.8 Eos % (Auto) 0.0 Baso % (Auto) 0.4 Lymph # (Auto) 1.5 Nobles # (Auto) 0.6 Eos # (Auto) 0.0 Baso # (Auto) 0.1 Abs Immat Gran (auto) 0.10 H Absolute Neuts (auto) 18.3 H Absolute Nucleated RBC 0.000 Nucleated RBC % (auto) 0.0 PT 10.4 L INR 0.9 Sodium 134 L Potassium 4.2 Chloride 95 L Carbon Dioxide 17 L Anion Gap 26 H BUN 14 Creatinine 0.71 Estim Creat Clear Calc 101.6 Estimated GFR > 60 POC Glucose Random Glucose 152 H Calcium 10.1 D Magnesium 2.1 Total Bilirubin 0.7 Direct Bilirubin 0.2 AST 73 H ALT 86 H Alkaline Phosphatase 236 H Lactate Dehydrogenase 217 Total Protein 8.0 Albumin 4.0 Lipase 13 Urine Opiates Screen POSITIVE H Urine Fentanyl Screen Not Detected Ur Barbiturates Screen POSITIVE H Ur Phencyclidine Scrn Not Detected Ur Amphetamines Screen Not Detected U Benzodiazepines Scrn Not Detected Urine Cocaine Screen Not Detected U Marijuana (THC) Screen Not Detected Ethyl Alcohol 99 COVID-19 (BARYAN) Negative COVID-Contractually See Note 05/29/23 05/29/23 05/29/23 07:27 11:11 11:58 WBC RBC Hgb Hct MCV MCH MCHC RDW Plt Count MPV Immature Gran % (Auto) Neut % (Auto) Lymph % (Auto) Nobles % (Auto) Eos % (Auto) Baso % (Auto) Lymph # (Auto) Nobles # (Auto) Eos # (Auto) Baso # (Auto) Abs Immat Gran (auto) Absolute Neuts (auto) Absolute Nucleated RBC Nucleated RBC % (auto) PT INR Sodium 135 Potassium 4.3 Chloride 100 Carbon Dioxide 22 Anion Gap 17 BUN 13 Creatinine 0.67 Estim Creat Clear Calc 107.7 Estimated GFR > 60 POC Glucose 167 H 169 H Random Glucose 189 H Calcium 8.5 D Magnesium Total Bilirubin Direct Bilirubin AST ALT Alkaline Phosphatase Lactate Dehydrogenase Total Protein Albumin Lipase Urine Opiates Screen Urine Fentanyl Screen Ur Barbiturates Screen Ur Phencyclidine Scrn Ur Amphetamines Screen U Benzodiazepines Scrn Urine Cocaine Screen U Marijuana (THC) Screen Ethyl Alcohol COVID-19 (BRAYAN) COVID-Contractually 05/29/23 05/29/23 05/30/23 17:05 21:19 07:18 WBC RBC Hgb Hct MCV MCH MCHC RDW Plt Count MPV Immature Gran % (Auto) Neut % (Auto) Lymph % (Auto) Nobles % (Auto) Eos % (Auto) Baso % (Auto) Lymph # (Auto) Nobles # (Auto) Eos # (Auto) Baso # (Auto) Abs Immat Gran (auto) Absolute Neuts (auto) Absolute Nucleated RBC Nucleated RBC % (auto) PT INR Sodium Potassium Chloride Carbon Dioxide Anion Gap BUN Creatinine Estim Creat Clear Calc Estimated GFR POC Glucose 172 H 110 149 H Random Glucose Calcium Magnesium Total Bilirubin Direct Bilirubin AST ALT Alkaline Phosphatase Lactate Dehydrogenase Total Protein Albumin Lipase Urine Opiates Screen Urine Fentanyl Screen Ur Barbiturates Screen Ur Phencyclidine Scrn Ur Amphetamines Screen U Benzodiazepines Scrn Urine Cocaine Screen U Marijuana (THC) Screen Ethyl Alcohol COVID-19 (BRAYAN) COVID-Contractually 05/30/23 05/30/23 10:10 11:21 WBC 13.8 H RBC 4.29 L Hgb 13.9 L Hct 40.1 L MCV 93.5 MCH 32.4 MCHC 34.7 RDW 11.6 Plt Count 259 D MPV 10.7 Immature Gran % (Auto) Neut % (Auto) Lymph % (Auto) Nobles % (Auto) Eos % (Auto) Baso % (Auto) Lymph # (Auto) Nobles # (Auto) Eos # (Auto) Baso # (Auto) Abs Immat Gran (auto) Absolute Neuts (auto) Absolute Nucleated RBC 0.000 Nucleated RBC % (auto) 0.0 PT INR Sodium 132 L Potassium 3.8 Chloride 100 Carbon Dioxide 22 Anion Gap 14 BUN 12 Creatinine 0.66 Estim Creat Clear Calc 115.0 Estimated GFR > 60 POC Glucose 329 H Random Glucose 329 H Calcium 8.5 Magnesium Total Bilirubin Direct Bilirubin AST ALT Alkaline Phosphatase Lactate Dehydrogenase Total Protein Albumin Lipase 18 Urine Opiates Screen Urine Fentanyl Screen Ur Barbiturates Screen Ur Phencyclidine Scrn Ur Amphetamines Screen U Benzodiazepines Scrn Urine Cocaine Screen U Marijuana (THC) Screen Ethyl Alcohol COVID-19 (BRAYAN) COVID-19 [facility] Com Imaging Radiology Impressions: ITS Impressions Abdomen/Pelvis CT 05/29/23 04:01 IMPRESSION: Fatty infiltration of the liver. Retained stool and gas throughout the colon with mild distention. No other significant abnormality seen. Fleischner guidelines were followed. Fleischner guidelines were followed. Mental Status Exam Mental Status Exam Patient Appearance: Appropriate Level of Consciousness: Awake and Alert Patient Behavior: Guarded Mood Description: Depressed Affect Description: Blunted Medications Medications Current Medications Acetaminophen (Acetaminophen 325 Mg Tablet) 650 mg PO Q6H PRN PRN Reason: Pain, Mild (Pain Scale 1-3) Last Admin: 05/29/23 22:32 Dose: 650 mg Aspirin (Aspirin Enteric Coated 81 Mg Tablet.) 81 mg PO DAILY [facility] Last Admin: 05/30/23 08:38 Dose: 81 mg Dextrose (Dextrose 50 % 25 Gm/50 Ml Syringe) 25 gm IVPUSH Q15M PRN; Protocol PRN Reason: per Hypoglycemia Standing Ord. Enoxaparin Sodium (Enoxaparin Sodium 40 Mg/0.4 Ml Syringe) 40 mg SUBCUT Q24H [facility] Last Admin: 05/30/23 08:38 Dose: 40 mg Glucose (Glucose Gel 15 Gm Gel..Gram.) 15 gm PO Q15M PRN; Protocol PRN Reason: per Hypoglycemia Standing Ord. Dextrose/Sodium Chloride (D5ns) 1,000 mls @ 125 mls/hr IVCONT .Q8H [facility] Last Admin: 05/30/23 13:53 Dose: 125 mls/hr Insulin Glargine (Insulin Glargine,Hum.Rec.Anlog 100 Unit/Ml 10 Ml Vial) 10 unit SUBCUT BEDTIME [facility] Last Admin: 05/29/23 21:49 Dose: Not Given Insulin Human Lispro (Insulin Lispro 100 Unit/Ml 3 Ml Vial) 0 unit SUBCUT QIDACHS [facility]; Protocol Last Admin: 05/30/23 11:58 Dose: 8 unit Morphine Sulfate (Morphine Sulfate 4 Mg/Ml Cartridge) 2 mg IVPUSH Q6H PRN; Protocol PRN Reason: Pain, Severe (Pain Scale 7-10) Last Admin: 05/30/23 12:06 Dose: 2 mg Nystatin (Nystatin Oral Susp 500,000 Unit/5 Ml Oral.Susp) 400,000 unit PO QID [facility]; Protocol Last Admin: 05/30/23 11:57 Dose: 400,000 unit Omeprazole (Omeprazole 20 Mg Capsule.) 20 mg PO BID@0630,1630 [facility] Last Admin: 05/30/23 11:58 Dose: 20 mg Ondansetron HCl (Ondansetron Hcl 4 Mg/2 Ml Vial) 4 mg IVPUSH Q8H PRN PRN Reason: Nausea and Vomiting Last Admin: 05/30/23 08:51 Dose: 4 mg Pharmacy Consult (Consult Rx Etoh Phenob Im/Po) 1 each MISCELLANE ONCE PRN; Protocol PRN Reason: Consult order Phenobarbital (Phenobarbital 30 Mg Tablet) 60 mg PO BID [facility]; Protocol Stop: 05/31/23 09:01 Last Admin: 05/30/23 08:38 Dose: 60 mg Phenobarbital (Phenobarbital 30 Mg Tablet) 30 mg PO BID [facility]; Protocol Stop: 06/02/23 09:01 Phenobarbital (Phenobarbital 15 Mg Tablet) 15 mg PO DAILY [facility] Stop: 06/04/23 09:01 Sodium Chloride (0.9 % Sodium Chloride Flush 3 Ml Syringe) 3 ml IVFLUSH QSHIFT [facility] Last Admin: 05/30/23 08:36 Dose: Not Given Allergies Allergies Allergy/AdvReac Type Severity Reaction Status Date / Time No Known Allergies Allergy Verified 03/28/23 18:43 Assessment & Plan Assessment & Plan (1) Alcohol use disorder: Status: Acute Assessment and Plan: Naltrexone sent to pharmacy. Medication reviewed with patient and written information provided as well. Reviewed side effects, dosing, goals of treatment. Patient requesting to follow up at [facility] as that is where his treatment providers are. Requested this brief writer refer to [facility]. Secure email sent to android programmer requesting to reach out to patient to schedule appt with walter solis and his PCP Total time managing care of this patient today ___20_ minutes. [facility] Past Medical History Medical History Alcohol abuse HTN (hypertension) Diabetes Surgical History Surgical History History of laparoscopic cholecystectomy Social History Social History Household Members: Other Household Members Other:: rents a room in a house with roommates Housing: Apartment Do you presently have visiting nurse or other home services: No Alcohol intake: current Alcohol intake frequency: 3 or more drinks per day Alcohol type: beer Patient Tobacco Use Status: Never used Tobacco Smoked in Last 30 Days: No Use of substances other than those prescribed or required for medical reasons: No Currently Displaying Signs/Symptoms of Drug Intoxication Withdrawal: No Any prior treatment program specific to substance use: No Have you been hit, kicked, punched, or otherwise hurt by someone within the past year? If so, by whom?: No Do you feel safe in your current relationship?: No Current Relationship Is there a partner from a previous relationship who is making you feel unsafe now?: No Are you made to feel afraid or neglected: No Anabaptist Healthcare Practices: Confucianism Advance Directives: Yes Advance Directives on File: Yes Advance Directives Date on File: 11/01/20 Do you have thoughts of harming others: None Do you have a plan to hurt others: No Plan Recently lost weight without trying: Unsure How much weight loss: Unsure Eating poorly because of decreased appetite: Yes Nutrition screen score: 5 Nutrition Risks: Dental problems Poor oral hygiene: No service: No Current occupational status: employed 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
[2023-05-30 15:49] VITALS: BP 111/64; PULSE 65; RESP 18; TEMP 36.4; O2SAT 97
[2023-05-30 16:07] LABS: Glucose, Whole Blood 251 mg/dL (60-115)
== END 2023-05-30 16:30 | disposition home or self-care (01) | DRG 241 ==
LOC: HO.ED 05:19 → HO.EDOVER 05:47 → HO.S3 19:49
PROVIDERS: Admitting Provider Student in an Organized Health Care Education/Training Program; Emergency Provider Emergency Medicine; PCP Family Medicine; Visit Provider Internal Medicine
DX: K29.20 Alcoholic gastritis without bleeding (principal); B37.0 Candidal stomatitis; E87.29 Other acidosis; I10 Essential (primary) hypertension; F10.239 Alcohol dependence with withdrawal, unspecified; Y90.4 Blood alcohol level of 80-99 mg/100 ml; E11.9 Type 2 diabetes mellitus without complications; Z20.822 Contact with and (suspected) exposure to COVID-19; Z79.4 Long term (current) use of insulin; Z79.82 Long term (current) use of aspirin; Z79.899 Other long term (current) drug therapy
CPT/HCPCS: 36415; 74177; 80048; 80076; 80307; 82947; 83615; 83690; 83735; 85025; 85027; 85610; 87635; 90686; 93005; 99221; 99285; J1650; J2270; J2405; J2560; J3411; J3475; Q9967

== ENCOUNTER → 2023-05-29 05:37 | Outpatient (BNV) | payer MEDICAID, SELFPAY | PROVIDERS: Admitting Provider Student in an Organized Health Care Education/Training Program; Emergency Provider Emergency Medicine; PCP Family Medicine; Visit Provider Internal Medicine | DX: E87.29 Other acidosis (principal); F10.90 Alcohol use, unspecified, uncomplicated; B37.0 Candidal stomatitis; R10.13 Epigastric pain | CPT/HCPCS: 99223; 99239 ==

== ENCOUNTER → 2023-05-29 05:37 | Outpatient (BNV) | payer OTHER, SELFPAY | PROVIDERS: Admitting Provider Student in an Organized Health Care Education/Training Program; Emergency Provider Emergency Medicine; PCP Family Medicine; Visit Provider Nurse Practitioner Psychiatric/Mental Health | DX: F10.20 Alcohol dependence, uncomplicated (principal) | CPT/HCPCS: 99231 ==

== ENCOUNTER 2023-06-13 16:34 | Inpatient (IN) | payer MEDICAID, SELFPAY ==
--- NOTE | ~2023-06-13 | CT_ITS ---
EXAMINATION: CT abdomen pelvis wo IV con CLINICAL INFORMATION: Reason for Exam acute on chronic pancreatitis COMPARISON: Multiple prior CTs most recent 05/29/2023 TECHNIQUE: Multidetector volumetric imaging was performed from the superior aspect of the liver through the pubic symphysis , noncontrast CT Sagittal and coronal reformatted images were obtained on the technologist's workstation. This CT examination was performed using dose optimization techniques as appropriate, variously including the following: *Automated exposure control *Adjustment of mA and/or kV according to patient size (this includes techniques or standardized protocols for targeted exams where dose is matched to indication/reason for exam; i.e. extremities or head) *Use of iterative reconstruction technique DLP: 355 mGy-cm FINDINGS: LOWER THORAX: Included lung bases are clear. HEPATOBILIARY: No focal hepatic lesions. No biliary ductal dilatation. GALLBLADDER: Gallbladder has been removed. SPLEEN: Spleen is normal in size. PANCREAS: Very mild peripancreatic fat stranding around the head of the pancreas, although nonspecific compatible with patient history of acute pancreatitis. Evaluation of the pancreas for possible complication such as necrosis is limited on this noncontrast CT. STOMACH AND GASTROINTESTINAL TRACT: Stomach is grossly unremarkable. There is no bowel distention or thickening. No CT evidence of appendicitis. ADRENALS: No adrenal nodules. KIDNEYS/URETERS: No hydronephrosis, stones or solid mass lesions. URINARY BLADDER: Partially decompressed. PELVIC VISCERA: Unremarkable PERITONEUM: No free air or fluid. LYMPH NODES: No lymphadenopathy. VASCULAR:Abdominal aorta normal in size, no aneurysm found. BONES, ABDOMINAL WALL AND SOFT TISSUES: Age-appropriate changes of the spine and skeletal system, no destructive osteolytic or osteosclerotic bone lesion found CT/CT abdomen pelvis wo IV con IMPRESSION: * Newly developed mild peripancreatic fat stranding around the head of the pancreas, although nonspecific, is compatible with patient history of acute pancreatitis. Evaluation of the pancreas for possible complication such as necrosis is limited on this noncontrast CT. * Status post cholecystectomy.
--- NOTE | ~2023-06-13 | XR_ITS ---
EXAMINATION: XR RIBS, RIGHT CLINICAL INFORMATION: Right chest wall pain COMPARISON: Previous chest x-ray most recent February 2023 TECHNIQUE: 3 views of the right ribs and one view of the chest were obtained. FINDINGS: Lungs are clear. No consolidation, pneumothorax, or pleural effusion. The cardiomediastinal silhouette and pulmonary vasculature are normal. Mild curvature of the thoracolumbar spine. Osseous structures are otherwise unremarkable. Ribs are intact. No fractures are identified. XR/XR ribs RT min 3V w CXR1V IMPRESSION: No evidence for acute disease in the chest. No rib fracture.
--- NOTE | ~2023-06-13 | US_ITS ---
EXAMINATION: US ABDOMEN LIMITED CLINICAL INFORMATION: Pancreatitis; elevated liver function tests. COMPARISON: None available. TECHNIQUE: Real-time imaging of the right upper quadrant abdominal viscera. FINDINGS: PANCREAS: Largely obscured by overlapping bowel gas. LIVER: Normal. The liver is normal in size. The liver contour is normal. Parenchymal echogenicity is normal. No focal hepatic lesion. There is no intrahepatic biliary duct dilatation seen. GALLBLADDER: Surgically absent. COMMON BILE DUCT: Normal in caliber measuring 0.4 cm in diameter. RIGHT KIDNEY: There is pelviectasis, without aracelis hydronephrosis. No renal calculi or focal parenchymal lesions. The kidney measures 12.0 cm in maximum dimension. FREE FLUID: None. US/US abdomen limited IMPRESSION: 1. The gallbladder is surgically absent. 2. Otherwise, unremarkable examination, with imaging of the pancreas technically limited.
[2023-06-13 16:37] VITALS: BP 151/77; PULSE 80; RESP 16; TEMP 36.6; O2SAT 96; BMI 21.5
--- NOTE | 2023-06-13 16:37 | ED.GENADULT ---
HPI - General Adult General Chief complaint: Abdominal Pain Stated complaint: rib pain, vomiting, headache Time Seen by Provider: 06/13/23 17:10 Source: patient Mode of arrival: ambulatory Limitations: no limitations History of Present Illness HPI narrative: 48-year-old male came in for evaluation of right-sided lower chest pain, headache x3 days, patient declined any trauma or injury to the right chest wall, no recent travel, no recent prolonged immobilization, pain is constant worse with movements or touching the area. Pain is localized to the right lower chest area with no radiation. Patient is s/p cholecystectomy. Last bowel movement was this morning and was normal, passing gas, no fever, no chills. No recent travel, no recent prolonged immobilization. Related Data Home Medications Medication Instructions Recorded Confirmed insulin glargine 100 unit/mL 10 unit subcut BEDTIME 08/09/20 06/13/23 subcutaneous solution (Lantus U-100 Insulin) lisinopril 5 mg tablet 5 mg PO DAILY 08/09/20 06/13/23 metformin 500 mg tablet,extended 500 mg PO BID 12/27/21 06/13/23 release 24 hr aspirin 81 mg tablet,delayed 1 tab PO DAILY 08/04/22 06/13/23 release nystatin 500,000 unit tablet 500,000 unit PO BID 06/13/23 06/13/23 Previous Rx's Medication Instructions Recorded naltrexone 50 mg tablet 50 mg PO DAILY #30 tabs 05/30/23 omeprazole 20 mg capsule,delayed 20 mg PO BID@0630,1630 #60 caps 05/30/23 release Allergies Allergy/AdvReac Type Severity Reaction Status Date / Time No Known Allergies Allergy Verified 03/28/23 18:43 Review of Systems Review of Systems: All other systems are reviewed and are negative Constitutional: Reports as per HPI and Reports no additional constitutional complaints Eyes: Reports as per HPI and Reports no additional eye complaints Reports system reviewed and no additional complaints, except as documented Cardiovascular: Reports as per HPI and Reports no additional cardiovascular complaints Respiratory: Reports as per HPI and Reports no additional respiratory complaints Gastrointestinal: Reports as per HPI and Reports no additional gastrointestinal complaints Genitourinary: Reports no additional female genitourinary complaints Musculoskeletal: Reports no additional musculoskeletal complaints Skin/Breast: Reports system reviewed and no additional complaints, except as docu Psychiatric: Reports no additional psychiatric complaints Endocrine: Reports no additional endocrine complaints Hematologic/Lymphatic: Reports no additional hematologic/lymphatic complaints Allergic/Immunologic: Reports no additional allergic/immunologic complaints Reports system reviewed and no additional complaints, except as documented and Reports Abnormal speech present [facility] Past Medical History Medical History Alcohol abuse HTN (hypertension) Diabetes Surgical History History of laparoscopic cholecystectomy Social History Social History Household Members: Other Household Members Other:: rents a room in a house with roommates Housing: Apartment Do you presently have visiting nurse or other home services: No Alcohol intake: current Alcohol intake frequency: 3 or more drinks per day Alcohol type: beer Patient Tobacco Use Status: Never used Tobacco Smoked in Last 30 Days: No Advance Directives: Yes Advance Directives on File: Yes Advance Directives Date on File: 11/01/20 service: No Current occupational status: employed 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 [facility] [place] Physical Exam ED Vital Signs: Vital Signs - 24 hr 06/13/23 16:37 06/13/23 17:58 06/13/23 20:02 Temperature 97.9 F Pulse Rate 80 75 74 Respiratory Rate 16 18 18 Blood Pressure 151/77 H 143/80 H 124/68 Pulse Oximetry 96 97 98 Oxygen Delivery Method Room Air Room Air Room Air BMI result Body Mass Index 21.5 Vital signs have been reviewed and appear to be correct. Blood pressure elevated. Heart rate normal. Respiratory rate normal. Temperature normal. Oxygen saturation normal. Appearance: Alert. Oriented X3. No acute distress. Head: Normal external exam. Normocephalic. Atraumatic. No Camara signs noted. No raccoon eyes noted Eyes: PERRLA. EOMI. Conjunctiva and sclera normal. Eyelids normal. ENT: TM's Normal. Pharynx normal. Uvula midline. Moist mucous membranes. No trismus noted. No drooling noted. No muffled voice noted. Neck: Normal inspection. Neck supple. FROM. No adenopathy. Thyroid Normal. No meningeal signs. No neck mass noted. CVS: Normal heart rate and rhythm. Heart sound normal. No murmurs noted. Pulses normal throughout. Respiratory: No respiratory distress. Painless inspiration. Breath sounds normal. No wheezes/rales/rhonchi noted. reproducible tenderness along right lower chest wall no step-off or deformity, No accessory muscle usage noted or decreased air movement noted. Abdomen: Soft and nontender. Bowel sounds normal in all 4 quadrants. No distention noted. No organomegaly noted. No visible injury noted. Back: No CVA tenderness. Full range of motion noted. Skin: Skin warm and dry. Normal skin color. Normal skin turgor. No rashes/lesions/lacerations noted. Extremities: No lower extremity edema. Extremities exhibit normal range of motion. Extremities nontender. Neuro: Oriented X 3. Cranial nerve exam: II-XII are grossly intact No motor deficit. No sensory deficit. Reflexes normal. Course Course Course Narrative: RME: 48yo Djiboutian speaking Male w/PMHx ETOH abuse disorder, s/p cholecystectomy, c/o right lower rib/RUQ abdominal pain radiating to back, nausea & vomiting, chills & JESUS x yesterday. denies ETOH use. Admits pain worse w/eating Abd soft w/RUQ ttp. No rash EKG, labs, UA, Viral testing ordered Full HPI, ROS and PE to be performed by primary ED provider. Reevaluation(s) Reevaluation #1: patient's symptoms is due to acute pancreatitis. Elevated LFTs abdominal ultrasound shows no acute pancreatitis complications. will admit for NPO on IV hydration. Time: 19:19 Medications Administered Discontinued Medications Generic Name Dose Route Start Last Admin Trade Name Freq PRN Reason Stop Dose Admin Sodium Chloride 1,000 mls @ 999 mls/hr 06/13/23 19:18 06/13/23 20:48 Ns IV 06/13/23 20:18 Infused .Q1H1M ONE Infusion Morphine Sulfate 1 mg 06/13/23 19:18 06/13/23 19:57 Morphine Sulfate 2 Mg/Ml Cartridge IVPUSH 06/13/23 19:19 1 mg ONCE ONE Administration Protocol Medical Decision Making Differential Diagnosis Differential Diagnoses: The differential diagnosis associated with the presentation includes ( Acute pancreatitis, right-sided rib fracture, pneumonia, pneumothorax, kidney stone, UTI, severe anemia, electrolyte abnormality.) Admission/Observation Consideration of admission/observation: Escalation of care including admission/observation considered Consult Healthcare Provider Management of the patient was discussed with: Hospitalist ( Dr. Isabel) Lab Data MDM Lab Attestation statement: I reviewed the patient's lab results. 06/13/23 16:56 06/13/23 16:56 Labs: Lab Results 06/13/23 Range/Units 16:56 WBC 9.9 (4.8-10.8) X10*3/uL RBC 4.31 L (4.60-5.80) X10*6/uL Hgb 13.8 L (14.0-18.0) g/dl Hct 40.4 L (42.0-52.0) % MCV 93.7 (80.0-98.0) fL MCH 32.0 (27.0-33.0) pg MCHC 34.2 (31.0-36.0) g/dl RDW 12.1 (11.0-16.0) % Plt Count 236 (160-400) X10*3/uL MPV 10.9 (9.4-12.4) fL Immature Gran % (Auto) 0.4 (0.0-0.4) % Neut % (Auto) 81.4 H (45-73) % Lymph % (Auto) 10.1 L (20-40) % [place] % (Auto) 7.4 (2-11) % Eos % (Auto) 0.3 (0-4) % Baso % (Auto) 0.4 (0-2) % Lymph # (Auto) 1.0 L (1.2-4.9) X10*3/uL [place] # (Auto) 0.7 (0.1-1.2) X10*3/uL Eos # (Auto) 0.0 (0.0-0.4) X10*3/uL Baso # (Auto) 0.0 (0.0-0.2) X10*3/uL Abs Immat Gran (auto) 0.04 H (0.00-0.03) X10*3/uL Absolute Neuts (auto) 8.1 (2.0-8.3) x10*3/uL Absolute Nucleated RBC 0.000 (0.0-0.012) X10*3/uL Nucleated RBC % (auto) 0.0 (0.0-0.2) /100WBC PT 11.4 (11.1-13.3) SEC INR 0.9 (0.9-1.1) Sodium 138 (135-145) mmol/L Potassium 3.5 (3.3-5.1) mmol/L Chloride 104 (96-108) mmol/L Carbon Dioxide 22 (22-29) mmol/L Anion Gap 16 (12-20) BUN 13 (9-16) mg/dL Creatinine 0.86 (0.5-1.4) mg/dL Estim Creat Clear Calc 86.9 Estimated GFR > 60 Random Glucose 303 H (60-115) mg/dL Calcium 9.1 D (8.4-10.2) mg/dL Magnesium 1.9 (1.6-2.6) mg/dL Total Bilirubin 0.5 (0.0-1.0) mg/dL Direct Bilirubin 0.2 (0.0-0.5) mg/dL AST 76 H (5-37) U/L ALT 80 H (0-40) U/L Alkaline Phosphatase 194 H (39-117) U/L Troponin I High Sens < 2.7 (<3.5-35.0) ng/L Total Protein 7.3 (6.5-8.0) g/dL Albumin 3.9 (3.5-5.0) g/dL Lipase 272 H (8-78) U/L Urine Color Yellow Urine Appearance Clear Urine pH 6.0 (5.0-9.0) Ur Specific [place] >= 1.030 H (1.005-1.025) Urine Protein Negative (Neg-Trace) mg/dL Urine Glucose (UA) >=1000 H (Negative) mg/dL Urine Ketones 80 (Negative) mg/dL Urine Blood Negative (Negative) Urine Nitrite Negative (Negative) Ur Leukocyte Esterase Negative (Negative) Urine RBC 0-2 (0-2) /HPF Urine WBC 0-5 (0-5) /HPF Ur Squamous Epith Cells 0-2 (0-2) /HPF Urine Bacteria None Seen (None Seen) Hyaline Casts 0-2 (0-2) /LPF Urine Opiates Screen Not Detected (Not Detect) Urine Fentanyl Screen Not Detected (Not Detect) Ur Barbiturates Screen POSITIVE H (Not Detect) Ur Phencyclidine Scrn Not Detected (Not Detect) Ur Amphetamines Screen Not Detected (Not Detect) U Benzodiazepines Scrn Not Detected (Not Detect) Urine Cocaine Screen Not Detected (Not Detect) U Marijuana (THC) Screen Not Detected (Not Detect) Ethyl Alcohol < 10 mg/dL COVID-19 (BRAYAN) Negative (Negative) COVID-19 Clin Com See Note Independent Interpretation I performed an independent interpretation of an: Plain X-Ray ( chest: No acute intrathoracic pathology.) and Ultrasound ( Abdomen: The gallbladder is surgically absent. 2. Otherwise, unremarkable examination, with imaging of the pancreas technically limited. ) Radiology Impression Discussion of test interpretation with radiology: I have reviewed the radiologist's reading. Discharge Plan Discharge Clinical Impression: Pancreatitis Qualifiers: Chronicity: acute Pancreatitis type: unspecified pancreatitis type Acute pancreatitis complication: no infection or necrosis Qualified Code(s): K85.90 - Acute pancreatitis without necrosis or infection, unspecified Patient Disposition: Admitted As Inpatient
--- NOTE | 2023-06-13 16:38 | ECG_ITS ---
Test Reason : ABD PAIN Blood Pressure : / mmHG Vent. Rate : 067 BPM Atrial Rate : 067 BPM P-R Int : 156 ms QRS Dur : 100 ms QT Int : 402 ms P-R-T Axes : 070 034 055 degrees QTc Int : 424 ms Normal sinus rhythm Normal ECG When compared with ECG of 29-MAY-2023 02:55, No significant change was found Referred By: Lissett Galicia Electronically Signed By:JESUS LOGAN MD
[2023-06-13 17:03] LABS: MANUAL DIFF FLAG NO
[2023-06-13 17:07] LABS: Basophils Percent Auto 0.4 % (0-2); Eosinophils Percent Auto 0.3 % (0-4); Hematocrit 40.4 % (42.0-52.0); Hemoglobin 13.8 g/dl (14.0-18.0); Imm Gran Abs Auto 0.04 X10*3/uL (0.00-0.03); Imm Gran Pct Auto 0.4 % (0.0-0.4); Lymphocytes Percent Auto 10.1 % (20-40); Mean Corpuscular HGB Conc 34.2 g/dl (31.0-36.0); Mean Corpuscular Volume 93.7 fL (80.0-98.0); Mean Platelet Volume 10.9 fL (9.4-12.4); Monocytes Absolute Auto 0.7 X10*3/uL (0.1-1.2); Monocytes Percent Auto 7.4 % (2-11); Neutrophils Absolute Auto 8.1 x10*3/uL (2.0-8.3); Neutrophils Percent Auto 81.4 % (45-73); Platelet Count 236 X10*3/uL (160-400); Red Blood Count 4.31 X10*6/uL (4.60-5.80); Red Cell Distribution Width 12.1 % (11.0-16.0); White Blood Count 9.9 X10*3/uL (4.8-10.8)
[2023-06-13 17:12] LABS: Appearance Urine Clear; Color Urine Yellow; Glucose Urine UA >=1000 mg/dL (Negative); Leukocyte Esterase Urine Negative (Negative); Nitrite Urine Negative (Negative); Specific Gravity - Urine >= 1.030 (1.005-1.025); UMIC TRIGGER UACC YES; Urine Blood Negative (Negative); Urine Ketones 80 mg/dL (Negative); Urine Protein Negative (Neg-Trace)
[2023-06-13 17:14] LABS: INTERNATIONAL NORM RATIO 0.9 (0.9-1.1); Prothrombin Time 11.4 SEC (11.1-13.3)
[2023-06-13 17:16] LABS: Amphetamine Screen Urine Not Detected (Not Detect); Barbiturates, Urine POSITIVE (Not Detect); Benzodiazepines Screen Urine Not Detected (Not Detect); Cannabinoid Screen Urine Not Detected (Not Detect); Cocaine Screen Urine Not Detected (Not Detect); Fentanyl, urine Not Detected (Not Detect); Opiate Screen Urine Not Detected (Not Detect); Phencyclidine Screen Urine Not Detected (Not Detect)
[2023-06-13 17:32] LABS: COVID-19 Test Negative (Negative); IDNOW Serial# 08D9AD1C
[2023-06-13 17:34] LABS: Alanine Aminotransferase 80 U/L (0-40); Albumin Level 3.9 g/dL (3.5-5.0); Alkaline Phosphatase 194 U/L (39-117); Anion Gap 16 (12-20); Aspartate Amino Transferase 76 U/L (5-37); Bilirubin Direct 0.2 mg/dL (0.0-0.5); Bilirubin Total 0.5 mg/dL (0.0-1.0); Blood Urea Nitrogen 13 mg/dL (9-16); Calcium 9.1 mg/dL (8.4-10.2); Carbon Dioxide 22 mmol/L (22-29); Chloride 104 mmol/L (96-108); Creatinine Clr Calc Pharmacy 86.9; Estimated Glomerular Filt Rate > 60; Ethanol < 10 mg/dL; Glucose Random 303 mg/dL (60-115); Lipase 272 U/L (8-78); Magnesium 1.9 mg/dL (1.6-2.6); Potassium 3.5 mmol/L (3.3-5.1); Sodium 138 mmol/L (135-145); Total Protein 7.3 g/dL (6.5-8.0)
[2023-06-13 17:35] LABS: Troponin-I High Sensitivity < 2.7 ng/L (<3.5-35.0)
[2023-06-13 17:58] VITALS: BP 143/80; PULSE 75; RESP 18; O2SAT 97
[2023-06-13 18:04] LABS: Bacteria Urine None Seen (None Seen); Hyaline Casts Urine 0-2 /LPF (0-2); RBC Urine 0-2 /HPF (0-2); Squamous Epithelial Cell Urine 0-2 /HPF (0-2); WBC Urine 0-5 /HPF (0-5)
[2023-06-13] MEDS: 0.9 % Sodium Chloride 1,000 ML 999 ML IV (19:54)
[2023-06-13] MEDS: Morphine Sulfate 2 MG/ML CARTRIDGE 1 MG IVPUSH (19:57)
[2023-06-13 20:02] VITALS: BP 124/68; PULSE 74; RESP 18; O2SAT 98
--- NOTE | 2023-06-13 21:09 | PHA.MEDREC ---
Pharmacy Consult ? Medication Reconciliation Pharmacy has completed the medication reconciliation. Patient confirmed medications, utilized recent discharge summary and claim history. Boy MorseD
[2023-06-13 22:00] VITALS: BP 131/78; PULSE 72; RESP 15; O2SAT 98
--- NOTE | 2023-06-13 22:10 | P.HPHOSP_ITS ---
History of Present Illness Date of Service: 06/13/23 Chief Complaint: Abdominal Pain This is a 48-year-old female with pertinent history of alcohol use disorder, history of alcoholic pancreatitis, insulin-dependent diabetes mellitus, essential hypertension, mixed hyperlipidemia, gastroesophageal reflux disease who presents to the emergency department for evaluation of abdominal discomfort. Patient states that he started having right upper quadrant/epigastric pain 1 day prior to presentation. It is constant and radiating to the back. No relieving factors. Also has associated nausea. Does endorse alcohol use but states his last drink was 2 weeks prior to presentation. No history of alcohol withdrawals as per the patient. No fever, chills, chest discomfort, palpitations, shortness of breath, changes in urinary or bowel habits. In the emergency department, lipase found to be elevated and imaging concerning for acute pancreatitis. Review of Systems 2 Constitutional: Constitutional: Reports no additional constitutional complaints Cardiovascular: Cardiovascular: Reports no additional cardiovascular complaints Respiratory: Respiratory: Reports no additional respiratory complaints Gastrointestinal: Gastrointestinal: Reports abdominal pain and Reports nausea Genitourinary: Genitourinary: Reports no additional male genitourinary complaints [facility] Medical History Alcohol abuse HTN (hypertension) Diabetes Pertinent family history: No family history of early CAD Surgical History History of laparoscopic cholecystectomy Social History Household Members: Other Household Members Other:: rents a room in a house with roommates Housing: Apartment Do you presently have visiting nurse or other home services: No Alcohol intake: current Alcohol intake frequency: 3 or more drinks per day Alcohol type: beer Patient Tobacco Use Status: Never used Tobacco Smoked in Last 30 Days: No Advance Directives: Yes Advance Directives on File: Yes Advance Directives Date on File: 11/01/20 service: No Current occupational status: employed 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 [facility] Allergies Allergy/AdvReac Type Severity Reaction Status Date / Time No Known Allergies Allergy Verified 03/28/23 18:43 Home Medications Medication Instructions Recorded Confirmed Last Taken Type insulin glargine 100 unit/mL 10 unit subcut BEDTIME 08/09/20 06/13/23 06/12/23 History subcutaneous solution (Lantus U-100 Insulin) lisinopril 5 mg tablet 5 mg PO DAILY 08/09/20 06/13/23 06/13/23 History metformin 500 mg tablet,extended 500 mg PO BID 12/27/21 06/13/23 06/13/23 History release 24 hr aspirin 81 mg tablet,delayed 1 tab PO DAILY 08/04/22 06/13/23 06/13/23 History release nystatin 500,000 unit tablet 500,000 unit PO BID 06/13/23 06/13/23 06/13/23 History Physical Exam 2 Vital Signs and Narrative: Vital Signs: Last Vital Signs Temp 97.9 F 06/13/23 16:37 Pulse 72 06/13/23 22:00 Resp 15 06/13/23 22:00 BP 131/78 06/13/23 22:00 Pulse Ox 98 06/13/23 22:00 O2 Del Method Room Air 06/13/23 22:00 BMI result Body Mass Index 21.5 Middle-aged male lying in bed in mild distress Neck supple, no JVD Regular rate and rhythm, S1-S2 heard Regular breath sounds bilaterally, no wheezing or crackles appreciated Epigastric tenderness with mild palpation, no guarding, no rebound tenderness, no rigidity Patient is awake, alert and oriented to self, place, time and person ; no focal motor deficit Psych: Normal mood No pedal edema Results Labs 06/13/23 16:56 06/13/23 16:56 Labs: Laboratory Results - last 24 hr 06/13/23 16:56 MCV 93.7 MCH 32.0 MCHC 34.2 RDW 12.1 Plt Count 236 MPV 10.9 Immature Gran % (Auto) 0.4 Neut % (Auto) 81.4 H Lymph % (Auto) 10.1 L [place] % (Auto) 7.4 Eos % (Auto) 0.3 Baso % (Auto) 0.4 Lymph # (Auto) 1.0 L [place] # (Auto) 0.7 Eos # (Auto) 0.0 Baso # (Auto) 0.0 Abs Immat Gran (auto) 0.04 H Absolute Neuts (auto) 8.1 Absolute Nucleated RBC 0.000 Nucleated RBC % (auto) 0.0 PT 11.4 INR 0.9 Anion Gap 16 Estim Creat Clear Calc 86.9 Estimated GFR > 60 Random Glucose 303 H Calcium 9.1 D Magnesium 1.9 Total Bilirubin 0.5 Direct Bilirubin 0.2 AST 76 H ALT 80 H Alkaline Phosphatase 194 H Total Protein 7.3 Albumin 3.9 Lipase 272 H Urine Color Yellow Urine Appearance Clear Urine pH 6.0 Ur Specific [place] >= 1.030 H Urine Protein Negative Urine Glucose (UA) >=1000 H Urine Ketones 80 Urine Blood Negative Urine Nitrite Negative Ur Leukocyte Esterase Negative Urine RBC 0-2 Urine WBC 0-5 Ur Squamous Epith Cells 0-2 Urine Bacteria None Seen Hyaline Casts 0-2 Urine Opiates Screen Not Detected Urine Fentanyl Screen Not Detected Ur Barbiturates Screen POSITIVE H Ur Phencyclidine Scrn Not Detected Ur Amphetamines Screen Not Detected U Benzodiazepines Scrn Not Detected Urine Cocaine Screen Not Detected U Marijuana (THC) Screen Not Detected Ethyl Alcohol < 10 COVID-19 (BRAYAN) Negative COVID-19 Clin Com See Note Imaging Radiologist's Impressions: Impressions Ribs X-Ray 06/13/23 17:50 IMPRESSION: No evidence for acute disease in the chest. No rib fracture. Abdomen Ultrasound 06/13/23 20:21 IMPRESSION: 1. The gallbladder is surgically absent. 2. Otherwise, unremarkable examination, with imaging of the pancreas technically limited. Abdomen/Pelvis CT 06/13/23 20:49 IMPRESSION: * Newly developed mild peripancreatic fat stranding around the head of the pancreas, although nonspecific, is compatible with patient history of acute pancreatitis. Evaluation of the pancreas for possible complication such as necrosis is limited on this noncontrast CT. * Status post cholecystectomy. Assessment and Plan (1) Pancreatitis: Qualifiers: Acute pancreatitis complication: no infection or necrosis Chronicity: a cute Pancreatitis type: unspecified pancreatitis type Qualified Code(s): K 85.90 - Acute pancreatitis without necrosis or infection, unspecified Status: Acute Plan This is a 48-year-old female with pertinent history of alcohol use disorder, history of alcoholic pancreatitis, insulin-dependent diabetes mellitus, essential hypertension, mixed hyperlipidemia, gastroesophageal reflux disease who presents to the emergency department for evaluation of abdominal discomfort. #. Acute pancreatitis: Likely related to alcohol use Imaging without biliary ductal dilatation and cholecystectomy. Obtaining triglyceride level. Full liquid diet and advance as tolerated. Opioid IV p.r.n. for pain control. Continue IV crystalloid resuscitation. #. Insulin-dependent diabetes mellitus with hyperglycemia: Initiating basal plus insulin regimen #. Essential hypertension: On lisinopril #. Gastroesophageal reflux disease: On PPI #. Elevated transaminases: Likely alcoholic fatty liver disease #. Alcohol use disorder: Monitor CIWA. Initiating thiamine, folate levels pending DVT prophylaxis: Lovenox 40 mg daily Full liquid diet Full code Admit as inpatient and will require two night minimum hospital stay for IV crystalloid resuscitation, IV opioid p.r.n. (as above), which is not possible in a lesser acute setting. Quality Stroke Does the patient have a stroke diagnosis?: No VTE Prior VTE?: No VTE Risk Level:: Medical - moderate - high VTE Device Contraindication: Treatment Not Indicated VTE Drug Contraindication: N/A - Med Ordered
[2023-06-13 23:08] LABS: Triglycerides 222 mg/dL (<150)
[2023-06-13] MEDS: Insulin Glargine,Hum.rec.anlog 100 UNIT/ML 10 ML VIAL 10 UNIT SUBCUT (23:25)
[2023-06-13] MEDS: Enoxaparin Sodium 40 MG/0.4 ML SYRINGE SUBCUT (23:25)
[2023-06-13] MEDS: Lactated Ringers 1,000 ML 100 ML IVCONT (23:27)
[2023-06-13 23:34] LABS: Glucose, Whole Blood 303 mg/dL (60-115)
--- NOTE | 2023-06-13 23:37 | PC.NURSE ---
pt resting in bed with no sign of distress, medicated per Mar, Will continue to monitor.
--- NOTE | 2023-06-13 23:44 | PC.NURSE ---
pt resting in bed, report some improvement in abd pain, Ciwa negative, pt resting in bed.
[2023-06-13 23:50] LABS: Folate 13.1 ng/mL (> or = 4.0); Vitamin B12 866 pg/mL (200-900)
[2023-06-14] MEDS: Morphine Sulfate 2 MG/ML CARTRIDGE IVPUSH ×2 (00:06→08:02)
--- NOTE | 2023-06-14 00:11 | PC.NURSE ---
pt medicated for pain management.
[2023-06-14 00:40] VITALS: BP 135/79; PULSE 70; RESP 18; TEMP 36.1; O2SAT 97
[2023-06-14 00:41] VITALS: BMI 20.9
[2023-06-14] MEDS: Omeprazole 20 MG CAPSULE.DR PO ×2 (05:34→17:26)
[2023-06-14 06:15] LABS: MANUAL DIFF FLAG NO
[2023-06-14 06:19] LABS: Basophils Absolute Auto 0.1 X10*3/uL (0.0-0.2); Eosinophils Absolute Auto 0.1 X10*3/uL (0.0-0.4); Eosinophils Percent Auto 1.4 % (0-4); Hematocrit 36.6 % (42.0-52.0); Hemoglobin 12.7 g/dl (14.0-18.0); Imm Gran Abs Auto 0.01 X10*3/uL (0.00-0.03); Imm Gran Pct Auto 0.2 % (0.0-0.4); Lymphocytes Percent Auto 31.4 % (20-40); Mean Corpuscular HGB Conc 34.7 g/dl (31.0-36.0); Mean Corpuscular Hemoglobin 33.1 pg (27.0-33.0); Mean Corpuscular Volume 95.3 fL (80.0-98.0); Mean Platelet Volume 10.8 fL (9.4-12.4); Monocytes Percent Auto 15.5 % (2-11); Neutrophils Absolute Auto 3.2 x10*3/uL (2.0-8.3); Neutrophils Percent Auto 50.5 % (45-73); Platelet Count 207 X10*3/uL (160-400); Red Blood Count 3.84 X10*6/uL (4.60-5.80); Red Cell Distribution Width 12.1 % (11.0-16.0); White Blood Count 6.3 X10*3/uL (4.8-10.8)
[2023-06-14 06:37] LABS: Anion Gap 10 (12-20); Blood Urea Nitrogen 9 mg/dL (9-16); Calcium 8.4 mg/dL (8.4-10.2); Carbon Dioxide 27 mmol/L (22-29); Chloride 105 mmol/L (96-108); Creatinine Clr Calc Pharmacy 110.1; Estimated Glomerular Filt Rate > 60; Glucose Random 118 mg/dL (60-115); Potassium 2.7 mmol/L (3.3-5.1); Sodium 139 mmol/L (135-145)
[2023-06-14 07:28] VITALS: BP 112/70; PULSE 56; RESP 16; TEMP 36; O2SAT 97
[2023-06-14 08:02] LABS: Glucose, Whole Blood 110 mg/dL (60-115)
[2023-06-14] MEDS: Nystatin Oral Susp 500,000 UNIT/5 ML ORAL.SUSP 500000 UNIT PO ×2 (08:02→21:28)
[2023-06-14] MEDS: lisinopriL 5 MG TABLET PO (08:02)
[2023-06-14] MEDS: Aspirin Enteric Coated 81 MG TABLET.DR PO (08:02)
[2023-06-14] MEDS: Thiamine HCL 100 MG TABLET PO (08:02)
[2023-06-14] MEDS: Potassium Chloride ER 20 MEQ TAB.ER.PRT 40 MEQ PO (08:03)
[2023-06-14] MEDS: Potassium Chloride/H20 10 MEQ/100 ML PIGGYBACK 100 MEQ IV ×2 (08:03→10:14)
[2023-06-14] MEDS: Lactated Ringers 1,000 ML 100 ML IVCONT (10:15)
[2023-06-14 11:11] LABS: Glucose, Whole Blood 272 mg/dL (60-115)
[2023-06-14] MEDS: Insulin Lispro 100 UNIT/ML 3 ML VIAL SUBCUT ×3 (12:10→21:28)
--- NOTE | 2023-06-14 15:01 | HO.PM.IMPN ---
Subjective Subjective Date of Service: 06/14/23 Interval History: Seen and evaluated this morning Feels better but still having pain no nausea Not eating yet Review of Systems Review of Systems: Yes all other systems are reviewed and are negative Physical Exam Vital Signs: Vital Signs: Last Vital Signs Temp 96.8 F 06/14/23 07:28 Pulse 56 06/14/23 07:28 Resp 16 06/14/23 07:28 BP 112/70 06/14/23 07:28 Pulse Ox 97 06/14/23 07:28 O2 Del Method Room Air 06/14/23 07:28 BMI result Body Mass Index 20.9 Const: Other: Constitutional : Awake, interactive, not in distress Neck : Normal inspection, Supple Cardiovascular : RRR, no JVP, no lower extremity edema Respiratory : good bilateral air entry, no crackles, wheezes or rhonchi Gastrointestinal: soft, lax, Normal bowel sounds, Epigastric tenderness Skin : Warm, Dry Neurological : Alert & oriented x3, No focal deficit Objective Data Active Medications Acetaminophen (Acetaminophen 325 Mg Tablet) 650 mg PO Q6H PRN PRN Reason: Pain, Mild (Pain Scale 1-3) Aspirin (Aspirin Enteric Coated 81 Mg Tablet.) 81 mg PO DAILY [facility] Last Admin: 06/14/23 08:02 Dose: 81 mg Documented By: SHARITA Dextrose (Dextrose 50 % 25 Gm/50 Ml Syringe) 25 gm IVPUSH Q15M PRN; Protocol PRN Reason: per Hypoglycemia Standing Ord. Enoxaparin Sodium (Enoxaparin Sodium 40 Mg/0.4 Ml Syringe) 40 mg SUBCUT Q24H [facility] Last Admin: 06/13/23 23:25 Dose: 40 mg Documented By: LOVE Glucose (Glucose Gel 15 Gm Gel..Gram.) 15 gm PO Q15M PRN; Protocol PRN Reason: per Hypoglycemia Standing Ord. Lactated Ringer's (Lr) 1,000 mls @ 100 mls/hr IVCONT .Q10H [facility] Last Admin: 06/14/23 10:15 Dose: 100 mls/hr Documented By: SHARITA Insulin Glargine (Insulin Glargine,Hum.Rec.Anlog 100 Unit/Ml 10 Ml Vial) 10 unit SUBCUT BEDTIME [facility] Last Admin: 06/13/23 23:25 Dose: 10 unit Documented By: LOVE Insulin Human Lispro (Insulin Lispro 100 Unit/Ml 3 Ml Vial) 0 unit SUBCUT QIDACHS [facility]; Protocol Last Admin: 06/14/23 12:10 Dose: 6 unit Documented By: SHARITA Lisinopril (Lisinopril 5 Mg Tablet) 5 mg PO DAILY [facility]; Protocol Last Admin: 06/14/23 08:02 Dose: 5 mg Documented By: SHARITA Melatonin (Melatonin 3 Mg Tablet) 6 mg PO BEDTIME PRN PRN Reason: Insomnia Morphine Sulfate (Morphine Sulfate 2 Mg/Ml Cartridge) 2 mg IVPUSH Q4H PRN; Protocol PRN Reason: Pain, Severe (Pain Scale 7-10) Last Admin: 06/14/23 08:02 Dose: 2 mg Documented By: SHARITA Nystatin (Nystatin Oral Susp 500,000 Unit/5 Ml Oral.Susp) 500,000 unit PO BID [facility] Last Admin: 06/14/23 08:02 Dose: 500,000 unit Documented By: SHARITA Omeprazole (Omeprazole 20 Mg Capsule.Dr) 20 mg PO BID@0630,1630 [facility] Last Admin: 06/14/23 05:34 Dose: 20 mg Documented By: HERON Ondansetron HCl (Ondansetron Hcl 4 Mg/2 Ml Vial) 4 mg IVPUSH Q8H PRN PRN Reason: Nausea and Vomiting Sodium Chloride (0.9 % Sodium Chloride Flush 3 Ml Syringe) 3 ml IVFLUSH QSHIFT [facility] Last Admin: 06/14/23 08:14 Dose: Not Given Documented By: SHARITA Non-Admin Reason: IV Running Thiamine HCl (Thiamine Hcl 100 Mg Tablet) 100 mg PO DAILY [facility] Last Admin: 06/14/23 08:02 Dose: 100 mg Documented By: SHARITA Labs 06/14/23 06:09 06/14/23 06:09 Labs: Laboratory Results - last 24 hr 06/13/23 06/13/23 06/13/23 16:56 22:51 22:52 MCV 93.7 MCH 32.0 MCHC 34.2 RDW 12.1 Plt Count 236 MPV 10.9 Immature Gran % (Auto) 0.4 Neut % (Auto) 81.4 H Lymph % (Auto) 10.1 L [place] % (Auto) 7.4 Eos % (Auto) 0.3 Baso % (Auto) 0.4 Lymph # (Auto) 1.0 L [place] # (Auto) 0.7 Eos # (Auto) 0.0 Baso # (Auto) 0.0 Abs Immat Gran (auto) 0.04 H Absolute Neuts (auto) 8.1 Absolute Nucleated RBC 0.000 Nucleated RBC % (auto) 0.0 PT 11.4 INR 0.9 Anion Gap 16 Estim Creat Clear Calc 86.9 Estimated GFR > 60 POC Glucose Random Glucose 303 H Calcium 9.1 D Magnesium 1.9 Total Bilirubin 0.5 Direct Bilirubin 0.2 AST 76 H ALT 80 H Alkaline Phosphatase 194 H Total Protein 7.3 Albumin 3.9 Triglycerides 222 H Lipase 272 H Vitamin B12 866 Folate 13.1 Urine Color Yellow Urine Appearance Clear Urine pH 6.0 Ur Specific [place] >= 1.030 H Urine Protein Negative Urine Glucose (UA) >=1000 H Urine Ketones 80 Urine Blood Negative Urine Nitrite Negative Ur Leukocyte Esterase Negative Urine RBC 0-2 Urine WBC 0-5 Ur Squamous Epith Cells 0-2 Urine Bacteria None Seen Hyaline Casts 0-2 Urine Opiates Screen Not Detected Urine Fentanyl Screen Not Detected Ur Barbiturates Screen POSITIVE H Ur Phencyclidine Scrn Not Detected Ur Amphetamines Screen Not Detected U Benzodiazepines Scrn Not Detected Urine Cocaine Screen Not Detected U Marijuana (THC) Screen Not Detected Ethyl Alcohol < 10 COVID-19 (BRAYAN) Negative COVID-19 Clin Com See Note 06/13/23 06/14/23 06/14/23 23:29 06:09 07:21 MCV 95.3 MCH 33.1 H MCHC 34.7 RDW 12.1 Plt Count 207 MPV 10.8 Immature Gran % (Auto) 0.2 Neut % (Auto) 50.5 Lymph % (Auto) 31.4 [place] % (Auto) 15.5 H Eos % (Auto) 1.4 Baso % (Auto) 1.0 Lymph # (Auto) 2.0 [place] # (Auto) 1.0 Eos # (Auto) 0.1 Baso # (Auto) 0.1 Abs Immat Gran (auto) 0.01 Absolute Neuts (auto) 3.2 Absolute Nucleated RBC 0.000 Nucleated RBC % (auto) 0.0 PT INR Anion Gap 10 L Estim Creat Clear Calc 110.1 Estimated GFR > 60 POC Glucose 303 H 110 Random Glucose 118 H Calcium 8.4 D Magnesium Total Bilirubin Direct Bilirubin AST ALT Alkaline Phosphatase Total Protein Albumin Triglycerides Lipase Vitamin B12 Folate Urine Color Urine Appearance Urine pH Ur Specific [place] Urine Protein Urine Glucose (UA) Urine Ketones Urine Blood Urine Nitrite Ur Leukocyte Esterase Urine RBC Urine WBC Ur Squamous Epith Cells Urine Bacteria Hyaline Casts Urine Opiates Screen Urine Fentanyl Screen Ur Barbiturates Screen Ur Phencyclidine Scrn Ur Amphetamines Screen U Benzodiazepines Scrn Urine Cocaine Screen U Marijuana (THC) Screen Ethyl Alcohol COVID-19 ([facility]AN) COVID-19 Clin Com 06/14/23 10:53 MCV MCH MCHC RDW Plt Count MPV Immature Gran % (Auto) Neut % (Auto) Lymph % (Auto) [place] % (Auto) Eos % (Auto) Baso % (Auto) Lymph # (Auto) [place] # (Auto) Eos # (Auto) Baso # (Auto) Abs Immat Gran (auto) Absolute Neuts (auto) Absolute Nucleated RBC Nucleated RBC % (auto) PT INR Anion Gap Estim Creat Clear Calc Estimated GFR POC Glucose 272 H Random Glucose Calcium Magnesium Total Bilirubin Direct Bilirubin AST ALT Alkaline Phosphatase Total Protein Albumin Triglycerides Lipase Vitamin B12 Folate Urine Color Urine Appearance Urine pH Ur Specific [place] Urine Protein Urine Glucose (UA) Urine Ketones Urine Blood Urine Nitrite Ur Leukocyte Esterase Urine RBC Urine WBC Ur Squamous Epith Cells Urine Bacteria Hyaline Casts Urine Opiates Screen Urine Fentanyl Screen Ur Barbiturates Screen Ur Phencyclidine Scrn Ur Amphetamines Screen U Benzodiazepines Scrn Urine Cocaine Screen U Marijuana (THC) Screen Ethyl Alcohol COVID-19 ([facility]RAYAN) COVID-19 Clin Com Assessment and Plan (1) Pancreatitis: Status: Acute Plan This is a 48-year-old female with pertinent history of alcohol use disorder, history of alcoholic pancreatitis, insulin-dependent diabetes mellitus, essential hypertension, mixed hyperlipidemia, gastroesophageal reflux disease who presents to the emergency department for evaluation of abdominal discomfort. # Acute pancreatitis related to alcohol use Imaging without biliary ductal dilatation and hx of cholecystectomy. acceptable triglyceride level. Full liquid diet and advance as tolerated. Opioid IV p.r.n. for pain control. IV crystalloid resuscitation. # Insulin-dependent diabetes mellitus with hyperglycemia: basal plus insulin regimen # Essential hypertension: On lisinopril # Gastroesophageal reflux disease: On PPI # Elevated transaminases: Likely alcoholic fatty liver disease # Alcohol use disorder: Monitor CIWA. Initiating thiamine, folate levels pending DVT prophylaxis: Lovenox 40 mg daily Admit as inpatient overnight hospital stay for IV crystalloid resuscitation, IV opioid p.r.n. (as above), which is not possible in a lesser acute setting. Quality Stroke Does the patient have a stroke diagnosis?: No VTE Prior VTE?: No VTE Risk Level:: Medical - moderate - high VTE Device Contraindication: Treatment Not Indicated VTE Drug Contraindication: N/A - Med Ordered
[2023-06-14 15:24] VITALS: BP 111/63; PULSE 59; RESP 18; TEMP 36.2; O2SAT 98
--- NOTE | 2023-06-14 16:28 | MHC.CM.PN ---
CM MET WITH PT WITH ACCOUNT ADJUSTER PT REPORTS HE LIVES ALONE AND RENTS A ROOM HE DENIES USE OF DME OR HOME SERVICES HE HAS A HCP ON FILE PCP: IRAIDA WINTERS PT WILL DC HOME WITH NO SERVICES HE SAYS HE HAS A RIDE
[2023-06-14 16:32] LABS: Glucose, Whole Blood 163 mg/dL (60-115)
[2023-06-14] MEDS: Potassium Chloride Packet 20 MEQ PACKET 40 MEQ PO (17:26)
[2023-06-14 19:22] VITALS: BP 113/62; PULSE 70; RESP 18; TEMP 36.2; O2SAT 97
[2023-06-14 20:25] LABS: Glucose, Whole Blood 338 mg/dL (60-115)
[2023-06-14] MEDS: Insulin Glargine,Hum.rec.anlog 100 UNIT/ML 10 ML VIAL 10 UNIT SUBCUT (21:28)
[2023-06-14] MEDS: Enoxaparin Sodium 40 MG/0.4 ML SYRINGE SUBCUT (21:28)
[2023-06-14] MEDS: Lactated Ringers 1,000 ML 150 ML IVCONT (21:31)
[2023-06-15] MEDS: Morphine Sulfate 2 MG/ML CARTRIDGE IVPUSH ×2 (00:22→08:43)
[2023-06-15] MEDS: Lactated Ringers 1,000 ML 150 ML IVCONT ×2 (03:33→10:22)
[2023-06-15 03:40] VITALS: BP 112/64; PULSE 55; RESP 16; TEMP 36; O2SAT 98
[2023-06-15] MEDS: Omeprazole 20 MG CAPSULE.DR PO (05:34)
[2023-06-15 06:11] LABS: Anion Gap 9 (12-20); Blood Urea Nitrogen 5 mg/dL (9-16); Calcium 8.9 mg/dL (8.4-10.2); Carbon Dioxide 30 mmol/L (22-29); Chloride 105 mmol/L (96-108); Creatinine Clr Calc Pharmacy 113.6; Estimated Glomerular Filt Rate > 60; Glucose Random 118 mg/dL (60-115); Potassium 3.3 mmol/L (3.3-5.1); Sodium 141 mmol/L (135-145)
[2023-06-15 07:49] VITALS: BP 108/59; PULSE 57; RESP 18; TEMP 36.1; O2SAT 98
[2023-06-15 08:12] LABS: Glucose, Whole Blood 110 mg/dL (60-115)
[2023-06-15] MEDS: Thiamine HCL 100 MG TABLET PO (08:45)
[2023-06-15] MEDS: Aspirin Enteric Coated 81 MG TABLET.DR PO (08:45)
[2023-06-15] MEDS: lisinopriL 5 MG TABLET PO (08:45)
[2023-06-15] MEDS: Nystatin Oral Susp 500,000 UNIT/5 ML ORAL.SUSP 500000 UNIT PO (08:45)
--- NOTE | 2023-06-15 11:24 | PM.DS ---
DS: Providers Provider Date of Service: 06/15/23 Date of admission: 06/13/23 22:09 Primary care physician: Kristin León DO DS: Diagnosis Discharge Diagnosis (1) Pancreatitis: Status: Acute (2) Alcohol use disorder: Status: Acute (3) Acute hypokalemia: Status: Acute DS: Summary Hospital Course Hospital Course: Admission note HPI This is a 48-year-old female with pertinent history of alcohol use disorder, history of alcoholic pancreatitis, insulin-dependent diabetes mellitus, essential hypertension, mixed hyperlipidemia, gastroesophageal reflux disease who presents to the emergency department for evaluation of abdominal discomfort. Patient states that he started having right upper quadrant/epigastric pain 1 day prior to presentation. It is constant and radiating to the back. No relieving factors. Also has associated nausea. Does endorse alcohol use but states his last drink was 2 weeks prior to presentation. No history of alcohol withdrawals as per the patient. No fever, chills, chest discomfort, palpitations, shortness of breath, changes in urinary or bowel habits. In the emergency department, lipase found to be elevated and imaging concerning for acute pancreatitis. Hospital course Treated for evidence of acute alcoholic pancreatitis with IV fluids and pain medications with NPO and advancing diet as tolerated. he responded well as the pain improved, no more nausea and vomiting as he was able to tolerate diet. advised complete abstinence from Alcohol. Developed acute hypokalemia which was corrected and fixed. We advise you complete abstinence from Alcohol Advance your diet slowly drink plenty of fluids Zofran for nausea Time Attestation Discharge coordination time: Greater than 30 minutes Quality: Safe Use of Opioids Does Pt have an Active Cancer Diagnosis on the Problem List?: No Quality: Stroke Does the patient have a stroke diagnosis?: No Physical Exam Vital Signs: Vital Signs: Last Vital Signs Temp 97.0 F 06/15/23 07:49 Pulse 57 06/15/23 07:49 Resp 18 06/15/23 07:49 BP 108/59 L 06/15/23 07:49 Pulse Ox 98 06/15/23 07:49 O2 Del Method Room Air 06/15/23 07:49 BMI result Body Mass Index 20.9 Const: Other: Constitutional : Awake, interactive, not in distress Neck : Normal inspection, Supple Cardiovascular : RRR, no JVP, no lower extremity edema Respiratory : good bilateral air entry, no crackles, wheezes or rhonchi Gastrointestinal: soft, lax, Normal bowel sounds, no Epigastric tenderness o Skin : Warm, Dry Neurological : Alert & oriented x3, No focal deficit DS: Data Data Completed and Pending Labs on day of discharge: Laboratory Results - last 24 hr 06/14/23 06/14/23 06/15/23 16:28 20:21 05:35 Hold Purple Top SEE NOTE Sodium 141 Potassium 3.3 D Chloride 105 Carbon Dioxide 30 H Anion Gap 9 L BUN 5 L Creatinine 0.64 Estim Creat Clear Calc 113.6 Estimated GFR > 60 POC Glucose 163 H 338 H Random Glucose 118 H Calcium 8.9 06/15/23 07:48 Hold Purple Top Sodium Potassium Chloride Carbon Dioxide Anion Gap BUN Creatinine Estim Creat Clear Calc Estimated GFR POC Glucose 110 Random Glucose Calcium Imaging CT scan - abdomen: Radiologist's impression: ITS Impressions Ribs X-Ray 06/13/23 17:50 IMPRESSION: No evidence for acute disease in the chest. No rib fracture. Abdomen Ultrasound 06/13/23 20:21 IMPRESSION: 1. The gallbladder is surgically absent. 2. Otherwise, unremarkable examination, with imaging of the pancreas technically limited. Abdomen/Pelvis CT 06/13/23 20:49 IMPRESSION: * Newly developed mild peripancreatic fat stranding around the head of the pancreas, although nonspecific, is compatible with patient history of acute pancreatitis. Evaluation of the pancreas for possible complication such as necrosis is limited on this noncontrast CT. * Status post cholecystectomy. Discharge Plan Discharge Anticipated Discharge Date/Time: 06/15/23 11:19 Patient Disposition: Home, Self-Care Discharge Diagnosis: Pancreatitis Referrals: Kristin León DO [Primary Care Provider] - 1 Week Discharge Medications: New ondansetron 4 mg tablet,disintegrating 4 mg PO Q8H PRN (Reason: nausea and vomiting) Qty: 14 0RF Continued insulin glargine [Lantus U-100 Insulin] 100 unit/mL Solution 10 unit SUBCUT BEDTIME lisinopril 5 mg Tablet 5 mg PO DAILY metformin 500 mg tablet extended release 24 hr 500 mg PO BID aspirin 81 mg tablet,delayed release (DR/EC) 1 tab PO DAILY omeprazole 20 mg Capsule,Delayed Release(Dr/Ec) 20 mg PO BID@0630,1630 Qty: 60 0RF naltrexone 50 mg tablet 50 mg PO DAILY Qty: 30 0RF Rx Instructions: Take 1/2 tab daily for 3 days, then increase to 1 tab daily nystatin 500,000 unit tablet 500,000 unit PO BID Discharge Orders: Discharge Order (Routine); Ordered 06/15/23 Ordered By: Dominic Guadalupe Diet: Advance to usual diet Activity on Discharge: As tolerated Stand Alone Forms: Patient Portal Discharge page Care Plan Goals: Read below Health Concerns: Read below Plan of Treatment: Read below Assessment: We advise you complete abstinence from Alcohol Advance your diet slowly drink plenty of fluids Zofran for nausea
--- NOTE | 2023-06-15 11:30 | MHC.CM.PN ---
PT WILL DC HOME TODAY WITH NO SERVICES VIA PRIVATE TRANSPORT
[2023-06-15 11:31] LABS: Glucose, Whole Blood 233 mg/dL (60-115)
[2023-06-15] MEDS: Insulin Lispro 100 UNIT/ML 3 ML VIAL SUBCUT (11:56)
== END 2023-06-15 12:00 | disposition home or self-care (01) | DRG 282 ==
LOC: HO.ED 21:17 → HO.EDOVER 22:24 → HO.S3 23:27
PROVIDERS: Physician Assistant; Admitting Provider Student in an Organized Health Care Education/Training Program; Emergency Provider Internal Medicine; PCP Family Medicine; Visit Provider Student in an Organized Health Care Education/Training Program
DX: K85.20 Alcohol induced acute pancreatitis without necrosis or infection (principal); K70.0 Alcoholic fatty liver; E11.65 Type 2 diabetes mellitus with hyperglycemia; F10.10 Alcohol abuse, uncomplicated; I10 Essential (primary) hypertension; E78.2 Mixed hyperlipidemia; E87.6 Hypokalemia; K21.9 Gastro-esophageal reflux disease without esophagitis; Z20.822 Contact with and (suspected) exposure to COVID-19; Z79.4 Long term (current) use of insulin; Z79.82 Long term (current) use of aspirin; Z79.84 Long term (current) use of oral hypoglycemic drugs; Z79.899 Other long term (current) drug therapy
CPT/HCPCS: 36415; 71101; 74176; 76705; 80048; 80076; 80307; 81001; 82607; 82746; 82947; 83690; 83735; 84478; 84484; 85025; 85610; 87635; 93005; 99221; 99285; J1650; J2270; J3480; J7120

== ENCOUNTER → 2023-06-13 22:09 | Outpatient (BNV) | payer MEDICAID, SELFPAY | PROVIDERS: Admitting Provider Student in an Organized Health Care Education/Training Program; Emergency Provider Internal Medicine; PCP Family Medicine; Visit Provider Student in an Organized Health Care Education/Training Program | DX: K85.90 Acute pancreatitis without necrosis or infection, unspecified (principal) | CPT/HCPCS: 99222; 99232; 99239 ==

== ENCOUNTER 2023-08-27 07:38 | Day surgery (SDC) | payer MEDICAID, SELFPAY ==
[2023-08-23 13:47] VITALS: BMI 21.8
--- NOTE | 2023-08-24 09:51 | P.CONAN_ITS ---
Documented by User: Denisha Petit NP 08/24/23 09:53 HPI - Anesthesia Eval Consult details Narrative: 48yo M for Left Repair of Hernia Inguinal Reducible with mesh ETOH abuse. [facility] admit 05/2023 with ETOH pancreatitis. No hx of withdrawal per pt during that admit. [facility] Active Problems Active Problems: All Active Problems (Updated 06/23/23 @ 00:03 by Background Naresh) Acute hypokalemia (Acute) Oral thrush (Acute) Alcoholic ketoacidosis (Acute) Abdominal pain (Acute) Left inguinal hernia (Acute) Alcohol use disorder (Acute) Elevated LFTs (Acute) Past Medical History Medical History Alcohol abuse HTN (hypertension) Diabetes Surgical History Surgical History History of laparoscopic cholecystectomy Social History Social History Household Members: None Household Members Other:: rents a room in a house with roommates Housing: Apartment Do you presently have visiting nurse or other home services: No Alcohol intake: current Alcohol intake frequency: 3 or more drinks per day Alcohol type: beer 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 Patient Tobacco Use Status: Never used Tobacco Advance Directives: No Advance Directives Information Provided: Yes Advance Directives Date on File: 11/01/20 service: No Current occupational status: employed 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 [employer] in [facility] [employer] in [facility] Allergies Allergy/AdvReac Type Severity Reaction Status Date / Time No Known Allergies Allergy Verified 08/27/23 07:59 Home Medications Medication Instructions Recorded Confirmed Last Taken Type insulin glargine 100 unit/mL 10 unit subcut BEDTIME 08/09/20 06/13/23 08/26/23 22:30 History subcutaneous solution (Lantus 10 units U-100 Insulin) lisinopril 5 mg tablet 5 mg PO DAILY 08/09/20 06/13/23 06/13/23 History metformin 500 mg tablet,extended 500 mg PO BID 12/27/21 06/13/23 06/13/23 History release 24 hr aspirin 81 mg tablet,delayed 1 tab PO DAILY 01/01/1906/13/23 06/13/23 History release Exam Height,Weight and Vital Signs: Height 5 ft 5 in Weight 59.421 kg Pertinent Lab Results Pertinent Lab Results: Laboratory Tests 06/14/23 06/15/23 06:09 05:35 WBC 6.3 Hgb 12.7 L Hct 36.6 L Plt Count 207 Sodium 141 Potassium 3.3 D Chloride 105 Carbon Dioxide 30 H BUN 5 L Creatinine 0.64 Narrative Narrative: EKG 05/2023 Vent. Rate : 067 BPM Atrial Rate : 067 BPM P-R Int : 156 ms QRS Dur : 100 ms QT Int : 402 ms P-R-T Axes : 070 034 055 degrees QTc Int : 424 ms Normal sinus rhythm Normal ECG When compared with ECG of 29-MAY-2023 02:55, No significant change was found Assessment and Plan Assessment Anesthesia Assessment: Chart Reviewed Documented by User: Vanita Dixon MD 08/27/23 08:12 HPI - Anesthesia Eval Consult details Narrative: 48yo M for Left Repair of Hernia Inguinal Reducible with mesh ETOH abuse. [facility] admit 05/2023 with ETOH pancreatitis. No hx of withdrawal per pt during that admit.on jardian e and insulin PMFSH Past Medical History Medical History Alcohol abuse HTN (hypertension) Diabetes Family History Family history of problems with anesthesia: No Surgical History Surgical History History of laparoscopic cholecystectomy History of Problems with Anesthesia: No Social History Social History Household Members: None Household Members Other:: rents a room in a house with roommates Housing: Apartment Do you presently have visiting nurse or other home services: No Alcohol intake: current Alcohol intake frequency: 3 or more drinks per day Alcohol type: beer 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 Patient Tobacco Use Status: Never used Tobacco Advance Directives: No Advance Directives Information Provided: Yes Advance Directives Date on File: 11/01/20 service: No Current occupational status: employed 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 [employer] in [employer] in [facility] Allergies Allergy/AdvReac Type Severity Reaction Status Date / Time No Known Allergies Allergy Verified 08/27/23 07:59 Home Medications Medication Instructions Recorded Confirmed Last Taken Type insulin glargine 100 unit/mL 10 unit subcut BEDTIME 08/09/20 06/13/23 08/26/23 22:30 History subcutaneous solution (Lantus 10 units U-100 Insulin) lisinopril 5 mg tablet 5 mg PO DAILY 08/09/20 06/13/23 06/13/23 History metformin 500 mg tablet,extended 500 mg PO BID 12/27/21 06/13/23 06/13/23 History release 24 hr aspirin 81 mg tablet,delayed 1 tab PO DAILY 08/04/22 06/13/23 06/13/23 History release Exam Airway Mallampati Class: II TM Dist: >3cm Neck ROM: Full Heart: rrr Lungs: cta Assessment and Plan Assessment Anesthesia Assessment: Anesthesia Plan Discussed Final Anesthetic Review Family History of Problems with Anesthesia: No History of Problems with Anesthesia: No NPO: Yes ASA Class: III Final Preanesthetic Review: No Changes in Pt Med Stat, Meds/Allgs Chart Reviewed, Consent Obtained/Reviewed and Anes Risks/Benef Reviewed Patient Risk: Intermediate Procedure Risk: Low Anesthetic Plan Anesthetic Plan: GA Disposition: Standard PACU
[2023-08-27] VITALS (7 sets, daily range): BP systolic 111–142; BP diastolic 61–84; PULSE 60–66; RESP 16–18; TEMP 36.6–37.3; O2SAT 97–100; BMI 20.7
[2023-08-27 08:33] LABS: Glucose, Whole Blood 251 mg/dL (60-115)
[2023-08-27] MEDS: Lactated Ringers 1,000 ML 100 ML IVCONT (09:00)
--- NOTE | 2023-08-27 09:18 | MHC.SHP ---
Pre-Procedural Eval Section A - 24 Hr Update-Section A only Date of Service: 08/27/23 The patient is an INPATIENT: No Changes since office visit: Yes Patient answered all questions; No Cold of Flu in the past 2 weeks, No New Medical Problems and No Changes in Medication The patient has been examined within 24 hours of the surgical procedure. The History & Physical has been completed within 30 days and I have reviewed it.: Yes Section B - Complete if H&P > 30 days Chief Complaint: Unilateral inguinal hernia, without obstruction or Details of Present Illness: Patient reports occasional discomfort with heavy lifting but otherwise feels well. Relevant Family History (Specify if Yes): No Relevant Social History: None Present Medications: see Short Stay Collaborative assessment Medical History: Significant History (Diabetes) History of Previous Operations: No relevant previous surgery Allergies: Allergies Allergy/AdvReac Type Severity Reaction Status Date / Time No Known Allergies Allergy Verified 08/27/23 07:59 Review of Systems Sugical H&P ROS: Negative: Constitution, Cardiovascular, Respiratory, Neurological, Psychiatric, Hem-Onc, Allergic/Immunologic, Gastrointestinal, Genitourinary, Musculoskeletal, Integumentary, Endocrine and Eyes/Ears/Nose/Throat Exam Surgical H&P Exam: Normal: HEENT, Normal: Heart, Normal: Lungs, Normal: Extremities, Normal: Skin and Normal: Neurological and Significant Findings: Abdomen (Reducible left inguinal hernia) Plan Diagnosis/Plan: Unchanged I have reviewed the history and physical and performed a pertinent physical examination on my patient. No changes have occurred unless specified. Time Spent With Patient Time: Total time managing care of this patient today ____ minutes.
--- NOTE | 2023-08-27 10:17 | W.PM.OPN ---
Operative Note Operative Note Date of Service: 08/27/23 Narrative: Preoperative diagnosis: Left inguinal hernia, reducible Postoperative diagnosis: Same Procedure: Repair of left inguinal hernia with mesh Surgeon: Jorge Diamond MD Grain Miller Helper: Naomy Tovar PA-C Anesthesia: General and LMA Indications for procedure: 40-year-old male patient presenting with a soft tissue mass in the left groin which increases in size with lifting and straining and reduces with light pressure. Operative findings: Patient found to have a reducible indirect left inguinal hernia repaired using a large PHS mesh Specimen: Hernia sac Estimated blood loss: Less than 2 mL Complications: None Procedure details: Patient was brought to the OR placed in a supine position. After administering general anesthesia patient's abdomen was prepped with ChloraPrep and draped in a sterile fashion. A surgical time-out was called the consent confirmed. Patient received preoperative antibiotics and Venodyne boots were in place. Local anesthesia consisting of 0.5% Sensorcaine was infiltrated over the left inguinal ligament. Incision was then made with a scalpel and carried out through subcutaneous tissue, past Coty's fascia to the external oblique aponeurosis. Local anesthesia was then infiltrated below the aponeurosis and incision made with a scalpel. This was then widened with the Metzenbaum scissors. The spermatic cord was then dissected free from the surrounding inguinal canal. This was retracted using a [place] drain. The floor of the inguinal canal was found to be lax but also a large lipoma was noted within the inguinal canal. Fibers of the cremasteric muscle were and a lipoma and indirect sac were identified. This was then dissected to the internal ring. The sac was then ligated and divided using a 0 Polysorb suture. The sac was sent as a specimen to pathology. Fibers of the internal oblique and transversalis aponeurosis were then incised using electrocautery. Preperitoneal space was then entered. This was widened using an open Ray-Irvin sponge. A large PHS mesh was then obtained. The circular underlay was then deployed within the preperitoneal space. The overlay was then secured to the pubic tubercle, conjoined tendon, and shelving edge of the inguinal ligament using the 0 Polysorb suture. A slit was made in the mesh the mesh wrapped around the spermatic cord and secured to the shelving edge using the 0 Polysorb suture. Internal ring was felt to be tight enough to allow the passage of the tip of the index finger. The remainder of the mesh was placed laterally below the external oblique aponeurosis. Wounds were then irrigated with saline solution and suctioned dry. External oblique aponeurosis was closed using a running 2-0 Polysorb suture. Approximately 6 mL of Zenrelef was then infiltrated below the external oblique aponeurosis. Coty's fascia and dermis were then reapproximated using interrupted 3-0 Polysorb sutures. Skin was closed using a running subcuticular 4-0 Polysorb suture. Steri-Strips, 2 x 2 gauze and Tegaderm were then applied. The patient tolerated the procedure well. Sponge, instrument, and needle counts reported as correct. The patient was transferred to PACU in stable condition.
--- NOTE | 2023-08-27 10:23 | PC.NURSE ---
Patient took his aspirin this morning. Dr. Diamond aware, okay to proceed. Patient took AM hypertension med as well as PO diabetic meds. Dr. Dixon at bedside and made aware. No new orders, okay to proceed.
== END 2023-08-27 11:54 | disposition home or self-care (01) ==
PROVIDERS: PCP Family Medicine; Visit Provider Surgery
PROC: (CPT 49505; principal; 2023-08-27 09:40)
DX: K40.90 Unilateral inguinal hernia, without obstruction or gangrene, not specified as recurrent (principal); E11.9 Type 2 diabetes mellitus without complications; I10 Essential (primary) hypertension; Z79.4 Long term (current) use of insulin; Z79.82 Long term (current) use of aspirin; Z79.899 Other long term (current) drug therapy
CPT/HCPCS: 49505; 82947; 88302; C1781; C9088; J0131; J0690; J1885; J2250; J2405; J2704; J2795; J3010

== ENCOUNTER → 2023-08-27 07:38 | Outpatient (BNV) | payer MEDICAID, SELFPAY | PROVIDERS: PCP Family Medicine; Visit Provider Surgery | DX: K40.90 Unilateral inguinal hernia, without obstruction or gangrene, not specified as recurrent (principal) | CPT/HCPCS: 49505 ==

== ENCOUNTER 2023-09-04 10:27 | Outpatient (AMB) | payer MEDICAID, SELFPAY ==
--- NOTE | 2023-09-04 10:46 | MHC.OFFVIS ---
Intake Vital Signs 09/04/23 10:52 Height 5 ft 2 in Weight 123 lb 2 oz BMI 22.5 BP 141/78 H Blood Pressure Location Lt brachial Position Sitting Pulse 78 Intake Visit Reasons: post [facility] Intake Note: Patient is seen in office for post op assessment post left inguinal hernia repair. Pt c/o: minimal pain post surgery, eating well, bowels good, no concerns Manager Field Investigations Required: No Accompanied by: Self / Same As Patient Allergies No Known Allergies Allergy (Verified 08/27/23 07:59) Medication List - Last Reconciled 09/04/23 by Jorge Diamond MD aspirin 1 tab PO DAILY empagliflozin (Jardiance) 25 mg PO QAM insulin glargine (Lantus U-100 Insulin) 10 units subcut BEDTIME lisinopril 5 mg PO DAILY metformin ER 500 mg PO BID naltrexone 50 mg PO DAILY omeprazole 20 mg PO BID@0630,1630 oxycodone 5 mg PO Q6H PRN HPI HPI Comments History of Present Illness Details 40-year-old male patient presenting with left inguinal hernia status post repair 1 week ago on 08/27/2023. He reports minimal to no pain. There has been no bleeding or discharge from the incision. He is eating well and denies any problems with his bowels. 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 Patient Tobacco Use Status: Former Tobacco user Tobacco use type: Cigarette Advance Directives Date on File: 11/01/20 service: No Current occupational status: employed 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 [employer] in [facility] [employer] [facility] [place] Physical Exam Vital Signs: Last Vital Signs Pulse 78 09/04/23 10:52 BP 141/78 H 09/04/23 10:52 BMI result Body Mass Index 22.5 Const General: comfortable Nutritional Appearance: well nourished Orientation/consciousness: patient oriented x3 Limitations: no limitations Resp Effort & Inspection: normal respiratory effort GI Other: Left inguinal incision is clean, dry, and intact without redness or discharge. No hernia noted with Valsalva maneuvers. Neuro General: patient oriented x3 Extrem Other: No edema Assessment & Plan Assessment & Plan (1) Left inguinal hernia: Code(s): K40.90 - Unilateral inguinal hernia, without obstruction or gangrene, not specified as recurrent Plan 40-year-old male patient status post repair of a left inguinal hernia with mesh. He tolerated the procedure well and his wounds are healing nicely. I recommended he continue to avoid lifting greater than 10 lb and return approximately 4 weeks for final postoperative check. He expressed understanding and agrees with the plan. Coding Level of Care Code Global (41353) Diagnoses Left inguinal hernia K40.90
[2023-09-04 10:52] VITALS: BP 141/78; PULSE 78; BMI 22.5
== END 2023-09-04 10:58 | disposition home or self-care (01) ==
PROVIDERS: PCP Family Medicine; Visit Provider Surgery
DX: K40.90 Unilateral inguinal hernia, without obstruction or gangrene, not specified as recurrent (principal)
CPT/HCPCS: 99024

== ENCOUNTER → 2023-09-04 10:27 | Outpatient (BNVA) | payer MEDICAID, SELFPAY | PROVIDERS: PCP Family Medicine; Visit Provider Surgery | DX: Z48.815 Encounter for surgical aftercare following surgery on the digestive system (principal); Z98.890 Other specified postprocedural states | CPT/HCPCS: 99212 ==

== ENCOUNTER 2023-10-02 10:18 | Outpatient (AMB) | payer MEDICAID, SELFPAY ==
[2023-10-02 10:38] VITALS: BP 157/97; PULSE 87; BMI 22.7
--- NOTE | 2023-10-02 10:38 | MHC.OFFVIS ---
Intake Vital Signs 10/02/23 10:38 Height 5 ft 2 in Weight 124 lb 2 oz BMI 22.7 BP 157/97 H Blood Pressure Location Lt brachial Position Sitting Pulse 87 Intake Visit Reasons: one month post [facility] Intake Note: Patient is seen in office for one month follow up visit, post left inguinal hernia repair. 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 He tolerated the procedure well and does report occasional discomfort extending into the left testicle with heavy lifting. He denies any nausea, vomiting, fever or chills. Denies a palpable lump. 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 No evidence of hernia recurrence. Nontender to palpation. No evidence of wound infection. Inspection: Yes normal to inspection Palpation (GI): Soft to palpation, nontender, no guarding and not rigid Assessment & Plan Assessment & Plan (1) Left inguinal hernia: Code(s): K40.90 - Unilateral inguinal hernia, without obstruction or gangrene, not specified as recurrent Plan 48-year-old male patient returning approximately 1 month following repair of a left inguinal hernia with mesh. His wounds are now well healed without evidence of infection. There is no evidence of hernia recurrence with Valsalva maneuvers. He may resume normal activity without restriction as of 10/09/2023. He should follow up as needed. Coding Level of Care Code Global (36334) Diagnoses Left inguinal hernia K40.90
== END 2023-10-02 10:53 | disposition home or self-care (01) ==
PROVIDERS: PCP Family Medicine; Visit Provider Surgery
DX: K40.90 Unilateral inguinal hernia, without obstruction or gangrene, not specified as recurrent (principal)
CPT/HCPCS: 99024

== ENCOUNTER → 2023-10-02 10:18 | Outpatient (BNVA) | payer MEDICAID, SELFPAY | PROVIDERS: PCP Family Medicine; Visit Provider Surgery | DX: Z98.890 Other specified postprocedural states (principal) | CPT/HCPCS: 99212 ==

== ENCOUNTER 2024-07-03 09:52 | Outpatient (REF) | payer MEDICAID, SELFPAY ==
[2024-07-03 11:37] LABS: Hematocrit 42.6 % (42.0-52.0); Hemoglobin 14.8 g/dl (14.0-18.0); Mean Corpuscular HGB Conc 34.7 g/dl (31.0-36.0); Mean Corpuscular Volume 92.2 fL (80.0-98.0); Mean Platelet Volume 11.2 fL (9.4-12.4); Platelet Count 284 X10*3/uL (160-400); Red Blood Count 4.62 X10*6/uL (4.60-5.80); Red Cell Distribution Width 11.9 % (11.0-16.0)
[2024-07-03 11:47] LABS: Estimated Average Glucose 255 mg/dL; Hemoglobin A1C 343.9724 umol/L; Hemoglobin A1c % 10.5 % (<6.0); Total Hemoglobin (HGBA1C) 3789.1605 umol/L
[2024-07-03 11:59] LABS: Alanine Aminotransferase 29 U/L (0-40); Alkaline Phosphatase 100 U/L (39-117); Anion Gap 11 (12-20); Aspartate Amino Transferase 22 U/L (5-37); Bilirubin Direct 0.3 mg/dL (0.0-0.5); Blood Urea Nitrogen 18 mg/dL (9-16); Calcium 9.1 mg/dL (8.4-10.2); Carbon Dioxide 25 mmol/L (22-29); Chloride 105 mmol/L (96-108); Cholesterol 213 mg/dL (<200); Estimated Glomerular Filt Rate > 60; Glucose Random 215 mg/dL (60-115); HDL Cholesterol 53 mg/dL (>40); LDL Cholesterol Calculated 130 mg/dL (<100); Sodium 137 mmol/L (135-145); Total Protein 7.3 g/dL (6.5-8.0); Triglycerides 150 mg/dL (<150)
[2024-07-03 12:08] LABS: HBsAGNum1 0.39 S/CO (0.00-0.99); HIV AB/AG Nonreactive (Nonreactive); HIV Num 1 0.06 S/CO (0.00-0.99); Hepatitis B Surface Antigen Negative (Negative); ~HepC Num1 0.31 S/CO (0.00-0.79); ~Hepatitis B Surface Antibody NONREACTIVE (Nonreactive); ~Hepatitis C Antibody Nonreactive (Nonreactive)
[2024-07-03 12:17] LABS: Free T4 (Free Thyroxine) 1.07 ng/dL (0.71-1.85); Thyroid Stimulating Hormone 2.73 uIU/mL (0.32-4.0); Vitamin D 25-OH Total 29.3 ng/mL (>30)
[2024-07-03 12:27] LABS: Creatinine Urine 58.61 mg/dL; Microalbum/Creatinine Ratio Ur 10.2 ug/mg cr (<30)
[2024-07-03 13:16] LABS: CT PCR NOT DETECTED (Not Detect.); NG PCR NOT DETECTED (Not Detect.)
[2024-07-05 20:34] LABS: RPR Rapid Plasma Reagin NON-REACTIVE (NON-REACTIVE)
[2024-07-07 13:18] LABS: Alpha Fetoprotein 3.2 ng/mL (<6.1)
== END 2024-07-03 09:53 | disposition home or self-care (01) ==
LOC: HO.HHCL 09:52
PROVIDERS: Visit Provider Family Medicine
DX: K76.0 Fatty (change of) liver, not elsewhere classified (principal); E11.9 Type 2 diabetes mellitus without complications; Z79.4 Long term (current) use of insulin
CPT/HCPCS: 80048; 80061; 80076; 82043; 82105; 82306; 82570; 83036; 84439; 84443; 85027; 86592; 86706; 86803; 87340; 87389; 87491; 87591